=== PATIENT | male | born 1965 | race Caucasian/White ===

== ENCOUNTER → 2023-04-24 08:04 | Outpatient (REF) | payer OTHER, SELFPAY | LOC: WOUND 08:04 | PROVIDERS: ATTENDING PHYSICIAN Surgery; REFERRING PHYSICIAN Family Medicine | DX: I87.2 Venous insufficiency (chronic) (peripheral) (principal); L97.825 Non-pressure chronic ulcer of other part of left lower leg with muscle involvement without evidence of necrosis; I73.9 Peripheral vascular disease, unspecified; Z79.01 Long term (current) use of anticoagulants; Z86.73 Personal history of transient ischemic attack (TIA), and cerebral infarction without residual deficits; Z86.718 Personal history of other venous thrombosis and embolism; M21.372 Foot drop, left foot; I89.0 Lymphedema, not elsewhere classified; I10 Essential (primary) hypertension; E11.65 Type 2 diabetes mellitus with hyperglycemia; E66.01 Morbid (severe) obesity due to excess calories | CPT/HCPCS: 11043; 11046; 99204 ==

== ENCOUNTER 2023-08-27 09:19 | Emergency (ER) | payer OTHER, SELFPAY ==
[2023-08-27 09:42] VITALS: BP 171/94
--- NOTE | 2023-08-27 10:12 | ED.GENMED ---
History of Present Illness
General
Chief Complaint: Abdominal Symptoms
Source: patient
Exam Limitations: none
Time Seen by Provider: 08/27/23 09:52
Nursing documentation reviewed up to this point in time: agreed with
Travel History
Have you had any contact with someone who has COVID-19?: No
Do you have any symptoms of coronavirus? Fever > 100 degrees, chills, cough, shortness of breath, sore throat, loss of taste or smell, muscle aches, or headache?: No
History of Present Illness
History of Present Illness:
58-year-old male with a past medical history of obesity, hypertension, atrial fibrillation on Xarelto, diabetes, chronic alcohol abuse who presents to the emergency department for evaluation of abdominal pain. Patient reports onset of symptoms
evening and have been constant since that time and he feels generally worsening. Initially he reports onset of nausea/unsettled feeling in the epigastric region. Sunday says he had a few episodes of vomiting as well as on Sunday. No
vomiting yesterday. Today started having more pain in the epigastric region and still feeling very nauseated. Came to the emergency room for assessment. He has not had any diarrhea or constipation. He has not had any urinary issues. Denies any
chest pain or shortness of breath. He denies any fever or chills. He does report daily alcohol use (~10 beers daily). He says his last drink was 2 days ago. He does feel mildly anxious and appears slightly restless.
Past History
Past History
ED Past Medical History: Arrthythmia (afib on Xarelto), CVA, HTN, Hypercholesterolemia, NIDDM, Other (Fatty liver, GERD, history of A-fib, left foot drop, anxiety) and Other (sleep apnea/obesity/)
ED Past Surgical History: Cardiac and Tonsilectomy
Social History
Tobacco: Non-smoker
Alcohol: Binge drinker
Drug: Cocaine
Personal:
Living: with family
Employment: Employed
Family History
Family History: Other
Review of Systems
Review of Systems
All Other Systems: ROS reviewed and negative except as documented in HPI and ROS
Constitutional: Denies fever or chills
EENT: Denies sore throat or runny nose
Respiratory: Denies cough or trouble breathing
Cardiac: Denies chest pain or palpitations
ABD/GI: Reports abdominal pain, nausea and vomiting; Denies diarrhea or constipated
: Denies dysuria, frequency or flank pain
Musculoskeletal: Denies neck pain or back pain
Neurological: Denies headache, weakness or numbness
Psychiatric: Reports anxiety
Phy Exam
Physical Exam
Physical Exam:
General: Awake, alert, oriented x3; somewhat restless/anxious appearing
Head: Normocephalic, atraumatic
Eyes: Conjunctiva normal, EOMI, sclera anicteric
Throat: Airway intact, handling secretions
Neck: Trachea midline, supple without meningismus
Lungs: Clear to auscultation bilaterally, no wheezing, rales, rhonchi
Heart: Regular rate and rhythm, no murmurs, gallops, or rubs
Abd: Soft, obese, nondistended; mild tenderness epigastric region no peritoneal signs and no masses
Neuro: Cranial nerves grossly intact, speech fluent no dysarthria; he is somewhat restless and has a mild tremor
Skin: Moist, no rash
Extremities: No edema in extremities, equal pulses in all extremities
Scores
Heart Failure Risk
Heart Failure Risk Score: Not Applicable
Heart Score for Chest Pain Patients
STEMI patient?: Not applicable
Withdrawal Assessment of Alcohol
Withdrawal Assessment Completed?: Yes
Nausea and Vomiting: Mild nausea with no vomiting
Tactile Disturbances: None
Tremor: Not visible, but can be felt fingertip to fingertip
Auditory Disturbances: Not present
Paroxysmal Sweats: Beads of sweat obvious on forehead
Visual Disturbances: Not present
Anxiety: Moderately anxious, or guarded, so anxiety is inferred
Headache, Fullness in Head: Not present
Agitation: Moderately fidgety and restless
Orientation and clouding of sensorium: Oriented and can do serial additions
Total CIWA Score: 14
Alcohol Withdrawal Medication Recommendation: Equal to MSAS Score 5-7. Lorazepam 1mg IV or PO NOW & re-assess q2hrs
Course
Orders/Labs/Results
Orders:
Orders
08/27/23 10:00
Troponin I Urgent
08/27/23 10:01
Alcohol Urgent
Complete Blood Count/With Diff Urgent
Comprehensive Metabolic Panel Urgent
Lipase Urgent
Urinalysis Reflex To Culture Urgent
Date Specimen was Collected: 08/27/23
Time Specimen was Collected: 09:50
Urine Microscopic Reflex Cult Urgent
08/27/23 10:08
CT Abd/pelvis W Iv Cont Urgent
Comment:
Reason For Exam: epigastric pain, chronic ETOH abuse
Lorazepam [Ativan] 1 mg IV NOW STA
Mag Hydrox/Al Hydrox/Simeth [Maalox] 30 ml Phenobarb/Hyoscy/Atropine/Scop [] 10 ml PO NOW
Pantoprazole [Protonix IV] 40 mg IV NOW STA
08/27/23 10:13
Mag Hydrox/Al Hydrox/Simeth [Maalox] 30 ml .ROUTE .STK-MED ONE
Phenobarb/Hyoscy/Atropine/Scop [] 10 ml .ROUTE .STK-MED ONE
08/27/23 10:20
Electrocardiogram (*1) Urgent
Reason for Study: Abdominal Pain
EKG- Treatment ONCE
Abnormal Lab Results
08/27/23
10:01
Absolute Lymphs (auto) 0.9 L 10^3/uL
(1.2-3.4)
Absolute Monos (auto) 0.9 H 10^3/uL
(0.1-0.6)
Immature Gran % 0.6 H %
(0-0.5)
Lymphocytes % 12.3 L %
(20.5-51.1)
Monocytes % 11.7 H %
(1.7-9.3)
Sodium 131 L mmol/L
(135-145)
Chloride 92 L mmol/L
(98-107)
BUN 8 L mg/dl
(9-20)
Glucose 170 H mg/dl
(70-99)
ALT 64 H U/L
(0-50)
Urine RBC 3-6 A /HPF
(0-2)
Urine Glucose 3+ A
(Negative)
Urine Albumin (Reflex) 1+ A
(Neg - Trace)
08/27/23 10:01
08/27/23 10:01
Vital Signs
Initial and Last Documented VS:
Initial Vital Signs
Temp Pulse Resp BP Pulse Ox
36.8 C 70 16 171/94 98
08/27/23 09:42 08/27/23 09:42 08/27/23 09:42 08/27/23 09:42 08/27/23 09:42
Last Documented Vital Signs
Temp Pulse Resp BP Pulse Ox
37.1 C 75 16 176/88 96
08/27/23 11:55 08/27/23 13:17 08/27/23 13:17 08/27/23 13:17 08/27/23 13:17
MDM/Problems Addressed
Differential Diagnosis Includes:
Pancreatitis, alcoholic hepatitis, alcoholic gastritis, cholelithiasis/cholecystitis
MDM/Problems Addressed:
58-year-old male presents for evaluation of epigastric pain associate with nausea and vomiting over the past few days. He is a daily drinker. He also has some mild signs of alcohol withdrawal on exam today�says that his last drink was 2 days ago.
He is hypertensive, vital signs otherwise normal. Physical exam as above. Plan to place an IV check labs including a CBC and CMP, lipase. Will check urinalysis. Check alcohol level. Will check an EKG and a troponin in an abundance of caution
although symptoms do not sound classically cardiac in nature. Sent for CT of the abdomen pelvis. Treat with IV Ativan for mild withdrawal. Will treat with green grabber and IV Protonix�while pancreatitis and hepatitis are in the differential
diagnosis I suspect this may be a gastritis as he is only mildly tender on exam. Will monitor closely reassess after the above.
Labs reviewed: CBC unremarkable, CMP shows no clinically significant abnormalities�T bilirubin normal, ALT only marginally elevated at 64, lipase is normal. EKG shows no STEMI, troponin negative x 1 with consistent symptoms for days this is
sufficient to rule out an acute coronary syndrome; again symptoms do not sound cardiac. Alcohol is negative. CT abdomen pelvis shows gallstones but no signs of cholecystitis and no other acute pathology to account for patient's symptoms. While
gallstones are possible cause for his symptoms I suspect this is more likely alcohol related gastritis based on clinical presentation. While pain is occasionally worse with meals it is not clearly postprandial and seems more alcohol related. On
clinical reassessment patient had marked improvement with Protonix and green grabber here. He received some Ativan earlier for questionable alcohol withdrawal�he seems to be feeling much better has been here now for 5 hours has had no additional
symptoms of withdrawal will repeat doses of Ativan needed. I had a long discussion with the patient about his alcohol use explained that it is likely etiology or at least a contributor to his symptoms today. Explained that he has fatty liver on CT
abdomen and if he continues to drink likely to eventually develop cirrhosis. He says that he is not interested in rehab today but I did provide him with a list of rehab resources should he change his mind. I think at this point he is stable for
discharge with his symptoms resolved. Advised to follow-up with his primary care physician as an outpatient and will start him on Carafate and Protonix. He feels very comfortable with this. Spoke about return precautions all questions answered.
Chronic conditions affecting care:
Daily alcohol use
Acute Exacerbation and/or Progression of Chronic Illness:
Acutely hypertensive suspect secondary to mild alcohol withdrawal�treated with Ativan
Acute Exacerbation and/or Progression of Chronic Illness: HTN
*Radiology
Radiology exam reviewed: radiology read reviewed
*Pulse Oximetry
Patient hypoxic: no
*Critical Care Note
Total Time (30-74mins, 75-104mins- exclusive of procedures): Not Applicable
Data Reviewed
Review of Other/Old Records Reveals: Labs and Records
Source: patient and records
Patient Management
Social determinants of health affecting care: Substance abuse
ED Attending Note
-
Portions of this chart may have been created with voice recognition software.� Occasional wrong word or��sound alike� substitutions may have occurred due to the inherent limitations of voice recognition software.
Discharge Plan
Departure
Patient Disposition: Home (Routine Discharge)
Date of Disposition: 08/27/23
Time of Disposition: 14:38
Patient with high blood pressure during this ER visit?: Yes
Discharge Problem:
Acute alcoholic gastritis, Fatty liver, Gallstones
Instructions: Gastritis ED
Prescriptions:
New
pantoprazole [Protonix] 40 mg tablet,delayed release (DR/EC)
40 mg PO DAILY Qty: 30 0RF
sucralfate [Carafate] 100 mg/mL suspension
10 ml PO ACHS Qty: 1000 0RF
No Action
amlodipine 5 MG tablet
10 mg PO DAILY
doxazosin 4 MG tablet
4 mg PO DAILY
metoprolol tartrate 50 MG tablet
150 mg PO BID
bupropion HCl 300 MG tablet extended release 24 hr
300 mg PO DAILY
Xarelto 20 MG tablet
20 mg PO QPM
gabapentin [Neurontin] 600 MG tablet
600 mg PO TID
venlafaxine [Effexor XR] 150 MG capsule,extended release 24hr
300 mg PO DAILY
famotidine 20 MG tablet
20 mg PO DAILY
metformin 500 MG tablet extended release 24 hr
500 mg PO QID
zolpidem [Ambien CR] 12.5 MG tablet,ext release multiphase
12.5 mg PO HSPRN PRN (Reason: sleep)
Patient Comments:
05/05/2021: last filled 04/25/21, 30 tabs for 30 days from [facility]
zolpidem 10 MG tablet
10 mg PO HSPRN PRN (Reason: insomnia) Qty: 10 0RF
bupropion HCl [Wellbutrin XL] 300 mg tablet extended release 24 hr
300 mg PO DAILY Qty: 30 0RF
Referrals:
Shelbie Mejia MD [Family Provider] - Call in 1-3 days for appt
Activity Restrictions/Additional Instructions:
YOU MUST STOP DRINKING ALCOHOL OR IT WILL KILL YOU! If you need any help with rehab or resources for alcohol treatment you can always come back to the ED here for help.
Thank you for visiting the Emergency Department at [facility].
1. Please schedule a follow up appointment as directed. Call first thing tomorrow morning to make an appointment.
2. If indicated, please take your medications as instructed and indicated on discharge paperwork.
3. If any of your symptoms do not improve, or persist, or become more severe within 6-12 hours, please return to the emergency department for further care.
4. Please return to the emergency department if you develop a headache, neck pain/stiffness, fever greater than 100.4F, chest pain, shortness of breath, persistent nausea, vomiting, slurred speech, difficulty walking, numbness/tingling, weakness,
signs of infection or any other symptoms that are worrisome to you.
Please call [phone] if you have any questions.
Interventions
Interventions:
*Risk Screen - Suicide Last Done: 08/27/23 10:29
*General Assessment Last Done: 08/27/23 10:29
*Neglect/Abuse Screening Last Done: 08/27/23 10:29
ED- Fall Risk Assessment Last Done: 08/27/23 12:00
*ED COVID-19 Vaccine History Last Done: 08/27/23 09:42
[id number] Assessment Last Done: 08/27/23 12:00
[2023-08-27] MEDS: PROTONIX IV 40 MG IV (10:15)
[2023-08-27] MEDS: MAALOX 40 PO (10:15)
[2023-08-27] MEDS: ATIVAN 1 MG IV (10:15)
[2023-08-27 11:02] LABS: Troponin I < 0.012 ng/ml
[2023-08-27 11:07] LABS: % Basophils 0.8 % (0-2); % Eosinophils 2.6 % (0-6); % Immature Granulocytes 0.6 % (0-0.5); % Lymphocytes 12.3 % (20.5-51.1); % Monocytes 11.7 % (1.7-9.3); Absolute Basophils 0.1 10^3/uL (0-0.2); Absolute Eosinophils 0.2 10^3/uL (0-0.7); Absolute Lymphocytes 0.9 10^3/uL (1.2-3.4); Absolute Monocytes 0.9 10^3/uL (0.1-0.6); Absolute Neutrophils 5.2 10^3/uL (1.4-6.5); Hematocrit 47.8 % (39.0-52.0); Mean Corp Hgb Conc. 35.6 g/dL (33.0-37.0); Mean Corpuscular Hgb 30.7 pg (27.0-31.0); Mean Corpuscular Volume 86.3 fL (80.0-94.0); Mean Platelet Volume 9.5 fL (7.4-10.4); Nucleated Red Blood Cells % 0 % (-); Platelet Count 164 10^3/uL (130-400); Red Blood Cell Count 5.54 10^6/uL (4.70-6.10); Red Cell Dist. Width 13.5 % (11.5-14.5); White Blood Cell Count 7.3 10^3/uL (4.8-10.8)
[2023-08-27 11:13] LABS: Urine Albumin 1+ (Neg - Trace); Urine Bilirubin Negative (Negative); Urine Character Clear (Clear); Urine Color Yellow; Urine Glucose 3+ (Negative); Urine Ketone Negative (Negative); Urine Leukocyte Negative (Negative); Urine Nitrite Negative (Negative); Urine Occult Blood Negative (Negative); Urine Specific Gravity 1.015 (<1.030); Urine Urobilinogen Negative (Neg - 1+)
[2023-08-27 11:26] LABS: ALT (SGPT) 64 U/L (0-50); AST (SGOT) 54 U/L (17-59); Albumin 4.6 g/dl (3.5-5.0); Alcohol < 10 mg/dl; Alkaline Phosphatase 72 U/L (38-126); Blood Urea Nitrogen 8 mg/dl (9-20); Calcium 9.1 mg/dl (8.4-10.2); Carbon Dioxide 29 mmol/L (22-30); Chloride 92 mmol/L (98-107); Glucose 170 mg/dl (70-99); Lipase 103 U/L (23-300); Potassium 4.2 mmol/L (3.5-5.1); Sodium 131 mmol/L (135-145); Total Protein 7.4 g/dl (6.3-8.2); eGFR > 60.00
[2023-08-27 11:27] LABS: Urine White Cell 0-2 /HPF (0-5)
[2023-08-27 11:55] VITALS: BP 169/99
[2023-08-27 13:17] VITALS: BP 176/88
== END 2023-08-27 15:02 | disposition home or self-care (01) ==
LOC: EMR 09:19
PROVIDERS: EMERGENCY PHYSICIAN Emergency Medicine; FAMILY PHYSICIAN Family Medicine
DX: K29.20 Alcoholic gastritis without bleeding (principal); K76.0 Fatty (change of) liver, not elsewhere classified; K80.20 Calculus of gallbladder without cholecystitis without obstruction; I10 Essential (primary) hypertension; F10.10 Alcohol abuse, uncomplicated; Z79.01 Long term (current) use of anticoagulants
CPT/HCPCS: 99285; 96374; 96375; 74177; 80053; 81003; 81015; 82077; 83690; 84484; 85025; 93005; Q9967

== ENCOUNTER 2023-12-27 09:49 | Emergency (ER) | payer OTHER, SELFPAY ==
[2023-12-27 09:53] VITALS: BP 164/77
[2023-12-27 10:29] VITALS: BMI 39.2
[2023-12-27 10:39] LABS: % Basophils 0.9 % (0-2); % Eosinophils 2.9 % (0-6); % Lymphocytes 15.7 % (20.5-51.1); % Neutrophils 70.5 % (42.2-75.2); Absolute Basophils 0.1 10^3/uL (0-0.2); Absolute Eosinophils 0.3 10^3/uL (0-0.7); Absolute Immature Granulocytes 0.1 10^3/uL (0-0.05); Absolute Lymphocytes 1.5 10^3/uL (1.2-3.4); Absolute Monocytes 0.8 10^3/uL (0.1-0.6); Absolute Neutrophils 6.6 10^3/uL (1.4-6.5); Hematocrit 44.8 % (39.0-52.0); Hemoglobin 16.2 g/dL (13.0-18.0); Mean Corp Hgb Conc. 36.2 g/dL (33.0-37.0); Mean Corpuscular Hgb 32.2 pg (27.0-31.0); Mean Corpuscular Volume 89.1 fL (80.0-94.0); Mean Platelet Volume 9.6 fL (7.4-10.4); Nucleated Red Blood Cells % 0 % (-); Platelet Count 159 10^3/uL (130-400); Red Blood Cell Count 5.03 10^6/uL (4.70-6.10); White Blood Cell Count 9.3 10^3/uL (4.8-10.8)
[2023-12-27 10:44] LABS: PT 20.1 Sec (11.4-14.6)
[2023-12-27 10:48] LABS: ALT (SGPT) 53 U/L (0-50); AST (SGOT) 61 U/L (17-59); Albumin 4.2 g/dl (3.5-5.0); Alkaline Phosphatase 65 U/L (38-126); Blood Urea Nitrogen 21 mg/dl (9-20); Calcium 9.4 mg/dl (8.4-10.2); Carbon Dioxide 32 mmol/L (22-30); Chloride 96 mmol/L (98-107); Estimated Creatinine Clearance 103 ml/min; Glucose 139 mg/dl (70-99); Potassium 3.2 mmol/L (3.5-5.1); Sodium 138 mmol/L (135-145); Total Protein 6.8 g/dl (6.3-8.2); eGFR > 60.00
--- NOTE | 2023-12-27 12:51 | ED.GENMED ---
History of Present Illness
General
Chief Complaint: Crisis Evaluation
Source: patient and police
Exam Limitations: none
Time Seen by Provider: 12/27/23 10:50
Nursing documentation reviewed up to this point in time: agreed with
Travel History
Have you had any contact with someone who has COVID-19?: No
Do you have any symptoms of coronavirus? Fever > 100 degrees, chills, cough, shortness of breath, sore throat, loss of taste or smell, muscle aches, or headache?: No
History of Present Illness
History of Present Illness:
58-year-old male with past medical history of A-fib, GERD, hypertension, alcohol abuse presenting to the emergency department today after having a vivid dream where he felt some loose breaking into his home and then he was unsure whether he had a
hallucination that there were people in his house or he was half asleep. He is here seeking crisis evaluation. He denies any thoughts of harming himself or others.
Past History
Past History
ED Past Medical History: Arrthythmia (afib on Xarelto), CVA, HTN, Hypercholesterolemia, NIDDM, Other (Fatty liver, GERD, history of A-fib, left foot drop, anxiety) and Other (sleep apnea/obesity/)
ED Past Surgical History: Cardiac and Tonsilectomy
Social History
Tobacco: Non-smoker
Alcohol: Binge drinker
Drug: Cocaine
Personal:
Living: with family
Employment: Employed
Family History
Family History: Other
Review of Systems
Review of Systems
Allergies reviewed?: Yes
All Other Systems: ROS reviewed and negative except as documented in HPI and ROS
Phy Exam
Physical Exam
Physical Exam:
GENERAL: Alert , in no apparent distress
EYE: pupils equal and reactive
NECK: Supple, no significant adenopathy.
ENT: o/p clr, mmm.
CARDIAC: Regular rate and rhythm .
LUNGS: Clear breath sounds bilaterally, no acute respiratory distress, no wheezes/rales/rhonchi
ABDOMEN: Soft, without focal tenderness, no r/g, no cvat
NEUROLOGICAL: Alert and oriented, no focal neuro deficits
SKIN: Warm and dry, skin intact.
MUSCULOSKELETAL: Edema throughout the legs bilaterally. He claims that this is chronic and unchanged., well perfused.
PSYCH: Normal and appropriate interaction.
Course
Orders/Labs/Results
Orders:
Orders
12/27/23 10:27
Urine Drug Abuse Screen Urgent
Date Specimen was Collected: 12/27/23
Time Specimen was Collected: 10:27
12/27/23 10:29
Complete Blood Count/With Diff Urgent
Comprehensive Metabolic Panel Urgent
PT/INR [Prothrombin Time] Urgent
12/27/23 10:50
EKG [Electrocardiogram (*1)] Urgent
Reason for Study: Fatigue / Weakness
12/27/23 10:51
EKG- Treatment ONCE
12/27/23 11:01
Crisis Consult Urgent
Reason for Consult: psych eval
Abnormal Lab Results
12/27/23
10:29
MCH 32.2 H pg
(27.0-31.0)
Abs Immat Gran (auto) 0.1 H 10^3/uL
(0-0.05)
Absolute Neuts (auto) 6.6 H 10^3/uL
(1.4-6.5)
Absolute Monos (auto) 0.8 H 10^3/uL
(0.1-0.6)
Immature Gran % 1.0 H %
(0-0.5)
Lymphocytes % 15.7 L %
(20.5-51.1)
PT 20.1 H Sec
(11.4-14.6)
Potassium 3.2 L mmol/L
(3.5-5.1)
Chloride 96 L mmol/L
(98-107)
Carbon Dioxide 32 H mmol/L
(22-30)
BUN 21 H mg/dl
(9-20)
Glucose 139 H mg/dl
(70-99)
AST 61 H U/L
(17-59)
ALT 53 H U/L
(0-50)
12/27/23 10:29
12/27/23 10:29
Vital Signs
Initial and Last Documented VS:
Initial Vital Signs
Temp Pulse Resp BP Pulse Ox
99.4 F 64 18 164/77 96
12/27/23 09:53 12/27/23 09:53 12/27/23 09:53 12/27/23 09:53 12/27/23 09:53
Last Documented Vital Signs
Temp Pulse Resp BP Pulse Ox
99.4 F 64 18 164/77 96
12/27/23 09:53 12/27/23 09:53 12/27/23 09:53 12/27/23 09:53 12/27/23 09:53
MDM/Problems Addressed
MDM/Problems Addressed:
58-year-old male present today with concerns of night terror last night thinks he may have been seeing things this morning but otherwise feels well at this moment denies any chest pain shortness of breath nausea vomiting recent illness. Does drink
daily but denies any history of withdrawal. Denies any thoughts of harm to self or others here. Seeking psychiatric evaluation.
*Critical Care Note
Total Time (30-74mins, 75-104mins- exclusive of procedures): Not Applicable
ED Attending Note
-
Portions of this chart may have been created with voice recognition software.� Occasional wrong word or��sound alike� substitutions may have occurred due to the inherent limitations of voice recognition software.
Discharge Plan
Departure
Patient Disposition: [facility]
Date of Disposition: 12/27/23
Time of Disposition: 12:53
Patient with high blood pressure during this ER visit?: No
Condition: Good
Covid-19: Not Applicable
Discharge Problem:
Adult night terror, Hypokalemia
Instructions: Drug and Alcohol Abuse Information
Prescriptions:
New
potassium chloride 20 mEq tablet extended release
20 meq PO DAILY 7 Days Qty: 7 0RF
No Action
amlodipine 5 MG tablet
10 mg PO DAILY
doxazosin 4 MG tablet
4 mg PO DAILY
metoprolol tartrate 50 MG tablet
150 mg PO BID
bupropion HCl 300 MG tablet extended release 24 hr
300 mg PO DAILY
Xarelto 20 MG tablet
20 mg PO QPM
gabapentin [Neurontin] 600 MG tablet
600 mg PO TID
venlafaxine [Effexor XR] 150 MG capsule,extended release 24hr
300 mg PO DAILY
famotidine 20 MG tablet
20 mg PO DAILY
metformin 500 MG tablet extended release 24 hr
500 mg PO QID
zolpidem [Ambien CR] 12.5 MG tablet,ext release multiphase
12.5 mg PO HSPRN PRN (Reason: sleep)
Patient Comments:
05/05/2021: last filled 04/25/21, 30 tabs for 30 days from [facility]
zolpidem 10 MG tablet
10 mg PO HSPRN PRN (Reason: insomnia) Qty: 10 0RF
bupropion HCl [Wellbutrin XL] 300 mg tablet extended release 24 hr
300 mg PO DAILY Qty: 30 0RF
pantoprazole [Protonix] 40 mg tablet,delayed release (DR/EC)
40 mg PO DAILY Qty: 30 0RF
sucralfate [Carafate] 100 mg/mL suspension
10 ml PO ACHS Qty: 1000 0RF
Referrals:
Peewee Garcia CRNP [Family Provider] -
Activity Restrictions/Additional Instructions:
Please go directly to crisis for further assessment. Return to the emergency department for any worsening, new or concerning symptoms. Otherwise you do have a slightly low potassium level please take the potassium supplementation and get repeated
labs in the next week or 2.
Interventions
Interventions:
*Risk Screen - Suicide Last Done: 12/27/23 09:53
*General Assessment Last Done: 12/27/23 09:53
*Neglect/Abuse Screening Last Done: 12/27/23 09:53
ED- Fall Risk Assessment Last Done: 12/27/23 10:13
*ED COVID-19 Vaccine History Last Done: 12/27/23 10:13
ED-Psychological Assessment Last Done: 12/27/23 10:14
Discharge Date and Time
Print Language: CITIZEN [place]
== END 2023-12-27 13:29 ==
LOC: EMR 09:49
PROVIDERS: EMERGENCY PHYSICIAN Emergency Medicine; FAMILY PHYSICIAN Nurse Practitioner Family
DX: E87.6 Hypokalemia (principal); F51.4 Sleep terrors [night terrors]; I48.91 Unspecified atrial fibrillation; K21.9 Gastro-esophageal reflux disease without esophagitis; I10 Essential (primary) hypertension; E78.00 Pure hypercholesterolemia, unspecified; E11.9 Type 2 diabetes mellitus without complications; F41.9 Anxiety disorder, unspecified; G47.30 Sleep apnea, unspecified; K76.0 Fatty (change of) liver, not elsewhere classified; E66.9 Obesity, unspecified; M21.372 Foot drop, left foot; Z86.73 Personal history of transient ischemic attack (TIA), and cerebral infarction without residual deficits; Z79.01 Long term (current) use of anticoagulants; Z79.84 Long term (current) use of oral hypoglycemic drugs; Z88.0 Allergy status to penicillin; Z88.2 Allergy status to sulfonamides
CPT/HCPCS: 99283; 80053; 85025; 85610; 93005

== ENCOUNTER 2024-10-20 13:40 | Inpatient (IN) | payer OTHER, SELFPAY ==
[2024-10-20] VITALS (19 sets, daily range): BP systolic 163–210; BP diastolic 86–110; PULSE 80; BMI 61.3; BMI 60.6
--- NOTE | 2024-10-20 09:51 | ED.GENMED ---
History of Present Illness
General
Chief Complaint: Breathing Problem
Source: patient
Time Seen by Provider: 10/20/24 09:36
History of Present Illness
History of Present Illness:
59-year-old male presents to the emergency room complaining of shortness of breath. Patient noted to be hypoxic on arrival at 88%. Patient has not been feeling well for the past couple days with increasing shortness of breath. He began having a
sore throat which then progressed to the shortness of breath. He feels the symptoms are similar to when he had COVID in the past. He denies chest pain. He was unable to get out of bed due to the shortness of breath which resulted in him having
fecal incontinence. He endorses daily alcohol use consuming at least 1/5 of vodka a day. His last drink was last night. He has not used recreational drugs and a couple months but has used marijuana and crack cocaine. Patient has a history of
atrial fibrillation and is prescribed Xarelto. He has run out of some of his medication in particular his metformin and his Atacand. He states he has been compliant with his Xarelto and has not missed any doses of that. Patient additionally
states he is feeling anxious and tremulous which he feels is due to not having a drink in a while. Patient has noticed swelling in his lower extremities left greater than right. He cannot fit his left foot into a sneaker and has now suffered an
injury to his left great toe.
Past History
Past History
ED Past Medical History: Arrthythmia (afib on Xarelto), CVA, HTN, Hypercholesterolemia, NIDDM, Other (Fatty liver, GERD, history of A-fib, left foot drop, anxiety) and Other (sleep apnea/obesity/)
ED Past Surgical History: Cardiac and Tonsilectomy
Social History
Tobacco: Non-smoker
Alcohol: Binge drinker
Drug: Cocaine
Personal:
Living: with family
Employment: Employed
Family History
Family History: Other
Phy Exam
Physical Exam
Physical Exam:
General: Awake, Alert, Oriented X3. Increased work of breathing, poorly kept and disheveled.
Vitals: Hypertensive, tachypneic, oral temp of 100.2 on my measurement.
Head: Atraumatic
Eyes: Pupils equal, EOMI
Throat: Airway intact, no exudates
Neck: Trachea midline
Lungs: Difficult to auscultate given body habitus but faint crackles bilaterally
Heart: Regular rate, no murmurs
Abd: Soft, Nontender, No pulsatile mass
Neuro: Grossly nonfocal
Skin: Warm, dry, no rash
Extremities: 3+ edema, changes chronic venous stasis, left great toe has a ulcerative wound on the volar surface.
Scores
Heart Failure Risk
Heart Failure Risk Score: Yes
History of Stroke or TIA: No
History of intubation for respiratory distress: No
Heart rate on ED arrival >/= 110: Yes
SaO2 <90% on arrival on room air: Yes
HR >/=110 during 3min walk test (or too ill to perform test): Yes
ECG has acute ischemic changes: No
Urea >/=12mmol/L (BUN 33.6mg/dL): No
Serum CO2>/=35mmol/L: No
Troponin I or T elevated to IA Level (0.4mg/dL): No
NT-proBNP >/=5,000ng/L (5,000pg/ml): No
HF Risk Score: 3
Admission Status: HIGH RISK 15.9% Consider SNF treatment or admission to hospital
Course
Orders/Labs/Results
Orders:
Orders
10/20/24 09:44
Cardiac Monitoring- Treatment ONCE
O2 Therapy [RESP] Stat
Nasal Cannula Liter Flow: 2 LPM
Titrate/Wean O2 to maintain O2 sat greater than (%): 92
10/20/24 09:45
Electrocardiogram (*1) Stat
Reason for Study: Other
Other Reason for Exam: pneumonia
EKG- Treatment ONCE
CR Chest - 2 Views Urgent
Comment:
Reason For Exam: sob, hypoxia, cough
10/20/24 09:51
Lorazepam [Ativan] 1 mg IV NOW STA
10/20/24 09:55
CR Foot - Left 2 Views Urgent
Reason For Exam: pain, swelling
10/20/24 10:09
COVID-19 Antigen Urgent
Source: Nasal Swab
Influenza A+B Rapid Molecular Urgent
AMANDA Source: Nasal Swab
Specimen Description:
10/20/24 10:10
Complete Blood Count/With Diff Urgent
Comprehensive Metabolic Panel Urgent
Lactic Acid Q4H
Comment: CANCEL 2nd LACTIC ACID IF 1st LACTIC ACID IS LESS THAN 2
NT-proBNP Urgent
Prothrombin Time Urgent
Troponin I Urgent
Blood Culture Urgent
AMANDA Source: Blood/Venous
Specimen Description:
10/20/24 10:11
Blood Culture Urgent
AMANDA Source: Blood/Venous
Specimen Description:
10/20/24 11:40
Furosemide [Lasix] 40 mg IV NOW STA
10/20/24 11:41
Lorazepam [Ativan] 2 mg IV NOW STA
10/20/24 12:36
Nitroglycerin Ointment [Nitro-Bid] 1 inch TOPICAL NOW STA
10/20/24 12:47
Fentanyl, Urine Urgent
Urinalysis Reflex To Culture Urgent
Date Specimen was Collected: 10/20/24
Time Specimen was Collected: 12:37
Urine Drug Abuse Screen Urgent
Date Specimen was Collected: 10/20/24
Time Specimen was Collected: 12:37
Urine Microscopic Reflex Cult Urgent
10/20/24 12:53
Admit/Transfer Patient As Directed
Co-Sign Provider:
Level of Care: Inpatient admission
Assign to:: IMU- Intermediate Care
Physician / Group: [place]/Hospitalist
Diagnosis: new onset acute CHF, alcohol withdrawal
Reason for Hospitalization: new onset acute CHF, alcohol withdrawal
Expected length of stay greater than two midnights?: Yes
ELOS- Estimated Length of Stay in days: 3
I certify the patient meets the requirements for IP care: Yes
10/20/24 12:55
PRN Pain Medication Management As Directed
May give lesser potent ordered pain med per pt: Yes
preference::
Protocol:: Medication orders for pain may be administered in a
manner that supports deferring to patient preference
when the pt is:
- Requesting an ordered lesser potent pain medication.
Least to most potent pain medications are defined
as: acetaminophen < NSAID < tramadol < opioids
(morphine, oxycodone, hydromorphone).
- Requesting a lesser dose of the same medication IF
ORDERED.
- Requesting a less intrusive route of administration
if both routes are prescribed by the provider (PO <
IV).
10/20/24 13:15
Code Status As Directed
Resuscitation Status: Full Code
10/20/24 14:11
Lactic Acid Q4H
Comment: CANCEL 2nd LACTIC ACID IF 1st LACTIC ACID IS LESS THAN 2
Abnormal Lab Results
10/20/24 10/20/24
10:10 12:47
RBC 3.82 L 10^6/uL
(4.70-6.10)
Hgb 12.5 L g/dL
(13.0-18.0)
Hct 36.0 L %
(39.0-52.0)
MCV 94.2 H fL
(80.0-94.0)
MCH 32.7 H pg
(27.0-31.0)
RDW 16.3 H %
(11.5-14.5)
Plt Count 122 L 10^3/uL
(130-400)
Abs Immat Gran (auto) 0.1 H 10^3/uL
(0-0.05)
Absolute Lymphs (auto) 0.8 L 10^3/uL
(1.2-3.4)
Immature Gran % 0.7 H %
(0-0.5)
Neutrophils % 78.6 H %
(42.2-75.2)
Lymphocytes % 10.2 L %
(20.5-51.1)
PT 18.9 H Sec
(11.4-14.6)
Chloride 94 L mmol/L
(98-107)
Carbon Dioxide 31 H mmol/L
(22-30)
Glucose 197 H mg/dl
(70-99)
Lactic Acid 4.8 H* mmol/L
(0.7-2.0)
AST 98 H U/L
(17-59)
ALT 94 H U/L
(0-50)
Urine Bacteria (Reflex) Few A
(Negative)
Urine Glucose 4+ A
(Negative)
Urine Albumin (Reflex) 1+ A
(Neg - Trace)
Urine Cocaine Screen Positive H
(Negative)
10/20/24 10:10
10/20/24 10:10
Vital Signs
Initial and Last Documented VS:
Initial Vital Signs
Temp Pulse Resp BP Pulse Ox
99 F 82 40 207/110 88
10/20/24 09:28 10/20/24 09:28 10/20/24 09:28 10/20/24 09:28 10/20/24 09:28
Last Documented Vital Signs
Temp Pulse Resp BP Pulse Ox
99.2 F 82 26 182/92 98
10/20/24 13:15 10/20/24 14:00 10/20/24 14:00 10/20/24 14:00 10/20/24 14:00
MDM/Problems Addressed
Differential Diagnosis Includes:
Heart failure, pneumonia, effusion, PE
MDM/Problems Addressed:
Patient presents with significant shortness of breath has gotten quite severe. He was too short of breath even get out of bed. Workup here shows normal white count, mild anemia. Chemistry show an elevated lactic acid level of unclear
significance. He is afebrile. His white count is normal. I do not believe he has an acute infection. Suspect lactate is more related to chronic alcohol use and perhaps a level of alcoholic ketoacidosis. He is in fact in congestive heart
failure. Chest x-ray shows pulmonary edema and a cardiac silhouette that seems much larger compared to previous chest x-ray. UDS is positive for cocaine. Foot x-ray does not show any acute fracture. Patient will require hospitalization for
workup of his new onset heart failure, IV diuresis, blood pressure contro. Patient given a dose of IV Lasix an inch of nitro paste and placed on his chest wall. Patient also given IV lorazepam for anxiety to prevent the development of alcohol
withdrawal symptoms. Patient is at high risk for withdrawal given his alcohol consumption.
*Radiology
Radiology exam reviewed: preliminary read by ED provider (Congestive heart failure)
*Pulse Oximetry
Patient hypoxic: yes
*EKG
Interpreted by ED Provider?: Yes
Interpretation: normal
Heart Rate: 76
Rate: normal
Rhythm: sinus
Golden: normal axis
Interval: normal interval
QRS Pattern: normal QRS
Ischemia: no ischemia
*Hand Leather Trimmer Interpretation
Rate: normal
Interpretation: normal
Rhythm: sinus
*Critical Care Note
Total Time (30-74mins, 75-104mins- exclusive of procedures): 42 min
comment:
Critical care statement: A total of 42 minutes of critical care time was provided for this patient. This includes management of unstable vital signs, evaluation of the patient at bedside, reviewing the patient's pertinent medical records, discussion
with consultants, review of old EKGs and review of pertinent medical records. This time with separate from time utilized to perform the aforementioned documented procedures
Data Reviewed
Review of Other/Old Records Reveals: Labs and Radiology Studies
Patient Management
Social determinants of health affecting care: Living situation, Substance abuse, Financial situation, Poor outpatient follow-up and Poor social support
Discussion with other providers: Hospitalist
ED Attending Note
-
Portions of this chart may have been created with voice recognition software.� Occasional wrong word or��sound alike� substitutions may have occurred due to the inherent limitations of voice recognition software.
Discharge Plan
Departure
Patient Disposition: Admit
Date of Disposition: 10/20/24
Time of Disposition: 11:44
Admit to: IMU
Presentation/result/management discussed w/ accepting MD/DO: Hospitalist
Condition: Serious
Discharge Problem:
CHF (congestive heart failure), Alcohol use disorder, Open wound of right great toe
Interventions
Interventions:
*Risk Screen - Suicide Last Done: 10/20/24 10:01
*General Assessment Last Done: 10/20/24 10:01
*Neglect/Abuse Screening Last Done: 10/20/24 10:01
*ED- Fall Risk Assessment Last Done: 10/20/24 10:01
*ED COVID-19 Vaccine History Last Done: 10/20/24 10:01
ED- Cardiac Assessment Last Done: 10/20/24 10:01
ED- Pulmonary Assessment Last Done: 10/20/24 10:01
[2024-10-20] MEDS: ATIVAN 1 MG IV ×2 (10:17→20:34)
[2024-10-20 10:28] LABS: % Basophils 0.9 % (0-2); % Eosinophils 1.8 % (0-6); % Immature Granulocytes 0.7 % (0-0.5); % Lymphocytes 10.2 % (20.5-51.1); % Monocytes 7.8 % (1.7-9.3); % Neutrophils 78.6 % (42.2-75.2); Absolute Basophils 0.1 10^3/uL (0-0.2); Absolute Eosinophils 0.2 10^3/uL (0-0.7); Absolute Immature Granulocytes 0.1 10^3/uL (0-0.05); Absolute Lymphocytes 0.8 10^3/uL (1.2-3.4); Absolute Monocytes 0.6 10^3/uL (0.1-0.6); Absolute Neutrophils 6.5 10^3/uL (1.4-6.5); Hemoglobin 12.5 g/dL (13.0-18.0); Mean Corp Hgb Conc. 34.7 g/dL (33.0-37.0); Mean Corpuscular Hgb 32.7 pg (27.0-31.0); Mean Corpuscular Volume 94.2 fL (80.0-94.0); Mean Platelet Volume 8.9 fL (7.4-10.4); Nucleated Red Blood Cells % 0.4 % (-); Platelet Count 122 10^3/uL (130-400); Red Blood Cell Count 3.82 10^6/uL (4.70-6.10); Red Cell Dist. Width 16.3 % (11.5-14.5); White Blood Cell Count 8.2 10^3/uL (4.8-10.8)
--- NOTE | 2024-10-20 10:30 | EDRN ---
Received patient from Triage in respiratory distress. Pulse ox on room air 85%. Respirations are shallow and labored. Rate mid 20's. Placed on O2 6LNC. Patient stated that he's been SOB for the past 2 days. Patient with +4 leg edema. Abdomen is
large and firm. Patient stated that he does not think his legs or abdomen are more swollen than normal. +lower leg redness. Lower legs and feet with dried stool on them. Patient's shorts have dried stool in them.Patient with laceration to left big
toe. Patient stated that his toe rubs on his sneaker and it keeps opening up. Patient stated that he's had a cut on his toe since June. Patient stated that he was unable to clean his legs and feet. Patient stated that he has not being showering
for 'awhile'.
Patient on arrival to the room requesting Ativan. Patient stated that he drinks at least a fifth a day or several 'strong' beers a day. Patient stated that his last drink was last night. Patient stated that he has not used any other substances for
several months. Patient stated that he used opiates,cocaine and marijuana. Patient does not want to talk to [facility] at this time.
Patient requesting to see a social science professor to help him with his electric and phone bill. Patient stated that he both are going to be turned off. Patient stated that he is out of money so he would have been forced to stop drinking in a couple of day.
[2024-10-20 10:35] LABS: INR 1.56; PT 18.9 Sec (11.4-14.6)
[2024-10-20 10:37] LABS: ALT (SGPT) 94 U/L (0-50); AST (SGOT) 98 U/L (17-59); Albumin 3.9 g/dl (3.5-5.0); Alkaline Phosphatase 78 U/L (38-126); Blood Urea Nitrogen 15 mg/dl (9-20); Carbon Dioxide 31 mmol/L (22-30); Chloride 94 mmol/L (98-107); Estimated Creatinine Clearance > 125 ml/min; Glucose 197 mg/dl (70-99); Potassium 3.5 mmol/L (3.5-5.1); Sodium 139 mmol/L (135-145); Total Bilirubin 1.3 mg/dl (0.2-1.3); Total Protein 6.3 g/dl (6.3-8.2); eGFR > 60.00
[2024-10-20 10:42] LABS: Lactic Acid 4.8 mmol/L (0.7-2.0)
[2024-10-20 10:42] LABS: COVID-19 Antigen Negative (Negative)
[2024-10-20 10:49] LABS: NT-proBNP 777 pg/ml; Troponin I 0.022 ng/ml
[2024-10-20] MEDS: LASIX 40 MG IV ×2 (11:47→20:34)
[2024-10-20] MEDS: ATIVAN 2 MG IV (11:47)
--- NOTE | 2024-10-20 12:16 | CM ---
CM met with pt bedside
Pt resides alone in a 1st floor apartment in a [address], [address]
Pt from spouse, divorce process started
Pt ambulates indep with a WW and SPC
Has a cpap at home
Has hx with home O2 through [facility], [facility], [facility]
No O2 set up in the home any longer
PCP- Shelbie Mejia
Rx- Santiago
Pt notes daily alcohol use and hx with marijiana/crack cocaine
In agreement with [facility] once medically appropriate
Discharge Disposition- anticipate home likely with VN, watch for higher level needs
--- NOTE | 2024-10-20 12:20 | HPS.HSE ---
Family Physician
-
Family Physician: Shelbie Mejia MD
Chief Complaint
-
Shortness of breath
History of Present Illness
Patient is a 59-year-old male with past medical history significant for atrial fibrillation on Xarelto, CVA, hypertension, hyperlipidemia, lkq-brgaypc-ualcnpvau diabetes, fatty liver disease, GERD, left foot drop, anxiety, sleep apnea, obesity, CPAP
use, who presents to the emergency department today due to shortness of breath with noted hypoxia on arrival at 88%, associated with lower extremity swelling left side greater than right he notes that he has had increased shortness of breath over
the past couple of days. He denies associated chest pain, no palpitations, no lightheadedness, no dizziness, he has daily alcohol use at least 1/5 of vodka. His last drink was last night. He used to use marijuana and crack cocaine. Recently ran
out of some of his medications including Atacand and metformin. Otherwise has been compliant with Xarelto. He started to feel tremulous and anxious due to not having a drink since last night. Blood pressure in the emergency department initially
201/89 mmHg. Temperature 100.2. Oxygen saturation of 88% on room air.
ED treatment IV Ativan total of 3 mg, Lasix 40 mg IV once
Imaging performed:
X-ray of the right foot shows DJD no evidence of fracture
Chest x-ray shows pulmonary vascular congestion suggesting congestive heart failure
Abnormal laboratory remarkable for hemoglobin of 12.5 which is down from hemoglobin in December 2023 of 16.2, platelets 122 down from platelets in December 2023 of 159, MCV 94.2, INR 1.56
Chloride 94, CO2 31, glucose 197, lactic acid 4.8, AST 98 ALT 94, proBNP 777, up from proBNP July 30, 2023 of 227
Medical History
Past Medical History
Past Medical History: Reports Arrhythmia (Paroxysmal atrial fibrillation), GERD, HTN (Systemic) and Other (Fatty liver disease, morbid obesity, sleep apnea on CPAP, chronic anxiety)
Past Surgical History: Reports Orthopedic (Arthroscopic knee surgery ) and Tonsilectomy
Social History
Tobacco: Non-smoker
Alcohol: Daily (At least the fifth a day of vodka)
Drug: Cocaine (last time was weeks ago)
Family History
Family History: Not pertinent
Allergies / Home Medications
Allergies reflects when Allergies were last updated in [employer].
Home Medications with original date entered in [employer]
Allergy/Medication List:
Allergies
Allergy/AdvReac Type Severity Reaction Status Date / Time
Penicillins Allergy Rash Verified 10/20/24 09:31
Sulfa (Sulfonamide Allergy Unknown Verified 10/20/24 09:31
Antibiotics)
Home Medications
amlodipine 5 mg tablet 10 mg PO DAILY Blood pressure 10/19/11
doxazosin 4 mg tablet 4 mg PO DAILY Urinary issue 10/19/11
bupropion HCl 300 mg 24 hr tablet, extended release 300 mg PO DAILY Mental Health/Anxiety 05/05/21
famotidine 20 mg tablet 20 mg PO DAILY Gastrointestinal issue 05/05/21
gabapentin 600 mg tablet (Neurontin) 600 mg PO TID Neurological Condition 05/05/21
metformin 500 mg tablet,extended release 24 hr 2,000 mg PO DAILY Diabetes 05/05/21
metoprolol tartrate 50 mg tablet 150 mg PO BID Blood pressure 05/05/21
rivaroxaban 20 mg tablet (Xarelto) 20 mg PO QPM Blood clot prevention/tx 05/05/21
venlafaxine 150 mg capsule,extended release 24 hr (Effexor XR) 450 mg PO DAILY Mental Health/Anxiety 05/05/21
tadalafil 5 mg tablet 5 mg PO DAILYPRN PRN ed 10/20/24
Review of Systems
-
A 12 point ROS was completed and negative except as noted: Yes
Physical Exam
Vital Signs
Vital Signs
Temp Pulse Resp BP Pulse Ox
100.2 F 80 17 201/89 95
10/20/24 09:59 10/20/24 11:47 10/20/24 11:21 10/20/24 11:47 10/20/24 11:21
Physical Exam
General: Appears Chronically Ill and Morbidly Obese
HEENT: NormoCephalic, Anicteric and Moist mucous membranes
Respiratory: Rales (Left lower lung) and Crackles (Left lower lung)
Cardiac: S1/S2, Regular Rhythm and Other (Distant heart sounds)
GI: Soft, Non Tender, Non Distended and Normal Bowel Sounds
Musculoskeletal: No Clubbing, No Cyanosis, Edema, Left Lower Extremity (severe lymphedema bilateral lower extremities up to his groin) and Edema, Right Lower Extremity
Skin: Other (Bilateral chronic venous insufficiency with severe acute on chronic lymphadenopathy up to groin, left lower extremity from toes up to right below the knee is more erythematous than the right increased warmth left versus right as well)
Neuro: AO x 3, No Motor Deficits and Nonfocal/grossly intact
Psych: Anxious
Laboratory Results
-
10/20/24 10:10
10/20/24 10:10
Laboratory Results
PT 18.9 Sec (11.4-14.6) H 10/20/24 10:10
INR 1.56 10/20/24 10:10
Lactic Acid 4.8 mmol/L (0.7-2.0) H* 10/20/24 10:10
Total Bilirubin 1.3 mg/dl (0.2-1.3) 10/20/24 10:10
AST 98 U/L (17-59) H 10/20/24 10:10
ALT 94 U/L (0-50) H 10/20/24 10:10
Alkaline Phosphatase 78 U/L (38-126) 10/20/24 10:10
Troponin I 0.022 ng/ml 10/20/24 10:10
Data Reviewed
-
Diagnostic Radiology: Report Reviewed by me
Medical Tests (Nuc Med, Echo, EKG etc): Image Personally Visualized and interpreted (Normal sinus rhythm no evidence for ST changes) and Report Reviewed by me
Lab Data: Other (Echocardiogram from 2012:CONCLUSIONS: 1. Technically difficult study with limited acoustic windows. 1. Adequate for the clinical question raised. 2. Right ventricle may be mildly dilated but normal systolic function. No
pulmonary hypertension. 3. No pericardial effusion.)
Impression/Plan
-
IMPRESSION:Patient is a 59-year-old male with past medical history significant for atrial fibrillation on Xarelto, CVA, hypertension, hyperlipidemia, icx-muhwhyp-mgergowbt diabetes, fatty liver disease, GERD, left foot drop, anxiety, sleep apnea,
obesity, CPAP use, who presents to the emergency department today due to shortness of breath with noted hypoxia on arrival at 88%, associated with lower extremity swelling left side greater than right he notes that he has had increased shortness of
breath over the past couple of days. He denies associated chest pain, no palpitations, no lightheadedness, no dizziness, he has daily alcohol use at least 1/5 of vodka. His last drink was last night. He used to use marijuana and crack cocaine.
Recently ran out of some of his medications including Atacand and metformin. Otherwise has been compliant with Xarelto. He started to feel tremulous and anxious due to not having a drink since last night. Blood pressure in the emergency
department initially 201/89 mmHg. Temperature 100.2. Oxygen saturation of 88% on room air.
ED treatment IV Ativan total of 3 mg, Lasix 40 mg IV once
Imaging performed:
X-ray of the right foot shows DJD no evidence of fracture
Chest x-ray shows pulmonary vascular congestion suggesting congestive heart failure
Abnormal laboratory remarkable for hemoglobin of 12.5 which is down from hemoglobin in December 2023 of 16.2, platelets 122 down from platelets in December 2023 of 159, MCV 94.2, INR 1.56
Chloride 94, CO2 31, glucose 197, lactic acid 4.8, AST 98 ALT 94, proBNP 777, up from proBNP July 30, 2023 of 227
# New diagnosis of likely acute congestive heart failure, last echocardiogram was 2011
- Admit to IMU given his high risk with heart failure, hypoxia, and concern for acute alcohol withdrawal associated with history of alcohol withdrawal with hallucinations
- Continue oxygen therapy per nasal cannula
- Continue IV Lasix twice daily
- Cardiology consultation appreciated
- Nitro paste was just applied in the ED, will monitor blood pressure on the paste, the patient may require nitroglycerin drip due to hypertensive urgency
- Monitor intake and output, daily weights
- Serial cardiac biomarkers
# Hypertensive urgency, likely exacerbating acute CHF exacerbation
- Continue home blood pressure medications and Nitropaste, continue IV Lasix twice daily
- Closely monitor hemodynamics
# Acute alcohol withdrawal
-The patient is a very high risk for alcohol withdrawal with hallucinations, given history of this
- Will start phenobarbital and alcohol withdrawal protocol
- Thiamine and folate
- We discussed alcohol cessation
- Case management consult for dispo planning and possible alcohol rehabilitation center
# Severe acute on chronic lymphadenopathy of bilateral lower extremities, likely multifactorial due to his chronic venous insufficiency, and new onset acute heart failure
-Continue IV Lasix twice daily and apply RODY hose or Ruddy wraps when feasible
# Left lower extremity cellulitis, superimposed upon chronic venous insufficiency chronic lymphadenopathy
- Starting IV antibiotic, monitor closely for signs of improvement or worsening
# Sleep apnea, uses CPAP nightly at 17
- Will continue CPAP here at 17, the patient does not have his home CPAP unit available
# Paroxysmal atrial fibrillation
- Currently in normal sinus rhythm
- Continue telemetry monitoring
- Continue Xarelto, he notes that he has been taking this medication at home
-Continue metoprolol-will dose in the emergency department, it is unclear if he has been taking this medication at home
# Fatty liver disease, increasing AST and ALT, likely due to alcohol liver disease
- Monitor labs
# Anemia, new since 2023
-The patient denies any melena, hematochezia, hematemesis
-Will monitor hemoglobin here, MCV is elevated, will check B12 and folate, iron studies, and give folate
# GERD
-Continue famotidine
# Neuropathy-cont gabapentin
DVT prophylaxis�Xarelto
Full code
[2024-10-20] MEDS: NITRO-BID 1 INCH TOPICAL (12:43)
[2024-10-20 13:04] LABS: Urine Albumin 1+ (Neg - Trace); Urine Bilirubin Negative (Negative); Urine Character Clear (Clear); Urine Color Yellow; Urine Glucose 4+ (Negative); Urine Ketone Negative (Negative); Urine Leukocyte Negative (Negative); Urine Nitrite Negative (Negative); Urine Occult Blood Negative (Negative); Urine Urobilinogen 1+ (Neg - 1+)
[2024-10-20 13:13] LABS: Urine Bacteria Few (Negative); Urine Red Blood Cell 0-2 /HPF (0-2); Urine White Cell 0-2 /HPF (0-5)
[2024-10-20 13:37] LABS: Amphetamines Negative (Negative); Barbiturates Negative (Negative); Benzodiazepines Negative (Negative); Buprenorphine Negative (Negative); Cocaine Positive (Negative); Marijuana Negative (Negative); Methadone Negative (Negative); Methamphetamines Negative (Negative); Opiates Negative (Negative); Phencyclidine Negative (Negative); Tricyclic Antidepressants Negative (Negative)
[2024-10-20 14:03] LABS: Fentanyl, Urine Negative (Negative)
[2024-10-20] MEDS: ANCEF 10 IV ×2 (14:04→21:41)
--- NOTE | 2024-10-20 14:21 | CON.CAR ---
Addendum entered and electronically signed by Bharat Baptiste MD 10/20/24 16:55:
59 yo male with PMH of morbid obesity, EtOH abuse, paroxysmal A fib on xarelto is admitted with SOB, weight gain, edema. No chest pain. Exam with RRR, no murmurs, 2+ LE edema. Tele: SR, PVC's. Cr 0.8.
Acute HF, type unknown. Severe, requiring hospitalization, and IV diuresis, with close monitoring of labs, tele. Continue lasix 40mg IV bid. Patient thinks he used to weight 360lbs, and now weighs 410lb. Check echo.
Fever, low grade temp, elevated lactate. Infectious/sepsis eval per hospitalist. Suspected cellulitis.
EtOH. Withdraw protocol per hospitalist.
Original Note:
Consultation
Consultation Request
Date/Time Consultation Requested: 10/20/24 1253
Date/Time Consultation Performed: 10/20/24 1400
Requesting Provider: Dr. Stephen
Performing Provider: Zandra PIÑA for Dr. Baptiste
Reason for Consultation: Dr. Stephen
Medical History
-
Chief Complaint: SOB
History of Present Illness:
59 y/o male (patient of Dr. Santos, [facility] cardiology) with severe obesity, hypertension, dyslipidemia, CARRIE on CPAP, PAF (hx ablation with post-procedure complications) on Xarelto, hx LLE DVT, alcoholism, hx drug use, and DM2 who is here for evaluation
of SOB with associated cough, raspy voice, fever. He thinks he has had about 20 lbs weight gain recently. He also notes increased BLE edema L > R. Lactic acid is up and low grade temp noted and he is getting ABX. COVID and flu negative. Blood cx
pending. Concern for cellulitis. We are consulted for acute heart failure, type unknown. He reports weight gain, LE edema, SOB. CXR suggestive CHF. He is being diuresed with IV Lasix. BP severely elevated in ER, but improving with lorazepam, Lasix,
nitrates. Of note, he ran out of amlodipine, so hasn't been taking as OP. He is on O2 by UT and is in no distress at the time of my assessment.
Past Medical History
Past Medical History: Arrhythmias, HTN, Hypercholesterolemia, NIDDM and Other (as above)
Social History
Tobacco: Non-Smoker
Alcohol: Daily (fifth of vodka, sometimes beer too)
Drug: Cocaine (positive on drug screen, but states he hasn't used in about 2 months)
Family History
Family History: Other (MGF had heart disease- details unclear)
Allergies / Home Medications
Allergy/AdvReac Type Severity Reaction Status Date / Time
Penicillins Allergy Rash Verified 10/20/24 09:31
Sulfa (Sulfonamide Allergy Unknown Verified 10/20/24 09:31
Antibiotics)
�Medication �Instructions �Recorded �Confirmed �Type
amlodipine 5 mg tablet 10 mg PO DAILY Blood pressure 10/19/11 10/20/24 History
doxazosin 4 mg tablet 4 mg PO DAILY Urinary issue 10/19/11 10/20/24 History
bupropion HCl 300 mg 24 hr tablet, 300 mg PO DAILY Mental 05/05/21 10/20/24 History
extended release Health/Anxiety
famotidine 20 mg tablet 20 mg PO DAILY Gastrointestinal 05/05/21 10/20/24 History
issue
gabapentin 600 mg tablet 600 mg PO TID Neurological 05/05/21 10/20/24 History
(Neurontin) Condition
metformin 500 mg tablet,extended 2,000 mg PO DAILY Diabetes 05/05/21 10/20/24 History
release 24 hr
metoprolol tartrate 50 mg tablet 150 mg PO BID Blood pressure 05/05/21 10/20/24 History
rivaroxaban 20 mg tablet (Xarelto) 20 mg PO QPM Blood clot 05/05/21 10/20/24 History
prevention/tx
venlafaxine 150 mg 450 mg PO DAILY Mental 05/05/21 10/20/24 History
capsule,extended release 24 hr Health/Anxiety
(Effexor XR)
tadalafil 5 mg tablet 5 mg PO DAILYPRN PRN ed 10/20/24 10/20/24 History
Review of Systems
-
History Source: Patient
All other systems: Negative unless noted
Constitutional: Fever and Weight Gain
Respiratory: Cough and Trouble Breathing
Musculoskeletal: Edema
Physical Exam
Vital Signs
Temp Pulse Resp BP Pulse Ox
100.2 F 82 26 182/92 98
10/20/24 09:59 10/20/24 14:00 10/20/24 14:00 10/20/24 14:00 10/20/24 14:00
Lab Results
10/20/24 10:10
10/20/24 10:10
Troponin I 0.022 ng/ml 10/20/24 10:10
Czr-D-Ctjssggqkri Pept 777 pg/ml 10/20/24 10:10
Physical Exam
General: No Apparent Distress
HEENT: Normocephalic and Anicteric
Respiratory: Other (diminished to bases, on O2 by NC)
Cardiac: Regular Rhythm and Peripheral Edema (+ 3 BLE edema)
Musculoskeletal: Edema
Skin: Warm and Dry
Neuro: AO x 3
Psych: Calm
Impression / Plan
-
Acute HF, type unknown:
-weight gain (thinks 20 lbs per patient), SOB, LE edema, CXR suggestive CHF
-obtain echo
-agree with IV lasix, which requires intensive monitoring
-CHF education, limit sodium/fluid
Infectious process:
-low grade temp
-cellulitis suspected and on IV abx- management per primary team
-blood cx pending
HTN: severe in ER, but improving
-s/p lorazepam, IV Lasix, and nitrates
-ran out of amlodipine recently, so hasn't been taking
-continue amlodipine and metoprolol and monitor with IV diuresis. Adjust meds as appropriate.
PAF:
-stable in SR- continue metoprolol, follow telemetry
-continue Xarelto- he reports compliance. Also on this for hx DVT.
Alcohol abuse disorder:
-we reviewed recommendation for cessation
-on withdrawal protocol
-management per primary team
Drug use:
-+cocaine on drug testing, he is surprised by this and reports last cocaine use about 2 months ago
-I recommended cessation of any illicit drug use
Severe obesity, BMI 61.2:
-would benefit from weight loss over time
CARRIE:
-reports CPAP compliance
Data Reviewed
-
EKG: Tracing Personally Visualized and interpreted (NSR)
Radiology: Report Reviewed by me (CXR 10/20/24: Findings suggest congestive heart failure. Please correlate clinically)
Medical Tests (Nuc Med, Echo etc): Other (echo ordered)
Labs: Labs Reviewed by me
--- NOTE | 2024-10-20 14:25 | EDRN ---
Report given to CHRISSY Jj in IMU.
[2024-10-20 14:46] LABS: Lactic Acid 4.4 mmol/L (0.7-2.0)
--- NOTE | 2024-10-20 15:22 | EDRN ---
Patient taken to room 3347 on stretcher on O2 6LNC on monitor by ED RN.
[2024-10-20] MEDS: PHENOBARBITAL 104 MG IV (16:40)
[2024-10-20 16:58] LABS: Glucose - Point of Care 168 mg/dl (70-99)
[2024-10-20] MEDS: PEPCID 20 MG PO (18:00)
[2024-10-20] MEDS: LOPRESSOR 150 MG PO (18:00)
[2024-10-20] MEDS: NEURONTIN 600 MG PO ×2 (18:00→21:40)
[2024-10-20] MEDS: NORVASC 10 MG PO (18:01)
[2024-10-20] MEDS: XARELTO 20 MG PO (18:01)
[2024-10-20] MEDS: FOLVITE 1 MG PO (18:01)
[2024-10-20] MEDS: NITRO-BID 0.5 INCH TOPICAL ×2 (18:02→23:50)
[2024-10-20] MEDS: NOVOLOG FLEXPEN-LOW RESISTANCE SC (18:03)
[2024-10-20 18:10] LABS: GGTP 308 U/L (15-73)
[2024-10-20 18:15] LABS: Alcohol None Detected; Troponin I 0.026 ng/ml
[2024-10-20 18:16] LABS: B-Hydroxybutyrate 0.12 mmol/L (0.02-0.27)
[2024-10-20] MEDS: THIAMINE INJECTION 200 MG IV (20:34)
[2024-10-20 21:09] LABS: Lactic Acid 1.8 mmol/L (0.7-2.0)
[2024-10-20 21:23] LABS: Troponin I 0.027 ng/ml
[2024-10-20 21:25] LABS: Glucose - Point of Care 175 mg/dl (70-99)
[2024-10-20] MEDS: PHENOBARBITAL 97.5 MG IV (21:41)
--- NOTE | 2024-10-20 23:38 | PTCARENOTE ---
Assumed care for patient overnight, received report from scooter RN. Pt AAOx3, anxious and restless at times. MSAS 8, Pt notably diaphoretic and tremulous. Pt talking in sleep and states that he is 'seeing things'. Pt received IV lasix. Pt voiding
very frequently. Pt voiding using the urinal with assistance. Pt very edematous to scrotal area and having difficulty urinating in the urinal. NSR w/ PVC's on the monitor. Pt hypertensive, 169/79 last BP. Topical nitroglycerin applied. Will continue
to closely monitor. Pt 95% SpO2 on 3L NC. RT notified by TT and will place on the CPAP HS. Pt refusing oral care. Despite education and reinforcement pt continues to refuse. L great toe has an open wound. Dressing applied as documented. Pt has call
santillan within reach.
[2024-10-21] VITALS (33 sets, daily range): BP systolic 125–198; BP diastolic 63–101; PULSE 2–83; BMI 60.0
[2024-10-21] MEDS: ATIVAN 1 MG IV ×4 (00:12→22:38)
--- NOTE | 2024-10-21 01:55 | PTCARENOTE ---
Pt remains pretty restless and requests to sit up. Pt ripped of CPAP and RT bedside to place pt back on CPAP.
[2024-10-21 04:54] LABS: Hematocrit 33.6 % (39.0-52.0); Hemoglobin 11.6 g/dL (13.0-18.0); Mean Corp Hgb Conc. 34.5 g/dL (33.0-37.0); Mean Corpuscular Volume 92.6 fL (80.0-94.0); Mean Platelet Volume 8.9 fL (7.4-10.4); Platelet Count 101 10^3/uL (130-400); Red Blood Cell Count 3.63 10^6/uL (4.70-6.10); Red Cell Dist. Width 15.9 % (11.5-14.5); White Blood Cell Count 7.3 10^3/uL (4.8-10.8)
[2024-10-21 05:24] LABS: ALT (SGPT) 77 U/L (0-50); AST (SGOT) 73 U/L (17-59); Alkaline Phosphatase 79 U/L (38-126); Blood Urea Nitrogen 14 mg/dl (9-20); Calcium 8.5 mg/dl (8.4-10.2); Carbon Dioxide 32 mmol/L (22-30); Chloride 93 mmol/L (98-107); Direct Bilirubin 0.6 mg/dl (0.0-0.4); Estimated Creatinine Clearance > 125 ml/min; Glucose 150 mg/dl (70-99); HDL Cholesterol 96 mg/dl; Iron 145 ug/dl (49-181); LDL Cholesterol, Calculated 76 mg/dl; Magnesium 1.2 mg/dl (1.6-2.3); Phosphorus 2.7 mg/dl (2.5-4.5); Potassium 3.2 mmol/L (3.5-5.1); Sodium 135 mmol/L (135-145); Total Bilirubin 1.7 mg/dl (0.2-1.3); Total Cholesterol 198 mg/dl (50-199); Total Protein 6.3 g/dl (6.3-8.2); Triglyceride 130 mg/dl (10-149); Very Low Density Lipoprotein 26 mg/dl (0-30); eGFR > 60.00
[2024-10-21 05:34] LABS: Percent Saturation 43 % (20-50); Total Iron Binding Capacity 336 ug/dl (261-462)
[2024-10-21] MEDS: NITRO-BID 0.5 INCH TOPICAL ×4 (05:48→23:31)
[2024-10-21] MEDS: ANCEF 10 IV ×3 (05:48→22:37)
[2024-10-21] MEDS: LOPRESSOR 5 MG IV (05:48)
[2024-10-21] MEDS: NSS (PRESERVATIVE FREE) 0.5 ML IV ×2 (05:51→08:10)
[2024-10-21 05:54] LABS: TSH Reflex To Free T4 4.05 uIU/ml (0.47-4.68)
--- NOTE | 2024-10-21 06:07 | PTCARENOTE ---
Pt diaphoretic, tremulous, and restless overnight. Pt did not rest much overnight and awake most of the night.
[2024-10-21 06:29] LABS: Folate 5.7 ng/ml (2.76-20); Vitamin B12 405 pg/ml (239-931)
--- NOTE | 2024-10-21 06:43 | PTCARENOTE ---
Pt hypertensive. WANG Godfrey made aware. One time dose of metoprolol IV administered.
[2024-10-21 07:28] LABS: Glucose - Point of Care 144 mg/dl (70-99)
[2024-10-21] MEDS: NOVOLOG FLEXPEN-LOW RESISTANCE SC ×2 (08:42→16:49)
--- NOTE | 2024-10-21 08:47 | PTCARENOTE ---
assumed care of pt from nightshift RN at 0700. Pt restless in bed and forgetful, repeatedly attempting to get OOB despite multiple attempts to reorient pt. 8am MSAS scored an 8, medicated according to protocol. Pt Sinus Tach on the monitor, VSS at
this time.
[2024-10-21] MEDS: PHENOBARBITAL 97.5 MG IV ×3 (09:03→22:37)
[2024-10-21] MEDS: LASIX 40 MG IV ×2 (09:03→15:26)
[2024-10-21] MEDS: EFFEXOR XR 450 MG PO (09:09)
[2024-10-21] MEDS: CARDURA 4 MG PO (09:10)
[2024-10-21] MEDS: NEURONTIN 600 MG PO (09:10)
[2024-10-21] MEDS: NORVASC 10 MG PO (09:10)
[2024-10-21] MEDS: FOLVITE 1 MG PO (09:10)
[2024-10-21] MEDS: PEPCID 20 MG PO (09:11)
[2024-10-21] MEDS: LOPRESSOR 150 MG PO (09:11)
[2024-10-21] MEDS: WELLBUTRIN XL (24 hour extended release) 300 MG PO (09:11)
[2024-10-21] MEDS: THIAMINE INJECTION 200 MG IV ×2 (09:11→19:20)
[2024-10-21] MEDS: NSS (PRESERVATIVE FREE) 1 ML IV (09:42)
[2024-10-21] MEDS: ATIVAN 2 MG IV ×2 (09:42→11:15)
--- NOTE | 2024-10-21 10:06 | W.PN.HOSP.TC ---
Today's Communication/Plan
-
see outlined plan below
Assessment / Plan
Assessment / Plan
Assessment:
Acute hypoxic respiratory insufficiency on 2-3L due to CHF
- wean O2 as able
New onset Acute CHF
- unknown type
- Echo pending
- CXR consistent with CHF. BNP 777 but unreliable in obesity
- continue IV Lasix - requires intensive monitoring of I/Os, weights, Lytes
- follow Cards recs
Hypertensive urgency, likely exacerbating acute CHF exacerbation
- Continue home blood pressure medications - Amlodipine and Metoprolol Tartrate
- Closely monitor hemodynamics
Acute alcohol withdrawal
- The patient is a very high risk for alcohol withdrawal with hallucinations, given history of this
- continue MSAS and phenobarbital protocols
- Thiamine and folate
- Alcohol cessation advised to patient. CM consult for dispo planning and possible alcohol rehabilitation center
Severe acute on chronic lymphadenopathy of bilateral lower extremities, likely multifactorial due to his chronic venous insufficiency, and new onset acute heart failure
- continue IV Lasix twice daily and apply RODY hose or Ruddy wraps when feasible
Bilateral lower extremity cellulitis, superimposed upon chronic venous insufficiency chronic lymphadenopathy
Underlying lactic acidosis
- lactic acidosis has resolved
- continue IV Ancef
- follow MRSA Swab
- wound care eval
Sleep apnea, uses CPAP nightly at 17
- Will continue CPAP here at 17, the patient does not have his home CPAP unit available
Paroxysmal atrial fibrillation
- Currently in normal sinus rhythm
- Continue telemetry monitoring
- Continue Xarelto, he notes that he has been taking this medication at home
- Continue metoprolol
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
- Monitor labs
Anemia, new since 2023
- The patient denies any melena, hematochezia, hematemesis
- Will monitor hemoglobin here, MCV is elevated, will check B12 and folate, iron studies, and give folate
GERD
- continue famotidine
Neuropathy-cont gabapentin
Hypokalemia in setting of hypomagnesemia
- will provide IV mag and K today; also oral K
DVT ppx: Xarelto
Code: Full
Anticipated Discharge: > 48 hours
Subjective/Interval History
-
Date of Service: October 21, 2024
confused, feeling like screws are moving on the olvera and alarms of getting smaller
denies any chest pain or SOB, no fevers
Objective Data
-
Labs:
Laboratory Results
10/21/24
04:41
WBC 7.3
Hgb 11.6 L
Hct 33.6 L
Plt Count 101 L
Sodium 135
Potassium 3.2 L
Chloride 93 L
Carbon Dioxide 32 H
BUN 14
Creatinine 0.8
Glucose 150 H
Calcium 8.5
Total Bilirubin 1.7 H
AST 73 H
ALT 77 H
Alkaline Phosphatase 79
Vital Signs:
Vital Signs
Temp Pulse Resp BP Pulse Ox
99.8 F 102 20 158/94 95
10/21/24 07:29 10/21/24 09:11 10/21/24 06:03 10/21/24 09:11 10/20/24 23:35
I&O
10/20/24 10/21/24 10/22/24
06:59 06:59 06:59
Output Total 3050 / 3050
Balance -3050 / -3050
Physical Exam
-
General: Morbidly Obese
HEENT: Normocephalic and Atraumatic
Respiratory: Clear to Auscultation; Negative Wheezes
Cardiac: Regular Rhythm and S1/S2
GI: Soft and Nontender
Genito-urinary: No Costovertebral Tender
Musculoskeletal: Edema, Right Lower Extrem, Edema, Left Lower Extrem and Other (LLE cellulitis)
Neuro: AO x 3
Psych: Calm and Confused
Data Reviewed
-
Total Time Spent with Patient (in minutes): 49
Labs: Labs Reviewed by me
--- NOTE | 2024-10-21 10:16 | PTCARENOTE ---
pt again needing frequent reorientation on importance of staying in bed, importance of keeping oxygen off and repeatedly being told to not take tele wires off. Pt becoming agitated w/ staff at times attempting to swing. Pt also repeatedly asking if
he can 'smoke crack in here?' and 'for a bunch of perc 30s'. informed pt that that isn't something that's acceptable in the hospital.
--- NOTE | 2024-10-21 10:30 | CM ---
Addendum entered by Carine Blackmon RN 10/21/24 13:38:
Code purple called- patient disoriented, agitated, combative, pulled out IV. Placed in restraints. Transferred to ICU.
Message from Zandra Norris- patient transferred to other cardiolog group yesterday. Message forward to Madeline Wiggins & Parris Murray re; Farxiga & Jardiance.
Original Note:
Patient with Hx Etoh/substance abuse with Dx new CHF, Hypertensive urgency, Acute alcohol withdrawal, Bilateral lower extremity cellulitis. Tox screen + for cocaine. O2 3L. Receiving IV Phenobarb w PO taper, IV Ativan prn, IV Lasix, IV Abx. MSAS
8-12, agitated this morning per nursing.
CM Consult: Substance Abuse
Prior CM notes 10/20 indicates patient agreed to referral to [facility].
Spoke with SYLVESTER Sweeney; provided clinical info for referral. Request Patel wait until tomorrow or later to see patient as MSAS indicates he is actively withdrawing, and Patel agrees.
CM Consult: [facility] Darxiga & Jardiance 10mg
Spoke with pharmacist, [facility]; she enteres patient's insurance info for the meds and conveyed Farxiga was $253/month however they applied a savings card which brought the cost down to $50.99/month. Jardiance $184.50/month.
CM will provide $10/month copay cards.
Message relayed to Zandra Blanc.
Plan provide copay cards for Farxiga & Jardiance.
Plan follow patient's O2 needs, mobility, clinical status.
Plan follow up with [facility].
Disposition TBD.
[2024-10-21 10:32] LABS: Glycohemoglobin (HgbA1c) 6.7 % (4.0-5.6)
[2024-10-21] MEDS: PRECEDEX 100 IV ×5 (10:50→23:45)
[2024-10-21] MEDS: HALDOL 4 MG IM (11:10)
--- NOTE | 2024-10-21 11:28 | W.PN.UPDATE ---
Update Note
Progress Note Update
Code Purple - more agitated. IV ripped out. IM Haldol given. Transferred to ICU. ICU consult. Likely will need Precedex or Versed drip for escalating acute ETOH withdrawal.
--- NOTE | 2024-10-21 11:33 | PTCARENOTE ---
pt became extremely agitated. this RN and 3-4 other staff members attempting to restrain pt, however pt ripped out of restraints easily. Pt grabbed PCT as well as attempting to hit and kick staff, pt ripped out IV. Code deng called. Pt transferred
to ICU.
[2024-10-21] MEDS: PHENOBARBITAL 104 MG IV (11:42)
--- NOTE | 2024-10-21 12:00 | PTCARENOTE ---
Patient transferred to ICU on precedex gtt for increasing MSAS agitation. Patient is in four point locked restraints. code purple had been called. obtained IV access, patient requiring precedex gtt and phenobarbital load. Patient is agitated,
disoriented, combative, spitting, attempting to get oob. Security at bedside. He is sinus rhythm on monitor and currently on 6L nasal cannula. Patient has generalized anasarca, he is obese, diaphoretic, +2 pitting edema of lower extremities.
Will be NPO was incontinent of deena urine. CHG bath completed, mabel care completed. will sedate patient for safety. assessment ongoing.
--- NOTE | 2024-10-21 12:04 | CON.INTV ---
Consultation
Consultation Request
Date/Time Consultation Requested: 10/21/24
Date/Time Consultation Performed: 10/21/24
Performing Provider: Marla
Reason for Consultation: ICU
Medical History
-
History of Present Illness:
Patient is a 59-year-old male with previous history of obesity, hypertension, atrial fibrillation, diabetes, chronic alcohol abuse presenting to ER for shortness of breath with notable hypoxemia, O2 erin 88% on room air. Lower extremity
swelling left side greater than right, chest x-ray demonstrating pulm vascular congestion suggesting acute heart failure exacerbation. Of note, he does drink 1/5 of vodka per day, last drink was the night prior to admission. He does admit to crack
cocaine use. Blood pressure in the ER notably 201/89, Tmax 100.2 Fahrenheit. He is admitted to IMU for heart failure exacerbation and acute alcohol withdrawal 10/20/2024. Developed worsening withdrawal symptoms with code purple initiated. He is
now placed on Precedex and transferred to ICU for further management.
Past Medical History
Past Medical History: Other (see list below)
Family History
Family History: Unable to Obtain
Allergies / Home Medications
Allergies
Allergy/AdvReac Type Severity Reaction Status Date / Time
Penicillins Allergy Rash Verified 10/20/24 09:31
Sulfa (Sulfonamide Allergy Unknown Verified 10/20/24 09:31
Antibiotics)
Home Medications
�Medication �Instructions �Recorded �Confirmed �Last Taken �Type
amlodipine 5 mg tablet 10 mg PO DAILY Blood pressure 10/19/11 10/20/24 9 Days Ago History
~10/11/24
doxazosin 4 mg tablet 4 mg PO DAILY Urinary issue 10/19/11 10/20/24 10/19/24 History
bupropion HCl 300 mg 24 hr tablet, 300 mg PO DAILY Mental 05/05/21 10/20/24 10/19/24 History
extended release Health/Anxiety
famotidine 20 mg tablet 20 mg PO DAILY Gastrointestinal 05/05/21 10/20/24 10/19/24 History
issue
gabapentin 600 mg tablet 600 mg PO TID Neurological 05/05/21 10/20/24 10/19/24 History
(Neurontin) Condition
metformin 500 mg tablet,extended 2,000 mg PO DAILY Diabetes 05/05/21 10/20/24 12 Days Ago History
release 24 hr ~10/08/24
metoprolol tartrate 50 mg tablet 150 mg PO BID Blood pressure 05/05/21 10/20/24 10/19/24 History
rivaroxaban 20 mg tablet (Xarelto) 20 mg PO QPM Blood clot 05/05/21 10/20/24 10/19/24 History
prevention/tx
venlafaxine 150 mg 450 mg PO DAILY Mental 05/05/21 10/20/24 10/19/24 History
capsule,extended release 24 hr Health/Anxiety
(Effexor XR)
tadalafil 5 mg tablet 5 mg PO DAILYPRN PRN ed 10/20/24 10/20/24 Unknown History
Review of Systems
-
Unable to Obtain full review of systems at this time due to: Acuity
Vitals / Labs / Diagnostic Testing
Vital Signs
Temp Pulse Resp BP Pulse Ox
99.8 F 102 20 158/94 95
10/21/24 07:29 10/21/24 09:11 10/21/24 06:03 10/21/24 09:11 10/20/24 23:35
Lab Data
10/21/24 04:41
10/21/24 04:41
Microbiology
10/20/24 10:11 Blood/Venous Blood Culture - Preliminary
No Growth in 24 hours- Final report to follow
10/20/24 10:10 Blood/Venous Blood Culture - Preliminary
No Growth in 24 hours- Final report to follow
10/20/24 10:09 Nasal Swab Influenza Types A & B (FELICIA) - Final
Negative for Influenza A & B, NAAT
Negative results must be combined with clinical observations
and patient history.
Nucleic Acid Amplification test (NAAT)performed on the
[employer] platform.
Diagnostic Testing:
Physical Exam
-
HEENT: Normocephalic, Anicteric and Moist Mucous Membranes
Cardiovascular: S1/S2, Regular Rhythm and Peripheral Edema (2+ with chronic stasis changes bilaterally)
Respiratory: Clear (overall diminished) and Accessory Resp Muscle Use (paradoxical breathing, on BIPAP)
GI: Soft, Distended (obese, protuberant) and Non Tender
Neurology: No Motor Deficits and Other (sedated/lethargic)
Skin: Warm and Dry
General: Other (chronically ill appearing, morbidly obese)
Assessment
-
Patient is a 59-year-old male with previous history of obesity, hypertension, atrial fibrillation, diabetes, chronic alcohol abuse presenting to ER for shortness of breath with notable hypoxemia, O2 erin 88% on room air. Lower extremity
swelling left side greater than right, chest x-ray demonstrating pulm vascular congestion suggesting acute heart failure exacerbation. Of note, he does drink 1/5 of vodka per day, last drink was the night prior to admission. He does admit to crack
cocaine use. Blood pressure in the ER notably 201/89, Tmax 100.2 Fahrenheit. He is admitted to IMU for heart failure exacerbation and acute alcohol withdrawal 10/20/2024. Developed worsening withdrawal symptoms with code purple initiated. He is
now placed on Precedex and transferred to ICU for further management.
Acute on chronic HF exacerbation
Acute hypoxic respiratory failure
Acute alcohol withdrawal
Hypertensive emergency
Fever
Thrombocytopenia
Hypokalemia
Chronic hypercarbic respiratory failure suspected, likely CARRIE/OHS
Hyperglycemia
Conditions present prior to admission
Crack cocaine use
Hyperlipidemia
Metabolic syndrome
Chronic alcoholism
Obstructive sleep apnea
Lymphedema
Controlled type 2 diabetes mellitus with hyperglycemia, without long-term current use of insulin
History of DVT
Generalized anxiety disorder
Mixed hyperlipidemia
Erectile dysfunction
History of CVA
Moderate major depression
AFib on Chronic anticoagulation
Left foot drop
Obesity, morbid, BMI 50 or higher
Essential hypertension
Plan
There is current signs of metabolic encephalopathy / MS changes, EOTH w/d suspected
Psychiatric history noted above including anxiety/depression/insomnia (had been taking numerous meds as OP)
Denies pain at this time.
Pain/sedation: PRN, phenobarb taper, precedex
RASS goals: 0
Hemodynamically stable, not requiring pressors.
Cardiac history reviewed--HTN
Prior ECHO 2011 reviewed indicating normal function, will need updated study
Repeat ECHO pending
Resume home meds as able, HTN noted
Monitor on telemetry
Oxygen needs: on BIPAP now, check ABG
Prior history of lung disease: CARRIE/OHS likely, never had sleep study as OP, high risk for SDB
Supplemental O2 as indicated to maintain sats > 89%
CXR/CT reviewed indicating CHF
Low threshold for intubation
NPO, resume diet when able
Lubrication Technician recommendations
Aspiration precautions, HOB > 30 degrees
Speech therapy eval can be considered if at elevated risk
GI prophylaxis if indicated for mechanical ventilation >48 hours, prior history of GERD, stress ulcer formation in the critically ill
Creat at baseline, no history of renal disease
Void trials
Follow urine output, critical I/Os
Replete electrolytes as needed
No signs/symptoms suspicious for infectious etiology at this time
Observe off antibiotics for now
Follow fever trend, WBC count
CBC stable, no signs of bleeding or coagulopathy.
DVT prophylaxis as assessed based on risk, including mechanical SCDs
Can transfuse if indicated for Hb <7, plt < 10
INR WNL
No prior h/o thyroid disease
H/o diabetes, can continue on home meds, SS for coverage
HbA1c 6.7
We will follow
Diagnostic Data
Chest X-Ray: 10/20/24- The heart is enlarged. The pulmonary vasculature is increased. There is an ectatic aorta. There is no focal consolidation or pleural effusion.
07/30/23- Small nodule in the lateral right midlung measuring approximately 4 mm stable. There is no new parenchymal opacification or vascular congestion. Mild elevation/eventration of the right hemidiaphragm is again seen. The cardiomediastinal
silhouettes are within the limits of normal. There is no pneumothorax, pleural effusion or mediastinal shift.
CT Scan: AP 08/27/23- 1. Diffuse fatty infiltration of the liver. Mild hepatic enlargement.
2. Cholelithiasis without evidence of acute cholecystitis.
Echo: 08/13/11- Left Ventricle: Grossly normal size and systolic function. No obvious wall motion abnormalities. The ventricular septum was not flattened.
Right Ventricle: Perhaps mildly dilated but normal systolic function.
Mild tricuspid regurgitation. Pulmonary artery systolic pressure estimated at 25-30 mmHg, with an assumed right atrial pressure of 10.
PFT's:
Reports and relevant images were personally reviewed.
Critical Care time 65 mins -- The patient is admitted for acute critical illness for the treatment of vital organ failure and/or prevention of further life-threatening conditions. Total care includes time spent in review of history, physical exam,
medications, hemodynamic/ventilator parameters, laboratory data, imaging and discussion with house staff, pharmacy, respiratory therapy, manager field investigations, and nursing.
[2024-10-21] MEDS: KCL 270 MEQ IV (12:52)
[2024-10-21] MEDS: MAGNESIUM SULFATE 100 IV (12:52)
[2024-10-21] MEDS: NOVOLOG FLEXPEN-LOW RESISTANCE 1 UNITS SC ×2 (13:12→18:05)
[2024-10-21 13:24] LABS: Glucose - Point of Care 186 mg/dl (70-99)
--- NOTE | 2024-10-21 13:45 | PTCARENOTE ---
Patient now sedate, obtained order to Bipap 15/8. oxygen saturation 95%. patient diminished throughout.
--- NOTE | 2024-10-21 14:19 | PTCARENOTE ---
echo completed at bedside.
[2024-10-21 14:32] LABS: B.E. 10.8 mmol/L; HCO3 35.7 mmol/L (21-28); PCO2 48 mmHg (35-48); PO2 69 mmHg (83-108); pH 7.48 (7.35-7.45)
[2024-10-21] MEDS: NEURONTIN PO ×2 (15:14→21:08)
--- NOTE | 2024-10-21 15:44 | PTCARENOTE ---
Rec'd care of patient at 1500. Patient sedated on Precedex gtt. Pupils equal and reactive, +2mm. SB/NSR on tele. Rate in the 50-60's. BP 130/70's. Q30min neurovascular checks wnl. BiPAP 15/8 15L. Lung sounds diminished. Pulse ox 94-95%. RR 15-16.
+BS. NPO. Farmer in place for critical I/O. Hetal output. 25 cc/hr. 40mg IV Lasix administered. 4pt locked restraints in place s/p code purple/violence towards staff. Safe environment and 1:1 supervision maintained. Full assessment and care as
charted on worklist.
--- NOTE | 2024-10-21 16:49 | W.PN.CARDCBS ---
Addendum entered and electronically signed by Akiko Kapadia MD 10/21/24 19:10:
I saw and examined the patient.
The Railroad Baggage Porter's note was reviewed and I agree with the note.
Comment: Patient had a code purple called and given concern for alcohol withdrawal causing agitation he was moved to the ICU for initiation of Precedex. He is currently on BiPAP at 15/8 due to hypoxic and hypercarbic respiratory failure with
pulmonary medicine following closely.
On exam patient is super morbidly obese, in no acute distress, resting comfortably on the BiPAP, regular rate, normal S1 and S2, no murmurs, rubs or gallops, heart sounds are distant, fine bibasilar Rales, elevated JVP, abdomen is obese, soft,
nontender, nondistended with active bowel sounds, 2-3+ bilateral lower extremity edema with chronic venous stasis changes.
Recommendations:
1. For his hypoxic and hypercarbic respiratory failure due to acute exacerbation of heart failure with preserved ejection fraction: Continue aggressive IV diuresis with Lasix 40 mg twice daily with strict ins and outs, electrolyte repletion as
needed and close monitoring of renal function. He has been putting out well with the 40 mg of IV Lasix. Continue positive ventilatory support using BiPAP, wean based on blood gases. Patient is tolerating this well for now. Avoid oversedation
with positive ventilatory support as best possible.
2. Paroxysmal atrial fibrillation: Patient is currently in normal sinus rhythm: Continue chronic Xarelto therapy and Lopressor as best tolerated. Continue aggressive IV diuresis as noted above. His most recent echocardiogram showed moderate
degree of LVH with otherwise no significant valvular abnormalities.
3. In the setting of moderate LVH, closely monitor blood pressure with aggressive management as best tolerated. History of drug use and alcohol use noted.
4. Aggressive management of cardiovascular risk factors and diabetes.
5. Defer management of alcohol withdrawal to primary team.
6. Ongoing counseling with underlying super morbid obesity on importance of weight loss and how it relates to increasing risk for obstructive sleep apnea and atrial fibrillation especially with prior history of alcohol abuse.
Akiko Kapadia MD, FAC, FSCAI
Total time spent: 52 minutes
Original Note:
Today's Communication / Plan
-
Moved to ICU for Precedex due to agitation from ETOH withdrawal
Diuresing with Lasix 40 mg IV BID
EF preserved on echo
Remains in SR
Impression / Plan
-
PCP: Dr. Shelbie Mejia
Card: None prior to admission, previously followed with Dr. Souza, but not seeing any longer
Impression:
Admitted with SOB, acute hypoxia and CHF 10/20/24
Acute HFpEF
EF 65% without significant valve disease by echo 10/21/24
ETOH withdrawal
h/o drug use including smoking crack cocaine
HTN emergency
Fever
Paroxysmal A-fib
Chronic Xarelto OAC
Chronic hypercarbic respiratory failure, CARRIE/obesity hypoventilation syndrome
DM2
Obese, BMI 60
Hypokalemia
Echo 10/21/2024: EF 65 to 70%, moderate concentric LVH (1.5 cm), normal RV size and function, no significant valve disease
Plan:
-Patient came to the hospital on 10/20/2024 with complaints of increased SOB and was noted to be hypoxic at 88% on room air. Patient was admitted with acute HF, hypertensive emergency and now being treated for EtOH withdrawal in addition. Patient
initially seen by the other cardiology group, but now asking to follow with our group.
- Events of 10/21/2024 noted. Patient with increasing agitation and concern for EtOH withdrawal. Code purple was called and patient was given Haldol IM and then started on Precedex gtt. hospitalist and wire charger managing
-Patient also has a history of cocaine use including smoking crack cocaine and his UDS was positive for cocaine. Apparently the patient was surprised because he thought he had not used cocaine for 2 months and did not expect to test positive. UDS
was otherwise unremarkable
-Patient noted to have fever with Tmax 100.3 �F at noon on 10/21/2024. No obvious signs of infection. Influenza screen negative, COVID screen negative, blood culture x 2 without growth.
-From a cardiac perspective there was concern for acute HF on admission as patient feels he is up at least 20 lbs from his baseline weight. proBNP was 777 on 10/20/2024 which is the highest level on patient's record.
-Weight is down 5 lbs overnight according to recorded bed scale weight. Continue with Lasix 40 mg IV BID. Patient was not taking a diuretic prior to admission
-Potassium 3.2 on labs reviewed by me 10/21/24 and hospitalist attending supplement with KCl
-Echo report reviewed by me and summarized above, the EF is preserved and no significant valve disease
-Patient noted to be markedly HTN on admission with a BP up to 201/89. Patient is chronically on Lopressor 150 mg BID, doxazosin 4 mg daily and amlodipine 10 mg daily as an outpatient. Hospitalist H&P reviewed by me indicates the patient may have
also been on Atacand at some point. H&P also states that patient had run out of some of his outpatient medications just prior to admission so there was some level of noncompliance likely contributing to the hypertensive emergency which may have
been contributed to the acute HF.
-BP improved with diuresis
-Outpatient dose of amlodipine 10 mg daily continued
-Outpatient dose of Lopressor 150 mg BID continued. Consider changing to Toprol XL or Coreg given new CHF.
-Hospitalist H&P lists Atacand, but not on med list obtained from patient's pharmacy. Cre 0.8. BP stable. Consider adding REINA/ARB at some point
-Known h/o paroxysmal A-fib, but in sinus rhythm on telemetry reviewed by me 10/21/2024. Continue her usual dose of Lopressor
-Outpatient dose of Xarelto 20 mg daily has been continued and patient says he has not missed any doses of Xarelto
-Troponins serially normal. No acute ischemic changes on ECG and no evidence of WMA on echo.
Progress Note - Strategic Planning Consultant
Subjective
Date of Service: October 21, 2024
He is upset, he feels agitated
Objective
Labs:
10/21/24 04:41
10/21/24 04:41
Labs
Hgb 11.6 g/dL (13.0-18.0) L 10/21/24 04:41
Hct 33.6 % (39.0-52.0) L 10/21/24 04:41
Plt Count 101 10^3/uL (130-400) L 10/21/24 04:41
PT 18.9 Sec (11.4-14.6) H 10/20/24 10:10
INR 1.56 10/20/24 10:10
Sodium 135 mmol/L (135-145) 10/21/24 04:41
Potassium 3.2 mmol/L (3.5-5.1) L 10/21/24 04:41
BUN 14 mg/dl (9-20) 10/21/24 04:41
Creatinine 0.8 mg/dL (0.7-1.3) 10/21/24 04:41
Glucose 150 mg/dl (70-99) H 10/21/24 04:41
Troponins
10/20/24 10/20/24 10/20/24
10:10 17:40 20:49
Troponin I 0.022 0.026 0.027
Vital Signs and I&O:
Vital Signs
Temp Pulse Resp BP Pulse Ox
97.7 F 57 15 149/71 95
10/21/24 16:01 10/21/24 16:30 10/21/24 16:30 10/21/24 16:30 10/21/24 16:07
Vital Signs
Temp Pulse Resp BP Pulse Ox
97.7 F 57 15 149/71 95
10/21/24 16:01 10/21/24 16:30 10/21/24 16:30 10/21/24 16:30 10/21/24 16:07
Intake & Output
10/19/24 10/20/24 10/21/24 10/22/24
06:59 06:59 06:59 06:59
Intake Total 443.6 / 443.6
Output Total 305 / 305 130 / 130
Balance -3050 / -3050 313.6 / 313.6
Physical Exam
Physical Exam
GEN: Agitated and yelling at nursing staff
HEENT: MMM
LUNGS: 6 L NC. No audible wheeze, Speaking in sentences including using a raised voice at times.
CV: SR on tele.
ABD: Obese
EXT: +2-3 pitting B/L LE edema
NEURO: No focal or lateralizing weakness
SKIN: No rash
[2024-10-21] MEDS: XARELTO PO (17:21)
[2024-10-21 18:06] LABS: Glucose - Point of Care 160 mg/dl (70-99)
[2024-10-21] MEDS: LOPRESSOR PO (19:12)
--- NOTE | 2024-10-21 19:43 | PTCARENOTE ---
Received patient sedated on precedex gtt per order. PERRLA, 2mm, sluggish. 4 point locked restraints ongoing, nursing 1:1 with Q30 neurovascular checks, see flowsheets. Sinus gris/normal sinus 50s-60s, BP stable 120s-140s/70s-80s, normothermic.
Trace generalized anasarca, +3 b/l LE edema. Doppler pedal pulses b/l. On bipap 15/8, 10 liters saturating 92%, lung sounds diminished throughout. Abdomen soft, round, obese, hypoactive bowel sounds. Farmer in place for critical I&O's draining deena
urine. Scab on left big toe, redness/venostasis on b/l LE. PIVs patent, WNL.
--- NOTE | 2024-10-21 22:42 | PTCARENOTE ---
Patient woke up calm, interacting appropriately with staff. Knew he was in the hospital but needed to be reoriented to situation and time. Questions answered, locked restraints removed. Repositioned, corral care done, mouth care done.
[2024-10-21 23:29] LABS: Glucose - Point of Care 156 mg/dl (70-99)
[2024-10-21] MEDS: NOVOLOG FLEXPEN-LOW RESISTANCE 300 UNITS SC (23:32)
[2024-10-22] VITALS (25 sets, daily range): BP systolic 114–180; BP diastolic 87–117; PULSE 2–66; BMI 59.3
[2024-10-22] MEDS: ATIVAN 1 MG PO ×5 (02:25→23:25)
--- NOTE | 2024-10-22 02:41 | PTCARENOTE ---
Patient more interactive and calm, assisting with repositioning and mouth care. Patient a bit confused/forgetful, asking what happened yesterday and CHF. Patient educated about daily weights, low sodium diet, fluid retention, and lasix. Reoriented
and given call santillan.
[2024-10-22 05:26] LABS: Glucose - Point of Care 135 mg/dl (70-99)
[2024-10-22] MEDS: NOVOLOG FLEXPEN-LOW RESISTANCE SC ×3 (05:29→23:24)
[2024-10-22] MEDS: NITRO-BID 0.5 INCH TOPICAL ×4 (05:45→23:25)
[2024-10-22] MEDS: ANCEF 10 IV ×3 (05:46→20:44)
[2024-10-22 05:55] LABS: Hematocrit 32.4 % (39.0-52.0); Hemoglobin 11.2 g/dL (13.0-18.0); Mean Corp Hgb Conc. 34.6 g/dL (33.0-37.0); Mean Corpuscular Hgb 32.6 pg (27.0-31.0); Mean Corpuscular Volume 94.2 fL (80.0-94.0); Mean Platelet Volume 9.5 fL (7.4-10.4); Platelet Count 92 10^3/uL (130-400); Red Blood Cell Count 3.44 10^6/uL (4.70-6.10); White Blood Cell Count 6.8 10^3/uL (4.8-10.8)
[2024-10-22 06:14] LABS: Blood Urea Nitrogen 19 mg/dl (9-20); Calcium 8.4 mg/dl (8.4-10.2); Carbon Dioxide 29 mmol/L (22-30); Chloride 95 mmol/L (98-107); Estimated Creatinine Clearance > 125 ml/min; Glucose 121 mg/dl (70-99); Magnesium 1.8 mg/dl (1.6-2.3); Potassium 3.3 mmol/L (3.5-5.1); Sodium 136 mmol/L (135-145); eGFR > 60.00
--- NOTE | 2024-10-22 07:15 | W.PN.INTV ---
Today's Communication / Plan
Recommendations
Doing well, off precedex
PAP continued at night, patient agreeable
Continue w/d protocol, psych eval for anxiety requested
OOB today, PT/ambulate
Can transfer to floors today, we will sign off upon transfer
Assessment
-
Patient is a 59-year-old male with previous history of obesity, hypertension, atrial fibrillation, diabetes, chronic alcohol abuse presenting to ER for shortness of breath with notable hypoxemia, O2 erin 88% on room air. Lower extremity
swelling left side greater than right, chest x-ray demonstrating pulm vascular congestion suggesting acute heart failure exacerbation. Of note, he does drink 1/5 of vodka per day, last drink was the night prior to admission. He does admit to crack
cocaine use. Blood pressure in the ER notably 201/89, Tmax 100.2 Fahrenheit. He is admitted to IMU for heart failure exacerbation and acute alcohol withdrawal 10/20/2024. Developed worsening withdrawal symptoms with code purple initiated. He is
now placed on Precedex and transferred to ICU for further management.
Acute on chronic HF exacerbation
Acute hypoxic respiratory failure
Acute alcohol withdrawal
Hypertensive emergency
Fever
Thrombocytopenia
Hypokalemia
Chronic hypercarbic respiratory failure suspected, likely CARRIE/OHS
Hyperglycemia
Conditions present prior to admission
Crack cocaine use
Hyperlipidemia
Metabolic syndrome
Chronic alcoholism
Obstructive sleep apnea
Lymphedema
Controlled type 2 diabetes mellitus with hyperglycemia, without long-term current use of insulin
History of DVT
Generalized anxiety disorder
Mixed hyperlipidemia
Erectile dysfunction
History of CVA
Moderate major depression
AFib on Chronic anticoagulation
Left foot drop
Obesity, morbid, BMI 50 or higher
Essential hypertension
Plan
There is current signs of metabolic encephalopathy / MS changes, EOTH w/d suspected
Psychiatric history noted above including anxiety/depression/insomnia (had been taking numerous meds as OP)
Denies pain at this time.
Psych eval, patient has anxiety
Pain/sedation: PRN, phenobarb taper, precedex (weaned to off)
RASS goals: 0
Hemodynamically stable, not requiring pressors.
Cardiac history reviewed--HTN
Prior ECHO 2011 reviewed indicating normal function, will need updated study
Repeat ECHO pending
Resume home meds as able, HTN noted
Monitor on telemetry
Oxygen needs: on BIPAP now, check ABG--normal
Prior history of lung disease: CARRIE/OHS likely, never had sleep study as OP, high risk for SDB
Supplemental O2 as indicated to maintain sats > 89%
CXR/CT reviewed indicating CHF
Improving, continue PAP at night, patient agreeable
Diet advancement
Nurse Anesthetist recommendations
Aspiration precautions, HOB > 30 degrees
Speech therapy eval can be considered if at elevated risk
GI prophylaxis if indicated for mechanical ventilation >48 hours, prior history of GERD, stress ulcer formation in the critically ill
Creat at baseline, no history of renal disease
Void trials
Follow urine output, critical I/Os
Replete electrolytes as needed
No signs/symptoms suspicious for infectious etiology at this time
Observe off antibiotics for now
Follow fever trend, WBC count
CBC stable, no signs of bleeding or coagulopathy.
DVT prophylaxis as assessed based on risk, including mechanical SCDs
Can transfuse if indicated for Hb <7, plt < 10
INR WNL
No prior h/o thyroid disease
H/o diabetes, can continue on home meds, SS for coverage
HbA1c 6.7
Diagnostic Data
Chest X-Ray: 10/20/24- The heart is enlarged. The pulmonary vasculature is increased. There is an ectatic aorta. There is no focal consolidation or pleural effusion.
07/30/23- Small nodule in the lateral right midlung measuring approximately 4 mm stable. There is no new parenchymal opacification or vascular congestion. Mild elevation/eventration of the right hemidiaphragm is again seen. The cardiomediastinal
silhouettes are within the limits of normal. There is no pneumothorax, pleural effusion or mediastinal shift.
CT Scan: AP 08/27/23- 1. Diffuse fatty infiltration of the liver. Mild hepatic enlargement.
2. Cholelithiasis without evidence of acute cholecystitis.
Echo: 08/13/11- Left Ventricle: Grossly normal size and systolic function. No obvious wall motion abnormalities. The ventricular septum was not flattened.
Right Ventricle: Perhaps mildly dilated but normal systolic function.
Mild tricuspid regurgitation. Pulmonary artery systolic pressure estimated at 25-30 mmHg, with an assumed right atrial pressure of 10.
PFT's:
Reports and relevant images were personally reviewed.
Critical Care time 35 mins -- The patient is admitted for acute critical illness for the treatment of vital organ failure and/or prevention of further life-threatening conditions. Total care includes time spent in review of history, physical exam,
medications, hemodynamic/ventilator parameters, laboratory data, imaging and discussion with house staff, pharmacy, respiratory therapy, lube attendant, and nursing.
Subjective Dataa
Subjective Data
Date of Service:
Date of Service: October 22, 2024
Chief Complaint: Vrt Mechanic Follow Up
Subjective:
Doing well today, more calm
Off Precedex
Tolerating PAP
Objective Data
Data Reviewed
Vital Signs / I&O / Oxygen:
Vital Signs
Temp Pulse Resp BP Pulse Ox
97.8 F 78 19 157/92 92
10/22/24 03:17 10/22/24 05:45 10/22/24 04:00 10/22/24 05:45 10/21/24 19:36
Intake and Output
10/21/24 10/22/24 10/23/24
06:59 06:59 06:59
Intake Total 687.4 / 687.4 0 / 0
Output Total 3050 / 3050 548 / 748 200 / 200
Balance -3050 / -3050 139.4 / -60.6 -200 / -200
SaO2 92
Nasal Cannula flow liters per 10
minute
Physical Exam
General: Comfortable and Other (NAD, morbidly obese)
HEENT: Normocephalic, Anicteric and Moist Mucous Membranes
Cardiovascular: S1-S2 and Regular Rhythm
Respiratory: Clear and Non-Labored Respirations
GI: Soft, Distended (protuberant, obese) and Non Tender
Neurology: Awake, Alert, Oriented and No Motor Deficits
Skin: Warm and Dry
Labs/Micro/Reports
Lab Data
10/22/24 05:32
10/22/24 05:32
Laboratory Results
10/21/24
14:18
pH 7.48 H
pCO2 48
pO2 69 L
HCO3 35.7 H
O2 Delivery Level
Microbiology
10/20/24 10:11 Blood/Venous Blood Culture - Preliminary
No Growth in 24 hours- Final report to follow
10/20/24 10:10 Blood/Venous Blood Culture - Preliminary
No Growth in 24 hours- Final report to follow
10/20/24 10:09 Nasal Swab Influenza Types A & B (FELICIA) - Final
Negative for Influenza A & B, NAAT
Negative results must be combined with clinical observations
and patient history.
Nucleic Acid Amplification test (NAAT)performed on the
[employer] platform.
[2024-10-22] MEDS: LOPRESSOR 150 MG PO (07:22)
[2024-10-22] MEDS: EFFEXOR XR 450 MG PO (07:22)
[2024-10-22] MEDS: WELLBUTRIN XL (24 hour extended release) 300 MG PO (07:22)
[2024-10-22] MEDS: NEURONTIN 600 MG PO ×3 (07:22→20:43)
[2024-10-22] MEDS: MAGNESIUM OXIDE 500 MG PO (07:22)
[2024-10-22] MEDS: NORVASC 10 MG PO (07:24)
[2024-10-22] MEDS: THIAMINE INJECTION 200 MG IV ×2 (07:25→20:44)
[2024-10-22] MEDS: FOLVITE 1 MG PO (07:25)
[2024-10-22] MEDS: CARDURA 4 MG PO (07:25)
[2024-10-22] MEDS: PHENOBARBITAL 97.5 MG IV ×2 (07:25→15:25)
[2024-10-22] MEDS: PEPCID 20 MG PO (07:25)
[2024-10-22] MEDS: LASIX 40 MG IV ×2 (07:26→15:25)
--- NOTE | 2024-10-22 08:00 | PTCARENOTE ---
received patient from from process camera operator. patient is AAOx3, unaware of the prior events, has been off the precedex and unrestrained. patient is on bipap, requesting to wear nasal cannula. He is sinus rhythm on monitor, hypertensive, due to receive
morning meds. patient has generalized anasarca. has +3-+4 pitting pedal edema. He is ordered diabetic diet, obese round belly, has been incontinent. Farmer draining deena urine. Skin to be documented in focused shift assessment. will review
orders, call santillan within reach.
--- NOTE | 2024-10-22 08:50 | W.PN.HOSP.TC ---
Addendum entered and electronically signed by Radha Mason MD 10/22/24 09:04:
K replacement
can transfer back to IMU if remains stable off Precedex
Original Note:
Today's Communication/Plan
-
continue MSAS and Phenobarbital to facilitate Precedex wean
continue BP meds - follow BP And may need titration
continue IV Lasix
Assessment / Plan
Assessment / Plan
Assessment:
Acute hypoxic respiratory insufficiency on 2-3L due to CHF
- wean O2 as able
New onset Acute HFpEF
- Echo: Normal left ventricular size and systolic function. No regional wall motion abnormalities are seen. LV ejection fraction is 65-70% by visual assessment. Moderate concentric left ventricular hypertrophy (1.5 cm). Normal RV size and function.
No significant valvular disease. Compared to prior echocardiogram August 14, 2011, that study was noted to be technically difficult and there is a question of possible right ventricular dilatation. Today's study is not limited by technical/imaging
shortcomings and there is normal RV size and function. Otherwise no significant changes.
- CXR consistent with CHF. BNP 777 but unreliable in obesity
- continue IV Lasix - requires intensive monitoring of I/Os, weights, Lytes
- follow Cards recs
Hypertensive urgency, likely exacerbating acute CHF exacerbation
- Continue home blood pressure medications - Amlodipine and Metoprolol Tartrate
- Closely monitor hemodynamics
Acute alcohol withdrawal
Toxic encephalopathy in setting of ETOH withdrawal
- transferred 10/21 to ICU to Precedex; wean as able
- continue MSAS and phenobarbital protocols
- Thiamine and folate
- Alcohol cessation advised to patient. CM consult for dispo planning and possible alcohol rehabilitation center
Severe acute on chronic lymphadenopathy of bilateral lower extremities, likely multifactorial due to his chronic venous insufficiency, and new onset acute heart failure
- continue IV Lasix twice daily and apply RODY hose or Ruddy wraps when feasible
Bilateral lower extremity cellulitis, superimposed upon chronic venous insufficiency chronic lymphadenopathy
Underlying lactic acidosis
- lactic acidosis has resolved
- continue IV Ancef, day 2
- follow MRSA Swab
- wound care evaluation
Sleep apnea, uses CPAP nightly at 17
- Will continue CPAP here at 17, the patient does not have his home CPAP unit available
Paroxysmal atrial fibrillation
- Currently in normal sinus rhythm
- Continue telemetry monitoring
- Continue Xarelto, he notes that he has been taking this medication at home
- Continue metoprolol
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
- Monitor labs
Anemia, new since 2023
- The patient denies any melena, hematochezia, hematemesis
- anemia indices ok. continue Folate
GERD
- continue famotidine
Neuropathy-cont gabapentin
Hypokalemia in setting of hypomagnesemia
- will provide IV K
- continue oral mag
DVT ppx: Xarelto
Code: Full
Total Critical Care Time 42 minutes. I was immediately available to the patient and staff. I personally examined, reviewed labs, diagnostic images/reports, interpretations, treatment plans, discussed patient care with other providers and family
or caregivers (if patient is unable to make decisions), entered orders as appropriate and documented the medical record.
Anticipated Discharge: > 48 hours
Subjective/Interval History
-
Date of Service: October 22, 2024
transferred yesterday for Precedex infusion in setting of severe agitation from ETOH withdrawal
Objective Data
-
Labs:
Laboratory Results
10/22/24
05:32
WBC 6.8
Hgb 11.2 L
Hct 32.4 L
Plt Count 92 L
Sodium 136
Potassium 3.3 L
Chloride 95 L
Carbon Dioxide 29
BUN 19
Creatinine 0.9
Glucose 121 H
Calcium 8.4
Vital Signs:
Vital Signs
Temp Pulse Resp BP Pulse Ox
98.4 F 86 13 167/107 92
10/22/24 07:20 10/22/24 07:26 10/22/24 06:55 10/22/24 07:26 10/21/24 19:36
I&O
10/21/24 10/22/24 10/23/24
06:59 06:59 06:59
Intake Total 687.4 / 687.4 0 / 0
Output Total 3050 / 3050 548 / 748 200 / 200
Balance -3050 / -3050 139.4 / -60.6 -200 / -200
Physical Exam
-
General: No Apparent Distress
HEENT: Normocephalic and Atraumatic
Respiratory: Negative Wheezes
Cardiac: Regular Rhythm and S1/S2
GI: Soft
Genito-urinary: No Costovertebral Tender
Musculoskeletal: No Edema
Neuro: AO x 3
Hematologic / Lymphatic: No Lymphadenopathy
Psych: Calm
Data Reviewed
-
Critical Care Time (in minutes): 42
Labs: Labs Reviewed by me
[2024-10-22] MEDS: KCL 270 MEQ IV (09:04)
--- NOTE | 2024-10-22 10:21 | W.PN.CARDCBS ---
Addendum entered and electronically signed by Akiko Kapadia MD 10/22/24 18:11:
I saw and examined the patient.
The Professor Of Poultry Science's note was reviewed and I agree with the note.
Comment: Overnight events noted and patient is now awake, alert and cooperative. Precedex was stopped this morning. Psychiatry was consulted.
On exam patient is super morbidly obese, in no acute distress, awake, alert and oriented x 3, regular rate, normal S1 and S2, elevated JVD, bibasilar Rales, abdomen is obese, soft, nontender, active bowel sounds, 2-3+ bilateral lower extremity edema
with chronic venous stasis changes
Recommendations:
1. Agree to change to long-acting beta-pavel with Toprol-XL as noted below.
2. Continued IV diuretics with 40 mg of Lasix twice daily with close monitoring of ins and outs and daily upright weights and repletion of electrolytes as noted.
3. Patient was noted to be on Atacand as an outpatient for hypertension which will be resumed. He continues on home amlodipine 10 mg daily and doxazosin as well.
4. For his history of paroxysmal atrial fibrillation he has been continued on Xarelto 20 mg daily.
5. Defer management of alcohol withdrawal to primary team. Psychiatry is also evaluating patient.
Akiko Kapadia MD, [facility], [facility]
Original Note:
Today's Communication / Plan
-
Adding Atacand
Changing Lopressor to Toprol XL
Cont Lasix 40 mg IV BID
Impression / Plan
-
PCP: Dr. Shelbie Mejia
Card: None prior to admission, previously followed with Dr. Souza, but not seeing any longer
Impression:
Admitted with SOB, acute hypoxia and CHF 10/20/24
Acute HFpEF
EF 65% without significant valve disease by echo 10/21/24
ETOH withdrawal
h/o drug use including smoking crack cocaine
HTN emergency
Fever
Paroxysmal A-fib
Chronic Xarelto OAC
Chronic hypercarbic respiratory failure, CARRIE/obesity hypoventilation syndrome
DM2
Obese, BMI 60
Hypokalemia
Echo 10/21/2024: EF 65 to 70%, moderate concentric LVH (1.5 cm), normal RV size and function, no significant valve disease
Plan:
-Overnight events noted, patient now awake, alert and cooperative 10/22/24. Precedex stopped 10/22/24 AM. Psychiatry interviewing patient.
-Influenza screen negative, COVID screen negative, blood culture x 2 without growth at 48 hours.
-From a cardiac perspective, weight is down another 4 lbs overnight with Lasix 40 mg IV BID. I&O 5 L negative in the last 48 hours.
-Agree with potassium and magnesium supplementation per hospitalist attending. Hospitalist added magnesium oxide 500 mg daily for magnesium of 1.8 and KCl 40 mEq daily for potassium of 3.3 on labs reviewed by me 10/22/24.
-Echo report reviewed by me and summarized above, the EF is preserved and no significant valve disease
-Patient noted to be markedly HTN on admission with a BP up to 201/89. Patient is chronically on Lopressor 150 mg BID, doxazosin 4 mg daily and amlodipine 10 mg daily as an outpatient. Hospitalist H&P reviewed by me indicates the patient may have
also been on Atacand at some point. H&P also states that patient had run out of some of his outpatient medications just prior to admission so there was some level of noncompliance likely contributing to the hypertensive emergency which may have
been contributed to the acute HF.
-BP 158/103 on VS reviewed by me 10/22/24.
-Outpatient dose of amlodipine 10 mg daily continued
-Outpatient dose of Lopressor 150 mg BID continued. Will change to Toprol XL 100 mg BID starting 10/22/24 PM.
-Outpatient dose of doxazosin 4 mg daily continued.
-Patient previously took candesartan, but it was stopped during an admission to [facility] in 2017. There is a reported 'allergy' to lisinopril in [facility] records, but the patient does not recall what that reaction may have been or when he may have had that
reaction. Patient previously tolerated candesartan without reaction. Will add back candesartan 8 mg daily starting on. Monitor BMP and BP. Patient will need an outpatient BMP in 2 weeks as well
-Known h/o paroxysmal A-fib, but in sinus rhythm on telemetry reviewed by me 10/21/2024. Continue usual dose of Lopressor
-Outpatient dose of Xarelto 20 mg daily has been continued, but dose missed on 10/21/24 while NPO. Prior to admission the patient says he did not miss any doses of Xarelto
-Troponins serially normal. No acute ischemic changes on ECG and no evidence of WMA on echo.
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
Subjective
Date of Service: October 22, 2024
Feels less agitated today, doesn't remember much of yesterday
Objective
Labs:
10/22/24 05:32
10/22/24 05:32
Labs
Hgb 11.2 g/dL (13.0-18.0) L 10/22/24 05:32
Hct 32.4 % (39.0-52.0) L 10/22/24 05:32
Plt Count 92 10^3/uL (130-400) L 10/22/24 05:32
PT 18.9 Sec (11.4-14.6) H 10/20/24 10:10
INR 1.56 10/20/24 10:10
Sodium 136 mmol/L (135-145) 10/22/24 05:32
Potassium 3.3 mmol/L (3.5-5.1) L 10/22/24 05:32
BUN 19 mg/dl (9-20) 10/22/24 05:32
Creatinine 0.9 mg/dL (0.7-1.3) 10/22/24 05:32
Glucose 121 mg/dl (70-99) H 10/22/24 05:32
Troponins
10/20/24 10/20/24 10/20/24
10:10 17:40 20:49
Troponin I 0.022 0.026 0.027
Vital Signs and I&O:
Vital Signs
Temp Pulse Resp BP Pulse Ox
98.4 F 73 20 158/103 94
10/22/24 07:20 10/22/24 09:33 10/22/24 09:33 10/22/24 09:33 10/22/24 09:44
Vital Signs
Temp Pulse Resp BP Pulse Ox
98.4 F 73 20 158/103 94
10/22/24 07:20 10/22/24 09:33 10/22/24 09:33 10/22/24 09:33 10/22/24 09:44
Intake & Output
10/20/24 10/21/24 10/22/24 10/23/24
06:59 06:59 06:59 06:59
Intake Total 687.4 / 687.4 450 / 450
Output Total 3050 / 3050 548 / 748 2500 / 2500
Balance -3050 / -3050 139.4 / -60.6 -2049 /
Physical Exam
Physical Exam
GEN: NAD
HEENT: MMM
LUNGS: 3 L NC. No audible wheeze
CV: SR on tele.
ABD: Obese
EXT: +2 pitting B/L LE edema
NEURO: No focal or lateralizing weakness
SKIN: No rash
--- NOTE | 2024-10-22 10:52 | PN.CDI ---
CDI
- -
CDI:
Physician Documentation Request
Admit Date: 10/20/24 13:40
Dear Doctor Isabella,
Please review the following and provide your response in the progress notes.
Clinical Indicators:
- 10/22 PN 'Acute hypoxic respiratory insufficiency on 2-3L due to CHF'
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
- 'Chronic hypercarbic respiratory failure suspected, likely CARRIE/OHS'
- 10/21 Cardiology 'currently on BiPAP at 15/8 due to hypoxic and hypercarbic respiratory failure'
- Documented VS 6-15L O2, pulse ox > 88%
Clarify which of the following accurately represents the patient's respiratory status:
Acute hypoxic respiratory failure
Acute hypoxic on chronic hypercarbic respiratory failure
Other (please specify)
Additional information for Respiratory Failure:
Recognized criteria for Respiratory Failure (Source: [facility] Hospitalist May 2013)
ABGs: (1 or more) Symptoms Please indicate type if known
1. p)2 <60 or RA SPO2 <91% on RA 1. Tachypnea, SOB, dyspnea Hypoxic
2. pCO2 50 and pH <7.35 2. Use of accessory muscles Hypercapnic
3. pO2 decrease of pCO2 increase by 3. Pallor or cyanosis Hypoxic and Hypercapnic
10 mmHg from baseline if known 4. Anxiety or restlessness Unable to determine
5. Unable to speak in full sentences
Supplemental O2 of > 40% (5LPM) Intubation is not required
Use of terms such as suspected, likely, concern for, or probable (associated with a specific diagnosis that is being evaluated, monitored, or treated as if it exists) are acceptable and can be coded in the inpatient setting, when documented at the
time of discharge.
Thank you,
Ho Burch RN
CDI Specialist
Please use your independent medical judgment in providing your response.
--- NOTE | 2024-10-22 11:03 | CON.MD ---
Addendum entered and electronically signed by Mick Narayanan MD 10/22/24 11:21:
patient and nursing requested an extra ativan prn for anxiety. patient asked for '2 mg' bc he is a 'big man'. explained that your weight does not necessarily determine how much medication you should receive. there are other factors including
functioning of your liver etc. will leave order for one mg prn q 6h but i did explain to patient that bzp are as addictive as etoh and he cannot use them beyond the wd period and we will monitor. he is on gabapentin for neuropathy which should
provide some anti anxiety efficacy as well. total time 60 minutes
Original Note:
Consultation - Medical
-
patient seen chart reviewed. spoke to nursing and treatment team including dr quinones. the patient is a 59 year old male who comes to w c/o sob for several days and sore throat which were steadily worsening. his o2 sat was 88 and he was found to be
in respiratory and congestive heart failure. he did have some periods of agitation for which he received im haldol and was moved to icu and started on precedex. he is also on msas and phenobarb taper. the patient tells me he was drinking up to
'five pints ' daily of vodka for the past year although he has tried to cut back and substitutes 'high etoh content beer'. he has a long hx of depression and sees dr awais mckeon and he admits dr mckeon does not know the extent of his etoh
abuse. he was being medicated with effexor 300 mg which he says he has taken for many years and it really changed his life and improved his anxiety. wellbutrin was added for residual depression and he thinks it helped although the 'need' to drink
continued. he has had significant stress in his life. a bitter divorce. estrangement from his 21 year old daughter. financial issues...he is on disability and he is now facing eviction. he admits his apartment is a mess and when landlord came to
check out plumbing and arrived unannounced he was holding a gun which did not endear him to the owners of his place. he also has had massive stress from his physical infirmities. he had an ablation for afib in 2011 and suffered two strokes in the
process as well as a decubitus which became necrotic...then rhabdo...then organ failure. he suffers from pedal edema cellulitis lower extremities, has suffered dvt etc etc. sleep is poor ..he has shahnaz and uses cpap. he has gained a large amount of
weight in recent months and weighs over 400 lbs causing exacerbation of his medical issues. he does not enjoy much and has little energy. he is NOT nor has he ever been suicidal. there is nothing to suggest psychosis
past psych hx no hosptilizations. depression for years sees awais lee do. patient has been to rehab at [facility] both o/p and [facility].
medical hx see above in addition to above liver disease foot drop htn hld djd macrocoytic anemia neuropathy liver disease hypokalemia lymphadenopathy
family hx 'everybody' has depression and anxiety . mom dad sister. he also feels d is depressed at times. son smokes cannabis daily
substance abuse see above re etoh. patient states gave up mj and cocaine two months ago although tox + for cocaine
social painfully. 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 did [employer] for a while. can't work now given illness and is on disability. has friends. hobby is
'alcohol' [place] in [place]
mse alert ox3 cooperative and pleasant speech and thought process nl no psychosis mood is neutral affect ok no si aver intelligence insight judgment fair
dx major depression recurrent severe etoh use d/o severe hx of cocaine mj use d/o
plan for now would cut back wellbutrin to 150 mg daily given inc risk of sz in the etoh wd period. also it could contribute to agitation. will leave effexor as is given that he feels it was a miracle drug for him however given the level of his
etoh i told him i questioned how much his antidep were doing for him. the other issue w effexor is that it is hard to withdraw. he really should consider in pt rehab although i doubt he will do it. minimally MEGHA trujillo sponsor. i suspect this is in the
future thought given he may need SNF at [facility]. he did agree to talk to [facility]carees.
[2024-10-22] MEDS: KCL 40 MEQ PO (11:07)
--- NOTE | 2024-10-22 11:09 | PN.CDI ---
CDI
- -
CDI:
Physician Documentation Request
Admit Date: 10/20/24 13:40
Dear Doctor Isabella,
Please review the following and provide your response in the progress notes.
Clinical Indicators:
- 10/22 PN 'Hypertensive urgency'
- 10/21 Cardiology 'hypertensive emergency'
- 'noncompliance likely contributing to the hypertensive emergency which may have been contributed to the acute HF'
- Patient admit with acute HFpEF
Clarify which, if any of the following, is a more accurate diagnosis reflecting the type and acuity of the documented hypertension:
Hypertensive Urgency - B/P is severely elevated (systolic > or = to 180 or diastolic > or = to 110) but there is no associated organ damage. Symptoms may include: headache, shortness of breath, nosebleeds, severe anxiety. Treatment usually consists
of addition to or adjusting of oral medications and does not generally necessitate hospitalization.
Hypertensive Emergency - B/P is severely elevated (systolic > or = to 180 or diastolic > or = to 110) but can occur at lower levels especially in patients who did not previously have high B/P. There is usually associated organ damage. Symptoms may
include: memory loss, LOC, CVA, OH, angina, renal failure, pulmonary edema. Generally requires more aggressive treatment and a hospitalization.
Other (please specify)
Use of terms such as suspected, likely, concern for, or probable (associated with a specific diagnosis that is being evaluated, monitored, or treated as if it exists) are acceptable and can be coded in the inpatient setting, when documented at the
time of discharge.
Thank you,
Ho Burch RN
CDI Specialist
Please use your independent medical judgment in providing your response.
--- NOTE | 2024-10-22 11:24 | WOUNDNOTE ---
BILATERAL LOWER LEGS/FOOT
--- NOTE | 2024-10-22 11:24 | WOUNDNOTE ---
LEFT GREAT TOE
--- NOTE | 2024-10-22 11:25 | WOUNDNOTE ---
LEFT LOWER LEG
--- NOTE | 2024-10-22 11:26 | WOUNDNOTE ---
RIGHT LOWER LEG
--- NOTE | 2024-10-22 11:26 | WOUNDNOTE ---
RIGHT LOWER LEG
--- NOTE | 2024-10-22 11:27 | WOUNDNOTE ---
LEFT LOWER LEG
--- NOTE | 2024-10-22 11:27 | WOUNDNOTE ---
RIGHT POSTERIOR THIGH
--- NOTE | 2024-10-22 11:28 | WOUNDNOTE ---
BILATERAL POSTERIOR THIGHS/UPPER AND LOWER POSTERIOR LOWER LEGS
--- NOTE | 2024-10-22 11:30 | WOUNDNOTE ---
TIGRE RN note: Patient admitted with CHF, alcohol use disorder.
See H&P for complete history.
PMH: Past Medical History: Reports Arrhythmia (Paroxysmal atrial fibrillation), GERD, HTN (Systemic) and Other (Fatty liver disease, morbid obesity, sleep apnea on CPAP, chronic anxiety)
Past Surgical History: Reports Orthopedic (Arthroscopic knee surgery ) and Tonsilectomy
Wound Location and type/assessment: Patient admitted with: Dried abrasion to L great toe, intact scab. Patient thinks his toe rubbed inside shoe when legs swelled. R posterior thigh with full thickness ulcer, suspect stage 3 mixed with MASD.
Patient admitted he has recently soiled himself while sitting and unable to clean self. Sacrum and gluteal cleft with mild MASD. Heels are intact and legs dry, old healed ulcer on lower leg. Patient had smears of stool on pad and both legs/scrotum.
Has few dried scabs on anterior scrotum from stool. Barrier cream in use.
Appetite: Good.
Pressure redistribution devices in place: Bariatric air mattress. Patient able to pull self up in bed.
Plan:local wound care applied to R posterior thigh, called spd for honey gel and brought to . Nurse Nancy Gamez aware and can start tomorrow. Skin prep L toe daily. Barrier cream applied to buttocks and scrotum after skin care.
Will confirm orders with hospitalist and updated nurse. Updated care plan and will follow as needed.
Note to case management of equipment requested for discharge: VN
Recommend follow up at wound care center upon discharge.
[2024-10-22 11:47] LABS: Glucose - Point of Care 129 mg/dl (70-99)
--- NOTE | 2024-10-22 11:55 | PTCARENOTE ---
patient now written for IMU.
[2024-10-22] MEDS: ATACAND 8 MG PO (13:35)
[2024-10-22] MEDS: NOVOLOG FLEXPEN-LOW RESISTANCE 2 UNITS SC (17:19)
[2024-10-22] MEDS: XARELTO 20 MG PO (17:23)
[2024-10-22 17:36] LABS: Glucose - Point of Care 200 mg/dl (70-99)
[2024-10-22 18:04] LABS: Transferrin 277 mg/dL (200-360)
[2024-10-22] MEDS: TOPROL XL 100 MG PO (20:43)
[2024-10-22] MEDS: LUMINAL 64.8 MG PO (20:44)
[2024-10-22 23:24] LABS: Glucose - Point of Care 127 mg/dl (70-99)
[2024-10-23] VITALS (22 sets, daily range): BP systolic 132–209; BP diastolic 80–130; PULSE 2–79; O2SAT 96; BMI 56.4
--- NOTE | 2024-10-23 00:32 | PTCARENOTE ---
received patient from previous RN. Patient is AAOx3. NSR on monitor with +3 pitting edema in feet and +2 in legs. 3L NC sating at 95% and will wear cpap overnight. MSAS has been 1-2. prn ativan Q6 given for anxiety. Patient pleasant and very
concerned about prior actions when he was combative to staff. patient resting in bed with call santillan in reach.
[2024-10-23] MEDS: ATIVAN 1 MG PO ×5 (01:42→19:29)
--- NOTE | 2024-10-23 02:06 | PTCARENOTE ---
patient hypertensive with systolics between 170s-190s despite bp meds, WANG notified, Ativan ordered, see mar. patient does not complain of any symptoms, continuing to monitor.
[2024-10-23 04:22] LABS: Hematocrit 33.2 % (39.0-52.0); Hemoglobin 11.3 g/dL (13.0-18.0); Mean Corpuscular Hgb 32.7 pg (27.0-31.0); Mean Platelet Volume 9.1 fL (7.4-10.4); Platelet Count 95 10^3/uL (130-400); Red Blood Cell Count 3.46 10^6/uL (4.70-6.10); Red Cell Dist. Width 16.3 % (11.5-14.5); White Blood Cell Count 5.8 10^3/uL (4.8-10.8)
[2024-10-23 04:45] LABS: Blood Urea Nitrogen 17 mg/dl (9-20); Calcium 8.7 mg/dl (8.4-10.2); Carbon Dioxide 32 mmol/L (22-30); Chloride 95 mmol/L (98-107); Estimated Creatinine Clearance > 125 ml/min; Glucose 113 mg/dl (70-99); Potassium 3.7 mmol/L (3.5-5.1); Sodium 136 mmol/L (135-145); eGFR > 60.00
[2024-10-23] MEDS: ANCEF 10 IV ×3 (05:31→21:38)
[2024-10-23] MEDS: NITRO-BID 0.5 INCH TOPICAL ×3 (05:32→17:17)
[2024-10-23 05:49] LABS: Glucose - Point of Care 97 mg/dl (70-99)
[2024-10-23] MEDS: NOVOLOG FLEXPEN-LOW RESISTANCE SC ×3 (05:53→17:17)
[2024-10-23 07:47] LABS: Glucose - Point of Care 110 mg/dl (70-99)
--- NOTE | 2024-10-23 08:00 | PTCARENOTE ---
Patient rec'd in report from night stocker. patient is AAOx3, pleasant and cooperative. Pt tolerated bipap all night, now on nasal cannula, weaned to room air per self, sats remain stable -94% upon assessment. Pt is sinus rhythm on monitor,
hypertensive, due to receive morning meds. See worklist. BP cuff adjusted, readings improved. See flowsheet. Patient w/ +4 pitting pedal and lower extrem edema. He is ordered diabetic diet, obese round belly, smear noted under patient, he reports
BM on bedpan this am. Farmer was removed on prior shift at 06:20, pt now voiding via urinal independently. Skin assessed, CHG bath provided, wound care completed. Pt assissted oob to chair with RN and PCT, min assist with RW required. Pt verbalized
comfort, call santillan within reach. Safe environment maintained.
[2024-10-23] MEDS: NEURONTIN 600 MG PO ×3 (08:43→21:35)
[2024-10-23] MEDS: NORVASC 10 MG PO (08:43)
[2024-10-23] MEDS: MAGNESIUM OXIDE 500 MG PO (08:44)
[2024-10-23] MEDS: PEPCID 20 MG PO (08:44)
[2024-10-23] MEDS: TOPROL XL 100 MG PO ×2 (08:44→19:28)
[2024-10-23] MEDS: WELLBUTRIN XL (24 hour extended release) 150 MG PO (08:44)
[2024-10-23] MEDS: EFFEXOR XR 450 MG PO (08:45)
[2024-10-23] MEDS: FOLVITE 1 MG PO (08:45)
[2024-10-23] MEDS: LUMINAL 64.8 MG PO (08:46)
[2024-10-23] MEDS: LASIX 40 MG IV ×2 (08:46→16:02)
[2024-10-23] MEDS: CARDURA 4 MG PO (08:47)
[2024-10-23] MEDS: THIAMINE INJECTION 200 MG IV (08:48)
[2024-10-23] MEDS: ATACAND 8 MG PO (08:48)
[2024-10-23] MEDS: KCL 40 MEQ PO (08:48)
--- NOTE | 2024-10-23 09:35 | W.PN.CARDCBS ---
Today's Communication / Plan
-
Remains in sinus rhythm. Continue Toprol and Xarelto.
Will continue to diurese with IV Lasix 40 IV twice daily. Creatinine stable.
Blood pressure remains somewhat elevated. Continue Toprol, Cardura, Norvasc, and Atacand. Can titrate Atacand as needed.
Continue to treat for alcohol withdrawal.
Agree with psych evaluation
Impression / Plan
-
PCP: Dr. Shelbie Mejia
Card: None prior to admission, previously followed with Dr. Souza, but not seeing any longer
Impression:
Admitted with SOB, acute hypoxia and CHF 10/20/24
Acute HFpEF
EF 65% without significant valve disease by echo 10/21/24
ETOH withdrawal
h/o drug use including smoking crack cocaine
HTN emergency
Fever
Paroxysmal A-fib
Chronic Xarelto OAC
Chronic hypercarbic respiratory failure, CARRIE/obesity hypoventilation syndrome
DM2
Obese, BMI 60
Hypokalemia
Echo 10/21/2024: EF 65 to 70%, moderate concentric LVH (1.5 cm), normal RV size and function, no significant valve disease
Plan:
-He is overall improving. Weight is down to 401. Would continue IV Lasix as I suspect he remains volume overloaded.
-Cont Toprol/Atacand/Norvasc/Cardura. BP still not optimal. Can titrate Atacand as needed while treating withdrawl
-Cont Xarelto and Toprol. He remains in sinus rhythm. Cont tele
-Continue to monitor for alcohol withdrawal. He remains on phenobarbital, Effexor, and Wellbutrin
-With his body habitus I suspect he has obstructive sleep apnea and obesity hypoventilation syndrome.
-With polypharmacy we will hold off on SLG 2 inhibitor for now.
-Troponins serially normal. No acute ischemic changes on ECG and no evidence of WMA on echo.
Progress Note - Document Clerk
Subjective
Date of Service: October 23, 2024
Remains in sinus rhythm. Denies chest pains or shortness of breath.
Objective
Labs:
10/23/24 04:05
10/23/24 04:05
Labs
Hgb 11.3 g/dL (13.0-18.0) L 10/23/24 04:05
Hct 33.2 % (39.0-52.0) L 10/23/24 04:05
Plt Count 95 10^3/uL (130-400) L 10/23/24 04:05
PT 18.9 Sec (11.4-14.6) H 10/20/24 10:10
INR 1.56 10/20/24 10:10
Sodium 136 mmol/L (135-145) 10/23/24 04:05
Potassium 3.7 mmol/L (3.5-5.1) 10/23/24 04:05
BUN 17 mg/dl (9-20) 10/23/24 04:05
Creatinine 0.8 mg/dL (0.7-1.3) 10/23/24 04:05
Glucose 113 mg/dl (70-99) H 10/23/24 04:05
Troponins
10/20/24 10/20/24 10/20/24
10:10 17:40 20:49
Troponin I 0.022 0.026 0.027
Vital Signs and I&O:
Vital Signs
Temp Pulse Resp BP Pulse Ox
98.1 F 73 20 178/99 97
10/23/24 08:24 10/23/24 08:51 10/23/24 08:51 10/23/24 08:51 10/22/24 21:36
Vital Signs
Temp Pulse Resp BP Pulse Ox
98.1 F 73 20 178/99 97
10/23/24 08:24 10/23/24 08:51 10/23/24 08:51 10/23/24 08:51 10/22/24 21:36
Intake & Output
10/21/24 10/22/24 10/23/24 10/24/24
06:59 06:59 06:59 06:59
Intake Total 687.4 / 687.4 1590 / 1590
Output Total 3050 / 3050 548 / 748 5500 / 5500
Balance -3050 / -3050 139.4 / -60.6 -3910 / -3910
Physical Exam
Physical Exam
GEN: No distress, awake, alert
HEENT: supple, anicteric, mmm
LUNGS: CTA, no wheezes/rales
CV: Reg, S1/S2, 1/6 syst LSB, no gallop
ABD: soft, BS+, NT/ND
EXT: +1 edema
NEURO: Gross non-focal
SKIN: No rash
--- NOTE | 2024-10-23 11:42 | W.PN.UPDATE ---
Update Note
Progress Note Update
patient seen chart reviewed. mr kovacs is looking better today. he was awake and alert sitting in a chair at bedside. many topics were addressed. he told me about his childhood growing up in [place] and relocating subsequently to [place] . he
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 his was a teacher and he seems well aware of the stressors of working with students. conversation moved to
his addiction issues and the stressors he will face when he is discharged. the importance of sobriety was stressed again as in his case his life literally will depend upon it. he had already thought daily aa meetings and a sponsor. i am trying to
convince him to at least consider iop if not in patient rehab. stressed to him that while at this moment he believes he will never drink again that perspective often changes when one leaves the hospital and is faced with the same stressors over and
over again. i had spoke to kiersten from [email or web address] yesterday about seeing mr kovacs who agrees to talk to him and consider his suggestions. we also talked about his insurance issues. she has been on 's policy..she agreed not to divorce until after
his medicare kicked in in december. he will have to get a supplement and i made some suggestions as to what type of policy might be best for him. he should speak to a process engineering manager experienced and knowledgeable about supplemental policies so his needs can be
met and be careful not to be taken in by policies that offer a 'free supplement' he needs to carefully consider his options and needs. have not made any changes in psych meds.total time 30 minutes continue to follow
[2024-10-23 12:06] LABS: Glucose - Point of Care 136 mg/dl (70-99)
--- NOTE | 2024-10-23 15:17 | W.PN.HOSP.TC ---
Today's Communication/Plan
-
continue current plan of care
transfer to tele
Assessment / Plan
Assessment / Plan
Assessment:
Acute hypoxic respiratory failure on 2-3L due to CHF
Acute on chronic hypercarbic respiratory failure - suspected chronic CARRIE/OHS
- wean O2 as able
New onset Acute HFpEF
- Echo: Normal left ventricular size and systolic function. No regional wall motion abnormalities are seen. LV ejection fraction is 65-70% by visual assessment. Moderate concentric left ventricular hypertrophy (1.5 cm). Normal RV size and function.
No significant valvular disease. Compared to prior echocardiogram August 14, 2011, that study was noted to be technically difficult and there is a question of possible right ventricular dilatation. Today's study is not limited by technical/imaging
shortcomings and there is normal RV size and function. Otherwise no significant changes.
- CXR consistent with CHF. BNP 777 but unreliable in obesity
- continue IV Lasix - requires intensive monitoring of I/Os, weights, Lytes
- follow Cards recs
Hypertensive emergency, likely exacerbating acute CHF exacerbation
- Continue home blood pressure medications - Amlodipine and Metoprolol Tartrate
- Closely monitor hemodynamics
Acute alcohol withdrawal
Toxic encephalopathy in setting of ETOH withdrawal
- transferred 10/21 to ICU to Precedex
- now off Precedex and phenobarbital
- Thiamine and folate
- Alcohol cessation advised to patient. CM consult for dispo planning and possible alcohol rehabilitation center
Severe acute on chronic lymphadenopathy of bilateral lower extremities, likely multifactorial due to his chronic venous insufficiency, and new onset acute heart failure
- continue IV Lasix twice daily and apply RODY hose or Ruddy wraps when feasible
Bilateral lower extremity cellulitis, superimposed upon chronic venous insufficiency chronic lymphadenopathy
Underlying lactic acidosis
- lactic acidosis has resolved
- continue IV Ancef, day 09/22
- MRSA negative
- wound care evaluation
Sleep apnea, uses CPAP nightly at 17
- Will continue CPAP here at 17, the patient does not have his home CPAP unit available
Paroxysmal atrial fibrillation
- Currently in normal sinus rhythm
- Continue telemetry monitoring
- Continue Xarelto
- Continue metoprolol
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
- Monitor labs
Anemia, new since 2023
- The patient denies any melena, hematochezia, hematemesis
- anemia indices ok. continue Folate
GERD
- continue famotidine
Neuropathy-cont gabapentin
Hypokalemia in setting of hypomagnesemia
- will provide IV K
- continue oral mag
DVT ppx: Xarelto
Code: Full
Anticipated Discharge: 24 - 48 hours
Subjective/Interval History
-
Date of Service: October 23, 2024
resting comfortably, no complaints
Objective Data
-
Labs:
Laboratory Results
10/23/24
04:05
WBC 5.8
Hgb 11.3 L
Hct 33.2 L
Plt Count 95 L
Sodium 136
Potassium 3.7
Chloride 95 L
Carbon Dioxide 32 H
BUN 17
Creatinine 0.8
Glucose 113 H
Calcium 8.7
Vital Signs:
Vital Signs
Temp Pulse Resp BP Pulse Ox
99.0 F 73 12 170/90 94
10/23/24 12:00 10/23/24 13:12 10/23/24 13:12 10/23/24 13:12 10/23/24 08:00
I&O
10/22/24 10/23/24 10/24/24
06:59 06:59 06:59
Intake Total 687.4 / 687.4 1590 / 1590 240 / 240
Output Total 548 / 748 5500 / 5500 1100 / 1100
Balance 139.4 / -60.6 -3910 / -3910 -860 / -860
Physical Exam
-
General: No Apparent Distress
HEENT: Normocephalic and Atraumatic
Respiratory: Negative Wheezes
Cardiac: Regular Rhythm and S1/S2
GI: Soft and Nontender
Musculoskeletal: No Edema
Neuro: AO x 3
Psych: Calm
Data Reviewed
-
Total Time Spent with Patient (in minutes): 41
Labs: Labs Reviewed by me
[2024-10-23] MEDS: DESENEX/MITRAZOL/ZEASORB 1 APPLIC TOPICAL (16:03)
--- NOTE | 2024-10-23 16:19 | CM ---
CM following re: discharge planning.
Reviewed pt's chart, met with pt.
Pt reports he lives alone, his him years ago due to his alcohol problem, has 2 children, daughter does not talk to him. Pt reports he lives alone in an apartment, has been drinking for years, drink of choice - vodka -3-4 pints per day
with few beers. Pt reports he went to [facility] for detox in the past. Pt expressed his agreement to meet with [facility] team to discuss options of alcohol treatment.
A referral to [facility] made.
Pt asked to call [facility] [employer] to help to restore his electricity in the apartment due to not paying.Pt reports he uses C-pap and needs electricity.
CM called [facility] [phone] and found out that pt owed $939.59 and a marketing representative requested to call [facility] to ask to call Assistance department. CM called again [facility], was waiting on the phone for 1hour 3 minutes and phone was disconnected.
D/C plan: Inpatient D&A rehab if pt agrees and to help the pt with restoring electricity. [facility]
CM will follow with discharge plan updates as hospitalization progresses
--- NOTE | 2024-10-23 16:37 | PTCARENOTE ---
Pt reassessed, no needs, pt pleasant and conversant. Downgraded to tele per attending. Ambulating to bathroom ad aric with walker.
[2024-10-23 17:01] LABS: Glucose - Point of Care 126 mg/dl (70-99)
[2024-10-23] MEDS: XARELTO 20 MG PO (17:16)
--- NOTE | 2024-10-23 18:33 | PTCARENOTE ---
Pt given Ativan for mild anxiety per his request at 17:16. Pt was sent for xray right hip as per ordered. Returned back into room, no needs at this time.
[2024-10-23] MEDS: VITAMIN B1 100 MG PO (19:29)
[2024-10-23 21:39] LABS: Glucose - Point of Care 142 mg/dl (70-99)
[2024-10-24] VITALS (11 sets, daily range): BP systolic 127–187; BP diastolic 79–108; PULSE 2–77; BMI 56.9
[2024-10-24] MEDS: NITRO-BID 0.5 INCH TOPICAL ×5 (00:22→23:18)
[2024-10-24] MEDS: ATIVAN 1 MG PO ×4 (00:23→20:30)
[2024-10-24 04:40] LABS: Hematocrit 37.3 % (39.0-52.0); Hemoglobin 12.7 g/dL (13.0-18.0); Mean Corpuscular Hgb 32.3 pg (27.0-31.0); Mean Corpuscular Volume 94.9 fL (80.0-94.0); Mean Platelet Volume 8.9 fL (7.4-10.4); Platelet Count 152 10^3/uL (130-400); Red Blood Cell Count 3.93 10^6/uL (4.70-6.10); White Blood Cell Count 6.3 10^3/uL (4.8-10.8)
[2024-10-24 04:57] LABS: Blood Urea Nitrogen 16 mg/dl (9-20); Calcium 9.1 mg/dl (8.4-10.2); Carbon Dioxide 28 mmol/L (22-30); Chloride 96 mmol/L (98-107); Estimated Creatinine Clearance > 125 ml/min; Glucose 120 mg/dl (70-99); Potassium 4.2 mmol/L (3.5-5.1); Sodium 133 mmol/L (135-145); eGFR > 60.00
[2024-10-24] MEDS: ANCEF 10 IV ×3 (06:05→23:46)
[2024-10-24 07:40] LABS: Glucose - Point of Care 117 mg/dl (70-99)
--- NOTE | 2024-10-24 08:02 | PN.CDI ---
CDI
- -
CDI:
Physician Documentation Request
Admit Date: 10/20/24 13:40
Dear Doctor Isabella,
Please review the following and provide your response in the progress notes.
Clinical Indicators:
- 10/22 Wound note indicates Stage 3 right posterior thigh pressure injury, POA
Physician documentation of the type and location of wounds is required for compliant documentation. Based on the above clinical findings and your assessment, please provide the following in your progress note:
1. Location of the ulcer/wound, including laterality.
2. Type (etiology) of ulcer/wound:
- Diabetic ulcer
- Arterial (ischemic) ulcer
- Traumatic wound
- Venous stasis ulcer
- Pressure (decubitus) ulcer
- Other
Use of terms such as suspected, likely, concern for, or probable (associated with a specific diagnosis that is being evaluated, monitored, or treated as if it exists) are acceptable and can be coded in the inpatient setting, when documented at the
time of discharge.
Thank you,
Ho Burch RN
CDI Specialist
Please use your independent medical judgment in providing your response.
*Source: National Pressure Ulcer Advisory Panel (NPUAP)
--- NOTE | 2024-10-24 08:05 | W.PN.HOSP.TC ---
Today's Communication/Plan
-
continue IV Lasix
REINA wraps
ok to shower
follow CM notes about outpatient rehab options
follow cards recs
Assessment / Plan
Assessment / Plan
Assessment:
Acute hypoxic respiratory failure on 2-3L due to CHF
Acute on chronic hypercarbic respiratory failure - suspected chronic CARRIE/OHS
- wean O2 as able
New onset Acute HFpEF
- Echo: Normal left ventricular size and systolic function. No regional wall motion abnormalities are seen. LV ejection fraction is 65-70% by visual assessment. Moderate concentric left ventricular hypertrophy (1.5 cm). Normal RV size and function.
No significant valvular disease. Compared to prior echocardiogram August 14, 2011, that study was noted to be technically difficult and there is a question of possible right ventricular dilatation. Today's study is not limited by technical/imaging
shortcomings and there is normal RV size and function. Otherwise no significant changes.
- CXR consistent with CHF. BNP 777 but unreliable in obesity
- continue IV Lasix - requires intensive monitoring of I/Os, weights, Lytes
- add compression therapy
- follow Cards recs
Hypertensive emergency, likely exacerbating acute CHF exacerbation
- Continue home blood pressure medications - Amlodipine, Doxazosin, and Metoprolol succinate and candesartan
- titrate to goal normotension
- Closely monitor hemodynamics
Acute alcohol withdrawal
Toxic encephalopathy in setting of ETOH withdrawal
- transferred /8 to ICU to Precedex
- now off Precedex and phenobarbital
- Thiamine and folate
- Alcohol cessation advised to patient. CM consult for dispo planning along with [facility]. Patient favoring IOP and AA in outpatient settings.
Severe acute on chronic lymphadenopathy of bilateral lower extremities, likely multifactorial due to his chronic venous insufficiency, and new onset acute heart failure
- continue IV Lasix twice daily
- add compression therapy
Bilateral lower extremity cellulitis, superimposed upon chronic venous insufficiency chronic lymphadenopathy
Underlying lactic acidosis
- lactic acidosis has resolved
- continue IV Ancef, day 10/23
- MRSA negative
- wound care evaluation
Sleep apnea, uses CPAP nightly at 17
- Will continue CPAP here at 17, the patient does not have his home CPAP unit available
Paroxysmal atrial fibrillation
- Currently in normal sinus rhythm
- Continue telemetry monitoring
- Continue Xarelto
- Continue metoprolol
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
- Monitor labs
Anemia, new since 2023
- The patient denies any melena, hematochezia, hematemesis
- anemia indices ok. continue Folate
GERD
- continue famotidine
Neuropathy-cont gabapentin
Hypokalemia in setting of hypomagnesemia
- continue oral potassium
- continue oral magnesium
Dried abrasion to L great toe, intact scab.
R posterior thigh with full thickness ulcer, suspect stage 3 mixed with MASD
- follow wound care recs
DVT ppx: Xarelto
Code: Full
Anticipated Discharge: > 48 hours
Subjective/Interval History
-
Date of Service: October 24, 2024
resting comfortably, no complaints at present
Objective Data
-
Labs:
Laboratory Results
10/24/24
04:23
WBC 6.3
Hgb 12.7 L
Hct 37.3 L
Plt Count 152 D
Sodium 133 L
Potassium 4.2
Chloride 96 L
Carbon Dioxide 28
BUN 16
Creatinine 0.8
Glucose 120 H
Calcium 9.1
Vital Signs:
Vital Signs
Temp Pulse Resp BP Pulse Ox
98.6 F 70 19 160/89 98
10/24/24 07:24 10/24/24 06:05 10/23/24 16:00 10/24/24 06:05 10/23/24 19:37
I&O
10/23/24 10/24/24 10/25/24
06:59 06:59 06:59
Intake Total 1590 / 1590 240 / 240
Output Total 5500 / 5500 1400 / 1400
Balance -3910 / -3910 -1160 / -1160
Physical Exam
-
General: No Apparent Distress and Morbidly Obese
HEENT: Normocephalic and Atraumatic
Respiratory: Negative Wheezes
Cardiac: Regular Rhythm and S1/S2
GI: Soft
Musculoskeletal: Edema, Right Lower Extrem and Edema, Left Lower Extrem
Neuro: AO x 3
Psych: Calm
Data Reviewed
-
Total Time Spent with Patient (in minutes): 51
Labs: Labs Reviewed by me
[2024-10-24] MEDS: LASIX 40 MG IV ×2 (08:23→17:19)
[2024-10-24] MEDS: MAGNESIUM OXIDE 500 MG PO (08:24)
[2024-10-24] MEDS: NEURONTIN 600 MG PO ×3 (08:24→23:12)
[2024-10-24] MEDS: NOVOLOG FLEXPEN-LOW RESISTANCE SC ×3 (08:25→16:48)
[2024-10-24] MEDS: EFFEXOR XR 450 MG PO (08:25)
[2024-10-24] MEDS: VITAMIN B1 100 MG PO ×2 (08:26→20:10)
[2024-10-24] MEDS: NORVASC 10 MG PO (08:26)
[2024-10-24] MEDS: ATACAND 8 MG PO ×2 (08:26→12:11)
[2024-10-24] MEDS: WELLBUTRIN XL (24 hour extended release) 150 MG PO (08:26)
[2024-10-24] MEDS: FOLVITE 1 MG PO (08:26)
[2024-10-24] MEDS: CARDURA 4 MG PO (08:27)
[2024-10-24] MEDS: KCL 40 MEQ PO (08:27)
[2024-10-24] MEDS: PEPCID 20 MG PO (08:28)
[2024-10-24] MEDS: TOPROL XL 100 MG PO ×2 (08:28→20:15)
--- NOTE | 2024-10-24 09:36 | PTCARENOTE ---
Pt rec'd from night RN at 7:15 awake and alert, did not sleep well, c/o ongoing anxiety, medicated with PRN Ativan -see SEP. Pt's bps remain sl high, meds given as ordered. Pt oob to chair PRN with RW, eating breakfast, voiding independently in
urinal. Pt amb to bathroom and had BM on floor due to urgency, CHG bath and hygiene care provided, plan discussed with attending Dr. Mason, ok to shower order rec'd. Pt awaiting cards clearance to determine discharge. +4 LE edema and redness
continues, orders for compression therapy also rec'd. Pt back to chair, no other needs at this time. Call santillan in hand.
--- NOTE | 2024-10-24 11:07 | W.PN.CARDCBS ---
Today's Communication / Plan
-
Continue IV Lasix and attempt to diurese.
Continue alcohol withdrawal treatments
Increase Atacand to 16 mg daily. BP still elevated
Creatinine overall stable.
Remains in sinus rhythm. Continue Xarelto/Toprol.
Impression / Plan
-
PCP: Dr. Shelbie Mejia
Card: None prior to admission, previously followed with Dr. Souza, but not seeing any longer
Impression:
Admitted with SOB, acute hypoxia and CHF 10/20/24
Acute HFpEF
EF 65% without significant valve disease by echo 10/21/24
ETOH withdrawal
h/o drug use including smoking crack cocaine
HTN emergency
Fever
Paroxysmal A-fib
Chronic Xarelto OAC
Chronic hypercarbic respiratory failure, CARRIE/obesity hypoventilation syndrome
DM2
Obese, BMI 60
Hypokalemia
Echo 10/21/2024: EF 65 to 70%, moderate concentric LVH (1.5 cm), normal RV size and function, no significant valve disease
Plan:
-He is overall improving. Weight is down to 384. Would continue IV Lasix as I suspect he remains volume overloaded. Creat stable
-Cont Toprol/Atacand/Norvasc/Cardura. BP still not optimal. Increase Atacand to 16 mg daily with extra 8 mg now
-Cont Xarelto and Toprol. He remains in sinus rhythm. Cont tele
-Continue to monitor for alcohol withdrawal. He remains on phenobarbital, Effexor, and Wellbutrin
-With his body habitus I suspect he has obstructive sleep apnea and obesity hypoventilation syndrome.
-With polypharmacy we will hold off on SLG 2 inhibitor for now.
-Troponins serially normal. No acute ischemic changes on ECG and no evidence of WMA on echo.
Progress Note - Addressograph Operator
Subjective
Date of Service: October 24, 2024
Remains in sinus rhythm. Blood pressure remains elevated. Denies chest pains. Alcohol withdrawal symptoms seem to be improved.
Objective
Labs:
10/24/24 04:23
10/24/24 04:23
Labs
Hgb 12.7 g/dL (13.0-18.0) L 10/24/24 04:23
Hct 37.3 % (39.0-52.0) L 10/24/24 04:23
Plt Count 152 10^3/uL (130-400) D 10/24/24 04:23
PT 18.9 Sec (11.4-14.6) H 10/20/24 10:10
INR 1.56 10/20/24 10:10
Sodium 133 mmol/L (135-145) L 10/24/24 04:23
Potassium 4.2 mmol/L (3.5-5.1) 10/24/24 04:23
BUN 16 mg/dl (9-20) 10/24/24 04:23
Creatinine 0.8 mg/dL (0.7-1.3) 10/24/24 04:23
Glucose 120 mg/dl (70-99) H 10/24/24 04:23
Vital Signs and I&O:
Vital Signs
Temp Pulse Resp BP Pulse Ox
98.6 F 77 19 187/91 96
10/24/24 07:24 10/24/24 08:23 10/23/24 16:00 10/24/24 08:23 10/24/24 09:12
Vital Signs
Temp Pulse Resp BP Pulse Ox
98.6 F 77 19 187/91 96
10/24/24 07:24 10/24/24 08:23 10/23/24 16:00 10/24/24 08:23 10/24/24 09:12
Intake & Output
10/22/24 10/23/24 10/24/24 10/25/24
06:59 06:59 06:59 06:59
Intake Total 687.4 / 687.4 1590 / 1590 240 / 240 120 / 120
Output Total 548 / 748 5500 / 5500 1400 / 1400
Balance 139.4 / -60.6 -3910 / -3910 -1160 / -1160 120 / 120
Physical Exam
Physical Exam
GEN: No distress, awake, Ox3
HEENT: supple, anicteric, mmm
LUNGS: CTA, no wheezes/rales
CV: Reg, S1/S2, 1/6 syst LSB, no gallop
ABD: soft, BS+, NT/ND
EXT: ++ edema
NEURO: Gross non-focal
SKIN: No rash
[2024-10-24 12:09] LABS: Glucose - Point of Care 108 mg/dl (70-99)
--- NOTE | 2024-10-24 14:07 | CM ---
CM following re: discharge planning.
Reviewed pt's chart, met with pt.
Pt reports he lives alone, his him years ago due to his alcohol problem, has 2 children, daughter does not talk to him. Pt reports he lives alone in an apartment, has been drinking for years, drink of choice - vodka -3-4 pints per day
with few beers. Pt reports he went to [facility]hab for detox in the past. Pt expressed his [facility] to discuss options of alcohol treatment.
A referral to [facility] made. [facility] met with pt yesterday and today. Pt declined going to inpatient D&A rehab, has resources for outpatient D&A rehab programs, AA meetings.
Pt is aware of difficulties of getting anyone on the phone from [facility] to call [facility] [phone] Assistance department to request a form that needs top be signed by MD to restore electricity.
PT and OT evaluations noted - home PT/OT recommended. CM discussed it with the pt, pt expressed his agreement. [facility] choices provided, pt preferred [facility]. A referral to [facility]N made.
Please fax discharge instructions to [facility] at [phone].
D/C plan: Inpatient D&A rehab if pt agrees and to help the pt with restoring electricity.
CM will follow with discharge plan updates as hospitalization progresses
--- NOTE | 2024-10-24 14:29 | VNURNOTE ---
Home Health Liaison met with [facility] at bedside to [facility] visits, schedule and homebound status. Patient stated [employer] he would go out of the house to bars or restaurants. He stated he plans on stopping that once DC'ed.
He stated he wants to get his 'house in order' and then maddyy got rehab [facility]. In the meantime, patient is agreeable to [facility] and understands that visits at home will be 2-3 x per week to assess and teach medical management. Patient stated
he is thinking about either going home to his apt in [place] or going to his sister's house in [place]. Advised patient that he will need to decide which location prior to DC so VN can be set up. GREG Auguste updated. [facility]N does not service
[place].
No [facility] referral placed yet - awaiting pt decision on returning home or to sister's in [place].
--- NOTE | 2024-10-24 14:54 | W.PN.UPDATE ---
Update Note
Progress Note Update
patient seen chart reviewed. touched base w nursing. patient is doing reasonably well. vital signs look good. he does not appear to be in wd from etoh at this point. he has not used ativan since yesterday. he has spoken to [facility]. he does not wish
to do in patient rehab at this time as he has to sort out his housing since he is being evicted. remaining sober will be his priority and if he cannot once he gets his home sorted he will go to rehab. in the meantime will do iop aa AND get a
sponsor. we talked about the absolute need to plan what he will do WHEN he gets tempted which will happen. he should take an index card and write down twelve things he can easily do which are quantifiable....call someone....watch two tv shows...go
to aa meeting (should keep meeting list handy) etc etc. he should have no etoh in his home etc he also needs to see his out pt psychiatrist awais mckeon and come clean about his drinking which he says he will do. would dc him on his current
medication psychiatrically. psych will sign off. patient feels he will be leaving tomorrow.
[2024-10-24 16:50] LABS: Glucose - Point of Care 127 mg/dl (70-99)
--- NOTE | 2024-10-24 17:13 | PTCARENOTE ---
Received pt from ICU, VSS, AAOx3, no s/s of WD, MSAS protocol in place, oriented to room and call light. Pt resting comfortably in bed at this time.
[2024-10-24] MEDS: XARELTO 20 MG PO (17:19)
[2024-10-24] MEDS: ATIVAN PO (20:13)
[2024-10-24 20:19] LABS: Glucose - Point of Care 117 mg/dl (70-99)
[2024-10-25] VITALS (9 sets, daily range): BP systolic 118–169; BP diastolic 58–98; PULSE 2–77; BMI 55.4
[2024-10-25] MEDS: ANCEF 10 IV ×3 (07:11→23:26)
[2024-10-25] MEDS: NITRO-BID 0.5 INCH TOPICAL ×4 (07:12→23:26)
[2024-10-25 07:40] LABS: Glucose - Point of Care 111 mg/dl (70-99)
[2024-10-25 08:00] LABS: Blood Urea Nitrogen 15 mg/dl (9-20); Calcium 9.3 mg/dl (8.4-10.2); Carbon Dioxide 31 mmol/L (22-30); Chloride 96 mmol/L (98-107); Estimated Creatinine Clearance > 125 ml/min; Glucose 116 mg/dl (70-99); Magnesium 1.6 mg/dl (1.6-2.3); Potassium 4.2 mmol/L (3.5-5.1); Sodium 134 mmol/L (135-145); eGFR > 60.00
[2024-10-25] MEDS: WELLBUTRIN XL (24 hour extended release) 150 MG PO (08:37)
[2024-10-25] MEDS: EFFEXOR XR 450 MG PO (08:37)
[2024-10-25] MEDS: ATIVAN 1 MG PO ×3 (08:37→23:28)
[2024-10-25] MEDS: FOLVITE 1 MG PO (08:37)
[2024-10-25] MEDS: NORVASC 10 MG PO (08:38)
[2024-10-25] MEDS: NEURONTIN 600 MG PO ×3 (08:38→21:11)
[2024-10-25] MEDS: CARDURA 4 MG PO (08:38)
[2024-10-25] MEDS: KCL 40 MEQ PO (08:38)
[2024-10-25] MEDS: ATACAND 16 MG PO (08:39)
[2024-10-25] MEDS: PEPCID 20 MG PO (08:39)
[2024-10-25] MEDS: VITAMIN B1 100 MG PO ×2 (08:39→21:10)
[2024-10-25] MEDS: MAGNESIUM OXIDE 500 MG PO (08:39)
[2024-10-25] MEDS: LASIX 40 MG IV ×2 (08:39→16:19)
[2024-10-25] MEDS: TOPROL XL 100 MG PO ×2 (08:39→21:10)
[2024-10-25] MEDS: NOVOLOG FLEXPEN-LOW RESISTANCE SC (08:40)
--- NOTE | 2024-10-25 08:52 | W.PN.CARDCBS ---
Today's Communication / Plan
-
Still volume overloaded, Continue Lasix 40 mg IV twice daily
Impression / Plan
-
PCP: Dr. Shelbie Mejia
Card: None prior to admission, previously followed with Dr. Souza, but not seeing any longer
Impression:
Admitted with SOB, acute hypoxia and CHF 10/20/24
Acute HFpEF
EF 65% without significant valve disease by echo 10/21/24
ETOH withdrawal
h/o drug use including smoking crack cocaine
HTN emergency
Fever
Paroxysmal A-fib
Chronic Xarelto OAC
Chronic hypercarbic respiratory failure, CARRIE/obesity hypoventilation syndrome
DM2
Obese, BMI 60
Hypokalemia
Echo 10/21/2024: EF 65 to 70%, moderate concentric LVH (1.5 cm), normal RV size and function, no significant valve disease
Plan:
Clinically complex given acute decompensated heart failure along with alcohol withdrawal.
Acute decompensated heart failure with preserved ejection fraction, clinically improving with diuresis
Weight is down 40 pounds from admission. Overnight weight is down 7 pounds and 1 L negative. Stable renal function with BUN and creatinine 31 and 1.5
Still volume overloaded, Continue Lasix 40 mg IV twice daily
Cont Toprol 100 mg twice daily, Atacand 16 mg daily
With polypharmacy we will hold off on SLG 2 inhibitor for now, but this should be considered as an outpatient
Remains hypertensive
Continue Toprol-XL 100 mg twice daily, continue candesartan 16 mg daily, continue amlodipine 10 mg daily, continue doxazosin 4 mg daily. *note, candesartan increased to 16 mg daily starting 10/24
Known paroxysmal atrial fibrillation, currently in sinus rhythm. He is at elevated atrial fibrillation related thromboembolic risk related to heart failure, hypertension, diabetes
Continue Xarelto 20 mg daily
Continue Toprol-XL 100 mg twice daily which assist with rate control
Alcohol withdrawal monitoring and treatment as per primary service.
He remains on phenobarbital, Effexor, and Wellbutrin
He is morbidly obese. With his body habitus I suspect he has obstructive sleep apnea and obesity hypoventilation syndrome.
Will need further evaluation, likely as an outpatient
Total time spent today was 50 minutes in preparing to see the patient, seeing the patient and coordination of care. This included review of recent laboratory evaluations, cardiact testing, imaging studies, primary care rtecords, specialty
consultations, hospital records, as well as personally interviewing and examining the patient, which included discussion of their tests, review/ordering medications, and communicating with other healthcare professionals and also treatment planning
as well as counseling.
Progress Note - Business Office Director
Subjective
Date of Service: October 25, 2024
He tells me that his breathing is better but he still feels significantly fatigued. No chest pain
Objective
Labs:
10/24/24 04:23
10/25/24 06:57
Labs
Hgb 12.7 g/dL (13.0-18.0) L 10/24/24 04:23
Hct 37.3 % (39.0-52.0) L 10/24/24 04:23
Plt Count 152 10^3/uL (130-400) D 10/24/24 04:23
PT 18.9 Sec (11.4-14.6) H 10/20/24 10:10
INR 1.56 10/20/24 10:10
Sodium 134 mmol/L (135-145) L 10/25/24 06:57
Potassium 4.2 mmol/L (3.5-5.1) 10/25/24 06:57
BUN 15 mg/dl (9-20) 10/25/24 06:57
Creatinine 0.9 mg/dL (0.7-1.3) 10/25/24 06:57
Glucose 116 mg/dl (70-99) H 10/25/24 06:57
Vital Signs and I&O:
Vital Signs
Temp Pulse Resp BP Pulse Ox
98.5 F 75 12 169/93 97
10/25/24 08:00 10/25/24 08:38 10/25/24 08:00 10/25/24 08:38 10/25/24 08:44
Vital Signs
Temp Pulse Resp BP Pulse Ox
98.5 F 75 12 169/93 97
10/25/24 08:00 10/25/24 08:38 10/25/24 08:00 10/25/24 08:38 10/25/24 08:44
Intake & Output
10/23/24 10/24/24 10/25/24 10/26/24
06:59 06:59 06:59 06:59
Intake Total 1590 / 1590 240 / 240 1358 / 1358
Output Total 5500 / 5500 1400 / 1400 2350 / 2350
Balance -3910 / -3910 -1160 / -1160 -992 / -992
Physical Exam
Physical Exam
Morbidly obese, laying in bed wearing CPAP. Appears comfortable
Regular rate and rhythm with normal S1 and S2, no S3 no S4 is a grade 1/6 apical holosystolic murmur and no rubs. PMI is normally placed.
Lungs are clear to auscultation bilaterally, there are no wheezes bilaterally there are no rales bilaterally.
Abdomen is obese soft nontender nondistended with normoactive bowel sounds
Extremities show +2 pitting edema to the thighs. The calves are wrapped and there is mild erythema visible bilaterally
[2024-10-25 11:57] LABS: Glucose - Point of Care 184 mg/dl (70-99)
--- NOTE | 2024-10-25 13:00 | PTCARENOTE ---
Pt with c/o anxiety and agitation, not qualifying for MSAS protocol ativan dose. Pt rang call santillan 8 times in 2 hours for medication, medication not due until 1437. MD made aware, MD in to speak with pt, psych consulted. No new orders at this time.
[2024-10-25] MEDS: NOVOLOG FLEXPEN-LOW RESISTANCE 1 UNITS SC (13:30)
--- NOTE | 2024-10-25 13:42 | W.PN.HOSP.TC ---
Today's Communication/Plan
-
continue IV Lasix
continue IV Abx
monitor BP
psych re-evaluation for ongoing anxiety
Assessment / Plan
Assessment / Plan
Assessment:
Acute hypoxic respiratory failure on 2-3L due to CHF
Acute on chronic hypercarbic respiratory failure - suspected chronic CARRIE/OHS
- wean O2 as able
New onset Acute HFpEF
- Echo: Normal left ventricular size and systolic function. No regional wall motion abnormalities are seen. LV ejection fraction is 65-70% by visual assessment. Moderate concentric left ventricular hypertrophy (1.5 cm). Normal RV size and function.
No significant valvular disease. Compared to prior echocardiogram August 14, 2011, that study was noted to be technically difficult and there is a question of possible right ventricular dilatation. Today's study is not limited by technical/imaging
shortcomings and there is normal RV size and function. Otherwise no significant changes.
- CXR consistent with CHF. BNP 777 but unreliable in obesity
- continue IV Lasix - requires intensive monitoring of I/Os, weights, Lytes
- continue compression therapy
- follow Cards recs
Hypertensive emergency, likely exacerbating acute CHF exacerbation
- Continue home blood pressure medications - Amlodipine, Doxazosin, and Metoprolol succinate and candesartan
- titrate to goal normotension
- Closely monitor hemodynamics
Acute alcohol withdrawal
Toxic encephalopathy in setting of ETOH withdrawal
- transferred 10/21 to ICU to Precedex
- now off Precedex and phenobarbital
- Thiamine and folate
- Alcohol cessation advised to patient. CM consult for dispo planning along with BCares. Patient favoring IOP and AA in outpatient settings.
Severe acute on chronic lymphadenopathy of bilateral lower extremities, likely multifactorial due to his chronic venous insufficiency, and new onset acute heart failure
- continue IV Lasix twice daily
- continue compression therapy
Bilateral lower extremity cellulitis, superimposed upon chronic venous insufficiency chronic lymphadenopathy
Underlying lactic acidosis
- lactic acidosis has resolved
- continue IV Ancef, day 5/10- Keflex at discharge
- MRSA negative
- wound care evaluation
Sleep apnea, uses CPAP nightly at 17
- Will continue CPAP here at 17, the patient does not have his home CPAP unit available
Paroxysmal atrial fibrillation
- Currently in normal sinus rhythm
- Continue telemetry monitoring
- Continue Xarelto
- Continue metoprolol
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
- Monitor labs
Anemia, new since 2023
- The patient denies any melena, hematochezia, hematemesis
- anemia indices ok. continue Folate
GERD
- continue famotidine
Neuropathy-cont gabapentin
Hypokalemia in setting of hypomagnesemia
- continue oral potassium
- continue oral magnesium
Dried abrasion to L great toe, intact scab.
R posterior thigh with full thickness ulcer, suspect stage 3 mixed with MASD
- follow wound care recs
DVT ppx: Xarelto
Code: Full
Anticipated Discharge: > 48 hours
Subjective/Interval History
-
Date of Service: October 25, 2024
reports anxious and asking for Ativan to help sleep
denies SOB or CP
Objective Data
-
Labs:
Laboratory Results
10/25/24
06:57
Sodium 134 L
Potassium 4.2
Chloride 96 L
Carbon Dioxide 31 H
BUN 15
Creatinine 0.9
Glucose 116 H
Calcium 9.3
Vital Signs:
Vital Signs
Temp Pulse Resp BP Pulse Ox
98.6 F 83 16 169/91 97
10/25/24 11:00 10/25/24 13:29 10/25/24 11:00 10/25/24 13:29 10/25/24 11:00
I&O
10/24/24 10/25/24 10/26/24
06:59 06:59 06:59
Intake Total 240 / 240 1358 / 1358
Output Total 1400 / 1400 2350 / 2350
Balance -1160 / -1160 -992 / -992
Physical Exam
-
General: No Apparent Distress
HEENT: Normocephalic and Atraumatic
Respiratory: Negative Wheezes
Cardiac: Regular Rhythm and S1/S2
GI: Soft
Musculoskeletal: No Edema
Neuro: AO x 3
Hematologic / Lymphatic: No Lymphadenopathy
Psych: Calm
Data Reviewed
-
Total Time Spent with Patient (in minutes): 51
Labs: Labs Reviewed by me
--- NOTE | 2024-10-25 16:11 | W.PN.UPDATE ---
Update Note
Progress Note Update
Psychiatry re-consulted as pt reporting ongoing anxiety w/ feelings of panic. Pt asking to resume prn ativan as this has helped previously - 'it lowers my blood pressure and really takes the edge off'. Provided psychoed as to why ativan was
previously used in context of etoh w/d concerns and why it is best to avoid continued use of it for anxiety - discussed risks of addiction & habituation, as well as contraindication of benzo use for chronic anxiety. Also stressed importance of
therapy & use of skills for managing anxiety during times of stress, as well as importance of avoiding etoh use.
Pt does describe underlying anxiety with racing thoughts, ruminations, overthinking and feeling of panic which has not improved with his current snri. Discussed trial of buspirone 10mg bid while here to help allay intensity of sxs, however again
stressed to pt to utilize therapy for custodial improvement.
Trial buspirone 5mgBID + 5mg prn anxiety
[2024-10-25 17:11] LABS: Glucose - Point of Care 245 mg/dl (70-99)
[2024-10-25] MEDS: NOVOLOG FLEXPEN-LOW RESISTANCE 2 UNITS SC (17:12)
[2024-10-25] MEDS: XARELTO 20 MG PO (17:14)
[2024-10-25] MEDS: BUSPAR 5 MG PO (21:11)
[2024-10-25 21:44] LABS: Glucose - Point of Care 157 mg/dl (70-99)
[2024-10-26] VITALS (9 sets, daily range): BP systolic 142–196; BP diastolic 86–104; PULSE 2–79; BMI 54.6
[2024-10-26] MEDS: ANCEF 10 IV ×3 (06:08→22:21)
[2024-10-26] MEDS: NITRO-BID 0.5 INCH TOPICAL ×4 (06:08→23:18)
[2024-10-26] MEDS: ATIVAN 1 MG PO ×2 (06:17→13:49)
[2024-10-26 06:50] LABS: Blood Urea Nitrogen 15 mg/dl (9-20); Calcium 9.8 mg/dl (8.4-10.2); Carbon Dioxide 31 mmol/L (22-30); Chloride 96 mmol/L (98-107); Estimated Creatinine Clearance > 125 ml/min; Glucose 125 mg/dl (70-99); Sodium 135 mmol/L (135-145); eGFR > 60.00
[2024-10-26 06:58] LABS: Potassium 4.8 mmol/L (3.5-5.1)
[2024-10-26 07:36] LABS: Glucose - Point of Care 120 mg/dl (70-99)
[2024-10-26] MEDS: NOVOLOG FLEXPEN-LOW RESISTANCE SC (08:31)
[2024-10-26] MEDS: NEURONTIN 600 MG PO ×3 (08:32→22:21)
[2024-10-26] MEDS: CARDURA 4 MG PO (08:32)
[2024-10-26] MEDS: VITAMIN B1 100 MG PO ×2 (08:33→20:16)
[2024-10-26] MEDS: PEPCID 20 MG PO (08:33)
[2024-10-26] MEDS: EFFEXOR XR 450 MG PO (08:33)
[2024-10-26] MEDS: WELLBUTRIN XL (24 hour extended release) 150 MG PO (08:33)
[2024-10-26] MEDS: MAGNESIUM OXIDE 500 MG PO (08:33)
[2024-10-26] MEDS: BUSPAR 5 MG PO ×2 (08:33→20:15)
[2024-10-26] MEDS: FOLVITE 1 MG PO (08:33)
[2024-10-26] MEDS: KCL 40 MEQ PO (08:34)
[2024-10-26] MEDS: TOPROL XL 100 MG PO ×2 (08:34→20:15)
[2024-10-26] MEDS: NORVASC 10 MG PO (08:34)
[2024-10-26] MEDS: ATACAND 16 MG PO (08:34)
[2024-10-26] MEDS: LASIX 40 MG IV ×2 (08:35→16:36)
--- NOTE | 2024-10-26 10:45 | W.PN.UPDATE ---
Update Note
Progress Note Update
Patient is reporting anxiety relating to his family issues, particularly is sad about his daughter not talking to him due to his alcohol abuse. He also talked about his divorce, having to sell his house and his relationship with his son who is also
upset about his his drinking. He admits to anhedonia but denies hopelessness or suicidal thoughts.
He was started yesterday on BuSpar and already takes Wellbutrin as well as Effexor XR but has not seen a psychiatrist for several months and does not have a therapist or a sponsor.
I suggested going to rehab which he is undecided abut. He agreed to seeing OP psychiatrist and a therapist and going to AA and getting a sponsor.
Wouls continue current psychotropic medications.
--- NOTE | 2024-10-26 11:25 | W.PN.CARDCBS ---
Today's Communication / Plan
-
Continue IV diuresis
Impression / Plan
-
PCP: Dr. Shelbie Mejia
Card: Previously has seen several cardiologists including
Dr. Santos, [facility] cardiology
Dr. Souza, but not seeing any longer
First seen here by Dr. Akiko Kapadia
Impression:
Admitted with SOB, acute hypoxia and CHF 10/20/24
Acute HFpEF
EF 65% without significant valve disease by echo 10/21/24
ETOH withdrawal
h/o drug use including smoking crack cocaine
HTN emergency
Fever
Paroxysmal A-fib
Chronic Xarelto OAC
Chronic hypercarbic respiratory failure, CARRIE/obesity hypoventilation syndrome
DM2
Obese, BMI 60
Hypokalemia
Echo 10/21/2024: EF 65 to 70%, moderate concentric LVH (1.5 cm), normal RV size and function, no significant valve disease
Plan:
Clinically complex given acute decompensated heart failure along with alcohol withdrawal.
Acute decompensated heart failure with preserved ejection fraction, clinically improving with diuresis
Weight is down 45 pounds from admission. Overnight weight is down 5 pounds. Stable renal function with BUN and creatinine 31 and 0.9 with K = 4.8
Still volume overloaded, Continue Lasix 40 mg IV twice daily
Cont Toprol 100 mg twice daily, Atacand 16 mg daily
With polypharmacy we will hold off on SLG 2 inhibitor for now, but this should be considered as an outpatient
Remains hypertensive
Continue Toprol-XL 100 mg twice daily, continue candesartan 16 mg daily, continue amlodipine 10 mg daily, continue doxazosin 4 mg daily. *note, candesartan increased to 16 mg daily starting 10/24
If blood pressure remains elevated will need to add additional antihypertensive drug therapy on Sunday
Consider evaluation for secondary causes of multidrug resistant hypertension if not previously done. Note, Dr. Russell is his outpatient hypertension specialist.
Known paroxysmal atrial fibrillation, currently in sinus rhythm. He is at elevated atrial fibrillation related thromboembolic risk related to heart failure, hypertension, diabetes
Continue Xarelto 20 mg daily
Continue Toprol-XL 100 mg twice daily which assist with rate control
Alcohol withdrawal monitoring and treatment as per primary service.
He remains on phenobarbital, Effexor, and Wellbutrin
He is morbidly obese. With his body habitus I suspect he has obstructive sleep apnea and obesity hypoventilation syndrome.
Will need further evaluation, likely as an outpatient
Reviewed findings as well as our recommendation/plan with the patient and all of his questions have been answered. He remains agreeable to continuing hospital stay for more diuresis
Total time spent today was 52 minutes in preparing to see the patient, seeing the patient and coordination of care. This included review of recent laboratory evaluations, cardiact testing, imaging studies, primary care rtecords, specialty
consultations, hospital records, as well as personally interviewing and examining the patient, which included discussion of their tests, review/ordering medications, and communicating with other healthcare professionals and also treatment planning
as well as counseling.
Progress Note - Dietitian Teaching
Subjective
Date of Service: October 26, 2024
Denies chest pain and palpitations. Shortness of breath has improved. He feels a bit more energetic this morning.
Objective
Labs:
10/24/24 04:23
10/26/24 05:07
Labs
Hgb 12.7 g/dL (13.0-18.0) L 10/24/24 04:23
Hct 37.3 % (39.0-52.0) L 10/24/24 04:23
Plt Count 152 10^3/uL (130-400) D 10/24/24 04:23
PT 18.9 Sec (11.4-14.6) H 10/20/24 10:10
INR 1.56 10/20/24 10:10
Sodium 135 mmol/L (135-145) 10/26/24 05:07
Potassium 4.8 mmol/L (3.5-5.1) 10/26/24 05:07
BUN 15 mg/dl (9-20) 10/26/24 05:07
Creatinine 0.9 mg/dL (0.7-1.3) 10/26/24 05:07
Glucose 125 mg/dl (70-99) H 10/26/24 05:07
Vital Signs and I&O:
Vital Signs
Temp Pulse Resp BP Pulse Ox
98.0 F 73 16 165/104 97
10/26/24 11:00 10/26/24 11:13 10/26/24 11:00 10/26/24 11:13 10/26/24 11:00
Vital Signs
Temp Pulse Resp BP Pulse Ox
98.0 F 73 16 165/104 97
10/26/24 11:00 10/26/24 11:13 10/26/24 11:00 10/26/24 11:13 10/26/24 11:00
Intake & Output
10/24/24 10/25/24 10/26/24 10/27/24
06:59 06:59 06:59 06:59
Intake Total 240 / 240 1358 / 1358 1480 / 1480
Output Total 1400 / 1400 2350 / 2350 3220 / 3220
Balance -1160 / -1160 -992 / -992 -1740 / -1740
Physical Exam
Physical Exam
Morbidly obese, laying in bed wearing CPAP. Appears comfortable
Regular rate and rhythm with normal S1 and S2, no S3 no S4 is a grade 1/6 apical holosystolic murmur and no rubs. PMI is normally placed.
Lungs are clear to auscultation bilaterally, there are no wheezes bilaterally there are no rales bilaterally.
Abdomen is obese soft nontender nondistended with normoactive bowel sounds
Extremities show +2 pitting edema to the thighs. The calves are wrapped and there is mild erythema visible bilaterally
--- NOTE | 2024-10-26 11:46 | W.PN.HOSP.TC ---
Today's Communication/Plan
-
continue IV Lasix
Assessment / Plan
Assessment / Plan
Assessment:
Acute hypoxic respiratory failure on 2-3L due to CHF
Acute on chronic hypercarbic respiratory failure - suspected chronic CARRIE/OHS
- wean O2 as able
New onset Acute HFpEF
- Echo: Normal left ventricular size and systolic function. No regional wall motion abnormalities are seen. LV ejection fraction is 65-70% by visual assessment. Moderate concentric left ventricular hypertrophy (1.5 cm). Normal RV size and function.
No significant valvular disease. Compared to prior echocardiogram August 14, 2011, that study was noted to be technically difficult and there is a question of possible right ventricular dilatation. Today's study is not limited by technical/imaging
shortcomings and there is normal RV size and function. Otherwise no significant changes.
- CXR consistent with CHF. BNP 777 but unreliable in obesity
- continue IV Lasix - requires intensive monitoring of I/Os, weights, Lytes
- continue compression therapy
- follow Cards recs
Hypertensive emergency, likely exacerbating acute CHF exacerbation
- Continue home blood pressure medications - Amlodipine, Doxazosin, and Metoprolol succinate and candesartan
- titrate to goal normotension
- Closely monitor hemodynamics
Acute alcohol withdrawal
Toxic encephalopathy in setting of ETOH withdrawal
- transferred /8 to ICU to Precedex
- now off Precedex and phenobarbital
- Thiamine and folate
- Alcohol cessation advised to patient. CM consult for dispo planning along with BCares. Patient favoring IOP and AA in outpatient settings.
Severe acute on chronic lymphadenopathy of bilateral lower extremities, likely multifactorial due to his chronic venous insufficiency, and new onset acute heart failure
- continue IV Lasix twice daily
- continue compression therapy
Bilateral lower extremity cellulitis, superimposed upon chronic venous insufficiency chronic lymphadenopathy
Underlying lactic acidosis
- lactic acidosis has resolved
- continue IV Ancef, day 6/10- Keflex at discharge
- MRSA negative
- wound care evaluation
Anxiety
- started on Buspar by psych
Sleep apnea, uses CPAP nightly at 17
- Will continue CPAP here at 17, the patient does not have his home CPAP unit available
Paroxysmal atrial fibrillation
- Currently in normal sinus rhythm
- Continue telemetry monitoring
- Continue Xarelto
- Continue metoprolol
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
- Monitor labs
Anemia, new since 2023
- The patient denies any melena, hematochezia, hematemesis
- anemia indices ok. continue Folate
GERD
- continue famotidine
Neuropathy-cont gabapentin
Hypokalemia in setting of hypomagnesemia
- continue oral potassium
- continue oral magnesium
Dried abrasion to L great toe, intact scab.
R posterior thigh with full thickness ulcer, suspect stage 3 mixed with MASD
- follow wound care recs
DVT ppx: Xarelto
Code: Full
Anticipated Discharge: > 48 hours
Subjective/Interval History
-
Date of Service: October 26, 2024
denies any new complaints at present
continues to diurese well
desires to walk
Objective Data
-
Labs:
Laboratory Results
10/26/24
05:07
Sodium 135
Potassium 4.8
Chloride 96 L
Carbon Dioxide 31 H
BUN 15
Creatinine 0.9
Glucose 125 H
Calcium 9.8
Vital Signs:
Vital Signs
Temp Pulse Resp BP Pulse Ox
98.0 F 73 16 165/104 97
10/26/24 11:00 10/26/24 11:13 10/26/24 11:00 10/26/24 11:13 10/26/24 11:00
I&O
10/25/24 10/26/24 10/27/24
06:59 06:59 06:59
Intake Total 1358 / 1358 1480 / 1480
Output Total 2350 / 2350 3220 / 3220
Balance -992 / -992 -1740 / -1740
Physical Exam
-
General: No Apparent Distress
HEENT: Normocephalic and Atraumatic
Respiratory: Negative Wheezes
Cardiac: Regular Rhythm
GI: Soft
Musculoskeletal: Edema, Right Lower Extrem and Edema, Left Lower Extrem
Neuro: AO x 3
Psych: Calm
Data Reviewed
-
Total Time Spent with Patient (in minutes): 51
Labs: Labs Reviewed by me
[2024-10-26 12:14] LABS: Glucose - Point of Care 160 mg/dl (70-99)
[2024-10-26] MEDS: NOVOLOG FLEXPEN-LOW RESISTANCE 1 UNITS SC ×2 (13:21→16:52)
[2024-10-26 16:52] LABS: Glucose - Point of Care 189 mg/dl (70-99)
[2024-10-26] MEDS: XARELTO 20 MG PO (17:41)
[2024-10-26 22:06] LABS: Glucose - Point of Care 129 mg/dl (70-99)
[2024-10-26] MEDS: ATIVAN 1 MG IV (23:05)
[2024-10-26] MEDS: NSS (PRESERVATIVE FREE) 0.5 ML IV (23:06)
[2024-10-26] MEDS: TUMS CHEWABLE TABLET 200 MG PO (23:26)
[2024-10-27 05:02] VITALS: PULSE 2
[2024-10-27] MEDS: ANCEF 10 IV ×3 (05:45→22:36)
[2024-10-27] MEDS: NITRO-BID 0.5 INCH TOPICAL ×3 (05:45→17:56)
[2024-10-27 06:00] VITALS: BMI 53.5
[2024-10-27 06:49] LABS: Blood Urea Nitrogen 17 mg/dl (9-20); Carbon Dioxide 30 mmol/L (22-30); Chloride 94 mmol/L (98-107); Estimated Creatinine Clearance 122 ml/min; Glucose 120 mg/dl (70-99); Magnesium 1.7 mg/dl (1.6-2.3); Potassium 4.6 mmol/L (3.5-5.1); Sodium 134 mmol/L (135-145); eGFR > 60.00
[2024-10-27 07:55] VITALS: BP 166/95
[2024-10-27 08:27] LABS: Glucose - Point of Care 193 mg/dl (70-99)
[2024-10-27] MEDS: NOVOLOG FLEXPEN-LOW RESISTANCE 1 UNITS SC ×2 (08:30→17:54)
[2024-10-27] MEDS: WELLBUTRIN XL (24 hour extended release) 150 MG PO (08:31)
[2024-10-27] MEDS: NEURONTIN 600 MG PO ×3 (08:31→22:36)
[2024-10-27] MEDS: MAGNESIUM OXIDE 500 MG PO (08:31)
[2024-10-27] MEDS: VITAMIN B1 100 MG PO ×2 (08:31→20:35)
[2024-10-27] MEDS: EFFEXOR XR 450 MG PO (08:31)
[2024-10-27] MEDS: NORVASC 10 MG PO (08:32)
[2024-10-27] MEDS: BUSPAR 5 MG PO ×2 (08:32→20:35)
[2024-10-27] MEDS: KCL 40 MEQ PO (08:32)
[2024-10-27] MEDS: FOLVITE 1 MG PO (08:32)
[2024-10-27] MEDS: PEPCID 20 MG PO (08:32)
[2024-10-27] MEDS: TOPROL XL 100 MG PO ×2 (08:32→20:35)
[2024-10-27] MEDS: LASIX 40 MG IV ×2 (08:33→15:04)
[2024-10-27] MEDS: ATACAND 16 MG PO ×2 (08:33→11:39)
[2024-10-27] MEDS: CARDURA 4 MG PO (08:33)
[2024-10-27] MEDS: ATIVAN 1 MG PO ×2 (08:56→16:47)
--- NOTE | 2024-10-27 09:55 | W.PN.CARDCBS ---
Today's Communication / Plan
-
Cont IV diuresis
Increase Atacand to 32 mg daily for better bp control
Monitor cr
Impression / Plan
-
.
PCP: Dr. Shelbie Mejia
Card: Previously has seen several cardiologists including
Dr. Santos, [facility] cardiology
Dr. Souza, but not seeing any longer
First seen here by Dr. Akiko Kapadia
Impression:
Admitted with SOB, acute hypoxia and CHF 10/20/24
Acute HFpEF
EF 65% without significant valve disease by echo 10/21/24
ETOH withdrawal
h/o drug use including smoking crack cocaine
HTN emergency
Fever
Paroxysmal A-fib
Chronic Xarelto OAC
Chronic hypercarbic respiratory failure, CARRIE/obesity hypoventilation syndrome
DM2
Obese, BMI 60
Hypokalemia
Echo 10/21/2024: EF 65 to 70%, moderate concentric LVH (1.5 cm), normal RV size and function, no significant valve disease
Plan:
Clinically complex given acute decompensated heart failure along with alcohol withdrawal.
Acute decompensated heart failure with preserved ejection fraction, clinically improving with diuresis
Weight is down over 45 pounds from admission 362 on October 28 2023. Overnight weight is down 5 pounds. Stable renal function with BUN and creatinine 17 and 1.0 with K = 4.6
Remains volume overloaded, Continue Lasix 40 mg IV twice daily
Cont Toprol 100 mg twice daily, Atacand
With polypharmacy we will hold off on SLG 2 inhibitor for now, but this should be considered as an outpatient
Remains hypertensive
Continue Toprol-XL 100 mg twice daily, continue amlodipine 10 mg daily, continue doxazosin 4 mg daily, Candesartan increased to 16 mg daily starting 10/24 and will consider increase to 32 mg daily given bps remains elevated.
Consider evaluation for secondary causes of multidrug resistant hypertension if not previously done. Note, Dr. Russell is his outpatient hypertension specialist.
Known paroxysmal atrial fibrillation, currently in sinus rhythm. He is at elevated atrial fibrillation related thromboembolic risk related to heart failure, hypertension, diabetes
Continue Xarelto 20 mg daily
Continue Toprol-XL 100 mg twice daily which assist with rate control
Alcohol withdrawal monitoring and treatment as per primary service.
He remains on phenobarbital, Effexor, and Wellbutrin
CARRIE, cont CPAP
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
Subjective
Date of Service: October 27, 2024
Pt seen and examined. No complaints. No chest pain or shortness of breath.
Objective
Labs:
10/24/24 04:23
10/27/24 05:31
Labs
Hgb 12.7 g/dL (13.0-18.0) L 10/24/24 04:23
Hct 37.3 % (39.0-52.0) L 10/24/24 04:23
Plt Count 152 10^3/uL (130-400) D 10/24/24 04:23
PT 18.9 Sec (11.4-14.6) H 10/20/24 10:10
INR 1.56 10/20/24 10:10
Sodium 134 mmol/L (135-145) L 10/27/24 05:31
Potassium 4.6 mmol/L (3.5-5.1) 10/27/24 05:31
BUN 17 mg/dl (9-20) 10/27/24 05:31
Creatinine 1.0 mg/dL (0.7-1.3) 10/27/24 05:31
Glucose 120 mg/dl (70-99) H 10/27/24 05:31
Vital Signs and I&O:
Vital Signs
Temp Pulse Resp BP Pulse Ox
98.5 F 71 18 166/95 95
10/27/24 07:55 10/27/24 08:33 10/27/24 07:55 10/27/24 08:33 10/27/24 07:55
Vital Signs
Temp Pulse Resp BP Pulse Ox
98.5 F 71 18 166/95 95
10/27/24 07:55 10/27/24 08:33 10/27/24 07:55 10/27/24 08:33 10/27/24 07:55
Intake & Output
10/25/24 10/26/24 10/27/24 10/28/24
06:59 06:59 06:59 06:59
Intake Total 1358 / 1358 1480 / 1480 1360 / 1360
Output Total 2350 / 2350 3220 / 3220 3405 / 3405
Balance -992 / -992 -1740 / -1740 -2044 / -2044
Physical Exam
Physical Exam
General: No acute distress, AAOX3
Neck: Negative JVD
Heart: Regular, Negative S3 positive S1/S2, Negative S4, No murmur
Lungs: CTA b/l, negative wheezes/rales/rhonchi
Abd: Morbid obesity Positive BS, NT/ND, neg rebound/rigidity/guarding
Ext: Negative cyanosis/clubbing/edema
Neuro: nonfocal
[2024-10-27 11:20] LABS: Glucose - Point of Care 111 mg/dl (70-99)
[2024-10-27] MEDS: NOVOLOG FLEXPEN-LOW RESISTANCE SC (11:37)
--- NOTE | 2024-10-27 12:10 | CM ---
Reviewed the chart notes and spoke with the patient at the bedside. Patient continues with IV diuretics. Patient anticipates being discharge to home in [place]. Patient agreeable to VN through VN. Referral sent in [facility].
continues to be available to patient/family and is monitoring medical plan for needs at discharge.
Plan: Discharge to home with VN services when medically stable.
--- NOTE | 2024-10-27 12:45 | W.PN.HOSP.TC ---
Today's Communication/Plan
-
Continue with IV Lasix
Follow weights
Follow blood pressure
DC planning
Assessment / Plan
Assessment / Plan
Assessment:
Acute hypoxic respiratory failure due to CHF
Acute on chronic hypercarbic respiratory failure - suspected chronic CARRIE/OHS
- Off of oxygen
New onset Acute HFpEF
- Echo: Normal left ventricular size and systolic function. No regional wall motion abnormalities are seen. LV ejection fraction is 65-70% by visual assessment. Moderate concentric left ventricular hypertrophy (1.5 cm). Normal RV size and function.
No significant valvular disease. Compared to prior echocardiogram August 14, 2011, that study was noted to be technically difficult and there is a question of possible right ventricular dilatation. Today's study is not limited by technical/imaging
shortcomings and there is normal RV size and function. Otherwise no significant changes.
- CXR consistent with CHF. BNP 777 but unreliable in obesity
- continue IV Lasix - requires intensive monitoring of I/Os, weights, Lytes. Lost 52 pounds and creatinine stable
- continue compression therapy
- follow Cards recs
Hypertensive emergency, likely exacerbating acute CHF exacerbation
- Continue home blood pressure medications - Amlodipine, Doxazosin, and Metoprolol succinate and candesartan. Advised to quit cocaine use.
- titrate to goal normotension
- Closely monitor hemodynamics
- If blood pressure remains elevated with poor medications will consult nephrology for secondary hypertension evaluation.
Acute alcohol withdrawal
Toxic encephalopathy in setting of ETOH withdrawal
- S/p Precedex
- now off Precedex and phenobarbital
- Thiamine and folate
- Alcohol cessation advised to patient. CM consult for dispo planning along with BCares. Patient favoring IOP and AA in outpatient settings.
- Resolved withdrawal syndrome
Severe acute on chronic lymphadenopathy of bilateral lower extremities, likely multifactorial due to his chronic venous insufficiency, and new onset acute heart failure
- continue IV Lasix twice daily
- continue compression therapy
Bilateral lower extremity cellulitis, superimposed upon chronic venous insufficiency chronic lymphadenopathy
Underlying lactic acidosis
- lactic acidosis has resolved
- continue IV Ancef, day 01/22- Keflex at discharge
- MRSA negative
- wound care evaluation
Anxiety
- started on Buspar by psych
Sleep apnea, uses CPAP nightly at 17
- Will continue CPAP here at 17, the patient does not have his home CPAP unit available
Paroxysmal atrial fibrillation
- Currently in normal sinus rhythm
- Continue telemetry monitoring
- Continue Xarelto
- Continue metoprolol
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
- Monitor labs
Anemia, new since 2023
- The patient denies any melena, hematochezia, hematemesis
- anemia indices ok. continue Folate
GERD
- continue famotidine
Neuropathy-cont gabapentin
Hypokalemia in setting of hypomagnesemia
- continue oral potassium
- continue oral magnesium
Dried abrasion to L great toe, intact scab.
R posterior thigh with full thickness ulcer, suspect stage 3 mixed with MASD
- follow wound care recs
Cocaine use-counseled about quitting cocaine use. Went over with him regarding cardiovascular and vascular effects of cocaine.
DVT ppx: Xarelto
Code: Full
Anticipated Discharge: 24 - 48 hours
Subjective/Interval History
-
Date of Service: October 27, 2024
Denies shortness of breath or chest pain.
No tremors or anxiety.
Objective Data
-
Labs:
Laboratory Results
10/27/24
05:31
Sodium 134 L
Potassium 4.6
Chloride 94 L
Carbon Dioxide 30
BUN 17
Creatinine 1.0
Glucose 120 H
Calcium 10.0
Vital Signs:
Vital Signs
Temp Pulse Resp BP Pulse Ox
98.5 F 76 18 159/91 95
10/27/24 07:55 10/27/24 11:44 10/27/24 07:55 10/27/24 11:44 10/27/24 07:55
I&O
10/26/24 10/27/24 10/28/24
06:59 06:59 06:59
Intake Total 1480 / 1480 1360 / 1360
Output Total 3220 / 3220 3405 / 3405
Balance -1740 / -1740 -2044 / -2044
Review of Systems
-
Respiratory: Denies Trouble Breathing
Cardiac: Denies Chest Pain
Abdomen/GI: Denies Abdominal Pain, Nausea or Vomiting
Neuro: Denies Dizzy
Physical Exam
-
General: No Apparent Distress
Respiratory: Clear to Auscultation and Non Labored Respirations; Negative Accessory Resp Muscle Use
Cardiac: Regular Rhythm and S1/S2
GI: Soft
Musculoskeletal: Edema, Right Lower Extrem and Edema, Left Lower Extrem
Neuro: AO x 3
Psych: Negative Confused
Data Reviewed
-
Labs: Labs Reviewed by me
[2024-10-27] MEDS: TUMS CHEWABLE TABLET 200 MG PO (15:01)
[2024-10-27 15:34] VITALS: BP 141/80
[2024-10-27 17:05] LABS: Glucose - Point of Care 162 mg/dl (70-99)
[2024-10-27] MEDS: XARELTO 20 MG PO (17:54)
[2024-10-27 22:10] VITALS: PULSE 2; PULSE 84
[2024-10-27 22:42] LABS: Glucose - Point of Care 155 mg/dl (70-99)
[2024-10-27 23:15] VITALS: BP 146/98
[2024-10-28] MEDS: NITRO-BID 0.5 INCH TOPICAL ×4 (00:47→17:49)
[2024-10-28 03:40] VITALS: PULSE 2; PULSE 88
[2024-10-28] MEDS: ANCEF 10 IV (05:42)
[2024-10-28 06:00] VITALS: BMI 52.7
--- NOTE | 2024-10-28 07:23 | W.PN.CARDCBS ---
Today's Communication / Plan
-
Cont IV lasix, possible transiton to PO next 24-48 hrs
Impression / Plan
-
.
PCP: Dr. Shelbie Mejia
Card: Previously has seen several cardiologists including
Dr. Santos, [facility] cardiology
Dr. Souza, but not seeing any longer
First seen here by Dr. Akiko Kapadia
Impression:
Admitted with SOB, acute hypoxia and CHF 10/20/24
Acute HFpEF
EF 65% without significant valve disease by echo 10/21/24
ETOH withdrawal
h/o drug use including smoking crack cocaine
HTN emergency
Fever
Paroxysmal A-fib
Chronic Xarelto OAC
Chronic hypercarbic respiratory failure, CARRIE/obesity hypoventilation syndrome
DM2
Obese, BMI 60
Hypokalemia
Echo 10/21/2024: EF 65 to 70%, moderate concentric LVH (1.5 cm), normal RV size and function, no significant valve disease
Plan:
Clinically complex given acute decompensated heart failure along with alcohol withdrawal.
Acute decompensated heart failure with preserved ejection fraction, clinically improving with diuresis
Weight is down 58 pounds from admission 356 on October 29 2023. October 27, stable renal function with BUN and creatinine 17 and 1.0 with K = 4.6. October 28 pending
Continue Lasix 40 mg IV twice daily, possible transition to PO lasix next 24-48 hrs pending cr
Cont Toprol 100 mg twice daily, Atacand
With polypharmacy we will hold off on SLG 2 inhibitor for now, but this should be considered as an outpatient
HTN
Continue Toprol-XL 100 mg twice daily, continue amlodipine 10 mg daily, continue doxazosin 4 mg daily, Candesartan increased to 32 mg daily starting 10/27
Consider evaluation for secondary causes of multidrug resistant hypertension if not previously done. Note, Dr. Russell is his outpatient hypertension specialist.
Known paroxysmal atrial fibrillation, currently in sinus rhythm. He is at elevated atrial fibrillation related thromboembolic risk related to heart failure, hypertension, diabetes
Continue Xarelto 20 mg daily
Continue Toprol-XL 100 mg twice daily which assist with rate control
Alcohol withdrawal monitoring and treatment as per primary service.
He remains on phenobarbital, Effexor, and Wellbutrin
CARRIE, cont CPAP
Progress Note - Gis Professor
Subjective
Date of Service: October 28, 2024
Pt seen and examined. No complaints. No chest pain or shortness of breath.
Objective
Labs:
10/24/24 04:23
Labs
Hgb 12.7 g/dL (13.0-18.0) L 10/24/24 04:23
Hct 37.3 % (39.0-52.0) L 10/24/24 04:23
Plt Count 152 10^3/uL (130-400) D 10/24/24 04:23
PT 18.9 Sec (11.4-14.6) H 10/20/24 10:10
INR 1.56 10/20/24 10:10
Sodium 134 mmol/L (135-145) L 10/27/24 05:31
Potassium 4.6 mmol/L (3.5-5.1) 10/27/24 05:31
BUN 17 mg/dl (9-20) 10/27/24 05:31
Creatinine 1.0 mg/dL (0.7-1.3) 10/27/24 05:31
Glucose 120 mg/dl (70-99) H 10/27/24 05:31
Vital Signs and I&O:
Vital Signs
Temp Pulse Resp BP Pulse Ox
98.2 F 70 16 163/98 98
10/27/24 23:15 10/28/24 05:42 10/27/24 23:15 10/28/24 05:42 10/27/24 23:15
Vital Signs
Temp Pulse Resp BP Pulse Ox
98.2 F 70 16 163/98 98
10/27/24 23:15 10/28/24 05:42 10/27/24 23:15 10/28/24 05:42 10/27/24 23:15
Intake & Output
10/26/24 10/27/24 10/28/24 10/29/24
06:59 06:59 06:59 06:59
Intake Total 1480 / 1480 1360 / 1360 1780 / 1780
Output Total 3220 / 3220 3405 / 3405 3245 / 3245
Balance -1740 / -1740 -2045 / -2045 -1465 / -1465
Physical Exam
Physical Exam
General: No acute distress, AAOX3
Neck: Negative JVD
Heart: Regular, Negative S3 positive S1/S2, Negative S4, No murmur
Lungs: CTA b/l, negative wheezes/rales/rhonchi
Abd: Morbid obesity. Positive BS, NT/ND, neg rebound/rigidity/guarding
Ext: Negative cyanosis/clubbing. + b/l edema left > right
Neuro: nonfocal
[2024-10-28 07:50] VITALS: BP 153/89
[2024-10-28 07:58] LABS: Glucose - Point of Care 135 mg/dl (70-99)
[2024-10-28] MEDS: WELLBUTRIN XL (24 hour extended release) 150 MG PO (08:30)
[2024-10-28] MEDS: NOVOLOG FLEXPEN-LOW RESISTANCE SC (08:30)
[2024-10-28] MEDS: NEURONTIN 600 MG PO ×3 (08:30→21:15)
[2024-10-28] MEDS: NORVASC 10 MG PO (08:30)
[2024-10-28] MEDS: EFFEXOR XR 450 MG PO (08:31)
[2024-10-28] MEDS: BUSPAR 5 MG PO ×2 (08:31→19:58)
[2024-10-28] MEDS: FOLVITE 1 MG PO (08:31)
[2024-10-28] MEDS: VITAMIN B1 100 MG PO ×2 (08:31→19:58)
[2024-10-28] MEDS: TOPROL XL 100 MG PO ×2 (08:31→19:58)
[2024-10-28] MEDS: CARDURA 4 MG PO (08:32)
[2024-10-28] MEDS: MAGNESIUM OXIDE 500 MG PO (08:32)
[2024-10-28] MEDS: KCL 40 MEQ PO (08:36)
[2024-10-28] MEDS: ATACAND 32 MG PO (08:37)
[2024-10-28] MEDS: PEPCID 20 MG PO (08:37)
[2024-10-28] MEDS: LASIX 40 MG IV ×2 (08:38→17:45)
[2024-10-28 08:45] LABS: Blood Urea Nitrogen 18 mg/dl (9-20); Calcium 9.6 mg/dl (8.4-10.2); Carbon Dioxide 27 mmol/L (22-30); Chloride 96 mmol/L (98-107); Estimated Creatinine Clearance 110 ml/min; Glucose 136 mg/dl (70-99); Potassium 4.8 mmol/L (3.5-5.1); Sodium 133 mmol/L (135-145); eGFR > 60.00
[2024-10-28] MEDS: ATIVAN 1 MG PO ×2 (10:19→18:02)
--- NOTE | 2024-10-28 10:29 | CM ---
Reviewed the chart notes. Patient continues with IV diuretics. CM continues to be available to patient/family and is monitoring medical plan for needs at discharge.
Plan: Discharge to home with [facility] services when medically stable.
[2024-10-28 11:46] LABS: Glucose - Point of Care 152 mg/dl (70-99)
[2024-10-28] MEDS: NOVOLOG FLEXPEN-LOW RESISTANCE 1 UNITS SC ×2 (12:42→17:45)
--- NOTE | 2024-10-28 12:44 | WOUNDNOTE ---
L GREAT TOE DORSAL
--- NOTE | 2024-10-28 12:45 | WOUNDNOTE ---
WON RN NOTE: Followed up today, wounds improved. Patient able to stand from recliner chair, using air chair cushion, sacrum intact and MASD much less. Legs less edema, nurse to apply quinton wraps. L great toe eschar smaller and remains dry. No change
in wound care, Teaching done with patient regarding how to change dressing on thigh. Support and encouragement given.
--- NOTE | 2024-10-28 14:04 | W.PN.HOSP.TC ---
Today's Communication/Plan
-
CT right hip
CW IV diuresis
Assessment / Plan
Assessment / Plan
Assessment:
Acute hypoxic respiratory failure due to CHF
Acute on chronic hypercarbic respiratory failure - suspected chronic CARRIE/OHS
- Off of oxygen
New onset Acute HFpEF
- Echo: Normal left ventricular size and systolic function. No regional wall motion abnormalities are seen. LV ejection fraction is 65-70% by visual assessment. Moderate concentric left ventricular hypertrophy (1.5 cm). Normal RV size and function.
No significant valvular disease. Compared to prior echocardiogram August 14, 2011, that study was noted to be technically difficult and there is a question of possible right ventricular dilatation. Today's study is not limited by technical/imaging
shortcomings and there is normal RV size and function. Otherwise no significant changes.
- CXR consistent with CHF. BNP 777 but unreliable in obesity
- continue IV Lasix - requires intensive monitoring of I/Os, weights, Lytes. Lost 58 pounds and creatinine stable
- continue compression therapy
- follow Cards recs
Hypertensive emergency, likely exacerbating acute CHF exacerbation
- Continue home blood pressure medications - Amlodipine, Doxazosin, and Metoprolol succinate and candesartan. Advised to quit cocaine use.
- titrate to goal normotension
- Closely monitor hemodynamics
- Improved blood pressure readings
Acute alcohol withdrawal
Toxic encephalopathy in setting of ETOH withdrawal
- S/p Precedex
- now off Precedex and phenobarbital
- Thiamine and folate
- Alcohol cessation advised to patient. CM consult for dispo planning along with BCares. Patient favoring IOP and AA in outpatient settings.
- Resolved withdrawal syndrome
Severe acute on chronic lymphedema of bilateral lower extremities, likely multifactorial due to his chronic venous insufficiency, and new onset acute heart failure
- continue IV Lasix twice daily
- continue compression therapy
Bilateral lower extremity cellulitis, superimposed upon chronic venous insufficiency chronic lymphadenopathy
Underlying lactic acidosis
- lactic acidosis has resolved
- continue IV Ancef, day 8/10-switch to oral Keflex
- MRSA negative
- wound care evaluation
Rt hip pain and limited active range of movements - no trauma - check CT hip to rule out fx and if neg out patient MRI/Ortho eval
Anxiety
- started on Buspar by psych
Sleep apnea, uses CPAP nightly at 17
- Will continue CPAP here at 17, the patient does not have his home CPAP unit available
Paroxysmal atrial fibrillation
- Currently in normal sinus rhythm
- Continue telemetry monitoring
- Continue Xarelto
- Continue metoprolol
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
- Monitor labs
Anemia, new since 2023
- The patient denies any melena, hematochezia, hematemesis
- anemia indices ok. continue Folate
GERD
- continue famotidine
Neuropathy-cont gabapentin
Hypokalemia in setting of hypomagnesemia
- continue oral potassium
- continue oral magnesium
Dried abrasion to L great toe, intact scab.
R posterior thigh with full thickness ulcer, suspect stage 3 mixed with MASD
- follow wound care recs
Cocaine use-counseled about quitting cocaine use. Went over with him regarding cardiovascular and vascular effects of cocaine.
DVT ppx: Xarelto
Code: Full
Anticipated Discharge: 24 - 48 hours
Subjective/Interval History
-
Date of Service: October 28, 2024
Denies shortness of breath today. Improved lower extremity edema.
Denies chest pain.
No fever chills.
Complains of right groin pain which is going on for the last 3 weeks. Nontraumatic.
It is noted when he tries the lift his right leg up-with the flexion of the hip and external rotation. Rates it as 02/22.
Able to weight-bear but difficulty ambulation and using a walker.
Objective Data
-
Labs:
Laboratory Results
10/28/24
05:26
Sodium 133 L
Potassium 4.8
Chloride 96 L
Carbon Dioxide 27
BUN 18
Creatinine 1.1
Glucose 136 H
Calcium 9.6
Vital Signs:
Vital Signs
Temp Pulse Resp BP Pulse Ox
99.0 F 74 18 138/81 97
10/28/24 07:50 10/28/24 12:36 10/28/24 07:50 10/28/24 12:36 10/28/24 11:51
I&O
10/27/24 10/28/24 10/29/24
06:59 06:59 06:59
Intake Total 1360 / 1360 1780 / 1780
Output Total 3405 / 3405 3245 / 3245
Balance -2045 / -2045 -1465 / -1465
Physical Exam
-
General: Comfortable
Respiratory: Clear to Auscultation and Non Labored Respirations; Negative Accessory Resp Muscle Use
Cardiac: Regular Rhythm and S1/S2
Musculoskeletal: Edema, Right Lower Extrem, Edema, Left Lower Extrem (Currently without increased warmth or redness of bilateral lower extremity) and Other (Painful active flexion of the hip and external rotation but no pain with passive movements)
Neuro: AO x 3
Psych: Calm
[2024-10-28] MEDS: ANCEF IV (14:12)
[2024-10-28 15:15] VITALS: BMI 52.7
[2024-10-28 15:20] VITALS: BP 142/83
[2024-10-28 16:21] LABS: Glucose - Point of Care 161 mg/dl (70-99)
[2024-10-28] MEDS: KEFLEX 500 MG PO ×2 (17:48→21:15)
[2024-10-28] MEDS: XARELTO 20 MG PO (17:48)
[2024-10-28] MEDS: TUMS CHEWABLE TABLET 200 MG PO (19:58)
[2024-10-28 21:55] LABS: Glucose - Point of Care 228 mg/dl (70-99)
[2024-10-28 23:25] VITALS: BP 165/89
[2024-10-28 23:45] VITALS: PULSE 2
[2024-10-29] VITALS (8 sets, daily range): BP systolic 124–158; BP diastolic 69–102; PULSE 2–72; BMI 52.3
[2024-10-29] MEDS: NITRO-BID 0.5 INCH TOPICAL ×2 (00:30→05:35)
[2024-10-29] MEDS: ATIVAN 1 MG PO ×3 (05:35→18:45)
[2024-10-29 07:17] LABS: Glucose - Point of Care 130 mg/dl (70-99)
--- NOTE | 2024-10-29 07:47 | CON.ORTHO ---
Consultation - Orthopedics
History
HPI: 59-year-old male multiple medical abilities presented to the Emergency Department with complaint of shortness of breath. Ultimately admitted to the hospital service for acute hypoxic respiratory failure secondary to congestive heart failure.
During his hospitalization his been complaining of some increasing right groin pain. Orthopedics is consulted for further evaluation and treatment recommendations. Does report that he has some groin pain at baseline does use a walker at baseline.
He localizes pain to the right groin. He denies any trauma or recent falls. He reports that this is not present at all times throughout the day and actually able to walk without significant pain. He is mostly complaining of pain that is worsened
when swinging his legs into bed. He does report that hospital bed is much lower than his bed at home thinks that this may have been exacerbating his groin pain. Does note a history of osteoarthritis but does not report being treated for right hip
osteoarthritis in the past.
Allergies / Home Medications
Past medical history: A-fib, GERD, hypertension, fatty liver disease, morbid obesity, CPAP, left foot drop
Past surgical history: Arthroscopic knee surgery, tonsillectomy
Social history: Non-smoker, daily alcohol use reportedly up to fifth of vodka a day, cocaine use
Family history: Not pertinent
Allergy/AdvReac Type Severity Reaction Status Date / Time
Penicillins Allergy Rash Verified 10/20/24 09:31
Sulfa (Sulfonamide Allergy Unknown Verified 10/20/24 09:31
Antibiotics)
�Medication �Instructions �Recorded
amlodipine 5 mg tablet 10 mg PO DAILY Blood pressure 10/19/11
doxazosin 4 mg tablet 4 mg PO DAILY Urinary issue 10/19/11
bupropion HCl 300 mg 24 hr tablet, 300 mg PO DAILY Mental 05/05/21
extended release Health/Anxiety
famotidine 20 mg tablet 20 mg PO DAILY Gastrointestinal 05/05/21
issue
gabapentin 600 mg tablet 600 mg PO TID Neurological 05/05/21
(Neurontin) Condition
metformin 500 mg tablet,extended 2,000 mg PO DAILY Diabetes 05/05/21
release 24 hr
metoprolol tartrate 50 mg tablet 150 mg PO BID Blood pressure 05/05/21
rivaroxaban 20 mg tablet (Xarelto) 20 mg PO QPM Blood clot 05/05/21
prevention/tx
venlafaxine 150 mg 450 mg PO DAILY Mental 05/05/21
capsule,extended release 24 hr Health/Anxiety
(Effexor XR)
tadalafil 5 mg tablet 5 mg PO DAILYPRN PRN ed 10/20/24
Vital Signs / Lab Results
Temp Pulse Resp BP Pulse Ox
98.2 F 64 18 141/81 97
10/28/24 23:25 10/29/24 05:35 10/28/24 23:25 10/29/24 05:35 10/28/24 23:25
10/24/24 04:23
10 point review systems reviewed and negative unless otherwise stated
General: Seated comfortably edge of bed, obese, conversant, no acute distress
Musculoskeletal right lower extremity
Skin intact, there are chronic venous stasis skin changes noted lower extremity, pedal edema noted
There is reproducible groin pain with passive internal ex rotation of the hip with some restriction
There is no reproducible pain with palpation of groin or lateral trochanteric flare
Patient does have difficulty with straight leg raise secondary to groin pain
No motor or sensory deficits noted distally
Diagnostic studies
X-rays right hip as well as CT scan right hip independent viewed by myself radiology report reviewed. There is evidence of fairly significant degenerative changes with significant joint space narrowing subchondral cystic changes noted. Radiology
report notes a possible subtle nondisplaced fracture of the posterior, right acetabulum. This is visualized on CT scan axial cuts. Difficult for me to really visualize on other sequences however.
Assessment / Plan
59-year-old male multiple comorbidities morbid obesity ambulatory dysfunction with right groin pain. Patient has significant clinical radiographic evidence of a right hip DJD. There is some question of whether or not he has subtle fracture
posterior column right acetabulum. Patient reports no trauma has not had any history of falls. Not sure that I would attribute his symptoms to a possible fracture. Thinks much more likely his symptoms are related to right hip DJD particular given
clinical history of no trauma as well as his somewhat intermittent symptoms. Do not think we need to treat this like a fracture. Again think this is much more likely to be related to his right hip DJD. Would recommend continue to use walker per
his baseline. Would probably benefit from mobilization with physical therapy strengthening as he is admittedly significantly deconditioned.
Weightbearing as tolerated right lower extremity with walker
PT OT
Pain control
Medical management per primary team
No acute orthopedic intervention planned.
Please reach out any questions or concerns
[2024-10-29] MEDS: VITAMIN B1 100 MG PO ×2 (07:48→21:28)
[2024-10-29] MEDS: WELLBUTRIN XL (24 hour extended release) 150 MG PO (07:49)
[2024-10-29] MEDS: FOLVITE 1 MG PO (07:49)
[2024-10-29] MEDS: MAGNESIUM OXIDE 500 MG PO (07:49)
[2024-10-29] MEDS: EFFEXOR XR 450 MG PO (07:49)
[2024-10-29] MEDS: NEURONTIN 600 MG PO ×3 (07:50→21:28)
[2024-10-29] MEDS: TOPROL XL 100 MG PO ×2 (07:50→21:28)
[2024-10-29] MEDS: PEPCID 20 MG PO (07:50)
[2024-10-29] MEDS: KCL 40 MEQ PO (07:50)
[2024-10-29] MEDS: BUSPAR 5 MG PO (07:50)
[2024-10-29] MEDS: LASIX 40 MG IV ×2 (07:51→16:58)
[2024-10-29] MEDS: CARDURA 4 MG PO (07:51)
[2024-10-29] MEDS: ATACAND 32 MG PO (07:51)
[2024-10-29] MEDS: KEFLEX 500 MG PO ×4 (07:51→21:28)
[2024-10-29] MEDS: NORVASC 10 MG PO (07:51)
[2024-10-29] MEDS: NOVOLOG FLEXPEN-LOW RESISTANCE SC ×3 (08:13→16:50)
[2024-10-29 08:49] LABS: Blood Urea Nitrogen 20 mg/dl (9-20); Carbon Dioxide 28 mmol/L (22-30); Chloride 94 mmol/L (98-107); Estimated Creatinine Clearance 109 ml/min; Glucose 136 mg/dl (70-99); Sodium 134 mmol/L (135-145); eGFR > 60.00
--- NOTE | 2024-10-29 11:01 | W.PN.CARDCBS ---
Addendum entered and electronically signed by Sebastian Esparza DO 10/29/24 11:48:
I saw and examined the patient.
The Mechanical Car Checker's note was reviewed and I agree with the note.
Comment:
Plan:
His weight continues to come down. His dry weight is unclear. His weight is down approximately 60 pounds.
Will continue IV diuresis another 24 hours and if his weight loss slows her creatinine rises, would transition to oral diuretics at that time.
His blood pressure is improved with Atacand. Continue Toprol as well
Continue Xarelto for prophylaxis for paroxysmal atrial fibrillation
Alcohol cessation remains a must.
Continue CPAP for CARRIE
He remains appreciative
Will arrange outpatient cardiac follow-up.
He was previously seen by [facility] cardiology, states he has a conflict of interest with Dr. Souza, first seen by Dr. Kapadia with [facility].
Original Note:
Today's Communication / Plan
-
Stop Nitro-paste
Cont Lasix IV
Restart tele while being diuresed for acute HF, ordered by me
Impression / Plan
-
PCP: Dr. Shelbie Mejia
Card: Previously has seen several cardiologists including
Dr. Santos, [facility] cardiology
Dr. Souza, but not seeing any longer
First seen here by Dr. Akiko Kapadia
Impression:
Admitted with SOB, acute hypoxia and CHF 10/20/24
Acute HFpEF
EF 65% without significant valve disease by echo 10/21/24
ETOH withdrawal
h/o drug use including smoking crack cocaine
HTN emergency
Fever
Paroxysmal A-fib
Chronic Xarelto OAC
Chronic hypercarbic respiratory failure, CARRIE/obesity hypoventilation syndrome
DM2
Obese, BMI 60
Hypokalemia
Echo 10/21/24: EF 65 to 70%, moderate concentric LVH (1.5 cm), normal RV size and function, no significant valve disease
Plan:
-Weight is down to 353 lbs on 10/29/24, patient has diuresed 57 lbs if recorded weights are correct. Dry weight unknown. Will continue to diruese
-Cont Lasix 40 mg IV BID. Patient was not taking a diuretic prior to admission
-Potassium 5.0 on 10/29/24, labs reviewed by me.
-Echo report reviewed by me and summarized above, the EF is preserved and no significant valve disease
-New to Toprol XL 100 mg BID this admission. Patient had been taking Lopressor 100 mg BID prior to admission.
-New to candesartan 32 mg daily this admission. Previously had allergy to lisinopril, but tolerating candesartan.
-Patient has not been started on SGLT-2 inhibitor due to possible infection on admission
-HTN on admission due to running out of meds prior to admission.
-Outpatient dose of amlodipine 10 mg daily continued, we should write for refills on d/c Rx
-Outpatient dose of doxazosin 4 mg daily continued, we should write for refills on d/c Rx
-Also remains on Nitro-paste 0.5 in q 6 hours, will stop 10/29/24 and follow BP
-No longer on tele. Known h/o paroxysmal A-fib
-Outpatient dose of Xarelto 20 mg daily has been continued, but dose missed on 10/21/24 while NPO. Prior to admission the patient says he did not miss any doses of Xarelto
-Troponins serially normal. No acute ischemic changes on ECG and no evidence of WMA on echo.
Progress Note - Pharmacy Informaticist
Subjective
Date of Service: October 29, 2024
Feels less SOB, not anxious
Objective
Labs:
10/24/24 04:23
10/29/24 07:58
Labs
Hgb 12.7 g/dL (13.0-18.0) L 10/24/24 04:23
Hct 37.3 % (39.0-52.0) L 10/24/24 04:23
Plt Count 152 10^3/uL (130-400) D 10/24/24 04:23
PT 18.9 Sec (11.4-14.6) H 10/20/24 10:10
INR 1.56 10/20/24 10:10
Sodium 134 mmol/L (135-145) L 10/29/24 07:58
Potassium 5.0 mmol/L (3.5-5.1) 10/29/24 07:58
BUN 20 mg/dl (9-20) 10/29/24 07:58
Creatinine 1.1 mg/dL (0.7-1.3) 10/29/24 07:58
Glucose 136 mg/dl (70-99) H 10/29/24 07:58
Vital Signs and I&O:
Vital Signs
Temp Pulse Resp BP Pulse Ox
98.7 F 70 18 158/93 98
10/29/24 07:45 10/29/24 07:51 10/29/24 07:45 10/29/24 07:51 10/29/24 07:45
Vital Signs
Temp Pulse Resp BP Pulse Ox
98.7 F 70 18 158/93 98
10/29/24 07:45 10/29/24 07:51 10/29/24 07:45 10/29/24 07:51 10/29/24 07:45
Intake & Output
10/27/24 10/28/24 10/29/24 10/30/24
06:59 06:59 06:59 06:59
Intake Total 1360 / 1360 1780 / 1780 2039 / 2039
Output Total 3405 / 3405 3245 / 3245 3000 / 3000
Balance -2045 / -204 -1465 / -1465 -960 / -960
Physical Exam
Physical Exam
GEN: NAD
HEENT: MMM
LUNGS: RA
CV: Reg
ABD: Obese
EXT: +1 pitting B/L LE edema
NEURO: No focal or lateralizing weakness
SKIN: No rash
--- NOTE | 2024-10-29 11:08 | W.PN.UPDATE ---
Update Note
Progress Note Update
patient seen chart reviewed. spoke with nursing and dr hung. patient continues w some medical issues which have kept him here. eg bp which is coming down but is still high. he also told me he thought he was told he had renal issues but cr is nl.
(i was concerned given gabapentin dose.). he saw ortho for hip pain. discussed w him my concern re the dose of effexor he is taking. when i initially saw him i thought he had told me he was taking 300 mg. note that he is taking 450 mg. given the
bp issue (effexor can cause increases in bp) it would be jay to cut back some and i suggested 375. effexor can cause some wd sx and if he experiences anything out of the ordinary he should let those caring for him know (malaise...'zaps' etc). we
also discussed buspar which he says has caused itching. will dc. we talked about the importance or rehab and how he might swing it. spoke with [facility] who tells me they feel he would benefit from ip rehab and they suggested tono malone. if patient
can get sorted w his housing he would do it. would continue to follow patient.
[2024-10-29 12:21] LABS: Glucose - Point of Care 127 mg/dl (70-99)
--- NOTE | 2024-10-29 13:20 | W.PN.HOSP.TC ---
Today's Communication/Plan
-
Continue with IV Lasix
Assessment / Plan
Assessment / Plan
Assessment:
Acute hypoxic respiratory failure due to CHF
Acute on chronic hypercarbic respiratory failure - suspected chronic CARRIE/OHS
- Off of oxygen
New onset Acute HFpEF
- Echo: Normal left ventricular size and systolic function. No regional wall motion abnormalities are seen. LV ejection fraction is 65-70% by visual assessment. Moderate concentric left ventricular hypertrophy (1.5 cm). Normal RV size and function.
No significant valvular disease. Compared to prior echocardiogram August 14, 2011, that study was noted to be technically difficult and there is a question of possible right ventricular dilatation. Today's study is not limited by technical/imaging
shortcomings and there is normal RV size and function. Otherwise no significant changes.
- CXR consistent with CHF. BNP 777 but unreliable in obesity
- continue IV Lasix - requires intensive monitoring of I/Os, weights, Lytes. Lost 3 pounds since yesterday and creatinine stable
- continue compression therapy
- follow Cards recs
Hypertensive emergency, likely exacerbating acute CHF exacerbation
- Continue home blood pressure medications - Amlodipine, Doxazosin, and Metoprolol succinate and candesartan. Advised to quit cocaine use.
- titrate to goal normotension
- Closely monitor hemodynamics
- Improved blood pressure readings
Acute alcohol withdrawal
Toxic encephalopathy in setting of ETOH withdrawal
- S/p Precedex
- now off Precedex and phenobarbital
- Thiamine and folate
- Alcohol cessation advised to patient. CM consult for dispo planning along with BCares. Patient favoring IOP and AA in outpatient settings.
- Resolved withdrawal syndrome
Severe acute on chronic lymphedema of bilateral lower extremities, likely multifactorial due to his chronic venous insufficiency, and new onset acute heart failure
- continue IV Lasix twice daily
- continue compression therapy
Bilateral lower extremity cellulitis, superimposed upon chronic venous insufficiency chronic lymphadenopathy
Underlying lactic acidosis
- lactic acidosis has resolved
- switched to oral Keflex to complete 10d course
- MRSA negative
- wound care evaluation
Right hip pain and limited active range of movements - no trauma - CT hip raises concern about acetabulum fracture, reviewed by orthopedics who felt more likely arthritis than fracture. Recommend weightbearing as tolerated and PT.
Anxiety
- Continue with meds. Psych
Sleep apnea, uses CPAP nightly at 17
- Will continue CPAP here at 17, the patient does not have his home CPAP unit available
Paroxysmal atrial fibrillation
- Currently in normal sinus rhythm
- Continue telemetry monitoring
- Continue Xarelto
- Continue metoprolol
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
- Monitor labs
Anemia, new since 2023
- The patient denies any melena, hematochezia, hematemesis
- anemia indices ok. continue Folate
GERD
- continue famotidine
Neuropathy-cont gabapentin
Hypokalemia in setting of hypomagnesemia
- continue oral potassium
- continue oral magnesium
Dried abrasion to L great toe, intact scab.
R posterior thigh with full thickness ulcer, suspect stage 3 mixed with MASD
- follow wound care recs
Cocaine use-counseled about quitting cocaine use. Went over with him regarding cardiovascular and vascular effects of cocaine.
DVT ppx: Xarelto
Code: Full
Anticipated Discharge: 24 - 48 hours
Subjective/Interval History
-
Date of Service: October 29, 2024
Remains improved with breathing
Tolerating diet without issues
Rt hip pain as before
Objective Data
-
Labs:
Laboratory Results
10/29/24
07:58
Sodium 134 L
Potassium 5.0
Chloride 94 L
Carbon Dioxide 28
BUN 20
Creatinine 1.1
Glucose 136 H
Calcium 10.0
Vital Signs:
Vital Signs
Temp Pulse Resp BP Pulse Ox
98.5 F 69 16 138/86 97
10/29/24 11:50 10/29/24 11:50 10/29/24 11:50 10/29/24 11:50 10/29/24 11:50
I&O
10/28/24 10/29/24 10/30/24
06:59 06:59 06:59
Intake Total 1779 / 1779
Output Total 3245 / 3245 3000 / 3000
Balance -1465 / -1465 -960 / -960
Review of Systems
-
Constitutional: Denies Fever
Respiratory: Denies Cough
Cardiac: Denies Chest Pain
Abdomen/GI: Denies Abdominal Pain, Nausea or Vomiting
Neuro: Denies Dizzy
Physical Exam
-
General: No Apparent Distress
HEENT: Moist Mucous Membranes
Respiratory: Non Labored Respirations; Negative Accessory Resp Muscle Use
Cardiac: Regular Rhythm and S1/S2
GI: Soft
Musculoskeletal: Edema, Right Lower Extrem and Edema, Left Lower Extrem (improved bl ; no cellullitis in both legs now)
Neuro: AO x 3
Psych: Calm
Data Reviewed
-
Labs: Labs Reviewed by me
--- NOTE | 2024-10-29 13:49 | CM ---
Reviewed the chart notes. IV Lasix continues. CM continues to be available to patient/family and is monitoring medical plan for needs at discharge.
Plan: Discharge to home with [facility] services when medically stable.
[2024-10-29] MEDS: TUMS CHEWABLE TABLET 200 MG PO (16:29)
[2024-10-29 16:48] LABS: Glucose - Point of Care 137 mg/dl (70-99)
[2024-10-29] MEDS: XARELTO 20 MG PO (17:00)
[2024-10-29 21:47] LABS: Glucose - Point of Care 157 mg/dl (70-99)
[2024-10-30] VITALS (8 sets, daily range): BP systolic 120–149; BP diastolic 58–90; PULSE 2–67; BMI 51.9
[2024-10-30 06:58] LABS: Glucose - Point of Care 146 mg/dl (70-99)
[2024-10-30] MEDS: VITAMIN B1 100 MG PO ×2 (08:43→20:49)
[2024-10-30] MEDS: PEPCID 20 MG PO (08:43)
[2024-10-30] MEDS: NORVASC 10 MG PO (08:43)
[2024-10-30] MEDS: EFFEXOR XR 375 MG PO (08:43)
[2024-10-30] MEDS: MAGNESIUM OXIDE 500 MG PO (08:43)
[2024-10-30] MEDS: TOPROL XL 100 MG PO ×2 (08:44→20:49)
[2024-10-30] MEDS: ATACAND 32 MG PO (08:44)
[2024-10-30] MEDS: KEFLEX 500 MG PO ×2 (08:44→12:00)
[2024-10-30] MEDS: NEURONTIN 600 MG PO ×3 (08:44→21:10)
[2024-10-30] MEDS: WELLBUTRIN XL (24 hour extended release) 150 MG PO (08:44)
[2024-10-30] MEDS: FOLVITE 1 MG PO (08:44)
[2024-10-30] MEDS: CARDURA 4 MG PO (08:44)
[2024-10-30] MEDS: LASIX 40 MG IV ×2 (08:45→17:16)
[2024-10-30] MEDS: KCL 40 MEQ PO (08:45)
[2024-10-30] MEDS: NOVOLOG FLEXPEN-LOW RESISTANCE SC ×3 (09:23→16:18)
--- NOTE | 2024-10-30 09:23 | W.PN.HOSP.TC ---
Today's Communication/Plan
-
DC when okay from cardiology standpoint
Assessment / Plan
Assessment / Plan
Assessment:
Acute hypoxic respiratory failure due to CHF
Acute on chronic hypercarbic respiratory failure - suspected chronic CARRIE/OHS
- Off of oxygen
New onset Acute HFpEF
- Echo: Normal left ventricular size and systolic function. No regional wall motion abnormalities are seen. LV ejection fraction is 65-70% by visual assessment. Moderate concentric left ventricular hypertrophy (1.5 cm). Normal RV size and function.
No significant valvular disease. Compared to prior echocardiogram August 14, 2011, that study was noted to be technically difficult and there is a question of possible right ventricular dilatation. Today's study is not limited by technical/imaging
shortcomings and there is normal RV size and function. Otherwise no significant changes.
- CXR consistent with CHF. BNP 777 but unreliable in obesity
- continue IV Lasix - requires intensive monitoring of I/Os, weights, Lytes. Lost 63 pounds since admission and creatinine stable
- continue compression therapy
- follow Cards recs
Hypertensive emergency, likely exacerbating acute CHF exacerbation
- Continue home blood pressure medications - Amlodipine, Doxazosin, and Metoprolol succinate and candesartan. Advised to quit cocaine use.
- titrate to goal normotension
- Closely monitor hemodynamics
- Improved blood pressure readings
Acute alcohol withdrawal
Toxic encephalopathy in setting of ETOH withdrawal
- S/p Precedex
- now off Precedex and phenobarbital
- Thiamine and folate
- Alcohol cessation advised to patient. CM consult for dispo planning along with BCares. Patient favoring IOP and AA in outpatient settings.
- Resolved withdrawal syndrome
Severe acute on chronic lymphedema of bilateral lower extremities, likely multifactorial due to his chronic venous insufficiency, and new onset acute heart failure
- continue IV Lasix twice daily
- continue compression therapy
Bilateral lower extremity cellulitis, superimposed upon chronic venous insufficiency chronic lymphadenopathy
Underlying lactic acidosis
- lactic acidosis has resolved
- switched to oral Keflex to complete 10d course
- MRSA negative
- wound care evaluation
Right hip pain and limited active range of movements - no trauma - CT hip raises concern about acetabulum fracture, reviewed by orthopedics who felt more likely arthritis than fracture. Recommend weightbearing as tolerated and PT.
Anxiety
- Continue with meds. Psych change the doses yesterday-down titrated the dose.
Sleep apnea, uses CPAP nightly at 17
- Will continue CPAP here at 17, the patient does not have his home CPAP unit available
Paroxysmal atrial fibrillation
- Currently in normal sinus rhythm
- Continue telemetry monitoring
- Continue Xarelto
- Continue metoprolol
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
- Monitor labs
Anemia, new since 2023
- The patient denies any melena, hematochezia, hematemesis
- anemia indices ok. continue Folate
GERD
- continue famotidine
Neuropathy-cont gabapentin
Dried abrasion to L great toe, intact scab.
R posterior thigh with full thickness ulcer, suspect stage 3 mixed with MASD
- follow wound care recs
Cocaine use-counseled about quitting cocaine use. Went over with him regarding cardiovascular and vascular effects of cocaine.
DVT ppx: Xarelto
Code: Full
DC home if okay from cardiology standpoint.
Patient states he would like to go home tomorrow as there is no power in his house. Management to look into that.
Anticipated Discharge: Today
Subjective/Interval History
-
Date of Service: October 30, 2024
Voices no new symptoms. Breathing better. Remains off of oxygen. No chest pain.
Tolerating diet.
Right hip pain okay.
Objective Data
-
Vital Signs:
Vital Signs
Temp Pulse Resp BP Pulse Ox
98 F 71 18 149/85 97
10/30/24 06:56 10/30/24 08:45 10/30/24 06:56 10/30/24 08:45 10/30/24 06:56
I&O
10/29/24 10/30/24 10/31/24
06:59 06:59 06:59
Intake Total 2039 1140 / 1140 480 / 480
Output Total 3000 / 3000 1325 / 1325 650 / 650
Balance -960 / -960 -185 / -185 -170 / -170
Review of Systems
-
Constitutional: Denies Fever or Chills
EENT: Denies Sore Throat
Neuro: Denies Dizzy
Physical Exam
-
General: Comfortable
Respiratory: Clear to Auscultation and Non Labored Respirations; Negative Accessory Resp Muscle Use
Cardiac: Regular Rhythm and S1/S2; Negative Tachycardic
Musculoskeletal: Edema, Right Lower Extrem (Improved) and Edema, Left Lower Extrem (Improved)
Neuro: AO x 3
Psych: Calm
[2024-10-30 10:12] LABS: ALT (SGPT) 32 U/L (0-50); AST (SGOT) 41 U/L (17-59); Albumin 4.1 g/dl (3.5-5.0); Alkaline Phosphatase 75 U/L (38-126); Direct Bilirubin 0.3 mg/dl (0.0-0.4); Total Bilirubin 0.8 mg/dl (0.2-1.3); Total Protein 6.9 g/dl (6.3-8.2)
--- NOTE | 2024-10-30 10:32 | CM ---
Reviewed the chart notes and spoke with the patient at the bedside. Patient is for discharge today. Patient will drive self home. CM continues to be available to patient/family and is monitoring medical plan for needs at discharge.
Plan: Discharge to home with [facility] services when medically stable.
[2024-10-30 12:03] LABS: Glucose - Point of Care 127 mg/dl (70-99)
[2024-10-30] MEDS: ATIVAN 1 MG PO ×2 (12:03→18:40)
--- NOTE | 2024-10-30 14:17 | W.PN.UPDATE ---
Update Note
Progress Note Update
patient seen chart reviewed. spoke with cm. delio continues to improve from the psych perpective we continue to talk about the absolute importance of sobriety and the many ways in which etoh has destroyed his life from physical to mental debility.
his electricity was turned off. contacted cm and completed the form to have it restored. did not make any changes in his medications. he just started the reduced dose of effexor today. too soon for negative impact. his meds were more often
being managed by his pcp not dr mcmahon whom he had initially seen . reminded him that his prescribers need to know whether he is drinking etoh to treat him safely and effectively. psych will look in on him tomorrow.
--- NOTE | 2024-10-30 14:53 | W.PN.CARDCBS ---
Addendum entered and electronically signed by Willie Chan MD 10/30/24 15:41:
I saw and examined the patient.
The Thermoforming Machine Operator's note was reviewed and I agree with the note.
Comment: Briefly, 59-year-old man past medical history of atrial fibrillation and hypertension who presents in acute decompensated heart failure
With IV diuresis his weight is down almost 60 pounds if accurate
Creatinine uptrending but overall remained stable
Difficult to assess volume status on exam due to his body habitus
Continuing diuretics at current dose and follow daily standing weights as well as renal function/electrolytes
Recommend adding spironolactone 25 mg daily for blood pressure and diuretic effect
Stop supplemental potassium
Original Note:
Today's Communication / Plan
-
Continue to diurese until Cre bumps
Down almost 60 lbs
Impression / Plan
-
PCP: Dr. Shelbie Mejia
Card: Previously has seen several cardiologists including
Dr. Santos, [facility]
Dr. Souza, but not seeing any longer
First seen here by Dr. Akiko Kapadia
Impression:
Admitted with SOB, acute hypoxia and CHF 10/20/24
Acute HFpEF
EF 65% without significant valve disease by echo 10/21/24
ETOH withdrawal
h/o drug use including smoking crack cocaine
HTN emergency
Fever
Paroxysmal A-fib
Chronic Xarelto OAC
Chronic hypercarbic respiratory failure, CARRIE/obesity hypoventilation syndrome
DM2
Obese, BMI 60
Hypokalemia
Echo 10/21/24: EF 65 to 70%, moderate concentric LVH (1.5 cm), normal RV size and function, no significant valve disease
Plan:
-Weight is down to 351 lbs on 10/30/24, patient has diuresed 59 lbs if recorded weights are correct. Dry weight unknown. Will continue to diruese
-Cont Lasix 40 mg IV BID. Patient was not taking a diuretic prior to admission
-Cre stable at 1.1 on 10/29/24, labs not checked 10/30/24. Labs for 10/31/24 ordered by me.
-Echo report reviewed by me and summarized above, the EF is preserved and no significant valve disease
-New to Toprol XL 100 mg BID this admission. Patient had been taking Lopressor 100 mg BID prior to admission.
-New to candesartan 32 mg daily this admission. Previously had allergy to lisinopril, but tolerating candesartan.
-Patient has not been started on SGLT-2 inhibitor due to possible infection on admission
-HTN on admission due to running out of meds prior to admission.
-Outpatient dose of amlodipine 10 mg daily continued, we should write for refills on d/c Rx
-Outpatient dose of doxazosin 4 mg daily continued, we should write for refills on d/c Rx
-Tele reviewed by me 10/30/24 and he is in SR. Known h/o paroxysmal A-fib
-Outpatient dose of Xarelto 20 mg daily has been continued, but dose missed on 10/21/24 while NPO. Prior to admission the patient says he did not miss any doses of Xarelto
-Troponins serially normal. No acute ischemic changes on ECG and no evidence of WMA on echo.
Progress Note - Grinding Wheel Inspector
Subjective
Date of Service: October 30, 2024
He feels well, no pain, breathing is better
Objective
Labs:
10/24/24 04:23
10/29/24 07:58
Labs
Hgb 12.7 g/dL (13.0-18.0) L 10/24/24 04:23
Hct 37.3 % (39.0-52.0) L 10/24/24 04:23
Plt Count 152 10^3/uL (130-400) D 10/24/24 04:23
PT 18.9 Sec (11.4-14.6) H 10/20/24 10:10
INR 1.56 10/20/24 10:10
Sodium 134 mmol/L (135-145) L 10/29/24 07:58
Potassium 5.0 mmol/L (3.5-5.1) 10/29/24 07:58
BUN 20 mg/dl (9-20) 10/29/24 07:58
Creatinine 1.1 mg/dL (0.7-1.3) 10/29/24 07:58
Glucose 136 mg/dl (70-99) H 10/29/24 07:58
Vital Signs and I&O:
Vital Signs
Temp Pulse Resp BP Pulse Ox
97.7 F 88 20 135/65 97
10/30/24 10:11 10/30/24 10:11 10/30/24 10:11 10/30/24 10:11 10/30/24 11:41
Vital Signs
Temp Pulse Resp BP Pulse Ox
97.7 F 88 20 135/65 97
10/30/24 10:11 10/30/24 10:11 10/30/24 10:11 10/30/24 10:11 10/30/24 11:41
Intake & Output
10/28/24 10/29/24 10/30/24 10/31/24
06:59 06:59 06:59 06:59
Intake Total 1780 / 1780 2040 / 2040 1140 / 1140 480 / 480
Output Total 3245 / 3245 3000 / 3000 1325 / 1325 650 / 650
Balance -1465 / -1465 -960 / -960 -185 / -185 -170 / -170
Physical Exam
Physical Exam
GEN: NAD
HEENT: MMM
LUNGS: RA
CV: Reg
ABD: Obese
EXT: Trace to +1 B/L LE edema
NEURO: No focal or lateralizing weakness
SKIN: No rash
[2024-10-30 15:57] LABS: Glucose - Point of Care 148 mg/dl (70-99)
[2024-10-30] MEDS: XARELTO 20 MG PO (17:16)
[2024-10-30 21:43] LABS: Glucose - Point of Care 143 mg/dl (70-99)
[2024-10-31 03:26] VITALS: BP 149/84
[2024-10-31 06:00] VITALS: BMI 51.7
[2024-10-31 07:10] LABS: Blood Urea Nitrogen 25 mg/dl (9-20); Calcium 9.7 mg/dl (8.4-10.2); Carbon Dioxide 29 mmol/L (22-30); Chloride 94 mmol/L (98-107); Estimated Creatinine Clearance 99 ml/min; Glucose 142 mg/dl (70-99); Potassium 4.8 mmol/L (3.5-5.1); Sodium 134 mmol/L (135-145); eGFR > 60.00
[2024-10-31 07:35] LABS: Glucose - Point of Care 128 mg/dl (70-99)
[2024-10-31 07:45] VITALS: BP 129/74
[2024-10-31] MEDS: NOVOLOG FLEXPEN-LOW RESISTANCE SC (08:16)
[2024-10-31] MEDS: ATACAND 32 MG PO (08:16)
[2024-10-31] MEDS: EFFEXOR XR 375 MG PO (08:17)
[2024-10-31] MEDS: VITAMIN B1 100 MG PO ×2 (08:17→20:15)
[2024-10-31] MEDS: CARDURA 4 MG PO (08:18)
[2024-10-31] MEDS: PEPCID 20 MG PO (08:18)
[2024-10-31] MEDS: NEURONTIN 600 MG PO ×3 (08:18→22:01)
[2024-10-31] MEDS: NORVASC 10 MG PO (08:18)
[2024-10-31] MEDS: MAGNESIUM OXIDE 500 MG PO (08:18)
[2024-10-31] MEDS: FOLVITE 1 MG PO (08:18)
[2024-10-31] MEDS: WELLBUTRIN XL (24 hour extended release) 150 MG PO (08:18)
[2024-10-31] MEDS: TOPROL XL 100 MG PO ×2 (08:18→20:15)
[2024-10-31] MEDS: ALDACTONE 25 MG PO (08:19)
[2024-10-31] MEDS: LASIX 40 MG IV (08:19)
[2024-10-31] MEDS: ATIVAN 1 MG PO ×2 (10:08→20:15)
--- NOTE | 2024-10-31 10:15 | W.PN.CARDCBS ---
Addendum entered and electronically signed by Luis Decker MD 10/31/24 14:56:
I saw and examined the patient.
The FAMILY PROGRAM SPECIALIST or PA's note was reviewed and I agree with the note.
Comment: General: Well developed, well nourished in NAD.
Neck: Supple, no JVD, HJR, carotids +2 B/L, no bruits bilaterally.
Heart: Non displaced PMI, RRR, no murmurs, No S3, S4, no rubs.
Lungs: Scattered rhonchi at the bases
Extremities: No clubbing, cyanosis or edema bilaterally.
Neuro: Grossly nonfocal, awake, alert and oriented x3.
Stable cardiology status of his significant weight loss. Will change to p.o. Lasix and sign off. Follow-up has been arranged. Patient wishes to stay until 11/01. Discussed with primary service
Original Note:
Today's Communication / Plan
-
Transitioned to PO lasix 40mg BID
BMP in 1 week
Continue Toprol, candesartan, spironolactone, doxazosin, amlodipine
In SR, continue Xarelto 20mg daily
Follow up arranged.
Impression / Plan
-
PCP: Dr. Shelbie Mejia
Card: Previously has seen several cardiologists including:
Dr. Santos, [facility] cardiology
Dr. Souza, but not seeing any longer
First seen here by Dr. Akiko Kapadia
Impression:
Admitted with SOB, acute hypoxia and CHF 10/20/24
Acute HFpEF
EF 65% without significant valve disease by echo 10/21/24
ETOH withdrawal
h/o drug use including smoking crack cocaine
HTN emergency
Fever
Paroxysmal A-fib
Chronic Xarelto OAC
Chronic hypercarbic respiratory failure, CARRIE/obesity hypoventilation syndrome
DM2
Obese, BMI 60
Hypokalemia
Echo 10/21/2024: EF 65 to 70%, moderate concentric LVH (1.5 cm), normal RV size and function, no significant valve disease
Plan:
-Presented with SOB, admitted with acute heart failure and ETOH withdrawal.
-Diuresing with IV lasix 40mg BID, creat stable at 1.2. Weight down another 2lbs overnight to 349 lbs. Has diuresed 61 lbs this admission.
-Creat starting to trend upwards, now at 1.2 with BUN 25. Will transition to PO lasix 40mg BID
-Follow repeat BMP 1 week after discharge.
-Echo 10/21 with preserved EF as noted above.
-Continue Toprol, candesartan, spironolactone, amlodipine, doxazosin. BP stable.
-No SGLT2 inhibitor given concern for possible infection on admission.
-Remains in SR on review of telemetry.
-Known h/o paroxysmal atrial fibrillation. Continue Xarelto 20mg daily.
-Tele reviewed by me 10/30/24 and he is in SR. Known h/o paroxysmal A-fib
-Cardiology follow up arranged.
Progress Note - Content Strategy Lead
Subjective
Date of Service: October 31, 2024
Objective
Labs:
10/24/24 04:23
10/31/24 06:21
Labs
Hgb 12.7 g/dL (13.0-18.0) L 10/24/24 04:23
Hct 37.3 % (39.0-52.0) L 10/24/24 04:23
Plt Count 152 10^3/uL (130-400) D 10/24/24 04:23
PT 18.9 Sec (11.4-14.6) H 10/20/24 10:10
INR 1.56 10/20/24 10:10
Sodium 134 mmol/L (135-145) L 10/31/24 06:21
Potassium 4.8 mmol/L (3.5-5.1) 10/31/24 06:21
BUN 25 mg/dl (9-20) H 10/31/24 06:21
Creatinine 1.2 mg/dL (0.7-1.3) 10/31/24 06:21
Glucose 142 mg/dl (70-99) H 10/31/24 06:21
Vital Signs and I&O:
Vital Signs
Temp Pulse Resp BP Pulse Ox
98.3 F 63 16 129/74 94
10/31/24 07:45 10/31/24 08:19 10/31/24 07:45 10/31/24 08:19 10/31/24 07:45
Vital Signs
Temp Pulse Resp BP Pulse Ox
98.3 F 63 16 129/74 94
10/31/24 07:45 10/31/24 08:19 10/31/24 07:45 10/31/24 08:19 10/31/24 07:45
Intake & Output
10/29/24 10/30/24 10/31/24 11/01/24
06:59 06:59 06:59 06:59
Intake Total 2039 / 2039 1140 / 1140 1919 / 1919
Output Total 3000 / 3000 1325 / 1325 4225 / 4225
Balance -960 / -960 -185 / -185 -2305 / -2305
[2024-10-31 11:17] VITALS: PULSE 81; O2SAT 94
[2024-10-31 11:54] LABS: Glucose - Point of Care 151 mg/dl (70-99)
--- NOTE | 2024-10-31 12:04 | W.PN.HOSP.TC ---
Today's Communication/Plan
-
DC
Assessment / Plan
Assessment / Plan
Assessment:
Acute hypoxic respiratory failure due to CHF
Acute on chronic hypercarbic respiratory failure - suspected chronic CARRIE/OHS
- Off of oxygen
New onset Acute HFpEF
- Echo: Normal left ventricular size and systolic function. No regional wall motion abnormalities are seen. LV ejection fraction is 65-70% by visual assessment. Moderate concentric left ventricular hypertrophy (1.5 cm). Normal RV size and function.
No significant valvular disease. Compared to prior echocardiogram August 14, 2011, that study was noted to be technically difficult and there is a question of possible right ventricular dilatation. Current study is not limited by technical/imaging
shortcomings and there is normal RV size and function. Otherwise no significant changes.
- CXR consistent with CHF. BNP 777 but unreliable in obesity
- Lost 65 pounds since admission and creatinine stable
- continue compression therapy
- follow Cards recs -switched to oral lasix now
Hypertensive emergency, likely exacerbating acute CHF exacerbation
- Continue home blood pressure medications - Amlodipine, Doxazosin, and Metoprolol succinate and candesartan. Advised to quit cocaine use.
- titrate to goal normotension
- Closely monitor hemodynamics
- Improved blood pressure readings
Acute alcohol withdrawal
Toxic encephalopathy in setting of ETOH withdrawal
- S/p Precedex
- now off Precedex and phenobarbital
- Thiamine and folate
- Alcohol cessation advised to patient. CM consult for dispo planning along with BCares. Patient favoring IOP and AA in outpatient settings.
- Resolved withdrawal syndrome
Severe acute on chronic lymphedema of bilateral lower extremities, likely multifactorial due to his chronic venous insufficiency, and new onset acute heart failure
- continue Lasix twice daily
- continue compression therapy
Bilateral lower extremity cellulitis, superimposed upon chronic venous insufficiency chronic lymphadenopathy
Underlying lactic acidosis
- lactic acidosis has resolved
- switched to oral Keflex- completed 10d course
- MRSA negative
- wound care evaluation
Right hip pain and limited active range of movements - no trauma - CT hip raises concern about acetabulum fracture, reviewed by orthopedics who felt more likely arthritis than fracture. Recommend weightbearing as tolerated and PT.
Anxiety
- Continue with meds. Psych change the doses yesterday-down titrated the dose.
Sleep apnea, uses CPAP nightly at 17
- Will continue CPAP here at 17
Paroxysmal atrial fibrillation
- Currently in normal sinus rhythm
- Continue telemetry monitoring
- Continue Xarelto
- Continue metoprolol
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
- Normalized
Anemia, new since 2023
- The patient denies any melena, hematochezia, hematemesis
- anemia indices ok.
GERD
- continue famotidine
Neuropathy-cont gabapentin
Dried abrasion to L great toe, intact scab.
R posterior thigh with full thickness ulcer, suspect stage 3 mixed with MASD
- follow wound care recs
Cocaine use-counseled about quitting cocaine use. Went over with him regarding cardiovascular and vascular effects of cocaine.
DVT ppx: Xarelto
Code: Full
Medically stable for discharge home.
Patient advised to continue to stay off of drug use ,continue with the medications and keep a eye on his weight.
To follow-up with cardiology as an outpatient.
Total time of DC 32 min
Anticipated Discharge: Today
Subjective/Interval History
-
Date of Service: October 31, 2024
Breathing comfortable.
Denies any dizziness.
Objective Data
-
Labs:
Laboratory Results
10/31/24
06:21
Sodium 134 L
Potassium 4.8
Chloride 94 L
Carbon Dioxide 29
BUN 25 H
Creatinine 1.2
Glucose 142 H
Calcium 9.7
Vital Signs:
Vital Signs
Temp Pulse Resp BP Pulse Ox
98.3 F 63 16 129/74 94
10/31/24 07:45 10/31/24 08:19 10/31/24 07:45 10/31/24 08:19 10/31/24 07:45
I&O
10/30/24 10/31/24 11/01/24
06:59 06:59 06:59
Intake Total 1140 / 1140 1919 / 1919
Output Total 1325 / 1325 4225 / 4225
Balance -185 / -185 -2305 / -2305
Review of Systems
-
Constitutional: Denies Fever
EENT: Denies Sore Throat
Respiratory: Denies Cough
Cardiac: Denies Chest Pain
Abdomen/GI: Denies Abdominal Pain, Nausea, Vomiting or Diarrhea
Physical Exam
-
General: No Apparent Distress
HEENT: Moist Mucous Membranes
Respiratory: Clear to Auscultation
Cardiac: Regular Rhythm and S1/S2; Negative Tachycardic
GI: Soft
Musculoskeletal: Edema, Right Lower Extrem (improved) and Edema, Left Lower Extrem (improved)
Neuro: AO x 3
Data Reviewed
-
Labs: Labs Reviewed by me
[2024-10-31] MEDS: NOVOLOG FLEXPEN-LOW RESISTANCE 1 UNITS SC (12:55)
--- NOTE | 2024-10-31 14:42 | CM ---
GREG met with Amos to discuss obtaining a bariatric walker; after discussion he decided to order from [employer] once he returned home. Home Care discussed; he declined at this time of my visit. [facility] made aware of same and will follow up with
Amos prior to discharge, as he had previously agreed to services.
Pt had reported loss of electricity at home about a week ago. CM discussed this with him; he reported that the issue is resolved and his electricity is now working.
Plan: Pt to drive himself home at discharge. VN to follow up with patient at home.
--- NOTE | 2024-10-31 14:47 | VNURNOTE ---
VN liaison met with patient at bedside. Earlier this admission, services were explained to him and he was agreeable. Patient most concerned that his house was cluttered and there was not a lot of space. Liaison answered his questions and
explained that VN could adapt to his home environment and provide services as long as he is homebound. Patient cooperative and agreeable to [facility] services.
[2024-10-31 15:15] VITALS: BP 137/77
[2024-10-31] MEDS: XARELTO 20 MG PO (17:34)
[2024-10-31] MEDS: LASIX 40 MG PO (17:34)
[2024-10-31] MEDS: NOVOLOG FLEXPEN-LOW RESISTANCE 2 UNITS SC (17:53)
[2024-10-31 17:54] LABS: Glucose - Point of Care 212 mg/dl (70-99)
[2024-10-31 22:02] LABS: Glucose - Point of Care 154 mg/dl (70-99)
[2024-10-31 22:21] VITALS: PULSE 2; PULSE 74
[2024-10-31 23:10] VITALS: BP 129/60
[2024-11-01 04:53] VITALS: PULSE 2
[2024-11-01 06:00] VITALS: BMI 51.4
[2024-11-01 07:45] VITALS: BP 141/67
[2024-11-01 08:07] LABS: Glucose - Point of Care 142 mg/dl (70-99)
[2024-11-01] MEDS: NOVOLOG FLEXPEN-LOW RESISTANCE SC (08:11)
[2024-11-01] MEDS: MAGNESIUM OXIDE 500 MG PO (08:12)
[2024-11-01] MEDS: TOPROL XL 100 MG PO (08:12)
[2024-11-01] MEDS: ALDACTONE 25 MG PO (08:12)
[2024-11-01] MEDS: WELLBUTRIN XL (24 hour extended release) 150 MG PO (08:12)
[2024-11-01] MEDS: PEPCID 20 MG PO (08:12)
[2024-11-01] MEDS: EFFEXOR XR 375 MG PO (08:13)
[2024-11-01] MEDS: FOLVITE 1 MG PO (08:13)
[2024-11-01] MEDS: NORVASC 10 MG PO (08:13)
[2024-11-01] MEDS: CARDURA 4 MG PO (08:14)
[2024-11-01] MEDS: VITAMIN B1 100 MG PO (08:14)
[2024-11-01] MEDS: LASIX 40 MG PO (08:14)
[2024-11-01] MEDS: NEURONTIN 600 MG PO (08:14)
[2024-11-01] MEDS: ATACAND 32 MG PO (08:15)
--- NOTE | 2024-11-01 08:25 | CM ---
Late note from 10/31/2024:
Pt cleared for discharge. He had multiple reasons that he could not go home, including no clothing, no electricity, his car was towed, etc.
Pt had previously advised his electricity was turned off; advised CM yesterday that electricity was turned back on, however once he was told he was discharged, he changed the story, stating he doesn't know if he has electricity and was not willing
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
CM met with Amos, along with Director of CM, Director of Business Office, and washery boss. Pt provided with 2 bags of groceries to take home with him, as well as clean clothing since he had 'soiled his clothes'. Pt reported the clothing
provided would not fit his body habitus.
Pt provided with a notice of non-coverage, as he is discharged and not willing to leave the hospital; reported that cardiology told him he was not ready for discharge, although he could not recall the name of the engine installer, nor could we find
documentation from cardiology re: not ready for discharge.
MD and RN aware of pt refusal to discharge and notice of non-coverage issued.
--- NOTE | 2024-11-01 11:11 | W.PN.HOSP.TC ---
Today's Communication/Plan
-
DC
Assessment / Plan
Assessment / Plan
Assessment:
Acute hypoxic respiratory failure due to CHF
Acute on chronic hypercarbic respiratory failure - suspected chronic CARRIE/OHS
- Off of oxygen
New onset Acute HFpEF
- Echo: Normal left ventricular size and systolic function. No regional wall motion abnormalities are seen. LV ejection fraction is 65-70% by visual assessment. Moderate concentric left ventricular hypertrophy (1.5 cm). Normal RV size and function.
No significant valvular disease. Compared to prior echocardiogram August 14, 2011, that study was noted to be technically difficult and there is a question of possible right ventricular dilatation. Current study is not limited by technical/imaging
shortcomings and there is normal RV size and function. Otherwise no significant changes.
- CXR consistent with CHF. BNP 777 but unreliable in obesity
- Lost 67 pounds since admission and creatinine stable
- continue compression therapy
- follow Cards recs -switched to oral lasix now
Hypertensive emergency, likely exacerbating acute CHF exacerbation
- Continue home blood pressure medications - Amlodipine, Doxazosin, and Metoprolol succinate and candesartan. Advised to quit cocaine use.
- titrate to goal normotension
- Closely monitor hemodynamics
- Improved blood pressure readings
Acute alcohol withdrawal
Toxic encephalopathy in setting of ETOH withdrawal
- S/p Precedex
- now off Precedex and phenobarbital
- Thiamine and folate
- Alcohol cessation advised to patient. CM consult for dispo planning along with BCares. Patient favoring IOP and AA in outpatient settings.
- Resolved withdrawal syndrome
Severe acute on chronic lymphedema of bilateral lower extremities, likely multifactorial due to his chronic venous insufficiency, and new onset acute heart failure
- continue Lasix twice daily
- continue compression therapy
Bilateral lower extremity cellulitis, superimposed upon chronic venous insufficiency chronic lymphadenopathy
Underlying lactic acidosis
- lactic acidosis has resolved
- switched to oral Keflex- completed 10d course
- MRSA negative
- cw wound care
Right hip pain and limited active range of movements - no trauma - CT hip raises concern about acetabulum fracture, reviewed by orthopedics who felt more likely arthritis than fracture. Recommend weightbearing as tolerated and PT.
Anxiety
- Continue with meds. Psych change the doses -down titrated the doses.
Sleep apnea, uses CPAP nightly at 17
- Will continue CPAP here at 17
Paroxysmal atrial fibrillation
- Currently in normal sinus rhythm
- Continue telemetry monitoring
- Continue Xarelto
- Continue metoprolol
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
- Normalized
Anemia, new since 2023
- The patient denies any melena, hematochezia, hematemesis
- anemia indices ok.
GERD
- continue famotidine
Neuropathy-cont gabapentin
Dried abrasion to L great toe, intact scab.
R posterior thigh with full thickness ulcer, suspect stage 3 mixed with MASD
- follow wound care recs
Cocaine use-counseled about quitting cocaine use. Went over with him regarding cardiovascular and vascular effects of cocaine.
DVT ppx: Xarelto
Code: Full
Remains Medically stable for discharge home.
Total time of DC 32 min
Anticipated Discharge: Today
Subjective/Interval History
-
Date of Service: November 01, 2024
No overnight issues. He could not be discharged yesterday because of social issues.
He states everything is set at home now.
Denies any shortness of breath or chest pain.
Tolerating diet.
No fever chills.
No dizziness.
Objective Data
-
Vital Signs:
Vital Signs
Temp Pulse Resp BP Pulse Ox
98.6 F 67 18 141/67 96
11/01/24 07:45 11/01/24 08:15 11/01/24 07:45 11/01/24 08:15 11/01/24 07:45
I&O
10/31/24 11/01/24 11/02/24
06:59 06:59 06:59
Intake Total 1920 / 192 900 / 900
Output Total 4225 / 4225 1350 / 1350
Balance -2305 / -2305 -450 / -450
Physical Exam
-
General: Comfortable
Respiratory: Non Labored Respirations; Negative Accessory Resp Muscle Use
Cardiac: Negative Tachycardic
Musculoskeletal: Edema, Right Lower Extrem and Edema, Left Lower Extrem (improved BL significantly)
Neuro: AO x 3
Psych: Calm
[2024-11-01 11:21] LABS: Glucose - Point of Care 178 mg/dl (70-99)
[2024-11-01 11:25] VITALS: BP 117/69
[2024-11-01] MEDS: NOVOLOG FLEXPEN-LOW RESISTANCE 1 UNITS SC (12:00)
== END 2024-11-01 13:06 | disposition home health service (06) | DRG 896 ==
LOC: 2 NORTH 13:40
PROVIDERS: Internal Medicine; Nurse Practitioner Family; Physician Assistant Medical; ADMITTING PHYSICIAN Internal Medicine; ATTENDING PHYSICIAN Internal Medicine; EMERGENCY PHYSICIAN Emergency Medicine; FAMILY PHYSICIAN Family Medicine; OTHER PHYSICIAN Internal Medicine; OTHER PHYSICIAN Orthopaedic Surgery; OTHER PHYSICIAN Psychiatry & Neurology Psychiatry
PROC: 5A09357 Assistance with Respiratory Ventilation, Less than 24 Consecutive Hours, Continuous Positive Airway Pressure (ICD-10-PCS; 2024-10-21)
DX: F10.239 Alcohol dependence with withdrawal, unspecified (principal); G92.8 Other toxic encephalopathy; L89.893 Pressure ulcer of other site, stage 3; J96.01 Acute respiratory failure with hypoxia; I50.31 Acute diastolic (congestive) heart failure; J96.22 Acute and chronic respiratory failure with hypercapnia; I16.1 Hypertensive emergency; L03.116 Cellulitis of left lower limb; L03.115 Cellulitis of right lower limb; Z68.44 Body mass index [BMI] 60.0-69.9, adult; F33.2 Major depressive disorder, recurrent severe without psychotic features; E66.2 Morbid (severe) obesity with alveolar hypoventilation; E87.20 Acidosis, unspecified; I11.0 Hypertensive heart disease with heart failure; I48.0 Paroxysmal atrial fibrillation; E11.40 Type 2 diabetes mellitus with diabetic neuropathy, unspecified; F41.1 Generalized anxiety disorder; I87.2 Venous insufficiency (chronic) (peripheral); M16.11 Unilateral primary osteoarthritis, right hip; D69.6 Thrombocytopenia, unspecified; E87.6 Hypokalemia; E11.65 Type 2 diabetes mellitus with hyperglycemia; E88.810 Metabolic syndrome; I89.0 Lymphedema, not elsewhere classified; D64.9 Anemia, unspecified; E78.2 Mixed hyperlipidemia; K76.0 Fatty (change of) liver, not elsewhere classified; K21.9 Gastro-esophageal reflux disease without esophagitis; M21.372 Foot drop, left foot; F14.90 Cocaine use, unspecified, uncomplicated; E83.42 Hypomagnesemia; Z11.52 Encounter for screening for COVID-19; Z86.16 Personal history of COVID-19; Z86.718 Personal history of other venous thrombosis and embolism; Z79.01 Long term (current) use of anticoagulants; Z86.73 Personal history of transient ischemic attack (TIA), and cerebral infarction without residual deficits; Z79.84 Long term (current) use of oral hypoglycemic drugs
CPT/HCPCS: 36600; 71046; 73502; 73620; 73700; 80048; 80053; 80061; 80306; 80307; 81003; 81015; 82010; 82077; 82248; 82607; 82728; 82746; 82805; 82962; 82977; 83036; 83540; 83550; 83605; 83735; 83880; 84100; 84443; 84466; 84484; 85025; 85027; 85610; 87040; 87070; 87502; 87811; 93005; 93306; 94660; 96374; 96375; 96376; 97116; 97162; 97167; 97535; 99291

== ENCOUNTER 2024-11-05 20:56 | Inpatient (IN) | payer OTHER, SELFPAY ==
[2024-11-05 15:19] VITALS: BP 120/67
[2024-11-05 15:40] LABS: % Basophils 1.8 % (0-2); % Eosinophils 4.5 % (0-6); % Immature Granulocytes 0.6 % (0-0.5); % Lymphocytes 17.4 % (20.5-51.1); % Monocytes 8.9 % (1.7-9.3); % Neutrophils 66.8 % (42.2-75.2); Absolute Basophils 0.1 10^3/uL (0-0.2); Absolute Eosinophils 0.3 10^3/uL (0-0.7); Absolute Lymphocytes 1.2 10^3/uL (1.2-3.4); Absolute Monocytes 0.6 10^3/uL (0.1-0.6); Absolute Neutrophils 4.7 10^3/uL (1.4-6.5); Hematocrit 38.4 % (39.0-52.0); Hemoglobin 13.2 g/dL (13.0-18.0); Mean Corp Hgb Conc. 34.4 g/dL (33.0-37.0); Mean Corpuscular Hgb 32.3 pg (27.0-31.0); Mean Corpuscular Volume 93.9 fL (80.0-94.0); Nucleated Red Blood Cells % 0 % (-); Platelet Count 281 10^3/uL (130-400); Red Blood Cell Count 4.09 10^6/uL (4.70-6.10); Red Cell Dist. Width 13.8 % (11.5-14.5); White Blood Cell Count 7.1 10^3/uL (4.8-10.8)
[2024-11-05 16:10] LABS: NT-proBNP 131 pg/ml; Troponin I < 0.012 ng/ml
[2024-11-05 16:13] LABS: ALT (SGPT) 31 U/L (0-50); AST (SGOT) 33 U/L (17-59); Albumin 3.7 g/dl (3.5-5.0); Alkaline Phosphatase 52 U/L (38-126); Blood Urea Nitrogen 28 mg/dl (9-20); Calcium 8.8 mg/dl (8.4-10.2); Carbon Dioxide 30 mmol/L (22-30); Chloride 92 mmol/L (98-107); Glucose 220 mg/dl (70-99); Potassium 3.7 mmol/L (3.5-5.1); Sodium 139 mmol/L (135-145); Total Bilirubin 0.5 mg/dl (0.2-1.3); Total Protein 5.8 g/dl (6.3-8.2); eGFR > 60.00
[2024-11-05 17:36] VITALS: BP 119/62
[2024-11-05 18:00] VITALS: BP 121/64
--- NOTE | 2024-11-05 18:01 | ED.GENMED ---
History of Present Illness
General
Chief Complaint: Swelling
Source: patient
Exam Limitations: none
Time Seen by Provider: 11/05/24 17:24
History of Present Illness
History of Present Illness:
59-year-old male presents for reevaluation. He was discharged from this hospital 4 days ago for acute heart failure. He was discharged on Lasix. He called the cardiology office as he states that he was having decreased urine output and they
recommended he come here. He notes increased swelling to the legs and abdomen. He denies significant shortness of breath. He does admit that he was not sticking to his fluid restriction and/or salt restriction. No chest pain. No fever. No other
complaints.
Past History
Past History
ED Past Medical History: Arrthythmia (afib on Xarelto), CVA, HTN, Hypercholesterolemia, NIDDM, Other (Fatty liver, GERD, history of A-fib, left foot drop, anxiety) and Other (sleep apnea/obesity/)
ED Past Surgical History: Cardiac and Tonsilectomy
Social History
Tobacco: Non-smoker
Alcohol: Binge drinker
Drug: Cocaine
Personal:
Living: with family
Employment: Employed
Family History
Family History: Other
Phy Exam
Physical Exam
Physical Exam:
General: Well-appearing obese male no acute respiratory distress
HEENT: Normocephalic atraumatic
Heart: Regular rate and rhythm no murmur
Abdomen is soft nontender slightly distended
Extremities: Significant pitting edema bilateral lower extremities
Skin warm no rash
Scores
Heart Failure Risk
Heart Failure Risk Score: Not Applicable
Course
Orders/Labs/Results
Orders:
Orders
11/05/24 15:23
Electrocardiogram (*1) Urgent
Reason for Study: Other
Other Reason for Exam: Respiratory Distress
11/05/24 15:31
Complete Blood Count/With Diff Urgent
Comprehensive Metabolic Panel Urgent
NT-proBNP Urgent
Troponin I Urgent
11/05/24 18:00
CR Chest - 2 Views Urgent
Comment:
Reason For Exam: sob
11/05/24 19:19
Furosemide [Lasix] 60 mg IV NOW STA
Abnormal Lab Results
11/05/24
15:31
RBC 4.09 L 10^6/uL
(4.70-6.10)
Hct 38.4 L %
(39.0-52.0)
MCH 32.3 H pg
(27.0-31.0)
Immature Gran % 0.6 H %
(0-0.5)
Lymphocytes % 17.4 L %
(20.5-51.1)
Chloride 92 L mmol/L
(98-107)
BUN 28 H mg/dl
(9-20)
Glucose 220 H mg/dl
(70-99)
Total Protein 5.8 L g/dl
(6.3-8.2)
11/05/24 15:31
11/05/24 15:31
Vital Signs
Initial and Last Documented VS:
Initial Vital Signs
Temp Pulse Resp BP Pulse Ox
98.6 F 74 16 120/67 95
11/05/24 15:19 11/05/24 15:19 11/05/24 15:19 11/05/24 15:19 11/05/24 15:19
Last Documented Vital Signs
Temp Pulse Resp BP Pulse Ox
98.6 F 73 16 121/64 96
11/05/24 15:19 11/05/24 18:15 11/05/24 18:01 11/05/24 18:00 11/05/24 17:36
MDM/Problems Addressed
Differential Diagnosis Includes:
Patient here with decreased urine output despite use of Lasix as an outpatient since discharge 4 days ago. Upon review of the chart, he weighs 165 kg today and most recent weight on the chart was 157 kg. He has gained over 8 kg since discharge.
He does appear volume overloaded. BNP although is within normal limits. Chest x-ray pending.
*Critical Care Note
Total Time (30-74mins, 75-104mins- exclusive of procedures): Not Applicable
ED Attending Note
-
Portions of this chart may have been created with voice recognition software.� Occasional wrong word or��sound alike� substitutions may have occurred due to the inherent limitations of voice recognition software.
Discharge Plan
Departure
Patient Disposition: Admit
Date of Disposition: 11/05/24
Time of Disposition: :23
Presentation/result/management discussed w/ accepting MD/DO: Hospitalist
Discharge Problem:
Acute CHF (congestive heart failure)
Prescriptions:
No Action
amlodipine 5 MG tablet
10 mg PO DAILY
doxazosin 4 MG tablet
4 mg PO DAILY
Xarelto 20 MG tablet
20 mg PO QPM
gabapentin [Neurontin] 600 MG tablet
600 mg PO TID
famotidine 20 MG tablet
20 mg PO DAILY
metformin 500 MG tablet extended release 24 hr
2,000 mg PO DAILY
tadalafil 5 mg Tablet
5 mg PO DAILYPRN PRN (Reason: ed)
furosemide 40 mg Tablet
40 mg PO BID AT 0800,1600 Qty: 60 0RF
venlafaxine 75 mg Capsule,Extended Release 24hr
375 mg PO DAILY Qty: 30 0RF
metoprolol succinate 100 mg Tablet Extended Release 24 Hr
100 mg PO BID Qty: 60 0RF
spironolactone 25 mg Tablet
25 mg PO DAILY Qty: 30 0RF
candesartan 16 mg Tablet
32 mg PO DAILY Qty: 30 0RF
bupropion HCl 150 mg Tablet Extended Release 24 Hr
150 mg PO DAILY Qty: 30 0RF
Referrals:
Shelbie Mejia MD [Family Provider] -
Interventions
Interventions:
*Risk Screen - Suicide Last Done: 11/05/24 15:19
*General Assessment Last Done: 11/05/24 17:39
*Neglect/Abuse Screening Last Done: 11/05/24 15:19
*ED- Fall Risk Assessment Last Done: 11/05/24 15:19
*ED COVID-19 Vaccine History Last Done: 11/05/24 17:39
ED- Cardiac Assessment Last Done: 11/05/24 17:40
ED- Pulmonary Assessment Last Done: 11/05/24 17:40
ED-Skin Assessment Last Done: 11/05/24 17:40
Discharge Date and Time
Print Language: KOREAN
--- NOTE | 2024-11-05 19:26 | HPS.HSE ---
Addendum entered and electronically signed by Bong Gaspar DO 11/05/24 21:09:
Patient seen and examined independently. Agree with findings and plan as set forth by WANG Knapp.
Patient is a 59y M with PMH significant for chronic lymphedema, DM-II, CHF and alcohol use disorder who presents to ED complaining of increased LE swelling and decreased urine output. Patient was recently hospitalized for edema and treated for
CHF with new addition of furosemide to his regimen. He diuresed well during his admission and was discharged on oral Lasix. Patient states that he has noted significant decrease in urine output since his return home. He admits that he has not
been strict about his salt / fluid restriction. He has noted increase in swelling in both legs - L chronically > R. He denies any chest pain or dyspnea. No cough, fevers / chills, etc.
Patient also notes that he has been diffusely itchy. He notes that this started during his recent hospitalization.
He had 5-6 beers yesterday. Was treated for significant alcohol withdrawal syndrome during his prior stay with phenobarbital and Precedex.
Ass:
Acute on Chronic Hypervolemia / Lymphedema
Acute on Chronic HFpEF
Chronic Alcohol Use Disorder
Benign Hypertension
Anxiety / Depression
Paroxysmal Atrial Fibrillation
GERD
DM-II
Peripheral Neuropathy
Morbid Obesity
Plan:
Admit for further evaluation and treatment.
IV dose of Lasix given in the ED - follow for effect.
Change to ethacrynic acid given stated sulfa allergy and new itching on furosemide - follow for any changes.
Monitor I/Os, daily weights, etc.
Check abdominal US given edema, abdominal bloating, EtOH history and fairly unremarkable CV evaluation last admission.
? underlying cirrhosis.
Continue usual home medication regimen. SSI coverage for DM.
Alcohol withdrawal protocols including phenobarb given significant withdrawals during last admission.
Original Note:
Family Physician
-
Family Physician: Shelbie Mejia MD
Chief Complaint
-
decreased urine output, weight gain
History of Present Illness
59-year-old male with PMH for lymphedema, depression, anxiety, type 2 diabetes, CVA, hyperlipidemia, DVT, CHF presented to us with decreased urine output since Sunday. Patient feels bloated. He has noted worsening bilateral lower extremities
edema. Patient denied short of breath. Denied chest pain. Patient stated 5 to 6 pounds weight gain since her discharge. Denied headache, dizziness. Patient denied fever, chills, cough, congestion. Denies abdominal pain, nausea, vomiting or
diarrhea. Patient denied dysuria hematuria. Patient is compliant with his medication. He does admit that he was not sticking to his fluid restriction and/or salt restriction.
Patient was discharged on 11/01/2024 on diuretics. Patient received a Lasix of 60 in the ER. Admitting for further management
Medical History
Past Medical History
Past Medical History: Reports Other
Additional Past Medical History:
alcoholism
lymphedema
depression
type 2 DM
anxiety
CVA
HLD
HTN
CARRIE
DVT
CHF
atrial fib
paroxysmal atrial fib
rhabdo
DVT
anal fissure
fattly liver disease
CKD
Past Surgical History: Reports Other
Additional Past Surgical History:
pulmonary vein isolation and ablation
tonsillectomy
Social History
Tobacco: Non-smoker
Alcohol: Daily (6-8 beers daily)
Drug: Cocaine (Last use a month ago)
Personal: Single
Living: Alone
Employment: Disabled
Family History
Family History: Not pertinent
Allergies / Home Medications
Allergies reflects when Allergies were last updated in [facility].
Home Medications with original date entered in [facility]
Allergy/Medication List:
Allergies
Allergy/AdvReac Type Severity Reaction Status Date / Time
Penicillins Allergy Rash Verified 11/05/24 15:19
Sulfa (Sulfonamide Allergy Unknown Verified 11/05/24 15:19
Antibiotics)
Home Medications
amlodipine 5 mg tablet 10 mg PO DAILY Blood pressure 10/19/11
doxazosin 4 mg tablet 4 mg PO DAILY Urinary issue 10/19/11
famotidine 20 mg tablet 20 mg PO DAILY Gastrointestinal issue 05/05/21
gabapentin 600 mg tablet (Neurontin) 600 mg PO TID Neurological Condition 05/05/21
metformin 500 mg tablet,extended release 24 hr 2,000 mg PO DAILY Diabetes 05/05/21
rivaroxaban 20 mg tablet (Xarelto) 20 mg PO QPM Blood clot prevention/tx 05/05/21
tadalafil 5 mg tablet 5 mg PO DAILYPRN PRN ed 10/20/24
bupropion HCl 150 mg 24 hr tablet, extended release 150 mg PO DAILY #30 tabs 10/31/24
candesartan 16 mg tablet 32 mg (2 x 16 mg) PO DAILY #30 tabs 10/31/24
furosemide 40 mg tablet 40 mg PO BID AT 0800,1600 #60 tabs 10/31/24
metoprolol succinate 100 mg tablet,extended release 24 hr 100 mg PO BID #60 tabs 10/31/24
spironolactone 25 mg tablet 25 mg PO DAILY #30 tabs 10/31/24
venlafaxine 75 mg capsule,extended release 24 hr 375 mg (5 x 75 mg) PO DAILY #30 caps 10/31/24
Review of Systems
-
Constitutional: Reports Weight Gain
EENT: Reports No Symptoms
Respiratory: Reports No Symptoms
Cardiac: Reports No Symptoms
Abdomen/GI: Reports No Symptoms
: Reports No Symptoms
Musculoskeletal: Reports Edema (Bilateral lower extremity edema)
Skin: Reports No Symptoms
Neurological: Reports No Symptoms
Endocrine: Reports No Symptoms
Hematologic/Lymphatic: Reports No Symptoms
Psych: Reports No Symptoms
Physical Exam
Vital Signs
Vital Signs
Temp Pulse Resp BP Pulse Ox
98.6 F 73 16 121/64 96
11/05/24 15:19 11/05/24 18:15 11/05/24 18:01 11/05/24 18:00 11/05/24 17:36
Physical Exam
General: Well Developed, Well Nourished and No Apparent Distress
HEENT: NormoCephalic, Moist mucous membranes and Atraumatic
Respiratory: Decreased Breath Sounds
Cardiac: S1/S2 and Regular Rhythm; No Murmur or Rub
GI: Soft, Non Tender, Non Distended and Normal Bowel Sounds; No Organomegaly
Rectal: Deferred by Provider
Musculoskeletal: No Clubbing, No Cyanosis and Other (lymphedema)
Skin: No Rash
Neuro: AO x 3 and Nonfocal/grossly intact
Psych: Calm
Laboratory Results
-
11/05/24 15:31
11/05/24 15:31
Laboratory Results
Total Bilirubin 0.5 mg/dl (0.2-1.3) 11/05/24 15:31
AST 33 U/L (17-59) 11/05/24 15:31
ALT 31 U/L (0-50) 11/05/24 15:31
Alkaline Phosphatase 52 U/L (38-126) 11/05/24 15:31
Troponin I < 0.012 ng/ml 11/05/24 15:31
Data Reviewed
-
Diagnostic Radiology: Report Reviewed by me
Lab Data: Labs Reviewed by me
Impression/Plan
-
#edema/weight gain likely fluid overload
-BNP 131, chest x ray with no acute cardiopulmonary process
-Echo: Normal left ventricular size and systolic function. No regional wall motion abnormalities are seen. LV ejection fraction is 65-70% by visual assessment. Moderate concentric left ventricular hypertrophy (1.5 cm). Normal RV size and function.
No significant valvular disease. Compared to prior echocardiogram August 14, 2011, that study was noted to be technically difficult and there is a question of possible right ventricular dilatation. Current study is not limited by technical/imaging
shortcomings and there is normal RV size and function. Otherwise no significant changes.
-Lasix 60mg iv in ER
-patient is allergic to iv Lasix
- Edecrin initiated
- Strict NANDA, daily weight, fluid restriction
#abdominal bloating
-obtain US of abdomen
#Acute alcohol withdrawal
-Protocol initiated
- Monitor MSAs score
-phenobarbital continued
#Severe acute on chronic lymphedema of bilateral lower extremities, likely multifactorial due to his chronic venous insufficiency, and new onset acute heart failure
- continue Lasix twice daily
#Essential hypertension
-Norvasc candesartan continued with hold parameters
#Anxiety
- Bupropion, Effexor continued
#Sleep apnea, uses CPAP nightly
# BPH
- Doxazosin continued
#Paroxysmal atrial fibrillation
- Currently in normal sinus rhythm
- Continue telemetry monitoring
- Continue Xarelto
- Continue metoprolol
#GERD
- continue famotidine
#Neuropathy-cont gabapentin
#, Type 2 diabetes
- Sliding scale, CHO diet
- Hold metformin
DVT ppx: Xarelto
Code: Full
[2024-11-05] MEDS: LASIX 60 MG IV (19:30)
[2024-11-05 21:25] LABS: Cocaine Positive (Negative)
[2024-11-05 21:26] LABS: Amphetamines Negative (Negative); Barbiturates Positive (Negative); Benzodiazepines Positive (Negative)
[2024-11-05 21:27] LABS: Buprenorphine Negative (Negative); Methadone Negative (Negative); Methamphetamines Negative (Negative); Opiates Negative (Negative); Phencyclidine Negative (Negative)
[2024-11-05 21:28] LABS: Marijuana Negative (Negative); Tricyclic Antidepressants Negative (Negative)
[2024-11-05 21:52] LABS: Fentanyl, Urine Negative (Negative)
[2024-11-05 22:01] VITALS: BP 134/72
[2024-11-05 22:35] LABS: APTT 30.2 Sec (23.4-35.0); INR 1.43
[2024-11-05 22:39] LABS: GGTP 134 U/L (15-73); Magnesium 1.6 mg/dl (1.6-2.3)
[2024-11-05 22:40] LABS: Alcohol None Detected
[2024-11-05] MEDS: NEURONTIN 600 MG PO (22:41)
[2024-11-05] MEDS: PEPCID 20 MG PO (22:41)
[2024-11-05] MEDS: TOPROL XL 150 MG PO (22:41)
[2024-11-05 23:00] VITALS: BP 134/70
[2024-11-05] MEDS: PHENOBARBITAL 104 MG IV (23:07)
[2024-11-05] MEDS: ATIVAN 1 MG PO (23:39)
[2024-11-06] VITALS (8 sets, daily range): BP systolic 126–149; BP diastolic 75–93; PULSE 69–76; BMI 52.2
[2024-11-06] MEDS: THIAMINE INJECTION 200 MG IV ×4 (00:08→23:34)
--- NOTE | 2024-11-06 03:26 | DOWNTIME ---
There was a [employer] Downtime on 11/06/2024 from 0200 to 11/07/2023 at 0318 . Downtime documentation of patient's care, including medication administrations, has been reconciled in the electronic record per guidelines. Refer to the
patient's paper chart under the miscellaneous tab to see printed paper medication records and downtime forms.
[2024-11-06 06:39] LABS: Blood Urea Nitrogen 29 mg/dl (9-20); Calcium 8.7 mg/dl (8.4-10.2); Carbon Dioxide 36 mmol/L (22-30); Chloride 92 mmol/L (98-107); Estimated Creatinine Clearance 102 ml/min; Glucose 148 mg/dl (70-99); HDL Cholesterol 45 mg/dl; LDL Cholesterol, Calculated 94 mg/dl; Potassium 3.7 mmol/L (3.5-5.1); Sodium 137 mmol/L (135-145); Total Cholesterol 169 mg/dl (50-199); Triglyceride 153 mg/dl (10-149); Very Low Density Lipoprotein 30 mg/dl (0-30); eGFR > 60.00
[2024-11-06 07:06] LABS: TSH Reflex To Free T4 2.68 uIU/ml (0.47-4.68)
[2024-11-06 08:29] LABS: Glucose - Point of Care 148 mg/dl (70-99)
[2024-11-06] MEDS: NOVOLOG FLEXPEN-LOW RESISTANCE SC ×2 (08:35→15:53)
--- NOTE | 2024-11-06 08:47 | W.PN.HOSP.TC ---
Today's Communication/Plan
-
Diuresis. Withdrawal protocol
Assessment / Plan
Assessment / Plan
Physical exam:
General: Acute on chronically ill
HEENT: Normocephalic, Atraumatic and Moist Mucous Membranes
Respiratory: Few crackles in the bases; Negative Wheezes or Rhonchi
Cardiac: Regular Rhythm and S1/S2
GI: Soft, Nontender and Nondistended
Musculoskeletal: No Clubbing, No Cyanosis. Bilateral lower extremity Edema
Neuro: Awake, Alert and Oriented, no neuro-deficits
Psych: Calm
A/P:
#edema/weight gain likely fluid overload
-BNP 131, chest x ray with no acute cardiopulmonary process
-Echo: Normal left ventricular size and systolic function. No regional wall motion abnormalities are seen. LV ejection fraction is 65-70% by visual assessment. Moderate concentric left ventricular hypertrophy (1.5 cm). Normal RV size and function.
No significant valvular disease. Compared to prior echocardiogram August 14, 2011, that study was noted to be technically difficult and there is a question of possible right ventricular dilatation. Current study is not limited by technical/imaging
shortcomings and there is normal RV size and function. Otherwise no significant changes.
-Lasix 60mg iv in ER
-patient is allergic to iv Lasix
- Edecrin initiated
- Strict NANDA, daily weight, fluid restriction
- Cardiology consult
#abdominal bloating
-obtain US of abdomen
#Acute alcohol withdrawal
-Protocol initiated
- Monitor MSAs score
-phenobarbital continued
#Severe acute on chronic lymphedema of bilateral lower extremities, likely multifactorial due to his chronic venous insufficiency, and new onset acute heart failure
- continue ethacrynic acid
#Essential hypertension
-Norvasc candesartan continued with hold parameters
#Anxiety
- Bupropion, Effexor continued
#Sleep apnea, uses CPAP nightly
# BPH
- Doxazosin continued
#Paroxysmal atrial fibrillation
- Currently in normal sinus rhythm
- Continue telemetry monitoring
- Continue Xarelto
- Continue metoprolol
#GERD
- continue famotidine
#Neuropathy-cont gabapentin
#, Type 2 diabetes
- Sliding scale, CHO diet
- Hold metformin
DVT ppx: Xarelto
Code: Full
Total time spent on today's encounter was 52 minutes which included time spent in counseling the patient/family regarding diagnosis and treatment plan as listed above, goals of care, and symptom management. Case was discussed with nursing staff,
specialists, and care coordinators/case management. All labs and imaging personally reviewed by me. Remainder the time spent in detailed review of previous records, lab data, imaging, and other medical provider documentation.
Anticipated Discharge: > 48 hours
Subjective/Interval History
-
Date of Service: November 06, 2024
Patient still with some shortness of breath and lower extremity edema. Not much of tremors at the moment.
Objective Data
-
Labs:
Laboratory Results
11/05/24 11/06/24
22:19 05:26
PT 18.0 H
INR 1.43
APTT 30.2
Sodium 137
Potassium 3.7
Chloride 92 L
Carbon Dioxide 36 H
BUN 29 H
Creatinine 1.2
Glucose 148 H
Calcium 8.7
Vital Signs:
Vital Signs
Temp Pulse Resp BP Pulse Ox
98.6 F 66 12 126/83 98
11/05/24 15:19 11/06/24 08:15 11/06/24 08:15 11/06/24 05:23 11/06/24 05:30
I&O
11/05/24 11/06/24 11/07/24
06:59 06:59 06:59
Output Total 675 / 675
Balance -675 / -675
[2024-11-06] MEDS: ATACAND 32 MG PO (09:21)
[2024-11-06] MEDS: EDECRIN 50 MG PO (09:22)
[2024-11-06] MEDS: EFFEXOR XR 450 MG PO (09:22)
[2024-11-06] MEDS: TOPROL XL 150 MG PO ×2 (09:24→20:02)
[2024-11-06] MEDS: NEURONTIN 600 MG PO ×3 (09:24→21:16)
[2024-11-06] MEDS: WELLBUTRIN XL (24 hour extended release) 150 MG PO (09:24)
[2024-11-06] MEDS: PHENOBARBITAL 97.5 MG IV ×3 (09:25→21:17)
[2024-11-06] MEDS: FOLVITE 1 MG PO (09:25)
[2024-11-06] MEDS: NORVASC 10 MG PO (09:25)
[2024-11-06] MEDS: XARELTO 20 MG PO (09:25)
--- NOTE | 2024-11-06 09:32 | CM ---
Met with patient at the bedside in the ED; initial assessment and case management consult completed
Pharmacy verified: [facility] @ [address] [place] [address], [place]
Patient offered counseling with [facility]; he declined but reported that he has spoken with Counselor, Patel, in the past; has his contact information
Patient is living alone in a one floor apartment located in a house; no steps; bath has walk-in shower
Reported that finances are 'tight'; provided [employer] information
PLOF: reported he is independent with ADLs; uses a rolling walker with ambulation PRN; retired/disability
Transport: drove self and unless instructed not to do so, he will drive self home
DME: CPAP, Glucometer
NO SNF utilization history; Home Health services 2011
Plan: Discharge to home when medically stable; CM will monitor for discharge needs/services and support accordingly
--- NOTE | 2024-11-06 09:34 | CON.CAR ---
Addendum entered and electronically signed by Willie Chan MD 11/06/24 16:56:
I saw and examined the patient.
The Colorist's note was reviewed and I agree with the note.
Comment: Briefly, 59-year-old man past medical history of atrial fibrillation and hypertension and recent admission for heart failure with preserved ejection fraction who presents again in acute decompensated heart failure
Since hospital discharge has been experiencing worsening dyspnea and lower extremity edema
Unfortunately he feels that Lasix has caused pruritus/rash and he is concerned for a sulfa allergy
Will try to diurese with alternative diuretic, ethacrynic acid
Continue spironolactone
Rest per Madeline Eaton
With IV diuresis his weight is down almost 60 pounds if accurate
Creatinine uptrending but overall remained stable
Difficult to assess volume status on exam due to his body habitus
Continuing diuretics at current dose and follow daily standing weights as well as renal function/electrolytes
Recommend adding spironolactone 25 mg daily for blood pressure and diuretic effect
Stop supplemental potassium
Original Note:
Consultation
Consultation Request
Date/Time Consultation Requested: 11/06/24
Date/Time Consultation Performed: 11/06/24
Requesting Provider: Dr. Wilkins
Performing Provider: Dr. Chan
Reason for Consultation: Acute HFpEF
Medical History
-
History of Present Illness:
Patient came to the ER last night with increased LE edema and bloating and was admitted with acute HF and cardiology has been consulted. Patient was admitted 10/20/2024 until 11/01/2024 with acute HF and EtOH withdrawal and cardiology followed along
during that admission. Patient diuresed 63 lbs that admission with Lasix 40 mg IV BID and was discharged to home on Lasix 40 mg PO BID. Patient says that it has been hard to follow salt restricted diet because he does not cook and it's hard to know
what to order or buy at the store. He also started drinking again and had 5-6 beers on Sunday. His toxicology screen was also positive for cocaine again. Patient denies chest pain, but complains of PRIDE, bloating and LE edema. Patient also feels
that urine output with Lasix was down in the days leading up to admission despite compliance with dosing at home. Patient also has itching with Lasix, but no rash.
PMH:
Chronic HFpEF
EF 65% without significant valve disease by echo 10/21/24
ETOH use disorder
h/o drug use including smoking crack cocaine
HTN
Paroxysmal A-fib
Chronic Xarelto OAC
Chronic hypercarbic respiratory failure, CARRIE/obesity hypoventilation syndrome
DM2
Obese
Hypokalemia
Past Medical History
Past Medical History: Arrhythmias, HTN, Hypercholesterolemia, NIDDM and Other (as above)
Social History
Tobacco: Non-Smoker
Alcohol: Daily (fifth of vodka, sometimes beer too)
Drug: Cocaine (positive on drug screen, but states he hasn't used in about 2 months)
Personal: Single
Living: Alone
Family History
Family History: CAD
Allergies / Home Medications
Allergy/AdvReac Type Severity Reaction Status Date / Time
Penicillins Allergy Rash Verified 11/05/24 15:19
Sulfa (Sulfonamide Allergy Unknown Verified 11/05/24 15:19
Antibiotics)
�Medication �Instructions �Recorded �Confirmed �Type
amlodipine 5 mg tablet 10 mg PO DAILY Blood pressure 10/19/11 11/05/24 History
doxazosin 4 mg tablet 4 mg PO DAILY Urinary issue 10/19/11 11/05/24 History
famotidine 20 mg tablet 20 mg PO DAILYPRN PRN gerd 05/05/21 11/05/24 History
gabapentin 600 mg tablet 600 mg PO TID Neurological 05/05/21 11/05/24 History
(Neurontin) Condition
metformin 500 mg tablet,extended 2,000 mg PO DAILY Diabetes 05/05/21 11/05/24 History
release 24 hr
rivaroxaban 20 mg tablet (Xarelto) 20 mg PO DAILY Blood clot 05/05/21 11/05/24 History
prevention/tx
tadalafil 5 mg tablet 5 mg PO DAILYPRN PRN ed 10/20/24 11/05/24 History
bupropion HCl 150 mg 24 hr tablet, 150 mg PO DAILY #30 tabs 10/31/24 11/05/24 Rx
extended release
candesartan 16 mg tablet 32 mg (2 x 16 mg) PO DAILY #30 tabs 10/31/24 11/05/24 Rx
furosemide 40 mg tablet 40 mg PO BID AT 0800,1600 #60 tabs 10/31/24 11/05/24 Rx
spironolactone 25 mg tablet 25 mg PO DAILY #30 tabs 10/31/24 11/05/24 Rx
metoprolol succinate 100 mg 150 mg PO BID 11/05/24 11/05/24 History
tablet,extended release 24 hr
venlafaxine 150 mg 450 mg PO DAILY 11/05/24 11/05/24 History
capsule,extended release 24 hr
(Effexor XR)
Review of Systems
-
History Source: Patient
All other systems: Negative unless noted
Physical Exam
Vital Signs
Temp Pulse Resp BP Pulse Ox
98.6 F 68 12 140/76 98
11/05/24 15:19 11/06/24 09:25 11/06/24 08:45 11/06/24 09:25 11/06/24 05:30
GEN: NAD
HEENT: MMM
LUNGS: RA. No audible wheeze
CV: Reg. SR on tele
ABD: Obese
EXT: +1-2 B/L LE edema
NEURO: No focal or lateralizing weakness
SKIN: Warm, dry and pink. No rash
Lab Results
11/05/24 15:31
11/06/24 05:26
Troponin I < 0.012 ng/ml 11/05/24 15:31
Njz-L-Expjmrvlhnn Pept 131 pg/ml 11/05/24 15:31
Impression / Plan
-
PCP: Dr. Shelbie Mejia
Card: Previously has seen several cardiologists including
Dr. Santos, [facility] cardiology
Dr. Souza, but not seeing any longer
First seen here by Dr. Akiko Kapadia
Impression:
Admitted with SOB, acute hypoxia and CHF 10/20/24
Acute HFpEF
EF 65% without significant valve disease by echo 10/21/24
ETOH use disorder
h/o drug use including smoking crack cocaine
HTN
Paroxysmal A-fib
Chronic Xarelto OAC
Chronic hypercarbic respiratory failure, CARRIE/obesity hypoventilation syndrome
DM2
Obese, BMI 52
Echo 10/21/24: EF 65 to 70%, moderate concentric LVH (1.5 cm), normal RV size and function, no significant valve disease
Plan:
-Patient came to the ER last night with increased LE edema and bloating and was admitted with acute HF and cardiology has been consulted. Patient was admitted 10/20/2024 until 11/01/2024 with acute HF and EtOH withdrawal and cardiology followed along
during that admission. Patient diuresed 63 lbs that admission with Lasix 40 mg IV BID and was discharged to home on Lasix 40 mg PO BID. Patient says that it has been hard to follow salt restricted diet because he does not cook and it's hard to know
what to order or buy at the store. He also started drinking again and had 5-6 beers on Sunday. His toxicology screen was also positive for cocaine again. Patient denies chest pain, but complains of PRIDE, bloating and LE edema. Patient also feels
that urine output with Lasix was down in the days leading up to admission despite compliance with dosing at home. Patient also has itching with Lasix, but no rash.
-Patient is up 6 lbs from discharge weight 10/29/24. Patient weighs 353 lbs on 11/06/24
-Patient is ordered Edecrin 50 mg PO BID which will not sufficiently diurese him, will change to Edecrin 50 mg IV BID starting now.
-Cre stable at 1.2 on 11/06/24 labs reviewed by me.
-EF is preserved and no significant valve disease. Echo report reviewed by me with patient line by line and copy of echo report given to patient 11/06/24
-Outpatient dose of Toprol XL 150 mg BID has been continued
-Outpatient dose of candesartan 32 mg daily has been continued
-Patient has not been started on SGLT-2 inhibitor due to possible infection on last admission
-Outpatient dose of amlodipine 10 mg daily continued
-Outpatient dose of doxazosin 4 mg daily continued
-Known h/o paroxysmal A-fib. Tele and ECGs reviewed by me 11/06/24 and he is in SR.
-Outpatient dose of Xarelto 20 mg daily has been continued.
-Troponin normal. No acute ischemic changes on ECG.
[2024-11-06] MEDS: CARDURA 4 MG PO (11:30)
[2024-11-06 12:59] LABS: Glucose - Point of Care 170 mg/dl (70-99)
[2024-11-06 16:02] LABS: Glucose - Point of Care 178 mg/dl (70-99)
--- NOTE | 2024-11-06 16:12 | PTCARENOTE ---
Received patient from ED via stretcher. Pt AAOX3. Pox: 96% RA. Pt denies pain/SOB. NSR on night monitor. Call santillan within reach. Plan of care ongoing.
[2024-11-06] MEDS: NOVOLOG FLEXPEN-LOW RESISTANCE 1 UNITS SC (17:00)
[2024-11-06] MEDS: EDECRIN 50 MG IV (17:08)
[2024-11-06] MEDS: EDECRIN PO (17:17)
[2024-11-06] MEDS: ATIVAN 1 MG PO (20:02)
[2024-11-06 22:50] LABS: Glucose - Point of Care 137 mg/dl (70-99)
[2024-11-07] VITALS (7 sets, daily range): BP systolic 125–155; BP diastolic 60–88; PULSE 66; BMI 51.9
[2024-11-07 07:32] LABS: Glucose - Point of Care 145 mg/dl (70-99)
[2024-11-07 08:41] LABS: % Basophils 1.9 % (0-2); % Immature Granulocytes 0.5 % (0-0.5); % Lymphocytes 21.5 % (20.5-51.1); % Neutrophils 59.1 % (42.2-75.2); Absolute Basophils 0.1 10^3/uL (0-0.2); Absolute Eosinophils 0.4 10^3/uL (0-0.7); Absolute Lymphocytes 1.3 10^3/uL (1.2-3.4); Absolute Monocytes 0.7 10^3/uL (0.1-0.6); Absolute Neutrophils 3.7 10^3/uL (1.4-6.5); Hematocrit 40.2 % (39.0-52.0); Hemoglobin 13.4 g/dL (13.0-18.0); Mean Corp Hgb Conc. 33.3 g/dL (33.0-37.0); Mean Corpuscular Hgb 31.7 pg (27.0-31.0); Mean Platelet Volume 10.5 fL (7.4-10.4); Nucleated Red Blood Cells % 0 % (-); Platelet Count 248 10^3/uL (130-400); Red Blood Cell Count 4.23 10^6/uL (4.70-6.10); Red Cell Dist. Width 14.3 % (11.5-14.5); White Blood Cell Count 6.2 10^3/uL (4.8-10.8)
[2024-11-07 08:47] LABS: PT 14.5 Sec (11.4-14.6)
[2024-11-07] MEDS: NOVOLOG FLEXPEN-LOW RESISTANCE SC ×3 (08:48→16:21)
[2024-11-07] MEDS: ATACAND 32 MG PO (08:49)
[2024-11-07] MEDS: EFFEXOR XR 450 MG PO (08:50)
[2024-11-07] MEDS: WELLBUTRIN XL (24 hour extended release) 150 MG PO (08:50)
[2024-11-07] MEDS: NEURONTIN 600 MG PO ×3 (08:50→22:10)
[2024-11-07] MEDS: CARDURA 4 MG PO (08:51)
[2024-11-07] MEDS: TOPROL XL 150 MG PO ×2 (08:51→20:30)
[2024-11-07] MEDS: XARELTO 20 MG PO (08:51)
[2024-11-07] MEDS: NORVASC 10 MG PO (08:51)
[2024-11-07] MEDS: ALDACTONE 25 MG PO (08:51)
[2024-11-07] MEDS: FOLVITE 1 MG PO (08:51)
[2024-11-07] MEDS: THIAMINE INJECTION 200 MG IV ×3 (08:52→23:34)
[2024-11-07] MEDS: PHENOBARBITAL 97.5 MG IV ×3 (08:55→22:12)
--- NOTE | 2024-11-07 09:05 | W.PN.HOSP.TC ---
Today's Communication/Plan
-
IV diuresis. Alcohol withdrawal protocol.
Assessment / Plan
Assessment / Plan
Physical exam:
General: Acute on chronically ill
HEENT: Normocephalic, Atraumatic and Moist Mucous Membranes
Respiratory: Few crackles in the bases; Negative Wheezes or Rhonchi
Cardiac: Regular Rhythm and S1/S2
GI: Soft, Nontender and Nondistended
Musculoskeletal: No Clubbing, No Cyanosis. Bilateral lower extremity Edema
Neuro: Awake, Alert and Oriented, no neuro-deficits
Psych: Anxious
A/P:
Acute on chronic diastolic congestive heart failure:
Continue IV ethacrynic acid
Lasix given in the ED but possible allergic reaction
Abdominal ultrasound unremarkable-GI symptoms likely related to heart failure
Cardiology consult appreciated
Continue Toprol-XL
Added spironolactone
Alcohol withdrawal:
Continue alcohol withdrawal protocol
Continue phenobarbital taper
NORMA/history of polysubstance abuse:
Hard to tell his underlying anxiety versus withdrawal but mostly the former
Continue bupropion and Effexor
Continue to evaluate
#Severe acute on chronic lymphedema of bilateral lower extremities, likely multifactorial due to his chronic venous insufficiency, and new onset acute diastolic heart failure
- continue ethacrynic acid
#Essential hypertension
-Norvasc candesartan continued with hold parameters
#Sleep apnea, uses CPAP nightly
# BPH
- Doxazosin continued
#Paroxysmal atrial fibrillation
- Currently in normal sinus rhythm
- Continue telemetry monitoring
- Continue Xarelto
- Continue metoprolol
#GERD
- continue famotidine
#Neuropathy-cont gabapentin
#, Type 2 diabetes
- Sliding scale, CHO diet
- Hold metformin
DVT ppx: Xarelto
Code: Full
Total time spent on today's encounter was 52 minutes which included time spent in counseling the patient/family regarding diagnosis and treatment plan as listed above, goals of care, and symptom management. Case was discussed with nursing staff,
specialists, and care coordinators/case management. All labs and imaging personally reviewed by me. Remainder the time spent in detailed review of previous records, lab data, imaging, and other medical provider documentation.
Anticipated Discharge: > 48 hours
Subjective/Interval History
-
Date of Service: November 07, 2024
Patient with less shortness of breath and less peripheral edema. Anxious and tremors present at times.
Objective Data
-
Labs:
Laboratory Results
11/07/24
07:32
WBC 6.2
Hgb 13.4
Hct 40.2
Plt Count 248
PT 14.5
INR 1.10
Sodium Pending
Potassium Pending
Chloride Pending
Carbon Dioxide Pending
BUN Pending
Creatinine Pending
Glucose Pending
Calcium Pending
Total Bilirubin Pending
AST Pending
ALT Pending
Alkaline Phosphatase Pending
Vital Signs:
Vital Signs
Temp Pulse Resp BP Pulse Ox
98.6 F 68 20 148/74 94
11/07/24 07:22 11/07/24 08:51 11/07/24 07:22 11/07/24 08:51 11/07/24 07:22
I&O
11/06/24 11/07/24 11/08/24
06:59 06:59 06:59
Intake Total 480 / 480
Output Total 675 / 675 350 / 350
Balance -675 / -675 130 / 130
[2024-11-07 09:07] LABS: ALT (SGPT) 30 U/L (0-50); AST (SGOT) 28 U/L (17-59); Albumin 3.7 g/dl (3.5-5.0); Alkaline Phosphatase 53 U/L (38-126); Blood Urea Nitrogen 20 mg/dl (9-20); Calcium 9.3 mg/dl (8.4-10.2); Carbon Dioxide 34 mmol/L (22-30); Chloride 93 mmol/L (98-107); Direct Bilirubin 0.2 mg/dl (0.0-0.4); Estimated Creatinine Clearance 99 ml/min; Glucose 141 mg/dl (70-99); Magnesium 1.5 mg/dl (1.6-2.3); Potassium 3.8 mmol/L (3.5-5.1); Sodium 137 mmol/L (135-145); Total Bilirubin 0.6 mg/dl (0.2-1.3); Total Protein 6.2 g/dl (6.3-8.2); eGFR > 60.00
[2024-11-07] MEDS: EDECRIN 50 MG IV ×2 (09:18→16:22)
[2024-11-07] MEDS: FLUSH (NSS) 1 FLUSH IV (09:19)
[2024-11-07] MEDS: ATIVAN 1 MG PO ×2 (09:38→20:40)
--- NOTE | 2024-11-07 10:56 | CM ---
branch account manager reviewed patient's chart and met with patient this am and patient is agreeable to follow up with Patel at [facility], and Patel provided his cell phone number to patient.
Plan; Patient to return to home at discharge and he will follow up with [facility] as outpatient.
[2024-11-07 11:53] LABS: Glucose - Point of Care 137 mg/dl (70-99)
--- NOTE | 2024-11-07 11:54 | W.PN.CARDCBS ---
Impression / Plan
-
PCP: Dr. Shelbie Mejia
Card: Previously has seen several cardiologists including
Dr. Santos, [facility] cardiology
Dr. Souza, but not seeing any longer
First seen here by Dr. Akiko Kapadia
Impression:
Presented 11/06/2023 with lower extremity edema, bloating, weight gain
Acute HFpEF,
Recent admission 10/20/2024 with SOB, acute hypoxia and CHF
EF 65% without significant valve disease by echo 10/21/24
ETOH use disorder
h/o drug use including smoking crack cocaine
HTN
Paroxysmal A-fib
Chronic Xarelto OAC
Chronic hypercarbic respiratory failure, CARRIE/obesity hypoventilation syndrome
DM2
Obese, BMI 52
Echo 10/21/24: EF 65 to 70%, moderate concentric LVH (1.5 cm), normal RV size and function, no significant valve disease
Plan:
-Patient came to the ER last night with increased LE edema and bloating and was admitted with acute HF and cardiology has been consulted. Patient was admitted 10/20/2024 until 11/01/2024 with acute HF and EtOH withdrawal and cardiology followed along
during that admission. Patient diuresed 63 lbs that admission with Lasix 40 mg IV BID and was discharged to home on Lasix 40 mg PO BID. Patient says that it has been hard to follow salt restricted diet because he does not cook and it's hard to know
what to order or buy at the store. He also started drinking again and had 5-6 beers on Sunday. His toxicology screen was also positive for cocaine again. Patient denies chest pain, but complains of PRIDE, bloating and LE edema. Patient also feels
that urine output with Lasix was down in the days leading up to admission despite compliance with dosing at home. Patient also has itching with Lasix, but no rash.
-Patient is up 6 lbs from discharge weight 10/29/24. Patient weighs 353 lbs on 11/06/24
-Patient is ordered Edecrin 50 mg PO BID which will not sufficiently diurese him, will change to Edecrin 50 mg IV BID starting now.
-Cre stable at 1.2 on 11/06/24 labs reviewed by me.
-EF is preserved and no significant valve disease. Echo report reviewed by me with patient line by line and copy of echo report given to patient 11/06/24
-Outpatient dose of Toprol XL 150 mg BID has been continued
-Outpatient dose of candesartan 32 mg daily has been continued
-Patient has not been started on SGLT-2 inhibitor due to possible infection on last admission
-Outpatient dose of amlodipine 10 mg daily continued
-Outpatient dose of doxazosin 4 mg daily continued
-Known h/o paroxysmal A-fib. Tele and ECGs reviewed by me 11/06/24 and he is in SR.
-Outpatient dose of Xarelto 20 mg daily has been continued.
-Troponin normal. No acute ischemic changes on ECG.
Progress Note - Sand Sifter
Subjective
Date of Service: November 07, 2024
Objective
Labs:
11/07/24 07:32
11/07/24 07:32
Labs
Hgb 13.4 g/dL (13.0-18.0) 11/07/24 07:32
Hct 40.2 % (39.0-52.0) 11/07/24 07:32
Plt Count 248 10^3/uL (130-400) 11/07/24 07:32
PT 14.5 Sec (11.4-14.6) 11/07/24 07:32
INR 1.10 11/07/24 07:32
APTT 30.2 Sec (23.4-35.0) 11/05/24 22:19
Sodium 137 mmol/L (135-145) 11/07/24 07:32
Potassium 3.8 mmol/L (3.5-5.1) 11/07/24 07:32
BUN 20 mg/dl (9-20) 11/07/24 07:32
Creatinine 1.2 mg/dL (0.7-1.3) 11/07/24 07:32
Glucose 141 mg/dl (70-99) H 11/07/24 07:32
Troponins
11/05/24
15:31
Troponin I < 0.012
Vital Signs and I&O:
Vital Signs
Temp Pulse Resp BP Pulse Ox
98.6 F 68 20 148/74 95
11/07/24 07:22 11/07/24 09:18 11/07/24 07:22 11/07/24 09:18 11/07/24 10:38
Vital Signs
Temp Pulse Resp BP Pulse Ox
98.6 F 68 20 148/74 95
11/07/24 07:22 11/07/24 09:18 11/07/24 07:22 11/07/24 09:18 11/07/24 10:38
Intake & Output
11/05/24 11/06/24 11/07/24 11/08/24
06:59 06:59 06:59 06:59
Intake Total 480 / 480
Output Total 675 / 675 350 / 350
Balance -675 / -675 130 / 130
[2024-11-07] MEDS: MAGNESIUM SULFATE 50 IV (13:44)
[2024-11-07 16:21] LABS: Glucose - Point of Care 145 mg/dl (70-99)
--- NOTE | 2024-11-07 16:38 | W.PN.CARDCBS ---
Today's Communication / Plan
-
Transition to oral Bumex 1 mg twice daily tomorrow
We will sign off, please recall as needed
Impression / Plan
-
PCP: Dr. Shelbie Mejia
Card: Previously has seen several cardiologists including
Dr. Santos, [facility] cardiology
Dr. Souza, but not seeing any longer
First seen here by Dr. Akiko Kapadia
Impression:
Admitted with SOB, acute hypoxia and CHF 10/20/24
Acute HFpEF
EF 65% without significant valve disease by echo 10/21/24
ETOH use disorder
h/o drug use including smoking crack cocaine
HTN
Paroxysmal A-fib
Chronic Xarelto OAC
Chronic hypercarbic respiratory failure, CARRIE/obesity hypoventilation syndrome
DM2
Obese, BMI 52
Echo 10/21/24: EF 65 to 70%, moderate concentric LVH (1.5 cm), normal RV size and function, no significant valve disease
Plan:
-HFpEF: Volume status is improved with ethacrynic acid
Will plan to transition to oral diuretic tomorrow
Patient reported itching in his waistline following discharge which he attributed to Lasix
Will trial alternative loop diuretic, plan to transition to Bumex 1 mg p.o. twice daily, and continue on discharge
Continue spironolactone 25 mg daily
Decrease amlodipine to 5 mg daily as this may be contributing to lower extremity edema
-Paroxysmal atrial fibrillation:
Continue Xarelto and metoprolol
We will sign off, please recall as needed
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
Subjective
Date of Service: November 07, 2024
No acute overnight events. Patient tells me that his peripheral edema is somewhat improved. No chest pain or shortness of breath.
Objective
Labs:
11/07/24 07:32
11/07/24 07:32
Labs
Hgb 13.4 g/dL (13.0-18.0) 11/07/24 07:32
Hct 40.2 % (39.0-52.0) 11/07/24 07:32
Plt Count 248 10^3/uL (130-400) 11/07/24 07:32
PT 14.5 Sec (11.4-14.6) 11/07/24 07:32
INR 1.10 11/07/24 07:32
APTT 30.2 Sec (23.4-35.0) 11/05/24 22:19
Sodium 137 mmol/L (135-145) 11/07/24 07:32
Potassium 3.8 mmol/L (3.5-5.1) 11/07/24 07:32
BUN 20 mg/dl (9-20) 11/07/24 07:32
Creatinine 1.2 mg/dL (0.7-1.3) 11/07/24 07:32
Glucose 141 mg/dl (70-99) H 11/07/24 07:32
Troponins
11/05/24
15:31
Troponin I < 0.012
Vital Signs and I&O:
Vital Signs
Temp Pulse Resp BP Pulse Ox
99.0 F 83 18 134/83 95
11/07/24 15:58 11/07/24 16:22 11/07/24 15:58 11/07/24 16:22 11/07/24 15:58
Vital Signs
Temp Pulse Resp BP Pulse Ox
99.0 F 83 18 134/83 95
11/07/24 15:58 11/07/24 16:22 11/07/24 15:58 11/07/24 16:22 11/07/24 15:58
Intake & Output
11/05/24 11/06/24 11/07/24 11/08/24
06:59 06:59 06:59 06:59
Intake Total 480 / 480
Output Total 675 / 675 350 / 350
Balance - / 130 / 130
Physical Exam
Physical Exam
Gen: NAD, AAOx3
HEENT: NC/AT, sclera anicteric
Neck: No JVD
CV: RRR, NL s1/s2
Lungs: No increased work of breathing on room air
Abd: S/ND
Ext: Nonpitting LE edema with overlying chronic venous stasis changes
Skin: Warm, dry
Neuro: Non-focal
[2024-11-07 22:02] LABS: Glucose - Point of Care 207 mg/dl (70-99)
[2024-11-08] VITALS (7 sets, daily range): BP systolic 128–152; BP diastolic 53–104; PULSE 61; BMI 51.5
[2024-11-08 07:31] LABS: Glucose - Point of Care 127 mg/dl (70-99)
[2024-11-08] MEDS: NOVOLOG FLEXPEN-LOW RESISTANCE SC ×2 (08:10→12:45)
[2024-11-08] MEDS: ALDACTONE 25 MG PO (08:53)
[2024-11-08] MEDS: XARELTO 20 MG PO (08:53)
[2024-11-08] MEDS: WELLBUTRIN XL (24 hour extended release) 150 MG PO (08:53)
[2024-11-08] MEDS: NORVASC 5 MG PO (08:53)
[2024-11-08] MEDS: ATACAND 32 MG PO (08:53)
[2024-11-08] MEDS: LUMINAL 64.8 MG PO ×3 (08:53→22:43)
[2024-11-08] MEDS: BUMEX 1 MG PO ×2 (08:53→16:09)
[2024-11-08] MEDS: NEURONTIN 600 MG PO ×3 (08:54→22:41)
[2024-11-08] MEDS: THIAMINE INJECTION 200 MG IV ×2 (08:54→16:08)
[2024-11-08] MEDS: EFFEXOR XR 450 MG PO (08:54)
[2024-11-08] MEDS: FOLVITE 1 MG PO (08:54)
[2024-11-08] MEDS: CARDURA 4 MG PO (08:54)
[2024-11-08] MEDS: TOPROL XL PO (08:56)
[2024-11-08 09:30] LABS: Blood Urea Nitrogen 21 mg/dl (9-20); Calcium 9.7 mg/dl (8.4-10.2); Carbon Dioxide 30 mmol/L (22-30); Chloride 93 mmol/L (98-107); Estimated Creatinine Clearance 91 ml/min; Glucose 147 mg/dl (70-99); Magnesium 1.5 mg/dl (1.6-2.3); Potassium 4.2 mmol/L (3.5-5.1); Sodium 134 mmol/L (135-145); eGFR > 60.00
--- NOTE | 2024-11-08 10:17 | W.PN.HOSP.TC ---
Today's Communication/Plan
-
MSA protocol. Diuretics
Assessment / Plan
Assessment / Plan
Physical exam:
General: Acute on chronically ill
HEENT: Normocephalic, Atraumatic and Moist Mucous Membranes
Respiratory: Few crackles in the bases; Negative Wheezes or Rhonchi
Cardiac: Regular Rhythm and S1/S2
GI: Soft, Nontender and Nondistended
Musculoskeletal: No Clubbing, No Cyanosis. Bilateral lower extremity Edema
Neuro: Awake, Alert and Oriented, no neuro-deficits
Psych: Anxious
A/P:
Acute on chronic diastolic congestive heart failure:
IV ethacrynic acid changed to oral Bumex 1 mg twice a day
Lasix given in the ED but possible allergic reaction
Abdominal ultrasound unremarkable-GI symptoms likely related to heart failure
Cardiology consult appreciated
Continue Toprol-XL
Added spironolactone
Alcohol withdrawal:
Continue alcohol withdrawal protocol
Continue phenobarbital taper
NORMA/history of polysubstance abuse:
Hard to tell his underlying anxiety versus withdrawal but mostly the former
Continue bupropion and Effexor
Continue to evaluate
Chronic lymphedema:
Compression stockings
Primary hypertension:
Norvasc, candesartan, continued with hold parameters
Obstructive sleep apnea:
Uses CPAP nightly
BPH:
Doxazosin continued
Paroxysmal atrial fibrillation:
Currently in normal sinus rhythm
Continue telemetry monitoring
Continue anticoagulation, Xarelto 20 mg p.o. daily
Continue rate control, metoprolol succinate at 150 mg twice a day
GERD
continue famotidine
Peripheral neuropathy:
Cont gabapentin
Type 2 diabetes:
Insulin sliding scale, CHO diet
Hold metformin acute
DVT ppx:
Xarelto
Code status:
Full code
Anticipated Discharge: Within 24 hours
Subjective/Interval History
-
Date of Service: November 08, 2024
Patient feels less anxious today, less shortness of breath. No chest pain
Objective Data
-
Labs:
Laboratory Results
11/08/24
08:34
Sodium 134 L
Potassium 4.2
Chloride 93 L
Carbon Dioxide 30
BUN 21 H
Creatinine 1.3
Glucose 147 H
Calcium 9.7
Vital Signs:
Vital Signs
Temp Pulse Resp BP Pulse Ox
98.3 F 60 20 136/72 98
11/08/24 07:19 11/08/24 07:19 11/08/24 07:19 11/08/24 07:19 11/08/24 07:19
I&O
11/07/24 11/08/24 11/09/24
06:59 06:59 06:59
Intake Total 480 / 480 120 / 120
Output Total 350 / 350 1200 / 1200
Balance 130 / 130 -1080 / -1080
[2024-11-08 11:59] LABS: Glucose - Point of Care 135 mg/dl (70-99)
[2024-11-08] MEDS: MAG-TAB SR 84 MG PO ×2 (12:20→20:19)
[2024-11-08] MEDS: MAGNESIUM SULFATE 50 IV (12:24)
[2024-11-08 17:19] LABS: Glucose - Point of Care 191 mg/dl (70-99)
[2024-11-08] MEDS: NOVOLOG FLEXPEN-LOW RESISTANCE 1 UNITS SC (17:33)
[2024-11-08] MEDS: TOPROL XL 150 MG PO (20:19)
[2024-11-08] MEDS: VITAMIN B1 100 MG PO (20:23)
[2024-11-08 22:34] LABS: Glucose - Point of Care 201 mg/dl (70-99)
[2024-11-09 03:00] VITALS: BP 130/79
[2024-11-09 06:00] VITALS: BMI 51.1
[2024-11-09 07:00] VITALS: BP 147/88
[2024-11-09 07:49] LABS: Blood Urea Nitrogen 24 mg/dl (9-20); Calcium 9.3 mg/dl (8.4-10.2); Carbon Dioxide 31 mmol/L (22-30); Chloride 93 mmol/L (98-107); Estimated Creatinine Clearance 91 ml/min; Glucose 137 mg/dl (70-99); Magnesium 1.6 mg/dl (1.6-2.3); Sodium 135 mmol/L (135-145); eGFR > 60.00
[2024-11-09 08:23] LABS: Glucose - Point of Care 167 mg/dl (70-99)
[2024-11-09] MEDS: NOVOLOG FLEXPEN-LOW RESISTANCE 1 UNITS SC (08:44)
[2024-11-09] MEDS: TOPROL XL 150 MG PO (08:46)
[2024-11-09] MEDS: MAG-TAB SR 84 MG PO (08:47)
[2024-11-09] MEDS: EFFEXOR XR 450 MG PO (08:47)
[2024-11-09] MEDS: VITAMIN B1 100 MG PO (08:47)
[2024-11-09] MEDS: CARDURA 4 MG PO (08:49)
[2024-11-09] MEDS: XARELTO 20 MG PO (08:49)
[2024-11-09] MEDS: NEURONTIN 600 MG PO (08:50)
[2024-11-09] MEDS: LUMINAL 64.8 MG PO (08:50)
[2024-11-09] MEDS: FOLVITE 1 MG PO (08:50)
[2024-11-09] MEDS: ATACAND 32 MG PO (08:50)
[2024-11-09] MEDS: BUMEX 1 MG PO (08:50)
[2024-11-09] MEDS: ALDACTONE 25 MG PO (08:50)
[2024-11-09] MEDS: WELLBUTRIN XL (24 hour extended release) 150 MG PO (08:50)
[2024-11-09] MEDS: NORVASC 5 MG PO (09:00)
--- NOTE | 2024-11-09 09:06 | W.PN.HOSP.TC ---
Today's Communication/Plan
-
Discharge planning today
Assessment / Plan
Assessment / Plan
Physical exam:
General: No acute distress
HEENT: Normocephalic, Atraumatic and Moist Mucous Membranes
Respiratory: Clear to auscultation bilaterally; Negative Wheezes or Rhonchi
Cardiac: Regular Rhythm and S1/S2
GI: Soft, Nontender and Nondistended
Musculoskeletal: No Clubbing, No Cyanosis. Bilateral lower extremity Edema improving
Neuro: Awake, Alert and Oriented, no neuro-deficits
Psych: Calm
A/P:
Acute on chronic diastolic congestive heart failure:
IV ethacrynic acid changed to oral Bumex 1 mg twice a day
Lasix given in the ED but possible allergic reaction
Abdominal ultrasound unremarkable-GI symptoms likely related to heart failure
Cardiology consult appreciated
Continue Toprol-XL
Added spironolactone
Alcohol withdrawal:
Continue alcohol withdrawal protocol
Continue phenobarbital taper
NORMA/history of polysubstance abuse:
Hard to tell his underlying anxiety versus withdrawal but mostly the former
Continue bupropion and Effexor
Continue to evaluate
Chronic lymphedema:
Compression stockings
Primary hypertension:
Norvasc, candesartan, continued with hold parameters
Obstructive sleep apnea:
Uses CPAP nightly
BPH:
Doxazosin continued
Paroxysmal atrial fibrillation:
Currently in normal sinus rhythm
Continue telemetry monitoring
Continue anticoagulation, Xarelto 20 mg p.o. daily
Continue rate control, metoprolol succinate at 150 mg twice a day
GERD
continue famotidine
Peripheral neuropathy:
Cont gabapentin
Type 2 diabetes:
Insulin sliding scale, CHO diet
Hold metformin acute
DVT ppx:
Xarelto
Code status:
Full code
Anticipated Discharge: Today
Subjective/Interval History
-
Date of Service: November 09, 2024
No new complaints. Feels back to baseline
Objective Data
-
Labs:
Laboratory Results
11/09/24
06:51
Sodium 135
Potassium 4.0
Chloride 93 L
Carbon Dioxide 31 H
BUN 24 H
Creatinine 1.3
Glucose 137 H
Calcium 9.3
Vital Signs:
Vital Signs
Temp Pulse Resp BP Pulse Ox
98.7 F 69 18 130/79 95
11/09/24 03:00 11/09/24 03:00 11/09/24 03:00 11/09/24 03:00 11/09/24 03:00
I&O
11/08/24 11/09/24 11/10/24
06:59 06:59 06:59
Intake Total 120 / 120 1440 / 1440
Output Total 1200 / 1200 3000 / 3000
Balance -1080 / -1080 -1560 / -1560
[2024-11-09 11:00] VITALS: BP 136/85
[2024-11-09 12:02] LABS: Glucose - Point of Care 134 mg/dl (70-99)
[2024-11-09] MEDS: NOVOLOG FLEXPEN-LOW RESISTANCE SC (12:06)
--- NOTE | 2024-11-09 12:08 | W.DCSUMMARY ---
Discharge Summary
Discharge Data
Date of Admission: 11/05/24
Date of Discharge: 11/09/24
-
Pending Results: No
Hospital Course
Patient 59 years old history of CHF, hypertension, A-fib, presented to the hospital with recurrent heart failure and alcohol withdrawal. Patient had a recent hospitalization for similar issues. Patient was started on IV Lasix but he developed some
allergic reaction and it was switched to IV ethacrynic acid. Cardiology consulted. Echocardiogram not obtained since he just had one a few days ago. Cardiology did continue with diuresis and switch to oral Bumex and adjusted some of his cardiac
medications. Patient also received benzodiazepines and phenobarbital tapering and he is back to his baseline at this point. He is agreeable to the [facility] and will follow-up as outpatient. He did well rest of the hospital stay. He will be
discharged in stable condition today.
Discharge duration: 35 minutes
Discharge Plan
-
Patient Disposition: Home (Routine Discharge)
Discharge Diagnosis/Procedures: Acute on chronic diastolic congestive heart failure. Alcohol withdrawal. Anxiety. History of polysubstance abuse. History of chronic lymphedema.
Diet: Low Cholesterol, 2 Gram Sodium and Restrict fluids to 64 oz
Activity: As tolerated
Blood Work: Please PCP to order CBC, BMP, magnesium within 1 week
Specialty Instructions: Weigh Daily- Call MD for wt gain/loss 3 lbs overnight/5 lbs in 1 week
Instructions: *PCP/Other Watch Train Inspector Heart Failure Instructions
Referrals:
Willie Chan MD [Active] - in two to three weeks
Shelbie Mejia MD [Family Provider] - in less than 1 week
Prescriptions:
New
amlodipine 5 mg Tablet
5 mg PO DAILY 30 Days Qty: 30 0RF
spironolactone 25 mg Tablet
25 mg PO DAILY 30 Days Qty: 30 0RF
bumetanide 1 mg Tablet
1 mg PO BID@0800,1600 30 Days Qty: 60 0RF
magnesium L-lactate 84 mg Tablet Extended Release
84 mg PO BID 10 Days Qty: 20 0RF
Continued
doxazosin 4 MG tablet
4 mg PO DAILY
Xarelto 20 MG tablet
20 mg PO DAILY
gabapentin [Neurontin] 600 MG tablet
600 mg PO TID
famotidine 20 MG tablet
20 mg PO DAILYPRN PRN (Reason: gerd)
metformin 500 MG tablet extended release 24 hr
2,000 mg PO DAILY
tadalafil 5 mg Tablet
5 mg PO DAILYPRN PRN (Reason: ed)
candesartan 16 mg Tablet
32 mg PO DAILY Qty: 30 0RF
bupropion HCl 150 mg Tablet Extended Release 24 Hr
150 mg PO DAILY Qty: 30 0RF
venlafaxine [Effexor XR] 150 mg Capsule,Extended Release 24hr
450 mg PO DAILY
metoprolol succinate 100 mg tablet extended release 24 hr
150 mg PO BID
Discontinued
amlodipine 5 MG tablet
10 mg PO DAILY
furosemide 40 mg Tablet
40 mg PO BID AT 0800,1600 Qty: 60 0RF
spironolactone 25 mg Tablet
25 mg PO DAILY Qty: 30 0RF
Discharge Orders:
Discharge Patient (As Directed); Ordered 11/09/24
Ordered By: Lars Wilkins
Discharge Date and Time
Print Language: PRYDEINIG
--- NOTE | 2024-11-09 15:56 | CM ---
Patient with Dx CHF, Alcohol withdrawal, polysubstance abuse.
Met with patient who was preparing for discharge.
The patient says he feels ready for discharge home today.
He plans on driving himself home.
Patient shared that he spoke with [facility] and plans on doing a [facility] program.
Spoke with [facility] Ho; informed her that patient states he wants to do the [facility] program.
No CM d/c needs identified.
Plan home today.
--- NOTE | 2024-11-10 12:56 | W.HF.CON ---
Heart Failure
- LV Function
Left ventricular function study result: LV Ejection fraction >/= 50%
Ejection Fraction Percentage: 65-70
- ARNI
Patient already on ARNI: No
Heart Failure ARNI Not Indicated: LV Ejection Fraction >/= 40%
- ACEI/ARB
Patient already on ACEI/ARB: Yes
- Beta Catrina
Patient already on Evidence Based Beta Catrina: Yes
- Mineralocorticord Receptor Antagonist
Patient already on MRA: Yes
- SGLT-2 Inhibitor
Patient already on SGLT-2 Inhibitor: No
Heart Failure SGLT-2 Inhibitor Contraindication: Patient Refusal
- Afib Anticoagulation
Patient already on Anticoagulation for Afib: Yes
- NYHA CHF Classification
NYHA CHF Classification Level: Class III - Symptoms w/ min exertion, interferes w/ nml daily activity
- ACC/AHA Stage
ACC/AHA Stage: Stage C: Symptomatic Heart Failure
== END 2024-11-09 13:39 | disposition home or self-care (01) | DRG 291 ==
LOC: 4 WEST ACU 20:56
PROVIDERS: Registered Nurse; ADMITTING PHYSICIAN Hospitalist; ATTENDING PHYSICIAN Hospitalist; CONSULT PHYSICIAN Internal Medicine Cardiovascular Disease; EMERGENCY PHYSICIAN Emergency Medicine; FAMILY PHYSICIAN Family Medicine
DX: I11.0 Hypertensive heart disease with heart failure (principal); I50.33 Acute on chronic diastolic (congestive) heart failure; F10.239 Alcohol dependence with withdrawal, unspecified; E66.2 Morbid (severe) obesity with alveolar hypoventilation; Z68.43 Body mass index [BMI] 50.0-59.9, adult; J96.12 Chronic respiratory failure with hypercapnia; F41.9 Anxiety disorder, unspecified; I89.0 Lymphedema, not elsewhere classified; F19.11 Other psychoactive substance abuse, in remission; I87.2 Venous insufficiency (chronic) (peripheral); N40.0 Benign prostatic hyperplasia without lower urinary tract symptoms; I48.0 Paroxysmal atrial fibrillation; K21.9 Gastro-esophageal reflux disease without esophagitis; E11.40 Type 2 diabetes mellitus with diabetic neuropathy, unspecified; Z79.01 Long term (current) use of anticoagulants; Z86.73 Personal history of transient ischemic attack (TIA), and cerebral infarction without residual deficits; Z79.899 Other long term (current) drug therapy
CPT/HCPCS: 71046; 76700; 80048; 80053; 80061; 80306; 80307; 82010; 82077; 82248; 82962; 82977; 83735; 83880; 84443; 84484; 85025; 85610; 85730; 87070; 93005; 94640; 94660; 96361; 96374; 99284

== ENCOUNTER 2024-11-11 13:08 | Inpatient (IN) | payer OTHER, SELFPAY ==
[2024-11-11 10:09] VITALS: BP 100/69
[2024-11-11 10:44] VITALS: BMI 55.1
[2024-11-11 11:14] LABS: Hematocrit 39.6 % (39.0-52.0); Hemoglobin 13.8 g/dL (13.0-18.0); Mean Corp Hgb Conc. 34.8 g/dL (33.0-37.0); Mean Corpuscular Hgb 32.2 pg (27.0-31.0); Mean Corpuscular Volume 92.5 fL (80.0-94.0); Mean Platelet Volume 10.6 fL (7.4-10.4); Platelet Count 218 10^3/uL (130-400); Red Blood Cell Count 4.28 10^6/uL (4.70-6.10); Red Cell Dist. Width 14.6 % (11.5-14.5); White Blood Cell Count 11.4 10^3/uL (4.8-10.8)
[2024-11-11 11:26] LABS: ALT (SGPT) 31 U/L (0-50); AST (SGOT) 32 U/L (17-59); Albumin 3.9 g/dl (3.5-5.0); Alkaline Phosphatase 52 U/L (38-126); Blood Urea Nitrogen 42 mg/dl (9-20); Calcium 9.6 mg/dl (8.4-10.2); Carbon Dioxide 31 mmol/L (22-30); Chloride 93 mmol/L (98-107); Estimated Creatinine Clearance 50 ml/min; Glucose 145 mg/dl (70-99); Sodium 135 mmol/L (135-145); Total Bilirubin 0.9 mg/dl (0.2-1.3); Total Protein 6.5 g/dl (6.3-8.2); eGFR 30.32
[2024-11-11 11:34] LABS: Alcohol None Detected
[2024-11-11 11:37] LABS: NT-proBNP 54.9 pg/ml; Troponin I < 0.012 ng/ml
[2024-11-11] MEDS: ATIVAN 1 MG PO (11:53)
--- NOTE | 2024-11-11 11:57 | ED.GENMED ---
History of Present Illness
General
Chief Complaint: Swelling
Time Seen by Provider: 11/11/24 10:39
History of Present Illness
History of Present Illness:
59-year-old male with history of alcohol abuse and HFpEF presents the emergency department for evaluation of lack of urine output and generalized weakness. Patient was admitted to this hospital for extensive period of time throughout the month of
October due to alcohol use disorder/withdrawal as well as acute CHF. He was just discharged 2 days ago on Bumex 1 mg twice daily. States over the past 24 hours he has had minimal urine output although he is not measuring by volume. Has not weighed
himself at home, discharge weight was 157 kg. Denies chest pain or dyspnea at this time
Past History
Past History
ED Past Medical History: Arrthythmia (afib on Xarelto), CVA, HTN, Hypercholesterolemia, NIDDM, Other (Fatty liver, GERD, history of A-fib, left foot drop, anxiety) and Other (sleep apnea/obesity/)
ED Past Surgical History: Cardiac and Tonsilectomy
Social History
Tobacco: Non-smoker
Alcohol: Binge drinker
Drug: Cocaine
Personal:
Living: with family
Employment: Employed
Family History
Family History: Other
Review of Systems
Review of Systems
Allergies reviewed?: Yes
All Other Systems: ROS reviewed and negative except as documented in HPI and ROS
Phy Exam
Physical Exam
Physical Exam:
GEN: Well appearing, NAD, WDWN
HEENT: Oral mucosa moist, no scleral icterus
Cardiac: Regular rate and rhythm, no murmur
Lung: No respiratory distress, no tachypnea, lungs clear to auscultation bilateral
MSK: Massive left lower extremity edema reportedly baseline
Skin: Good color, no pallor or jaundice, no rashes
Neuro: AO x3, moves all extremities freely
Psych: Calm, cooperative
Scores
Heart Failure Risk
Heart Failure Risk Score: Not Applicable
Course
Orders/Labs/Results
Orders:
Orders
11/11/24 Lunch
Cholesterol Lowering
At Your Request: Full Participation
Does patient need a safe tray?: No
Cholesterol Lowering: Sodium, 2 Gram
11/11/24 10:12
Electrocardiogram (*1) Urgent
Reason for Study: Shortness of Breath
EKG- Treatment ONCE
11/11/24 10:48
CR Chest - 2 Views Urgent
Comment:
Reason For Exam: PRIDE
11/11/24 10:59
Alcohol Urgent
Complete Blood Count/No Diff Urgent
Comprehensive Metabolic Panel Urgent
NT-proBNP Urgent
Troponin I Urgent
11/11/24 11:42
Lorazepam [Ativan] 1 mg PO NOW STA
11/11/24 12:50
Admit/Transfer Patient As Directed
Co-Sign Provider:
Level of Care: Inpatient admission
Assign to:: Medical/Surgical
Physician / Group: hospitalist
Diagnosis: Acute kidney injury
Reason for Hospitalization: Acute kidney injury
Expected length of stay greater than two midnights?: Yes
ELOS- Estimated Length of Stay in days: 3
I certify the patient meets the requirements for IP care: Yes
11/11/24 12:51
Urinalysis Reflex To Culture Urgent
Date Specimen was Collected: 11/11/24
Time Specimen was Collected: 12:50
11/11/24 12:52
PRN Pain Medication Management As Directed
May give lesser potent ordered pain med per pt: Yes
preference::
Protocol:: Medication orders for pain may be administered in a
manner that supports deferring to patient preference
when the pt is:
- Requesting an ordered lesser potent pain medication.
Least to most potent pain medications are defined
as: acetaminophen < NSAID < tramadol < opioids
(morphine, oxycodone, hydromorphone).
- Requesting a lesser dose of the same medication IF
ORDERED.
- Requesting a less intrusive route of administration
if both routes are prescribed by the provider (PO <
IV).
11/11/24 12:55
Code Status As Directed
Resuscitation Status: Full Code
Abnormal Lab Results
11/11/24
10:59
WBC 11.4 H 10^3/uL
(4.8-10.8)
RBC 4.28 L 10^6/uL
(4.70-6.10)
MCH 32.2 H pg
(27.0-31.0)
RDW 14.6 H %
(11.5-14.5)
MPV 10.6 H fL
(7.4-10.4)
Chloride 93 L mmol/L
(98-107)
Carbon Dioxide 31 H mmol/L
(22-30)
BUN 42 H mg/dl
(9-20)
Creatinine 2.4 H mg/dL
(0.7-1.3)
Glucose 145 H mg/dl
(70-99)
11/11/24 10:59
11/11/24 10:59
Vital Signs
Initial and Last Documented VS:
Initial Vital Signs
Temp Pulse Resp BP Pulse Ox
98.3 F 80 16 100/69 99
11/11/24 10:09 11/11/24 10:09 11/11/24 10:09 11/11/24 10:09 11/11/24 10:09
Last Documented Vital Signs
Temp Pulse Resp BP Pulse Ox
98.3 F 80 16 100/69 96
11/11/24 10:09 11/11/24 10:09 11/11/24 10:09 11/11/24 10:09 11/11/24 12:15
MDM/Problems Addressed
MDM/Problems Addressed:
Patient is likely over diuresed evidenced by RANCHO and lack of urine output. Will admit to the hospitalist service for closer monitoring and adjustment of diuretics
*Critical Care Note
Total Time (30-74mins, 75-104mins- exclusive of procedures): Not Applicable
ED Attending Note
-
Portions of this chart may have been created with voice recognition software.� Occasional wrong word or��sound alike� substitutions may have occurred due to the inherent limitations of voice recognition software.
Discharge Plan
Departure
Patient Disposition: Admit
Date of Disposition: 11/11/24
Time of Disposition: 11:59
Admit to: Med/Surg
Presentation/result/management discussed w/ accepting MD/DO: Hospitalist
Discharge Problem:
RANCHO (acute kidney injury)
Interventions
Interventions:
*Risk Screen - Suicide Last Done: 11/11/24 10:44
*General Assessment Last Done: 11/11/24 10:44
*Neglect/Abuse Screening Last Done: 11/11/24 10:44
*ED- Fall Risk Assessment Last Done: 11/11/24 10:44
*ED COVID-19 Vaccine History Last Done: 11/11/24 10:44
ED- Cardiac Assessment Last Done: 11/11/24 10:44
ED- Pulmonary Assessment Last Done: 11/11/24 10:44
ED-Skin Assessment Last Done: 11/11/24 10:44
--- NOTE | 2024-11-11 13:06 | CM ---
CM met with pt bedside
Pt admitted to [facility] from 10/20-/11/01 and 11/05-11/09
Pt is no longer residing at address on chart ([facility])
As of yesterday, he is staying with his stayign with his sister in [facility] (1st floor apartment)- address unknown
Pt drove himself to ED and his cpap is in his car, his belongings are currently in storage
Pt is typically indep with walker
Hx at multiple acute rehabs admissions and O2 through [facility] (no longer needed)
Upon dc last admission, was working with [facility] on outpt tx at [facility]
Pt noting he hopes for inpt admission to [facility] for ETOH
Referral made to SYLVESTER, Patel will see likely tomorrow
PCP- Shelbie Mejia
Rx- Santiago
Discharge Disposition- anticipate inpt ETOH tx
[2024-11-11 13:11] LABS: Urine Albumin Negative (Neg - Trace); Urine Bilirubin Negative (Negative); Urine Character Clear (Clear); Urine Color Yellow; Urine Glucose Negative (Negative); Urine Ketone Negative (Negative); Urine Leukocyte Negative (Negative); Urine Nitrite Negative (Negative); Urine Occult Blood Negative (Negative); Urine Specific Gravity 1.025 (<1.030); Urine Urobilinogen Negative (Neg - 1+)
--- NOTE | 2024-11-11 13:51 | HPS.HSE ---
Family Physician
-
Family Physician: Shelbie Mejia MD
Chief Complaint
-
Weakness, Decreased Urine Output
History of Present Illness
59 year old gentleman who presented to following discharge from a few days ago with complaints of weakness, dizziness and decreased urine output.
His prior admission was for acute exacerbation of heart failure during which time he had almost 20lb weight loss from diuresis. He states that after discharge on 11/09/2024 the patient went home and was feeling weak. He reports taking his medication
as prescribed during this time, which includes a new Rx for Bumex 1mg BID and Spironolactone 25mg QD, along with prior Candesartan 16mg. He says he was eating and drinking normally during this time, but felt very weak. He noticed his urine output
decreased, but he was not having and sx of dysuria, hematuria, flank pain or cloudy urine. He had several episodes of dizziness, though he did not notice any palpitations, lightheadedness, syncope or presyncope. He felt no fevers, chills, sob, or cp
during this time. Of note, he has a history of alcohol use disorder, though he does not endorse any alcohol use since before his last admission during which time he was on medicated withdrawal protocol.
Medical History
Past Medical History
Past Medical History: Reports Arrhythmia, CHF, GERD, HTN and NIDDM
Past Surgical History: Reports Other
Social History
Tobacco: Non-smoker
Alcohol: Chronic Alcoholic
Drug: Cocaine
Personal:
Family History
Family History: Not pertinent
Allergies / Home Medications
Allergies reflects when Allergies were last updated in [employer].
Home Medications with original date entered in [employer]
Allergy/Medication List:
Allergies
Allergy/AdvReac Type Severity Reaction Status Date / Time
furosemide Allergy itching, Verified 11/11/24 10:11
no rash
Penicillins Allergy Rash Verified 11/11/24 10:11
Sulfa (Sulfonamide Allergy Itching Verified 11/11/24 10:11
Antibiotics)
Home Medications
doxazosin 4 mg tablet 4 mg PO DAILY Urinary issue 10/19/11
gabapentin 600 mg tablet (Neurontin) 600 mg PO TID Neurological Condition 05/05/21
metformin 500 mg tablet,extended release 24 hr 2,000 mg PO DAILY Diabetes 05/05/21
rivaroxaban 20 mg tablet (Xarelto) 20 mg PO DAILY Blood clot prevention/tx 05/05/21
metoprolol succinate 100 mg tablet,extended release 24 hr 150 mg PO BID Blood Pressure 11/05/24
venlafaxine 150 mg capsule,extended release 24 hr (Effexor XR) 375 mg PO DAILY Mental Health/Anxiety 11/05/24
amlodipine 5 mg tablet 10 mg PO DAILY Blood Pressure 11/11/24
bumetanide 1 mg tablet 1 mg PO BID@0800,1600 Urinary Issue 11/11/24
bupropion HCl 150 mg 24 hr tablet, extended release 150 mg PO DAILY Mental Health/Anxiety 11/11/24
candesartan 16 mg tablet 16 mg PO DAILY Blood Pressure 11/11/24
spironolactone 25 mg tablet 25 mg PO DAILY Blood Pressure 11/11/24
Review of Systems
-
History Source: Patient
A 12 point ROS was completed and negative except as noted: Yes
Constitutional: Reports Fatigue; Denies Weight Gain, Weight Loss, Night Sweats or Chills
EENT: Reports No Symptoms
Respiratory: Reports No Symptoms
Cardiac: Reports No Symptoms
Abdomen/GI: Reports No Symptoms
: Reports Other (decreased urine output); Denies Dysuria, Frequency, Flank Pain, Incontinence, Difficulty Voiding, Bleeding or Dark Urine
Musculoskeletal: Reports No Symptoms
Skin: Reports No Symptoms
Neurological: Reports No Symptoms
Endocrine: Reports No Symptoms
Hematologic/Lymphatic: Reports No Symptoms
Psych: Reports Anxiety
Physical Exam
Vital Signs
Vital Signs
Temp Pulse Resp BP Pulse Ox
98.3 F 80 16 100/69 96
11/11/24 10:09 11/11/24 10:09 11/11/24 10:09 11/11/24 10:09 11/11/24 12:15
Physical Exam
General: Well Developed, Well Nourished, No Apparent Distress, Comfortable and Morbidly Obese
HEENT: NormoCephalic, Anicteric, Moist mucous membranes, Atraumatic, [place] Conjunctivae, Nose Appears Normal and Ears Appear Normal
Respiratory: Clear; No Wheezes, Rales or Rhonchi
Cardiac: S1/S2 and Regular Rhythm; No Tachycardia, Murmur or Rub
Breast: N/A
GI: Soft, Non Tender, Normal Bowel Sounds and Distended
Genito-urinary: Deferred by me
Musculoskeletal: No Clubbing, No Cyanosis and Other (BL LE Lymphedema)
Skin: Warm and Dry
Neuro: Awake, Alert and Oriented
Psych: Calm
Laboratory Results
-
11/11/24 10:59
11/11/24 10:59
Laboratory Results
Total Bilirubin 0.9 mg/dl (0.2-1.3) 11/11/24 10:59
AST 32 U/L (17-59) 11/11/24 10:59
ALT 31 U/L (0-50) 11/11/24 10:59
Alkaline Phosphatase 52 U/L (38-126) 11/11/24 10:59
Troponin I < 0.012 ng/ml 11/11/24 10:59
Impression/Plan
-
59 year old male presenting with weakness and decreased urine output 2 days after prior admission for acute heart failure exacerbation
#RANCHO
#Decreased Urine Output
- Electrician Control Equipment 2.4 on admission from 1.3 on discharge 2 days ago
- decreased urine output
- UA bland; no signs of UTI, hematuria, proteinuria
- Check Renal/Bladder US
#Leukocytosis
- WBCs 11.4 on admission, no clear source, UA clean, no fever or systemic sx. Will observe with repeat CBC and follow
#Alcohol Use Disorder
#Polysubstance use disorder
#H/o DTs
- Not in acute withdrawal at this time, will observe closely
- had been working with [facility] at [facility], hoping to go inpatient at [facility]
- CM to assist in transition of care after medical stabilization
- check Utox
#Anxiety Disorder
- reports sx of anxiety and racing thoughts, vital signs are stable, suspicion for agitation 2/2 withdrawal is very low
- c/w Bupropion, Venlafaxine 450mg (confirmed w/ patient and pharmacy)
#HFpEF
- last Echo 10/21/2024 showing 5-70% EF, mod. LVH
- ProBNP on admission 55
- c/w toprol XL
- hold spironolactone, Bumex
#Paroxysmal Afib, s/p ablation in 2011
- controlled at this time
- c/w Xarelto 20mg qAM
#Essential Hypertension
- sees Dr. Russell Nephrology
- hold candesartan
#T2DM - holding metformin due to RANCHO, start with LDISS
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
#GERD - GI ppx with pepcid
#CARRIE - c/w home CPAP
#Chronic Lymphedema
#BPH - c/w doxazosin
#Post thrombotic syndrome - LLE swelling/discoloration, stable
DVT PPx: Xarelto
Code Status: Full Code
--- NOTE | 2024-11-11 15:01 | W.PN.UPDATE ---
Update Note
Progress Note Update
Seen and examined by me independently in collaboration with the medical chief technician Dr. Bingham.
Past medical history/social history/medication/allergies reviewed.
Lab data and imaging data reviewed.
Patient with a recent [id number] admission for acute on chronic heart failure with preserved EF presents with progressive weakness, dizziness. No syncope. He was also having decreased urine output. So presented to the hospital. His creatinine
has doubled to 2.4 from 1.3 on recent discharge. No extrarenal losses. He is on Bumex and spironolactone since last discharge. Today's weight which was a bed scale is inconsistent. Await standing scale.
Clinical concern is overdiuresis but with decreased urine output check ultrasound of the renal tract to rule out any obstruction. Hold the diuretics. If the weight is significantly down and no obstructive uropathy will start on IV fluids.
Urinalysis is bland. If no more improvement in renal function will consider renal consult.
[2024-11-11 16:23] VITALS: BP 110/58; BMI 51.6
[2024-11-11 16:28] LABS: Glucose - Point of Care 134 mg/dl (70-99)
[2024-11-11] MEDS: NOVOLOG FLEXPEN-LOW RESISTANCE SC (16:29)
[2024-11-11 16:38] VITALS: BMI 51.6
[2024-11-11] MEDS: NEURONTIN 600 MG PO ×2 (17:13→21:03)
[2024-11-11] MEDS: TOPROL XL 150 MG PO (21:03)
[2024-11-11] MEDS: PEPCID 20 MG PO (21:03)
[2024-11-11 21:15] LABS: Amphetamines Negative (Negative); Barbiturates Positive (Negative); Benzodiazepines Negative (Negative); Buprenorphine Negative (Negative); Cocaine Negative (Negative); Marijuana Negative (Negative); Methadone Negative (Negative); Methamphetamines Negative (Negative); Opiates Negative (Negative); Phencyclidine Negative (Negative); Tricyclic Antidepressants Negative (Negative)
[2024-11-11 21:52] LABS: Glucose - Point of Care 209 mg/dl (70-99)
[2024-11-11 22:29] VITALS: PULSE 75
[2024-11-11 23:00] VITALS: BP 114/71
[2024-11-12 06:00] VITALS: BMI 51.6
[2024-11-12 06:56] LABS: % Basophils 0.8 % (0-2); % Eosinophils 8.2 % (0-6); % Immature Granulocytes 0.9 % (0-0.5); % Lymphocytes 18.6 % (20.5-51.1); % Neutrophils 60.5 % (42.2-75.2); Absolute Basophils 0.1 10^3/uL (0-0.2); Absolute Eosinophils 0.7 10^3/uL (0-0.7); Absolute Immature Granulocytes 0.1 10^3/uL (0-0.05); Absolute Lymphocytes 1.6 10^3/uL (1.2-3.4); Absolute Monocytes 0.9 10^3/uL (0.1-0.6); Absolute Neutrophils 5.1 10^3/uL (1.4-6.5); Hematocrit 36.7 % (39.0-52.0); Hemoglobin 12.3 g/dL (13.0-18.0); Mean Corp Hgb Conc. 33.5 g/dL (33.0-37.0); Mean Corpuscular Hgb 31.5 pg (27.0-31.0); Mean Corpuscular Volume 94.1 fL (80.0-94.0); Mean Platelet Volume 10.5 fL (7.4-10.4); Nucleated Red Blood Cells % 0 % (-); Platelet Count 181 10^3/uL (130-400); Red Cell Dist. Width 14.6 % (11.5-14.5); White Blood Cell Count 8.5 10^3/uL (4.8-10.8)
--- NOTE | 2024-11-12 07:09 | W.PN.HOSP.TC ---
Addendum entered and electronically signed by Blake Jackson MD 11/12/24 16:07:
Seen and examined by me independently in collaboration with the medical surgical tech.
Lab data and imaging data reviewed.
Addendum as below :
Patient today with resolved lightheadedness or dizziness. Feels improved from his weakness. Voicing no other specific complaints.
No chest pain or shortness of breath.
Chest is clear.
Improving creatinine noted after holding diuresis. Await renal ultrasound to rule out obstruction which I doubt. No renal colic and most recent ultrasound of the abdomen showed no evidence of obstructive uropathy.
Continue to hold diuretics-clinically no acute heart failure symptoms or signs. Consult cardiology to evaluate his cardiac medication including diuretics.
Total time spent on today's encounter was 52 minutes which included time spent in counseling the patient/family regarding diagnosis and treatment plan as listed above, goals of care, and symptom management. Case was discussed with nursing staff,
specialists, and care coordinators/case management. All labs and imaging personally reviewed by me. Remainder the time spent in detailed review of previous records, lab data, imaging, and other medical provider documentation.
Original Note:
Today's Communication/Plan
-
Formulation Scientist improving, passing urine
Renal/Bladder US
Add Buspar for anxiety, avoid Ativan
Dispo planning for [place]
Assessment / Plan
Assessment / Plan
59 year old male presenting with weakness and decreased urine output 2 days after prior admission for acute heart failure exacerbation
#RANCHO
#Decreased Urine Output
- Formulation Scientist 2.4 on admission from 1.3 on discharge 2 days ago
- decreased urine output
- UA bland; no signs of UTI, hematuria, proteinuria
- Check Renal/Bladder US
- Formulation Scientist downtrending
#Alcohol Use Disorder
#Polysubstance use disorder
#H/o DTs
- Not in acute withdrawal at this time, will observe closely
- had been working with [facility] at [facility], hoping to go inpatient at [place]
- CM to assist in transition of care after medical stabilization
- Utox positive for Barbiturates (was on Phenobarb taper last admission)
#Anxiety Disorder
- reports sx of anxiety and racing thoughts, vital signs are stable, suspicion for agitation 2/2 withdrawal is very low
- c/w Bupropion, Venlafaxine
- Added Buspar 5mg BID and 5mg prn
- CM working with [facility] for IP at [facility]
#HFpEF
- last Echo 10/21/2024 showing 5-70% EF, mod. LVH
- ProBNP on admission 55
- c/w toprol XL
- c/t hold spironolactone, Bumex
#Paroxysmal Afib, s/p ablation in 2011
- controlled at this time
- c/w Xarelto 20mg qAM
#Essential Hypertension
- sees Dr. Russell Nephrology
- c/t hold candesartan
#Leukocytosis (resolved)
- WBCs 11.4 on admission, no clear source, UA clean, no fever or systemic sx. repeat WBC wnl.
#T2DM - holding metformin due to RANCHO, start with LDISS
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
#GERD - GI ppx with pepcid
#CARRIE - c/w home CPAP, home setting 17
#Chronic Lymphedema
#BPH - c/w doxazosin
#Post thrombotic syndrome - LLE swelling/discoloration, stable
DVT PPx: Xarelto
Code Status: Full Code
Anticipated Discharge: 24 - 48 hours
Subjective/Interval History
-
Date of Service: November 12, 2024
Slept well, passed urine. No acute complaints, no overnight events.
Objective Data
-
Labs:
Laboratory Results
11/12/24
05:45
WBC 8.5
Hgb 12.3 L
Hct 36.7 L
Plt Count 181
Sodium Pending
Potassium Pending
Chloride Pending
Carbon Dioxide Pending
BUN Pending
Creatinine Pending
Glucose Pending
Calcium Pending
Total Bilirubin Pending
AST Pending
ALT Pending
Alkaline Phosphatase Pending
Vital Signs:
Vital Signs
Temp Pulse Resp BP Pulse Ox
99.7 F 75 20 114/71 100
11/11/24 23:00 11/11/24 23:00 11/11/24 23:00 11/11/24 23:00 11/12/24 00:18
I&O
11/11/24 11/12/24 11/13/24
06:59 06:59 06:59
Output Total 925 / 925
Balance -925 / -925
Review of Systems
-
History Source: Patient
Constitutional: Reports No Symptoms
EENT: Reports No Symptoms Reported
Respiratory: Reports No Symptoms
Cardiac: Reports No Symptoms
Abdomen/GI: Reports No Symptoms
Breast: Reports N/A
Genitourinary: Reports No Symptoms
Musculoskeletal: Reports No Symptoms
Neuro: Reports No Symptoms
Physical Exam
-
General: Well Developed, Well Nourished, No Apparent Distress, Comfortable and Morbidly Obese
HEENT: Normocephalic, Atraumatic, Moist Mucous Membranes, Anicteric, [place] Conjunctivae, Nose Appears Normal and Ears Appear Normal
Respiratory: Clear to Auscultation; Negative Wheezes, Rales or Rhonchi
Cardiac: Regular Rhythm and S1/S2; Negative Murmur or Rub
GI: Soft, Nontender, Normal Bowel Sounds and Distended
Genito-urinary: No Costovertebral Tender
Musculoskeletal: No Clubbing, No Cyanosis and Other (LLE Lymphedema w/ hyperpigmentation; stable. RLE Lymphedema; stable. )
Skin: Warm, Dry and IV Access / Catheter Site
Neuro: Awake, Alert and Oriented
Psych: Calm
[2024-11-12 07:11] LABS: Glucose - Point of Care 149 mg/dl (70-99)
[2024-11-12 07:15] VITALS: BP 131/83
[2024-11-12 07:21] LABS: ALT (SGPT) 26 U/L (0-50); AST (SGOT) 26 U/L (17-59); Albumin 3.4 g/dl (3.5-5.0); Alkaline Phosphatase 52 U/L (38-126); Blood Urea Nitrogen 44 mg/dl (9-20); Calcium 9.3 mg/dl (8.4-10.2); Carbon Dioxide 29 mmol/L (22-30); Chloride 96 mmol/L (98-107); Estimated Creatinine Clearance 60 ml/min; Glucose 151 mg/dl (70-99); Potassium 4.4 mmol/L (3.5-5.1); Sodium 136 mmol/L (135-145); Total Bilirubin 0.5 mg/dl (0.2-1.3); Total Protein 5.8 g/dl (6.3-8.2); eGFR 37.74
[2024-11-12] MEDS: NOVOLOG FLEXPEN-LOW RESISTANCE SC ×2 (09:03→12:01)
[2024-11-12] MEDS: TOPROL XL 150 MG PO ×2 (09:06→20:34)
[2024-11-12] MEDS: CARDURA 4 MG PO (09:06)
[2024-11-12] MEDS: EFFEXOR XR 75 MG PO (09:06)
[2024-11-12] MEDS: NEURONTIN 600 MG PO ×3 (09:06→21:07)
[2024-11-12] MEDS: NORVASC 10 MG PO (09:06)
[2024-11-12] MEDS: BUSPAR 5 MG PO ×2 (09:06→20:35)
[2024-11-12] MEDS: EFFEXOR XR 150 MG PO ×2 (09:07→20:35)
[2024-11-12] MEDS: WELLBUTRIN XL (24 hour extended release) 150 MG PO (09:07)
[2024-11-12] MEDS: XARELTO 20 MG PO (09:07)
[2024-11-12 11:51] LABS: Glucose - Point of Care 152 mg/dl (70-99)
--- NOTE | 2024-11-12 13:15 | CM ---
Addendum entered by Seble Munoz RN 11/12/24 15:20:
Anjali Phelps spoke with pt . Pt said he will be going home at discharge to find a place to live. He is staying with his sister.He said he will follow up with [facility].
PLAN :Home with [facility] resources
Original Note:
Pt is on room air during day and Cpap at home.
Spoke with [facility] pt interested in [facility] [place]
Spoke with Patel at [facility]. Pt to be seen by Anjali .
[facility] will start process for [facility] referral tomorrow.
Will provide clinical as needed.
PLAN To [facility] pending acceptance
[2024-11-12 15:20] VITALS: BP 128/68
[2024-11-12 16:52] LABS: Glucose - Point of Care 198 mg/dl (70-99)
[2024-11-12] MEDS: NOVOLOG FLEXPEN-LOW RESISTANCE 1 UNITS SC (17:52)
[2024-11-12] MEDS: PEPCID 20 MG PO (20:35)
[2024-11-12 21:41] LABS: Glucose - Point of Care 200 mg/dl (70-99)
[2024-11-12 23:40] VITALS: PULSE 65
[2024-11-12 23:50] VITALS: BP 140/75
[2024-11-13 05:36] VITALS: BMI 51.4
[2024-11-13 06:44] LABS: Blood Urea Nitrogen 29 mg/dl (9-20); Calcium 9.8 mg/dl (8.4-10.2); Carbon Dioxide 29 mmol/L (22-30); Chloride 98 mmol/L (98-107); Estimated Creatinine Clearance 91 ml/min; Glucose 149 mg/dl (70-99); Potassium 4.6 mmol/L (3.5-5.1); Sodium 137 mmol/L (135-145); eGFR > 60.00
[2024-11-13 07:20] VITALS: BP 141/81
[2024-11-13 07:29] LABS: Glucose - Point of Care 176 mg/dl (70-99)
[2024-11-13] MEDS: NOVOLOG FLEXPEN-LOW RESISTANCE 1 UNITS SC ×3 (07:45→16:50)
[2024-11-13] MEDS: WELLBUTRIN XL (24 hour extended release) 150 MG PO (07:46)
[2024-11-13] MEDS: NEURONTIN 600 MG PO ×3 (07:46→20:24)
[2024-11-13] MEDS: EFFEXOR XR 75 MG PO (07:46)
[2024-11-13] MEDS: TOPROL XL 150 MG PO ×2 (07:46→20:25)
[2024-11-13] MEDS: NORVASC 10 MG PO (07:47)
[2024-11-13] MEDS: CARDURA 4 MG PO (07:47)
[2024-11-13] MEDS: EFFEXOR XR 150 MG PO ×2 (07:47→20:25)
[2024-11-13] MEDS: XARELTO 20 MG PO (07:47)
[2024-11-13] MEDS: BUSPAR 5 MG PO (07:48)
--- NOTE | 2024-11-13 08:07 | W.PN.HOSP.TC ---
Addendum entered and electronically signed by Blake Jackson MD 11/13/24 14:23:
Will hold her use of BuSpar as he had itching related to BuSpar in the past by the psychiatrist.
Addendum entered and electronically signed by Blake Jackson MD 11/13/24 14:22:
Seen and examined by me independently in collaboration with the medical clinic manager.
Lab data and imaging data reviewed.
Addendum as below :
Resolved symptoms. Feels better. Creatinine normalized.
Suspect RANCHO secondary to overdiuresis. Today standing scale weight is 345 pounds which is at his baseline.
With negative ultrasound of the abdomen last week and normalization of creatinine with holding diuretics no no need for further ultrasound of the renal tract.
Await cardiology to optimize cardiac meds.
DW cards PA , await attending input.
DC home after seen by cardiology
Total time of dc 32 min
Original Note:
Today's Communication/Plan
-
cardiology to see for GDMT management
Dispo planning for home with OP scheduling for [facility]
Assessment / Plan
Assessment / Plan
59 year old male presenting with weakness and decreased urine output 2 days after prior admission for acute heart failure exacerbation
#RANCHO (resolved)
#Decreased Urine Output
- Services Executive 2.4 on admission from 1.3 on discharge 2 days ago
- decreased urine output
- UA bland; no signs of UTI, hematuria, proteinuria
- Services Executive normalized, pt making urine
#Alcohol Use Disorder
#Polysubstance use disorder
#H/o DTs
- Not in acute withdrawal at this time, will observe closely
- had been working with [facility], hoping to go inpatient at [facility]
- CM to assist in transition of care after medical stabilization
- Utox positive for Barbiturates (was on Phenobarb taper last admission)
#Anxiety Disorder
- reports sx of anxiety and racing thoughts, vital signs are stable, suspicion for agitation 2/2 withdrawal is very low
- c/w Bupropion, Venlafaxine
- Added Buspar 5mg BID and 5mg prn
- CM working with [facility] for IP at [facility]
#HFpEF
- last Echo 10/21/2024 showing 5-70% EF, mod. LVH
- ProBNP on admission 55
- c/w toprol XL
- c/t hold spironolactone, Bumex -- cardiology consult to finalize GDMT before d/c
#Paroxysmal Afib, s/p ablation in 2011
- controlled at this time
- c/w Xarelto 20mg qAM
#Essential Hypertension
- sees Dr. [facility]
- c/t hold candesartan
#Leukocytosis (resolved)
- WBCs 11.4 on admission, no clear source, UA clean, no fever or systemic sx. repeat WBC wnl.
#T2DM - holding metformin due to RANCHO, start with LDISS
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
#GERD - GI ppx with pepcid
#CARRIE - c/w home CPAP, home setting 17
#Chronic Lymphedema
#BPH - c/w doxazosin
#Post thrombotic syndrome - LLE swelling/discoloration, stable
DVT PPx: Xarelto
Code Status: Full Code
Anticipated Discharge: Within 24 hours
Subjective/Interval History
-
Date of Service: November 13, 2024
Feeling well no acute complaints, no overnight events.
Objective Data
-
Labs:
Laboratory Results
11/13/24
05:36
Sodium 137
Potassium 4.6
Chloride 98
Carbon Dioxide 29
BUN 29 H
Creatinine 1.3
Glucose 149 H
Calcium 9.8
Vital Signs:
Vital Signs
Temp Pulse Resp BP Pulse Ox
99.1 F 60 20 141/81 98
11/12/24 23:50 11/13/24 07:46 11/12/24 23:50 11/13/24 07:46 11/12/24 23:50
I&O
11/12/24 11/13/24 11/14/24
06:59 06:59 06:59
Intake Total 1080 / 1080
Output Total 925 / 925 2325 / 2325
Balance -925 / -925 -1245 / -1245
Review of Systems
-
History Source: Patient
Constitutional: Reports No Symptoms
EENT: Reports No Symptoms Reported
Respiratory: Reports No Symptoms
Cardiac: Reports No Symptoms
Abdomen/GI: Reports No Symptoms
Genitourinary: Reports No Symptoms
Musculoskeletal: Reports No Symptoms
Physical Exam
-
General: Well Developed, Well Nourished, No Apparent Distress, Comfortable and Morbidly Obese
HEENT: Normocephalic, Atraumatic, Moist Mucous Membranes, Anicteric and [place] Conjunctivae
Respiratory: Clear to Auscultation; Negative Wheezes, Rales or Rhonchi
Cardiac: Regular Rhythm and S1/S2; Negative Murmur or Rub
GI: Soft, Nontender and Normal Bowel Sounds
Genito-urinary: No Costovertebral Tender
Musculoskeletal: No Clubbing, No Cyanosis and No Edema
Skin: Warm and Dry
Neuro: Awake and Alert
Psych: Calm
--- NOTE | 2024-11-13 09:48 | CM ---
Anjali Phelps spoke with pt . Pt said he will be going home at discharge to find a place to live. He is staying with his sister.He said he will follow up with [facility].
Anjali has provides information to pt about [facility].
Patel bailey will speak with pt
PLAN :Home with [facility] resources
--- NOTE | 2024-11-13 10:13 | CON.CAR ---
Addendum entered and electronically signed by Joyce Rosenbaum DO 11/13/24 16:49:
I saw and examined the patient.
The Outside Plant Technician's note was reviewed and I agree with the note.
Comment: Patient was seen and examined. Patient admitted with RANCHO on 11/11/24 and cardiology consulted today to help manage GDMT and diuretics given h/o CHF. Patient was admitted 10/20/2024 until 11/01/2024 with acute HF and EtOH withdrawal and
cardiology followed along during that admission. Patient diuresed 63 lbs that admission with Lasix 40 mg IV BID and was discharged to home on Lasix 40 mg PO BID. Patient returned to the ER 11/05/24 with recurrent HF and weight was up about 6 lbs so
patient was admitted with diuresed down to 345 lbs on day of d/c 11/09/24 and patient was discharged to home on Bumex 1 mg PO BID. Patient says that he noticed his urine output had decreased again at home despite drinking more than 64 oz a day and he
thought he was back in acute HF so he came back to the ER 11/11/24 and was actually in RANCHO and he weighed 349 lbs. Patient was admitted and Bumex, spironolactone 25 mg daily and candesartan 16 mg daily were held. Cre as high as 2.4 on admission and
improved to 1.3 today. Despite holding Bumex weight is 2 lbs overnight and patient reports improved urine output. Overall feels better and denies shortness of breath. He reports leg edema is better than it has been and he denies orthopnea. He
denies chest pain or pressure. Dizziness on presentation is resolved.
General: No acute distress, AAOX3, lying supine
Heart: Regular, Negative S3 positive S1/S2, distant heart sounds
Lungs: Bronchovesicular breath sounds but clear
Abd: Positive BS, NT/ND, neg rebound/rigidity/guarding
Ext: Chronic venous stasis changes with trace edema bilaterally
Neuro: nonfocal
Plan:
-Acute kidney injury with creatinine on admission 2.4
-Creatinine 1.3 today which is baseline
-Will resume Bumex at a lower dose, 1 mg daily. Will continue to hold candesartan and spironolactone
History of paroxysmal atrial fibrillation currently in sinus rhythm
-Continue Xarelto 20 mg daily. Continue outpatient Toprol-XL 150 mg twice daily.
History of alcohol abuse/withdrawal who denies recurrence of drinking. Patient also has a history of drug use including crack cocaine but denies recent use�cessation strongly advised
Heart failure with preserved ejection fraction
-Appears relatively euvolemic.
-Patient has not been started on SGLT-2 inhibitor due to insurance coverage issues.
Obesity with sleep apnea/OHS who reports compliance with outpatient CPAP
-We reviewed heart failure symptoms and monitoring. Unfortunately he does have significant social challenges currently living at his sister's house but does say he has a scale that he could use as an outpatient.
-Reviewed the importance of medication compliance as well as heart failure diet
- Outpatient cardiac follow-up has already been arranged
-Will sign off, recall if needed
Original Note:
Consultation
Consultation Request
Date/Time Consultation Requested: 11/13/24
Date/Time Consultation Performed: 11/13/24
Requesting Provider: Dr. Jackson
Performing Provider: Dr. Rosenbaum
Reason for Consultation: RANCHO with h/o CHF
Medical History
-
History of Present Illness:
Patient admitted with RANCHO on 11/11/24 and cardiology consulted today to help manage GDMT and diuretics given h/o CHF. Patient was admitted 10/20/2024 until 11/01/2024 with acute HF and EtOH withdrawal and cardiology followed along during that admission.
Patient diuresed 63 lbs that admission with Lasix 40 mg IV BID and was discharged to home on Lasix 40 mg PO BID. Patient returned to the ER 11/05/24 with recurrent HF and weight was up about 6 lbs so patient was admitted with diuresed down to 345 lbs
on day of d/c 11/09/24 and patient was discharged to home on Bumex 1 mg PO BID. Patient says that he noticed his urine output had decreased again at home despite drinking more than 64 oz a day and he thought he was back in acute HF so he came back to
the ER 11/11/24 and was actually in RANCHO and he weighed 349 lbs. Patient was admitted and Bumex, spironolactone 25 mg daily and candesartan 16 mg daily were held. Cre as high as 2.4 on admission and improved to 1.3 today. Despite holding Bumex weight
is 2 lbs overnight and patient reports improved urine output.
PMH:
Recent admission for acute HF 11/05/24 until 11/09/26
Recent admission polysubstance abuse/withdrawal, acute HF 10/20/24 until 11/01/24
Chronic HFpEF
EF 65% without significant valve disease by echo 10/21/24
ETOH use disorder
h/o drug use including smoking crack cocaine
HTN
Paroxysmal A-fib
Chronic Xarelto OAC
Chronic hypercarbic respiratory failure, CARRIE/obesity hypoventilation syndrome
DM2
Obese, BMI 52
Past Medical History
Past Medical History: Other
Past Surgical History: Cardiac (PVI )
Social History
Tobacco: Non-Smoker
Alcohol: Daily (fifth of vodka, sometimes beer too)
Drug: Cocaine (positive on drug screen, but states he hasn't used in about 2 months)
Personal: Single
Living: Alone
Family History
Family History: CAD
Allergies / Home Medications
Allergy/AdvReac Type Severity Reaction Status Date / Time
furosemide Allergy itching, Verified 11/11/24 10:11
no rash
Penicillins Allergy Rash Verified 11/11/24 10:11
Sulfa (Sulfonamide Allergy Itching Verified 11/11/24 10:11
Antibiotics)
�Medication �Instructions �Recorded �Confirmed �Type
doxazosin 4 mg tablet 4 mg PO DAILY Urinary issue 10/19/11 11/11/24 History
gabapentin 600 mg tablet 600 mg PO TID Neurological 05/05/21 11/11/24 History
(Neurontin) Condition
metformin 500 mg tablet,extended 2,000 mg PO DAILY Diabetes 05/05/21 11/11/24 History
release 24 hr
rivaroxaban 20 mg tablet (Xarelto) 20 mg PO DAILY Blood clot 05/05/21 11/11/24 History
prevention/tx
metoprolol succinate 100 mg 150 mg PO BID Blood Pressure 11/05/24 11/11/24 History
tablet,extended release 24 hr
venlafaxine 150 mg 375 mg PO DAILY Mental 11/05/24 11/11/24 History
capsule,extended release 24 hr Health/Anxiety
(Effexor XR)
amlodipine 5 mg tablet 10 mg PO DAILY Blood Pressure 11/11/24 11/11/24 History
bumetanide 1 mg tablet 1 mg PO BID@0800,1600 Urinary Issue 11/11/24 11/11/24 History
bupropion HCl 150 mg 24 hr tablet, 150 mg PO DAILY Mental 11/11/24 11/11/24 History
extended release Health/Anxiety
candesartan 16 mg tablet 16 mg PO DAILY Blood Pressure 11/11/24 11/11/24 History
spironolactone 25 mg tablet 25 mg PO DAILY Blood Pressure 11/11/24 11/11/24 History
Review of Systems
-
History Source: Patient
All other systems: Negative unless noted
Physical Exam
Vital Signs
Temp Pulse Resp BP Pulse Ox
98.6 F 60 20 141/81 100
11/13/24 07:20 11/13/24 07:46 11/13/24 07:20 11/13/24 07:46 11/13/24 09:52
GEN: NAD
HEENT: MMM
LUNGS: RA. No audible wheeze
CV: Reg. SR on tele
ABD: Obese
EXT: +1-2 B/L LE edema
NEURO: No focal or lateralizing weakness
SKIN: Warm, dry and pink. No rash
Lab Results
11/12/24 05:45
11/13/24 05:36
Troponin I < 0.012 ng/ml 11/11/24 10:59
Irb-G-Kzaypxqyyob Pept 54.9 pg/ml 11/11/24 10:59
Impression / Plan
-
PCP: Dr. Shelbie Mejia
Card: Previously has seen several cardiologists including
Dr. Santos, [facility] cardiology
Dr. Souza, but not seeing any longer
First seen here by Dr. Akiko Kapadia
Impression:
Admitted with RANCHO 11/11/24
Recent admission for acute HF 11/05/24 until 11/09/26
Recent admission polysubstance abuse/withdrawal, acute HF 10/20/24 until 11/01/24
RANCHO
Chronic HFpEF
EF 65% without significant valve disease by echo 10/21/24
ETOH use disorder
h/o drug use including smoking crack cocaine
HTN
Paroxysmal A-fib
Chronic Xarelto OAC
Chronic hypercarbic respiratory failure, CARRIE/obesity hypoventilation syndrome
DM2
Obese, BMI 52
Echo 10/21/24: EF 65 to 70%, moderate concentric LVH (1.5 cm), normal RV size and function, no significant valve disease
Plan:
-Patient admitted with RANCHO on 11/11/24 and cardiology consulted today to help manage GDMT and diuretics given h/o CHF. Patient was admitted 10/20/2024 until 11/01/2024 with acute HF and EtOH withdrawal and cardiology followed along during that
admission. Patient diuresed 63 lbs that admission with Lasix 40 mg IV BID and was discharged to home on Lasix 40 mg PO BID. Patient returned to the ER 11/05/24 with recurrent HF and weight was up about 6 lbs so patient was admitted with diuresed down
to 345 lbs on day of d/c 11/09/24 and patient was discharged to home on Bumex 1 mg PO BID. Patient says that he noticed his urine output had decreased again at home despite drinking more than 64 oz a day and he thought he was back in acute HF so he
came back to the ER 11/11/24 and was actually in RANCHO and he weighed 349 lbs. Patient was admitted and Bumex, spironolactone 25 mg daily and candesartan 16 mg daily were held. Cre as high as 2.4 on admission and improved to 1.3 today. Despite holding
Bumex weight is 2 lbs overnight and patient reports improved urine output.
-ECG from 11/11/24 reviewed by me and patient was in SR. Patient was not on tele.
-Patient with known h/o pAfib. Patient in SR on admission.
-Outpatient dose of Xarelto 20 mg daily has been continued.
-Outpatient dose of Toprol XL 150 mg BID has been continued
-Patient with RANCHO on admission and diuretics held, but weight has continued to trend down. Recommend resuming Bumex at 1 mg PO daily and additional Bumex 1 mg daily PRN weight gain or increased edema. Will provide patient with UptoDate patient
information handout for CHF to help him recognize signs of CHF and to track his weight daily. Patient says he has a physician scale in his car because he does not have room for it at his sister's home where he is currently living.
-EF is preserved and no significant valve disease. Echo report reviewed by me with patient line by line and copy of echo report given to patient 11/06/24
-Cont Toprol XL as above
-Outpatient dose of candesartan 32 mg daily has been on hold since admission. Will have patient follow up in the office and resume if stable
-Outpatient dose of spironolactone 25 mg daily is on hold and would not restart at this time given RANCHO.
-Patient has not been started on SGLT-2 inhibitor due to insurance coverage issues.
-Outpatient dose of amlodipine 10 mg daily continued
-Outpatient dose of doxazosin 4 mg daily continued
[2024-11-13 11:42] LABS: Glucose - Point of Care 152 mg/dl (70-99)
[2024-11-13 15:34] VITALS: BP 157/89
[2024-11-13 16:20] LABS: Glucose - Point of Care 167 mg/dl (70-99)
--- NOTE | 2024-11-13 16:43 | CM ---
Contacted Anjali Sweeney spoke with pt.
Anjali Sweeney spoke with pt . Pt said he will be going home at discharge to find a place to live.
He is staying with his sister.He said he will follow up with [facility].
Anjali has provides information to pt about [facility].
As per Patel Alba provided information for pt to recieve care at [facility] when pt ready.
PLAN :Home with [facility] resources
[2024-11-13] MEDS: PEPCID 20 MG PO (20:25)
[2024-11-13 21:29] LABS: Glucose - Point of Care 228 mg/dl (70-99)
[2024-11-13 23:08] VITALS: BP 144/79
[2024-11-14 06:00] VITALS: BMI 51.5
[2024-11-14 07:20] VITALS: BP 149/67
[2024-11-14 07:34] LABS: Glucose - Point of Care 155 mg/dl (70-99)
--- NOTE | 2024-11-14 09:00 | W.PN.HOSP.TC ---
Addendum entered and electronically signed by Blake Jackson MD 11/14/24 16:04:
Seen and examined by me independently in collaboration with the medical records coder.
Lab data and imaging data reviewed.
Addendum as below :
Patient without dizziness or lightheadedness. Denies shortness of breath. On room air. Chest is clear.
Weight is stable at 347 pounds today.
Creatinine remained stable.
Appreciate cardiology input regarding diuretics dosing and cardiac medication.
Patient advised to keep an eye on weight daily. Advised to follow-up with intermodal truck driver-he says he would want to switch intermodal truck driver to the local group here from Dr. Santos at [facility].
Total time of discharge 32 minutes
Original Note:
Today's Communication/Plan
-
cleared for d/c today
f/u with cardiology
hold spironolactone, candesartan on d/c. Reduce Bumex to 1mg QD
Assessment / Plan
Assessment / Plan
59 year old male presenting with weakness and decreased urine output 2 days after prior admission for acute heart failure exacerbation
#RANCHO (resolved)
#Decreased Urine Output
- Education And Development Manager 2.4 on admission from 1.3 on discharge 2 days ago
- decreased urine output
- UA bland; no signs of UTI, hematuria, proteinuria
- Education And Development Manager normalized, pt making urine
#Alcohol Use Disorder
#Polysubstance use disorder
#H/o DTs
- Not in acute withdrawal at this time, will observe closely
- Utox positive for Barbiturates (was on Phenobarb taper last admission)
- Pt will set up care as outpatient with [facility]
#Anxiety Disorder
- reports sx of anxiety and racing thoughts, vital signs are stable, suspicion for agitation 2/2 withdrawal is very low
- c/w Bupropion, Venlafaxine
- Added Buspar 5mg BID and 5mg prn
#HFpEF
- last Echo 10/21/2024 showing 5-70% EF, mod. LVH
- ProBNP on admission 55
- c/w toprol XL
- c/t hold spironolactone, decreased Bumex to 1mg QD
#Paroxysmal Afib, s/p ablation in 2011
- controlled at this time
- c/w Xarelto 20mg qAM
#Essential Hypertension
- sees Dr. [facility]
- c/t hold candesartan on discharge
#Leukocytosis (resolved)
- WBCs 11.4 on admission, no clear source, UA clean, no fever or systemic sx. repeat WBC wnl.
#T2DM - holding metformin due to RANCHO, start with LDISS
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
#GERD - GI ppx with pepcid
#CARRIE - c/w home CPAP, home setting 17
#Chronic Lymphedema
#BPH - c/w doxazosin
#Post thrombotic syndrome - LLE swelling/discoloration, stable
DVT PPx: Xarelto
Code Status: Full Code
Anticipated Discharge: Today
Subjective/Interval History
-
Date of Service: November 14, 2024
Feeling well, no acute complaints.
Objective Data
-
Labs:
Laboratory Results
11/14/24
08:11
Sodium Pending
Potassium Pending
Chloride Pending
Carbon Dioxide Pending
BUN Pending
Creatinine Pending
Glucose Pending
Calcium Pending
Vital Signs:
Vital Signs
Temp Pulse Resp BP Pulse Ox
98 F 61 18 149/67 99
11/14/24 07:20 11/14/24 07:20 11/14/24 07:20 11/14/24 07:20 11/14/24 07:20
I&O
11/13/24 11/14/24 11/15/24
06:59 06:59 06:59
Intake Total 1080 / 1080 1560 / 1560 360 / 360
Output Total 2325 / 2325 2600 / 2600
Balance -1245 / -1245 -1040 / -1040 360 / 360
Review of Systems
-
History Source: Patient
Constitutional: Reports No Symptoms
EENT: Reports No Symptoms Reported
Respiratory: Reports No Symptoms
Cardiac: Reports No Symptoms
Abdomen/GI: Reports No Symptoms
Genitourinary: Reports No Symptoms
Physical Exam
-
General: Well Developed, Well Nourished, No Apparent Distress, Comfortable and Morbidly Obese
HEENT: Normocephalic, Atraumatic, Moist Mucous Membranes, Anicteric, [place] Conjunctivae, Nose Appears Normal and Ears Appear Normal
Respiratory: Clear to Auscultation; Negative Wheezes, Rales or Rhonchi
Cardiac: Regular Rhythm and S1/S2; Negative Murmur, Rub or Calf Tenderness
GI: Soft, Nontender, Nondistended and Normal Bowel Sounds
Musculoskeletal: No Clubbing and No Cyanosis
Skin: Warm and Dry
Neuro: AO x 3
[2024-11-14] MEDS: NOVOLOG FLEXPEN-LOW RESISTANCE 1 UNITS SC ×2 (09:12→11:46)
[2024-11-14] MEDS: BUMEX 1 MG PO (09:12)
[2024-11-14] MEDS: CARDURA 4 MG PO (09:13)
[2024-11-14] MEDS: WELLBUTRIN XL (24 hour extended release) 150 MG PO (09:13)
[2024-11-14] MEDS: EFFEXOR XR 75 MG PO (09:13)
[2024-11-14] MEDS: NEURONTIN 600 MG PO (09:13)
[2024-11-14] MEDS: XARELTO 20 MG PO (09:13)
[2024-11-14] MEDS: TOPROL XL 150 MG PO (09:13)
[2024-11-14] MEDS: EFFEXOR XR 150 MG PO (09:14)
[2024-11-14] MEDS: NORVASC 10 MG PO (09:14)
[2024-11-14 10:21] LABS: Blood Urea Nitrogen 21 mg/dl (9-20); Calcium 9.3 mg/dl (8.4-10.2); Carbon Dioxide 27 mmol/L (22-30); Chloride 98 mmol/L (98-107); Estimated Creatinine Clearance 99 ml/min; Glucose 202 mg/dl (70-99); Potassium 5.1 mmol/L (3.5-5.1); Sodium 135 mmol/L (135-145); eGFR > 60.00
[2024-11-14 11:43] LABS: Glucose - Point of Care 160 mg/dl (70-99)
--- NOTE | 2024-11-14 14:06 | CM ---
entered order for discharge.
Anjali Sweeney spoke with pt .
Pt declined inpatient [facility] rehab at [place].
Pt said he will be going home at discharge to find a place to live.
He is staying with his sister.
He said he will follow up with [facility].
As per Patel Alba provided information for pt to receive care at [facility] when pt ready.
PLAN :Home with [facility] resources
[2024-11-14 14:09] VITALS: BP 152/96
--- NOTE | 2024-11-14 14:51 | W.DCSUMMARY ---
Discharge Summary
Discharge Data
Date of Admission: 11/11/24
Date of Discharge: 11/14/24
-
Pending Results: No
Hospital Course
Discharging Physician : Dr. David Bingham, Dr. Blake Jackson
Disposition : SNF
Primary care physician : Dr. Shelbie Mejia
Principal Discharge diagnosis : RANCHO, Decreased Urine Output, HFpEF, Leukocytosis
Chronic Discharge diagnosis : Polysubstance use disorder, Alcohol Use Disorder, Anxiety Disorder, Paroxysmal Afib, Essential Hypertension, T2DM, peripheral neuropathy, GERD, CARRIE, chronic lymphedema, BPH, post thrombotic syndrome
Hospital Course :
59 year old male presenting with weakness and decreased urine output 2 days after prior admission for acute heart failure exacerbation
#RANCHO
#Decreased Urine Output
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
- decreased urine output
- UA bland; no signs of UTI, hematuria, proteinuria
- IVF were given, nephrotoxic medications were held
- Creatinine normalized to 1.2 with patient making urine
#Alcohol Use Disorder
#Polysubstance use disorder
#H/o DTs
- Not in acute withdrawal on admission
- Utox positive for Barbiturates (was on Phenobarb taper last admission)
- Pt communicated with [facility] to set up care as outpatient with [facility]
#Anxiety Disorder
- reports sx of anxiety and racing thoughts, vital signs are stable, suspicion for agitation 2/2 withdrawal was very low
- he was continued on Bupropion, Venlafaxine
- Instructions to follow up with PCP and psychiatry at [facility] if available
#HFpEF
- last Echo 10/21/2024 showing 5-70% EF, mod. LVH
- ProBNP on admission 55
- Toprol XL was continued
- Spironolactone was held
- cardiology was consulted -- recommending continue to hold Spironolactone on discharge, reduce Bumex to 1mg QD and follow up as outpatient for further medication titration
#Paroxysmal Afib, s/p ablation in 2011
- Xarelto 20mg qAM was continued during admission. he had no abnormal rhythms during his stay
#Essential Hypertension
- sees Dr. [facility] for management of hypertension. His candesartan was held on admission due to RANCHO. It was still held on discharge until follow up with cardiology/nephrology.
#Leukocytosis
- WBCs 11.4 on admission, no clear source, UA clean, no fever or systemic sx. repeat WBC wnl.
#T2DM - metformin held due to RANCHO. Managed with [facility]. Metformin restarted on d/c
#Peripheral Neuropathy - secondary to h/o surgical repair of infected sacral wound resulting in LLE nerve pain - continued on gabapentin
#GERD - GI ppx with pepcid
#CARRIE - continued on home CPAP, home setting 17
#Chronic Lymphedema
#BPH - continued on doxazosin
#Post thrombotic syndrome - LLE swelling/discoloration, stable
Important imaging findings :
CR Chest - 2 Views (11/11/2024):
1. Normal heart size without radiographic evidence for acute pulmonary edema.
2. Mild to moderate elevation of the anterior right hemidiaphragm.
Procedure findings :
None.
Discharge Plan
-
Patient Disposition: Home (Routine Discharge)
Discharge Diagnosis/Procedures: RANCHO
Condition: Good
Diet: 2 Gram Sodium and Restrict fluids to 64 oz
Activity: No restrictions
Driving Restrictions: As prior to admission
Specialty Instructions: Weigh Daily- Call MD for wt gain/loss 3 lbs overnight/5 lbs in 1 week
Referrals:
Samuel Cueva MD [Active] - 11/20/24 10:40 am (You have an appt to see Dr. Cueva's physician assistant in nursing, Melissa, at the [facility] office on 11/20/24 at 10:40 AM. Please call [phone] if you need to reschedule.)
Shelbie Mejia MD [Family Provider] -
Additional Discharge Medication Instructions: -STOP taking spironolactone 25 mg daily for now
-STOP taking candesartan 16 mg daily for now, but it might be restarted in the future
-Decrease Bumex (bumetanide) to 1 mg once a day plus an extra 1 mg a day as needed for weight gain
Prescriptions:
New
bumetanide 1 mg Tablet
1 mg PO DAILY 30 Days Qty: 30 0RF
Continued
doxazosin 4 MG tablet
4 mg PO DAILY
Xarelto 20 MG tablet
20 mg PO DAILY
gabapentin [Neurontin] 600 MG tablet
600 mg PO TID
metformin 500 MG tablet extended release 24 hr
2,000 mg PO DAILY
Rx Instructions:
pt takes all 4 ablets at once in morning
venlafaxine [Effexor XR] 150 mg Capsule,Extended Release 24hr
375 mg PO DAILY
Rx Instructions:
Patient been taking 150mg TID, seen by Psych and decreased dose to 375mg due to BP concern; agreed to decrease to 375mg daily
metoprolol succinate 100 mg tablet extended release 24 hr
150 mg PO BID
amlodipine 5 mg tablet
10 mg PO DAILY
Rx Instructions:
Pt stated he was on 10mg, but dr discharged him on 5mg, yet still taking 10mg daily
bupropion HCl 150 mg tablet extended release 24 hr
150 mg PO DAILY
Discontinued
spironolactone 25 mg tablet
25 mg PO DAILY
candesartan 16 mg tablet
16 mg PO DAILY
bumetanide 1 mg tablet
1 mg PO BID@0800,1600
Discharge Orders:
Discharge Patient (As Directed); Ordered 11/14/24
Ordered By: David Bingham
Discharge Date and Time
Discharge Date/Time: 11/14/24 14:43
Print Language: UKRAINIAN
== END 2024-11-14 14:43 | disposition home or self-care (01) | DRG 683 ==
LOC: 4 EAST ACU 13:08
PROVIDERS: Physician Assistant; ADMITTING PHYSICIAN Internal Medicine; CONSULT PHYSICIAN Internal Medicine Cardiovascular Disease; EMERGENCY PHYSICIAN Emergency Medicine; FAMILY PHYSICIAN Family Medicine
DX: N17.9 Acute kidney failure, unspecified (principal); I50.32 Chronic diastolic (congestive) heart failure; Z68.43 Body mass index [BMI] 50.0-59.9, adult; F10.10 Alcohol abuse, uncomplicated; F19.10 Other psychoactive substance abuse, uncomplicated; F41.9 Anxiety disorder, unspecified; I48.0 Paroxysmal atrial fibrillation; I11.0 Hypertensive heart disease with heart failure; E11.40 Type 2 diabetes mellitus with diabetic neuropathy, unspecified; K21.9 Gastro-esophageal reflux disease without esophagitis; G47.33 Obstructive sleep apnea (adult) (pediatric); I89.0 Lymphedema, not elsewhere classified; Z79.01 Long term (current) use of anticoagulants; E66.01 Morbid (severe) obesity due to excess calories
CPT/HCPCS: 71046; 80048; 80053; 80306; 81003; 82077; 82962; 83880; 84484; 85025; 85027; 93005; 94660; 99285

== ENCOUNTER 2025-03-01 19:07 | Inpatient (IN) | payer MEDICARE, SELFPAY ==
[2025-03-01] VITALS (9 sets, daily range): BP systolic 134–163; BP diastolic 61–96; BMI 47.8; BMI 53.6
[2025-03-01 13:02] LABS: Hematocrit 37.5 % (39.0-52.0); Hemoglobin 12.9 g/dL (13.0-18.0); Mean Corp Hgb Conc. 34.4 g/dL (33.0-37.0); Mean Corpuscular Volume 89.7 fL (80.0-94.0); Nucleated Red Blood Cells % 0 % (-); Platelet Count 265 10^3/uL (130-400); Red Cell Dist. Width 15.1 % (11.5-14.5)
[2025-03-01 13:21] LABS: ALT (SGPT) 36 U/L (0-50); AST (SGOT) 32 U/L (17-59); Albumin 3.9 g/dl (3.5-5.0); Alkaline Phosphatase 50 U/L (38-126); Blood Urea Nitrogen 18 mg/dl (9-20); Calcium 9.0 mg/dl (8.4-10.2); Carbon Dioxide 28 mmol/L (22-30); Chloride 100 mmol/L (98-107); Glucose 217 mg/dl (70-99); Potassium 5.1 mmol/L (3.5-5.1); Sodium 134 mmol/L (135-145); Total Protein 6.7 g/dl (6.3-8.2); eGFR > 60.00
[2025-03-01 13:27] LABS: Troponin I < 0.012 ng/ml
--- NOTE | 2025-03-01 15:14 | ED.GENMED ---
History of Present Illness
General
Chief Complaint: Breathing Problem
Source: patient
Time Seen by Provider: 03/01/25 14:34
History of Present Illness
History of Present Illness:
59-year-old male presents to the emergency room complaining of shortness of breath. Patient also noted a 12 pound weight gain over the past week. Patient checked himself into [facility] 10 days ago to detox from alcohol abuse.
Patient has a significant past medical history including congestive heart failure. He was concerned he may be developing heart failure again. However patient also tested positive for COVID. He endorses body aches, chills, mild cough. He has been
compliant with his medications. The nurse practitioner at [facility] increase his dose of Bumex from 1 mg to 2 mg couple days ago. He believes he has continued to gain weight however.
Past History
Past History
ED Past Medical History: Arrthythmia (afib on Xarelto), CVA, HTN, Hypercholesterolemia, NIDDM, Other (Fatty liver, GERD, history of A-fib, left foot drop, anxiety) and Other (sleep apnea/obesity/)
ED Past Surgical History: Cardiac and Tonsilectomy
Social History
Tobacco: Non-smoker
Alcohol: Binge drinker
Drug: Cocaine
Personal:
Living: with family
Employment: Employed
Family History
Family History: Other
Phy Exam
Physical Exam
Physical Exam:
General: Awake, Alert, Oriented X3. No respiratory distress. He does appear chronically ill. High BMI.
Vitals: unremarkable
Head: Atraumatic
Eyes: Pupils equal, EOMI
Throat: Airway intact, no exudates
Neck: Trachea midline
Lungs: Clear and equal b/l
Heart: Regular rate, no murmurs
Abd: Soft, Nontender, No pulsatile mass
Neuro: Nonfocal
Skin: Warm, dry, no rash
Extremities: pulses equal b/l, chronic venous stasis
Scores
Heart Failure Risk
Heart Failure Risk Score: Yes
History of Stroke or TIA: No
History of intubation for respiratory distress: No
Heart rate on ED arrival >/= 110: No
SaO2 <90% on arrival on room air: Yes
HR >/=110 during 3min walk test (or too ill to perform test): Yes
ECG has acute ischemic changes: No
Urea >/=12mmol/L (BUN 33.6mg/dL): No
Serum CO2>/=35mmol/L: No
Troponin I or T elevated to SD Level (0.4mg/dL): No
NT-proBNP >/=5,000ng/L (5,000pg/ml): No
HF Risk Score: 3
Admission Status: HIGH RISK 15.9% Consider SNF treatment or admission to hospital
Course
Orders/Labs/Results
Orders:
Orders
03/01/25 12:45
Electrocardiogram (*1) Urgent
Reason for Study: Other
Other Reason for Exam: Respiratory Distress
EKG- Treatment ONCE
CR Chest - 2 Views Urgent
Comment:
Reason For Exam: respiratory distress
03/01/25 12:53
Complete Blood Count/With Diff Urgent
Comprehensive Metabolic Panel Urgent
NT-proBNP Urgent
Troponin I Urgent
03/01/25 Dinner
Cholesterol Lowering
Cholesterol Lowering: Sodium, 2 Gram
03/01/25 15:13
Bumetanide [Bumex] 1 mg IV NOW STA
Lorazepam [Ativan] 1 mg PO NOW STA
03/01/25 15:47
Bumetanide [Bumex] 1 mg .ROUTE .STK-MED ONE
03/01/25 18:55
Admit/Transfer Patient As Directed
Co-Sign Provider:
Level of Care: Inpatient admission
Assign to:: Telemetry
Physician / Group: [email or web address]
Diagnosis: acute viral Covid , acute on chr HFpEF, dyspnea
Reason for Telemetry: Subacute Heart Failure
Date to Stop Telemetry: 03/03/25
Time to Stop Telemetry: 11:00
Reason for Hospitalization: acute viral Covid , acute on chr HFpEF, dyspnea
Expected length of stay greater than two midnights?: Yes
ELOS- Estimated Length of Stay in days: 5
I certify the patient meets the requirements for IP care: Yes
03/01/25 18:57
Code Status As Directed
Resuscitation Status: Full Code
03/01/25 22:20
Dextrose 50%-Water [Dextrose 50% Syringe] 12.5 grams IV [id number] PRN
Glucagon [GlucaGen] 1 mg IM PRN PRN
Metoprolol Xl [Toprol Xl] 150 mg PO BID
03/01/25 22:20
HF DIETARY CONSULT Routine
HF EDUCATOR CONSULT Routine
Comment:
Activity As Directed
Activity Level: With Assistance
Bedside Glucose Monitoring As Directed
Frequency: AC&HS
Additional Instructions:: Change to q6h if pt on TPN, tube feeding or not eating
Intake/ Output As Directed
Frequency: Per unit guidelines
Patient Education As Directed
Type: CHF folder
Comment: give on admission. Document in Interdisciplinary Education record
Sleep Apnea Assessment by RN As Directed
Comment:
Physician Instructions:
Vital Signs As Directed
Frequency: Other
Additional Instructions:: Q12 or per unit guidelines if more frequent.
Weight As Directed
Frequency: Daily
Type of Scale: Standing Scale
Comment: Daily morning weight. If unable to stand, use balanced bed scale.
Weight As Directed
Frequency: Once
Type of Scale: Standing Scale
Comment: Upon Admission. If unable to stand, use balanced bed scale.
Cpap [RESP] Routine
Patient to use own unit?: Yes
Instructions: HS
Pulse Ox/cont/shift [RESP] Routine
Quantity: 1
Special Instructions: Daily pulse oximetry at rest. If greater than 92% at rest also obtain pulse oximetry
while ambulating as tolerated.
03/02/25 06:00
Basic Metabolic Panel IN AM
Complete Blood Count/With Diff IN AM
Glycohemoglobin (HgbA1c) IN AM
Ctpwk-Ajuo-Xmbtfji IN AM
03/02/25 07:30
Insulin Aspart Corrective Low [Novolog Flexpen-Low Resistance] See Protocol SC AC
03/02/25 08:00
Amlodipine [Norvasc] 10 mg PO DAILY
Bumetanide [Bumex] 2 mg IV DAILY
Bupropion(24Hr)Extended Releas [WELLBUTRIN XL (24 hour extended release)] 150 mg PO DAILY
Doxazosin Mesylate [Cardura] 4 mg PO DAILY
Rivaroxaban [Xarelto] 20 mg PO DAILY
03/02/25 23:00
Gabapentin [Neurontin] 600 mg PO TID
03/03/25 06:00
Basic Metabolic Panel IN AM
03/03/25 11:00
DC Protocol for Telemetry ONCE
03/04/25 06:00
Basic Metabolic Panel IN AM
Abnormal Lab Results
03/01/25
12:53
RBC 4.18 L 10^6/uL
(4.70-6.10)
Hgb 12.9 L g/dL
(13.0-18.0)
Hct 37.5 L %
(39.0-52.0)
RDW 15.1 H %
(11.5-14.5)
Abs Immat Gran (auto) 0.1 H 10^3/uL
(0-0.05)
Absolute Neuts (auto) 8.2 H 10^3/uL
(1.4-6.5)
Absolute Lymphs (auto) 0.8 L 10^3/uL
(1.2-3.4)
Absolute Monos (auto) 0.9 H 10^3/uL
(0.1-0.6)
Immature Gran % 0.9 H %
(0-0.5)
Neutrophils % 79.7 H %
(42.2-75.2)
Lymphocytes % 7.4 L %
(20.5-51.1)
Sodium 134 L mmol/L
(135-145)
Glucose 217 H mg/dl
(70-99)
03/01/25 12:53
03/01/25 12:53
Vital Signs
Initial and Last Documented VS:
Initial Vital Signs
Temp Pulse Resp BP Pulse Ox
100.2 F 85 18 141/87 98
03/01/25 12:41 03/01/25 12:41 03/01/25 12:41 03/01/25 12:41 03/01/25 12:41
Last Documented Vital Signs
Temp Pulse Resp BP Pulse Ox
102.5 F H 106 18 156/96 96
03/01/25 22:33 03/01/25 22:33 03/01/25 22:33 03/01/25 22:33 03/01/25 22:33
MDM/Problems Addressed
Differential Diagnosis Includes:
CHF, COVID, anemia
MDM/Problems Addressed:
Patient presents with shortness of breath, fever, malaise. His dyspnea could be related to COVID however he gets quite short of breath with exertion. His chest x-ray does not show COVID changes to my interpretation. He does have a significant
history of heart failure and does have weight gain. We attempted to treat him as an outpatient by giving a dose of IV Bumex. He did diurese some but after a couple hours he continued to feel quite short of breath with minimal exertion prompting
the decision to hospitalize him.
Chronic conditions affecting care: HTN and Cardiomyopathy
*Radiology
Radiology exam reviewed: preliminary read by ED provider (No acute abnormality on my review of patient's chest x-ray)
*Pulse Oximetry
SaO2: 99
Oxygen Mode of Delivery: Room air
Patient hypoxic: no
Comment: Desaturates to 85 with minimal exertion
*EKG
Heart Rate: 83
Rate: normal
Rhythm: sinus
Kennan: normal axis
Interval: normal interval
QRS Pattern: normal QRS
Ischemia: no ischemia
*Pricing Analyst Interpretation
Rate: normal
Interpretation: normal
Rhythm: sinus
*Critical Care Note
Total Time (30-74mins, 75-104mins- exclusive of procedures): Not Applicable
Data Reviewed
Review of Other/Old Records Reveals: Testing (Echocardiogram) and Discharge Summary
ED Attending Note
-
Portions of this chart may have been created with voice recognition software.� Occasional wrong word or��sound alike� substitutions may have occurred due to the inherent limitations of voice recognition software.
Discharge Plan
Departure
Patient Disposition: Admit
Date of Disposition: 03/01/25
Time of Disposition: 18:06
Admit to: Med/Surg
Presentation/result/management discussed w/ accepting MD/DO: Hospitalist
Condition: Fair
Discharge Problem:
Breath shortness, CHF (congestive heart failure), COVID-19
Interventions
Interventions:
*Risk Screen - Suicide Last Done: 03/01/25 12:41
*General Assessment Last Done: 03/01/25 15:43
*Neglect/Abuse Screening Last Done: 03/01/25 12:41
*ED- Fall Risk Assessment Last Done: 03/01/25 15:43
*ED COVID-19 Vaccine History Last Done: 03/01/25 15:43
*Nursing Disposition Last Done: 03/01/25 22:19
ED- Cardiac Assessment Last Done: 03/01/25 15:43
ED- Pulmonary Assessment Last Done: 03/01/25 15:43
Discharge Date and Time
Discharge Date/Time: 03/01/25 22:20
[2025-03-01] MEDS: BUMEX 1 MG IV (15:45)
[2025-03-01] MEDS: ATIVAN 1 MG PO (15:45)
--- NOTE | 2025-03-01 18:28 | HPS.HSE ---
Family Physician
-
Family Physician: Shelbie Mejia MD
Chief Complaint
-
wt gain and sob
History of Present Illness
HPI�
59M Morbidly obese sent to ER from ETOH rehab @ [place] , Binge ETOH use disorder, HX chr HFpEF, Prx AF on Eliquis, HTN, T2DM, Lt foot drop , CARRIE seen at ER:
- checked himself into [place] [facility] 10 days ago to detox from alcohol abuse.
- noted a 12 pound weight gain over the past week.
- reports SoB shortness of breath.
- was concerned he may be developing heart failure again.
- He has been compliant with his medications.
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
Tested positive for COVID - endorses body aches, chills, mild cough.
Medical History
Past Medical History
Past Medical History: Reports Arrhythmia, CHF, GERD, HTN and NIDDM
Past Surgical History: Reports Other
Social History
Tobacco: Non-smoker
Alcohol: Chronic Alcoholic
Drug: Cocaine
Personal:
Family History
Family History: Not pertinent
Allergies / Home Medications
Allergies reflects when Allergies were last updated in [employer].
Home Medications with original date entered in [employer]
Allergy/Medication List:
Allergies
Allergy/AdvReac Type Severity Reaction Status Date / Time
furosemide Allergy itching, Verified 11/11/24 10:11
no rash
Penicillins Allergy Rash Verified 11/11/24 10:11
Sulfa (Sulfonamide Allergy Itching Verified 11/11/24 10:11
Antibiotics)
Home Medications
doxazosin 4 mg tablet 4 mg PO DAILY Urinary issue 10/19/11
gabapentin 600 mg tablet (Neurontin) 600 mg PO TID Neurological Condition 05/05/21
metformin 500 mg tablet,extended release 24 hr 2,000 mg PO DAILY Diabetes 05/05/21
rivaroxaban 20 mg tablet (Xarelto) 20 mg PO DAILY Blood clot prevention/tx 05/05/21
metoprolol succinate 100 mg tablet,extended release 24 hr 150 mg PO BID Blood Pressure 11/05/24
venlafaxine 150 mg capsule,extended release 24 hr (Effexor XR) 375 mg PO DAILY Mental Health/Anxiety 11/05/24
amlodipine 5 mg tablet 10 mg PO DAILY Blood Pressure 11/11/24
bumetanide 1 mg tablet 1 mg PO BID@0800,1600 Urinary Issue 11/11/24
bupropion HCl 150 mg 24 hr tablet, extended release 150 mg PO DAILY Mental Health/Anxiety 11/11/24
candesartan 16 mg tablet 16 mg PO DAILY Blood Pressure 11/11/24
spironolactone 25 mg tablet 25 mg PO DAILY Blood Pressure 11/11/24
Review of Systems
-
Constitutional: Reports Weight Gain
EENT: Reports No Symptoms
Respiratory: Reports Trouble Breathing
Cardiac: Reports No Symptoms
Abdomen/GI: Reports No Symptoms
: Reports No Symptoms
Musculoskeletal: Reports No Symptoms
Skin: Reports No Symptoms
Neurological: Reports No Symptoms
Endocrine: Reports No Symptoms
Hematologic/Lymphatic: Reports No Symptoms
Psych: Reports No Symptoms
Physical Exam
Vital Signs
Vital Signs
Temp Pulse Resp BP Pulse Ox
98.2 F 97 16 136/71 98
03/01/25 15:43 03/01/25 18:05 03/01/25 18:05 03/01/25 18:05 03/01/25 18:05
Physical Exam
General: Well Developed, Well Nourished, No Apparent Distress, Comfortable and Morbidly Obese
HEENT: NormoCephalic, Anicteric, Moist mucous membranes, Atraumatic, [place] Conjunctivae, Nose Appears Normal and Ears Appear Normal
Respiratory: Clear; No Wheezes, Rales or Rhonchi
Cardiac: S1/S2 and Regular Rhythm; No Tachycardia, Murmur or Rub
Breast: N/A
GI: Soft, Non Tender, Normal Bowel Sounds and Distended
Genito-urinary: Deferred by me
Musculoskeletal: No Clubbing, No Cyanosis and Other (BL LE Lymphedema)
Skin: Warm and Dry
Neuro: Awake, Alert and Oriented
Psych: Calm
Laboratory Results
-
03/01/25 12:53
03/01/25 12:53
Laboratory Results
Total Bilirubin 0.4 mg/dl (0.2-1.3) 03/01/25 12:53
AST 32 U/L (17-59) 03/01/25 12:53
ALT 36 U/L (0-50) 03/01/25 12:53
Alkaline Phosphatase 50 U/L (38-126) 03/01/25 12:53
Troponin I < 0.012 ng/ml 03/01/25 12:53
Data Reviewed
-
Diagnostic Radiology: Image Personally Visualized and interpreted
Medical Tests (Nuc Med, Echo, EKG etc): Report Reviewed by me
Lab Data: Labs Reviewed by me
Old Records: Reviewed
Impression/Plan
-
Vital Signs
Temp Pulse Resp BP Pulse Ox
98.2 F 97 16 136/71 98
03/01/25 15:43 03/01/25 18:05 03/01/25 18:05 03/01/25 18:05 03/01/25 18:05
11/14/24
06:00 03/01/25
15:43
Actual Weight 158.077 kg 138.346 kg (???)
11/11/24 11/12/24 11/14/24
10:59 05:45 09:07
Hgb 12.3 L
Creatinine 1.2
eGFR > 60.00
Troponin I
Ipw-E-Oifnswqrkuy Pept 54.9
03/01/25
12:53
Hgb 12.9 L
Creatinine 1.1
eGFR > 60.00
Troponin I < 0.012
Cxs-K-Trumqkiahxj Pept 305
10/21/24 TTE:
EF 65 to 70%, moderate concentric LVH (1.5 cm), normal RV size and function, no significant valve disease
Last hospitalist admission: Date of Admission: 11/05/24 - Date of Discharge: 11/09/24
DC DX;
Acute on chronic diastolic congestive heart failure.
Alcohol withdrawal.
Anxiety.
History of polysubstance abuse.
History of chronic lymphedema.
ASSESSMENT & PLAN
Acute viral Covid
POS Covid
NO significant Covid changes in CXR
- supportive care
- Hold off CPAP
Sleep apnea
- Hold off CPAP due while POS Covid
Volume overload
Chronic HFpEF flare
- EF 65% without significant valve disease by echo 10/21/24
- Prior admission to for acute HF 11/05/24 until 11/09/26
- IV Bumex 2mg daily
- Daily wt and IOs
- Trend Cr
- DCA acrd consult
Chronic lymphedema of bilateral lower extremities
- multifactorial due to his chronic venous insufficiency, and new onset acute heart failure
- continue Lasix twice daily
HX Binge ETOH abuse
- has been ETOH rehab at [place]
Essential hypertension
- Norvasc candesartan continued with hold parameters
Anxiety
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
BPH
- Doxazosin continued
Paroxysmal atrial fibrillation
- in NSR
- DRILL RUNNER HELPER Xarelto
- DRILL RUNNER HELPER metoprolol
Neuropathy
HX surgical repair of infected sacral wound resulting in LLE nerve pain -
- DRILL RUNNER HELPER gabapentin
T2DM
- ISS low
- Hold metformin
DVT ppx: Xarelto
Code: Full
IP TLM
[2025-03-01 22:23] LABS: Glucose - Point of Care 194 mg/dl (70-99)
[2025-03-01] MEDS: TYLENOL 650 MG PO (22:50)
[2025-03-01] MEDS: TOPROL XL 150 MG PO (22:50)
--- NOTE | 2025-03-01 22:50 | PTCARENOTE ---
Pt admitted to 2132 from ED. Ambulated from stretcher to bed with RW and standby assist. AAOx3, on RA pulse ox 96% , PRIDE. C/o feeling 'achy all over' temp 102.5, medicated with Tylenol. Call santillan within reach.
[2025-03-01] MEDS: NEURONTIN 600 MG PO (22:55)
[2025-03-02] VITALS (7 sets, daily range): BP systolic 101–144; BP diastolic 56–86; PULSE 79; BMI 53.5
[2025-03-02 08:08] LABS: Hematocrit 36.1 % (39.0-52.0); Hemoglobin 12.0 g/dL (13.0-18.0); Mean Corp Hgb Conc. 33.2 g/dL (33.0-37.0); Mean Corpuscular Volume 90.5 fL (80.0-94.0); Nucleated Red Blood Cells % 0 % (-); Platelet Count 257 10^3/uL (130-400); Red Cell Dist. Width 15.8 % (11.5-14.5)
--- NOTE | 2025-03-02 08:30 | W.PN.HOSP.TC ---
Today's Communication/Plan
-
see a/p
Assessment / Plan
Assessment / Plan
Physical Exam
General: No acute distress, appears relatively comfortable at this time Morbidly Obese
HEENT: NormoCephalic, Anicteric, Moist mucous membranes, Atraumatic, [address] Conjunctivae, Nose Appears Normal and Ears Appear Normal
Respiratory: Clear; No Wheezes, Rales or Rhonchi
Cardiac: S1/S2 and Regular Rhythm; No Tachycardia, Murmur or Rub
Breast: N/A
GI: Soft, Non Tender, bowel sounds present
Musculoskeletal: No Clubbing, No Cyanosis, +1 edema b/l LE
Skin: Warm and Dry
Neuro: AOx3 conversant coherent
Psych: Calm
59M morbid obesity hx ETOH use disorder HFpEF pAfib Eliquis HTN DM CARRIE here for Acute on Chronic HFpEF and COVID
Acute viral Covid
POS Covid
NO significant Covid changes in CXR
- supportive care
-monitor respiratory status
-no significant hypoxia noted
Sleep apnea
- cont own CPAP
Volume overload
Chronic HFpEF flare
- EF 65% without significant valve disease by echo 10/21/24
- Prior admission to for acute HF 11/05/24 until 11/09/26
- IV Bumex 2mg daily
- Daily wt and IOs
- Trend Cr
- Cardio consult appreciated
Chronic lymphedema of bilateral lower extremities
- multifactorial due to his chronic venous insufficiency, and new onset acute heart failure
- continue Lasix twice daily
HX Binge ETOH abuse
- has been ETOH rehab at [facility]
Essential hypertension
- Norvasc candesartan continued with hold parameters
Anxiety
- EDGE WORKER Bupropion, Effexor
BPH
- Doxazosin continued
Paroxysmal atrial fibrillation
- in NSR
- EDGE WORKER Xarelto
- EDGE WORKER metoprolol
Neuropathy
HX surgical repair of infected sacral wound resulting in LLE nerve pain -
- EDGE WORKER gabapentin
T2DM
- ISS low
- Hold metformin
Diarrhea possibly 2/2 COVID
-Imodium prn
DVT ppx: Xarelto
Code: Full
IP TLM
I spent a total of 50 minutes with the patient or on the floor. More than 50% of this time involved counseling and coordination of care.
Anticipated Discharge: 24 - 48 hours
Subjective/Interval History
-
Date of Service: March 02, 2025
Seen and examined at bedside in no acute distress resting comfortably in bed. Overall reports feeling significant improvement in symptoms though general malaise persists. VSS on room air. Patient also reports new onset diarrhea.
Objective Data
-
Labs:
Laboratory Results
03/02/25
07:14
WBC 9.2
Hgb 12.0 L
Hct 36.1 L
Plt Count 257
Sodium Pending
Potassium Pending
Chloride Pending
Carbon Dioxide Pending
BUN Pending
Creatinine Pending
Glucose Pending
Calcium Pending
Total Bilirubin Pending
AST Pending
ALT Pending
Alkaline Phosphatase Pending
Vital Signs:
Vital Signs
Temp Pulse Resp BP Pulse Ox
100.4 F H 86 16 144/86 93
03/02/25 07:42 03/02/25 07:42 03/02/25 07:42 03/02/25 07:42 03/02/25 07:42
I&O
03/01/25 03/02/25 03/03/25
06:59 06:59 06:59
Intake Total 240 / 240
Balance 240 / 240
[2025-03-02 08:39] LABS: ALT (SGPT) 33 U/L (0-50); AST (SGOT) 29 U/L (17-59); Albumin 3.6 g/dl (3.5-5.0); Alkaline Phosphatase 42 U/L (38-126); Blood Urea Nitrogen 20 mg/dl (9-20); Calcium 8.8 mg/dl (8.4-10.2); Carbon Dioxide 29 mmol/L (22-30); Chloride 97 mmol/L (98-107); Estimated Creatinine Clearance 94 ml/min; Glucose 174 mg/dl (70-99); Potassium 4.6 mmol/L (3.5-5.1); Sodium 132 mmol/L (135-145); Total Protein 6.5 g/dl (6.3-8.2); eGFR > 60.00
[2025-03-02] MEDS: EFFEXOR XR 375 MG PO (09:29)
[2025-03-02] MEDS: XARELTO 20 MG PO (09:29)
[2025-03-02] MEDS: TOPROL XL 150 MG PO ×2 (09:30→21:35)
[2025-03-02] MEDS: WELLBUTRIN XL (24 hour extended release) 150 MG PO (09:30)
[2025-03-02] MEDS: CARDURA 4 MG PO (09:31)
[2025-03-02] MEDS: NORVASC 10 MG PO (09:31)
[2025-03-02] MEDS: BUMEX 2 MG IV (09:31)
[2025-03-02] MEDS: TYLENOL 650 MG PO ×2 (09:34→22:30)
--- NOTE | 2025-03-02 09:38 | CON.CAR ---
Addendum entered and electronically signed by Sebastian Esparza DO 03/02/25 11:13:
I saw and examined the patient.
The Box Office Manager's note was reviewed and I agree with the note.
Comment:
Plan:
Cont IV diuresis wiht Bumex.
Wt is up over lbs since admit in November 2024.
Monitor daily wts, cr and Is and Os.
No need to repeat echo at this time. Recent echo with preserved EF
Cont Toprol and Xarelto. Remains in sinus
Discussed with nursing.
HPI: Patient came to the ER yesterday with increased SOB and was admitted with COVID and also acute HF, cardiology is now consulted. Patient had a series of admissions in the spring for polysubstance withdrawal and acute HF. His last admission was
from 11/11/2024 until 11/14/2024. Patient states in that time he was overall doing well, this is evidenced by his successful outpatient visit on 11/20/2024. Then more recently he had increasing EtOH use disorder problems and checked himself into rehab
about 10 days ago. Patient says that he is eating and drinking more now that he is in rehab and taking better care of himself. He also reports increased salt intake due to the food they are serving at rehab. He noticed his weight went up 12
pounds in the 10 days that he has been at rehab and he is also been more SOB. There was also another patient at the clinic who tested positive for COVID and was not quarantined and on the day of admission the patient started with aches and tested
positive at the health clinic. Patient came to the ER with increasing SOB and was admitted with acute HF and also COVID. Overall sounds like COVID symptoms are fairly mild and CXR did not suggest typical COVID PNA findings. proBNP was 305 which
is moderately elevated for him, his levels have never been greater than 800 likely due to his BMI in the 50s. Patient reports symptomatic proved meant with Bumex 2 mg IV daily since admission. Patient also has known history of paroxysmal A-fib and
appears to be in sinus.
Original Note:
Consultation
Consultation Request
Date/Time Consultation Requested: 03/01/2025 at 2304
Date/Time Consultation Performed: 03/02/2025 at 0939
Requesting Provider: Dr. Russell
Performing Provider: Dr. Decker
Reason for Consultation: Acute HF
Medical History
-
History of Present Illness:
Patient came to the ER yesterday with increased SOB and was admitted with COVID and also acute HF, cardiology is now consulted. Patient had a series of admissions in the spring for polysubstance withdrawal and acute HF. His last admission was from
11/11/2024 until 11/14/2024. Patient states in that time he was overall doing well, this is evidenced by his successful outpatient visit on 11/20/2024. Then more recently he had increasing EtOH use disorder problems and checked himself into rehab about
10 days ago. Patient says that he is eating and drinking more now that he is in rehab and taking better care of himself. He also reports increased salt intake due to the food they are serving at rehab. He noticed his weight went up 12 pounds in
the 10 days that he has been at rehab and he is also been more SOB. There was also another patient at the clinic who tested positive for COVID and was not quarantined and on the day of admission the patient started with aches and tested positive at
the health clinic. Patient came to the ER with increasing SOB and was admitted with acute HF and also COVID. Overall sounds like COVID symptoms are fairly mild and CXR did not suggest typical COVID PNA findings. proBNP was 305 which is moderately
elevated for him, his levels have never been greater than 800 likely due to his BMI in the 50s. Patient reports symptomatic proved meant with Bumex 2 mg IV daily since admission. Patient also has known history of paroxysmal A-fib and appears to be
in sinus.
PMH:
Chronic HFpEF
Recent admission for RANCHO 11/11/24 until 11/14/24
Recent admission for acute HF 11/05/24 until 11/09/24
Recent admission polysubstance abuse/withdrawal, acute HF 10/20/24 until 11/01/24
EF 65% without significant valve disease by echo 10/21/24
ETOH use disorder
Entered [facility] EtOH use disorder program 02/19/2025
h/o drug use including smoking crack cocaine
HTN
Paroxysmal A-fib
Chronic Xarelto OAC
Chronic hypercarbic respiratory failure, CARRIE/obesity hypoventilation syndrome
DM2
Obese, BMI 53
Past Medical History
Past Medical History: Other
Past Surgical History: Cardiac (PVI )
Social History
Tobacco: Non-Smoker
Alcohol: Daily (fifth of vodka, sometimes beer too)
Drug: Cocaine (Previous cocaine use, nothing recent)
Personal: Single
Living: Alone
Family History
Family History: CAD
Allergies / Home Medications
Allergy/AdvReac Type Severity Reaction Status Date / Time
furosemide Allergy itching, Verified 03/01/25 12:41
no rash
Penicillins Allergy Rash Verified 03/01/25 12:41
Sulfa (Sulfonamide Allergy Itching Verified 03/01/25 12:41
Antibiotics)
�Medication �Instructions �Recorded �Confirmed �Type
doxazosin 4 mg tablet 4 mg PO DAILY Urinary issue 10/19/11 03/01/25 History
gabapentin 600 mg tablet 600 mg PO TID Neurological 05/05/21 03/01/25 History
(Neurontin) Condition
metformin 500 mg tablet,extended 2,000 mg PO DAILY Diabetes 05/05/21 03/01/25 History
release 24 hr
rivaroxaban 20 mg tablet (Xarelto) 20 mg PO DAILY Blood clot 05/05/21 03/01/25 History
prevention/tx
metoprolol succinate 100 mg 150 mg PO BID Blood Pressure 11/05/24 03/01/25 History
tablet,extended release 24 hr
venlafaxine 150 mg 375 mg PO DAILY Mental 11/05/24 03/01/25 History
capsule,extended release 24 hr Health/Anxiety
(Effexor XR)
amlodipine 5 mg tablet 10 mg PO DAILY Blood Pressure 11/11/24 03/01/25 History
bupropion HCl 150 mg 24 hr tablet, 150 mg PO DAILY Mental 11/11/24 03/01/25 History
extended release Health/Anxiety
bumetanide 1 mg tablet 1 mg PO DAILY Heart Failure 30 11/13/24 03/01/25 Rx
days #30 tabs
Review of Systems
-
History Source: Patient
All other systems: Negative unless noted
Physical Exam
Vital Signs
Temp Pulse Resp BP Pulse Ox
100.4 F H 86 16 144/86 93
03/02/25 07:42 03/02/25 09:30 03/02/25 07:42 03/02/25 09:30 03/02/25 07:42
GEN: NAD
HEENT: MMM
LUNGS: CPAP. No audible wheeze
CV: SR on tele. Reg. No murmur
ABD: Obese
EXT: +1-2 B/L LE edema
NEURO: No focal or lateralizing weakness
SKIN: Warm, dry and pink. No rash
Lab Results
03/02/25 07:14
03/02/25 07:14
Troponin I < 0.012 ng/ml 03/01/25 12:53
Hpx-C-Kamykemmumy Pept 305 pg/ml 03/01/25 12:53
Impression / Plan
-
PCP: Dr. Shelbie Mejia
Card: Previously has seen several cardiologists including:
Dr. Santos, [facility]
Dr. Souza, but not seeing any longer
First seen here by Dr. Akiko Kapadia
Impression:
Admitted with COVID and acute HF 03/01/2025
[facility]
Acute on chronic HFpEF
Recent admission for RANCHO 11/11/24 until 11/14/24
Recent admission for acute HF 11/05/24 until 11/09/24
Recent admission polysubstance abuse/withdrawal, acute HF 10/20/24 until 11/01/24
EF 65% without significant valve disease by echo 10/21/24
ETOH use disorder
Entered [facility] EtOH use disorder program 02/19/2025
h/o drug use including smoking crack cocaine
HTN
Paroxysmal A-fib
Chronic Xarelto OAC
Chronic hypercarbic respiratory failure, CARRIE/obesity hypoventilation syndrome
DM2
Obese, BMI 53
Echo 10/21/24: EF 65 to 70%, moderate concentric LVH (1.5 cm), normal RV size and function, no significant valve disease
Plan:
-Patient came to the ER yesterday with increased SOB and was admitted with COVID and also acute HF, cardiology is now consulted. Patient had a series of admissions in the spring for polysubstance withdrawal and acute HF. His last admission was
from 11/11/2024 until 11/14/2024. Patient states in that time he was overall doing well, this is evidenced by his successful outpatient visit on 11/20/2024. Then more recently he had increasing EtOH use disorder problems and checked himself into rehab
about 10 days ago. Patient says that he is eating and drinking more now that he is in rehab and taking better care of himself. He also reports increased salt intake due to the food they are serving at rehab. He noticed his weight went up 12
pounds in the 10 days that he has been at rehab and he is also been more SOB. There was also another patient at the clinic who tested positive for COVID and was not quarantined and on the day of admission the patient started with aches and tested
positive at the health clinic. Patient came to the ER with increasing SOB and was admitted with acute HF and also COVID. Overall sounds like COVID symptoms are fairly mild and CXR did not suggest typical COVID PNA findings. proBNP was 305 which
is moderately elevated for him, his levels have never been greater than 800 likely due to his BMI in the 50s. Patient reports symptomatic proved meant with Bumex 2 mg IV daily since admission. Patient also has known history of paroxysmal A-fib and
appears to be in sinus.
-ECG reviewed by me is SR without acute ST changes
-Patient with evidence of acute HFpEF, his dry weight at last discharge was 348 lbs on 11/14/2024 and is now up to 362 lbs on 03/02/2025.
-Continue Bumex 2 mg IV daily. Patient reports he was compliant with his usual dose of Bumex 1 mg PO daily prior to admission
-No need to repeat echo, EF was 65 to 70% on 10/21/2024
-Patient was previously taking spironolactone 25 mg daily, but it was placed on hold during his last admission 10/2024 due to RANCHO and was not restarted as patient cannot complete outpatient labs reliably.
-Previous dose of candesartan was also stopped due to RANCHO and inability to complete outpatient labs.
-Patient has not been started on SGLT-2 inhibitor due to insurance coverage issues.
-Outpatient dose of Toprol XL 150 mg BID has been continued
-Patient with known h/o pAfib. Patient in SR on admission.
-Outpatient dose of Xarelto 20 mg daily has been continued.
-Toprol-XL as noted above
-Outpatient dose of amlodipine 10 mg daily continued
-Outpatient dose of doxazosin 4 mg daily continued
[2025-03-02 09:41] LABS: Glucose - Point of Care 226 mg/dl (70-99)
[2025-03-02 10:11] LABS: Glycohemoglobin (HgbA1c) 7.9 % (4.0-5.6)
[2025-03-02] MEDS: NOVOLOG FLEXPEN-LOW RESISTANCE 2 UNITS SC ×2 (10:18→16:58)
[2025-03-02 11:41] LABS: Glucose - Point of Care 198 mg/dl (70-99)
[2025-03-02] MEDS: NOVOLOG FLEXPEN-LOW RESISTANCE 1 UNITS SC (12:11)
--- NOTE | 2025-03-02 14:41 | CM ---
Reviewed the chart notes and spoke with the patient at the bedside. The patient currently with no permanent address. Patient was in a recovery house in [place], but was evicted due to drinking. Patient comes in this hospitalization from [facility] where he is in recovery program. Per patient he will return their upon discharge. Per patient they will provide transportation. The patient reports to having a rolling walker and CPAP. Patient reports having had [facility] in past, but
no SNF. Patient confirmed his pharmacy of choice is [facility]. CM continues to be available to patient/family and is monitoring medical plan for needs at discharge.
Plan: Discharge back to [facility] when medically stable.
[2025-03-02 16:57] LABS: Glucose - Point of Care 222 mg/dl (70-99)
[2025-03-02 21:15] LABS: Glucose - Point of Care 256 mg/dl (70-99)
[2025-03-02] MEDS: NEURONTIN 600 MG PO (22:25)
[2025-03-02] MEDS: IMODIUM 2 MG PO (22:25)
[2025-03-03 03:16] VITALS: BP 123/55
[2025-03-03 05:34] VITALS: BMI 52.6
[2025-03-03 07:35] VITALS: BP 114/62
[2025-03-03 07:39] LABS: Hematocrit 36.3 % (39.0-52.0); Hemoglobin 12.3 g/dL (13.0-18.0); Mean Corp Hgb Conc. 33.9 g/dL (33.0-37.0); Mean Corpuscular Volume 90.1 fL (80.0-94.0); Platelet Count 271 10^3/uL (130-400); Red Cell Dist. Width 15.5 % (11.5-14.5)
[2025-03-03 07:59] LABS: Blood Urea Nitrogen 19 mg/dl (9-20); Calcium 8.9 mg/dl (8.4-10.2); Carbon Dioxide 31 mmol/L (22-30); Chloride 98 mmol/L (98-107); Estimated Creatinine Clearance 100 ml/min; Glucose 186 mg/dl (70-99); Magnesium 1.6 mg/dl (1.6-2.3); Potassium 4.6 mmol/L (3.5-5.1); Sodium 134 mmol/L (135-145); eGFR > 60.00
[2025-03-03 08:15] LABS: Glucose - Point of Care 175 mg/dl (70-99)
[2025-03-03] MEDS: NEURONTIN 600 MG PO ×3 (08:17→22:21)
[2025-03-03] MEDS: EFFEXOR XR 375 MG PO (08:17)
[2025-03-03] MEDS: CARDURA 4 MG PO (08:18)
[2025-03-03] MEDS: WELLBUTRIN XL (24 hour extended release) 150 MG PO (08:18)
[2025-03-03] MEDS: XARELTO 20 MG PO (08:18)
[2025-03-03] MEDS: NORVASC 10 MG PO (08:20)
[2025-03-03] MEDS: TOPROL XL 150 MG PO ×2 (08:20→22:21)
[2025-03-03] MEDS: NOVOLOG FLEXPEN-LOW RESISTANCE 1 UNITS SC ×2 (08:24→16:17)
--- NOTE | 2025-03-03 08:32 | W.PN.CARDCBS ---
Today's Communication / Plan
-
Cont IV diuresis
Impression / Plan
-
PCP: Dr. Shelbie Mejia
Card: Previously has seen several cardiologists including:
Dr. Santos, [facility] cardiology
Dr. Souza, but not seeing any longer
First seen here by Dr. Akiko Kapadia
Impression:
Admitted with COVID and acute HF 03/01/2025
Tested positive for COVID at [facility] rehab center on 03/01/2025
Acute on chronic HFpEF
Recent admission for RANCHO 11/11/24 until 11/14/24
Recent admission for acute HF 11/05/24 until 11/09/24
Recent admission polysubstance abuse/withdrawal, acute HF 10/20/24 until 11/01/24
EF 65% without significant valve disease by echo 10/21/24
ETOH use disorder
Entered [facility] EtOH use disorder program 02/19/2025
h/o drug use including smoking crack cocaine
HTN
Paroxysmal A-fib
Chronic Xarelto OAC
Chronic hypercarbic respiratory failure, CARRIE/obesity hypoventilation syndrome
DM2
Obese, BMI 53
Echo 10/21/24: EF 65 to 70%, moderate concentric LVH (1.5 cm), normal RV size and function, no significant valve disease
Plan:
Cont IV diuresis with Bumex.
Wt down 2L, possibly 7 lbs if wt accurate
Admit wt was up over 10 lbs since admit in November 2024.
Cont to monitor daily wts, cr and Is and Os.
No need to repeat echo at this time. Recent echo with preserved EF
Cont Toprol and Xarelto. Remains in sinus
Outpatient dose of amlodipine 10 mg daily continued
Outpatient dose of doxazosin 4 mg daily continued
Discussed with nursing.
HPI: Patient came to the ER yesterday with increased SOB and was admitted with COVID and also acute HF, cardiology is now consulted. Patient had a series of admissions in the spring for polysubstance withdrawal and acute HF. His last admission was
from 11/11/2024 until 11/14/2024. Patient states in that time he was overall doing well, this is evidenced by his successful outpatient visit on 11/20/2024. Then more recently he had increasing EtOH use disorder problems and checked himself into rehab
about 10 days ago. Patient says that he is eating and drinking more now that he is in rehab and taking better care of himself. He also reports increased salt intake due to the food they are serving at rehab. He noticed his weight went up 12
pounds in the 10 days that he has been at rehab and he is also been more SOB. There was also another patient at the clinic who tested positive for COVID and was not quarantined and on the day of admission the patient started with aches and tested
positive at the health clinic. Patient came to the ER with increasing SOB and was admitted with acute HF and also COVID. Overall sounds like COVID symptoms are fairly mild and CXR did not suggest typical COVID PNA findings. proBNP was 305 which
is moderately elevated for him, his levels have never been greater than 800 likely due to his BMI in the 50s. Patient reports symptomatic proved meant with Bumex 2 mg IV daily since admission. Patient also has known history of paroxysmal A-fib and
appears to be in sinus.
-
Progress Note - Knobber
Subjective
Date of Service: March 03, 2025
Pt seen and examined. No complaints. No chest pain or shortness of breath.
Objective
Labs:
03/03/25 06:55
03/03/25 06:55
Labs
Hgb 12.3 g/dL (13.0-18.0) L 03/03/25 06:55
Hct 36.3 % (39.0-52.0) L 03/03/25 06:55
Plt Count 271 10^3/uL (130-400) 03/03/25 06:55
Sodium 134 mmol/L (135-145) L 03/03/25 06:55
Potassium 4.6 mmol/L (3.5-5.1) 03/03/25 06:55
BUN 19 mg/dl (9-20) 03/03/25 06:55
Creatinine 1.2 mg/dL (0.7-1.3) 03/03/25 06:55
Glucose 186 mg/dl (70-99) H 03/03/25 06:55
Troponins
03/01/25
12:53
Troponin I < 0.012
Vital Signs and I&O:
Vital Signs
Temp Pulse Resp BP Pulse Ox
98.8 F 70 18 114/62 98
03/03/25 07:35 03/03/25 07:35 03/03/25 07:35 03/03/25 07:35 03/03/25 07:35
Vital Signs
Temp Pulse Resp BP Pulse Ox
98.8 F 70 18 114/62 98
03/03/25 07:35 03/03/25 07:35 03/03/25 07:35 03/03/25 07:35 03/03/25 07:35
Intake & Output
03/01/25 03/02/25 03/03/25 03/04/25
06:59 06:59 06:59 06:59
Intake Total 240 / 240 1620 / 1620
Output Total 3700 / 3700
Balance 240 / 240 -2080 / -2080
Physical Exam
Physical Exam
General: No acute distress, AAOX3
Neck: Negative JVD
Heart: Regular, Negative S3 positive S1/S2, Negative S4, No murmur
Lungs: CTA b/l, negative wheezes/rales/rhonchi
Abd: Morbid obesity. Positive BS, NT/ND, neg rebound/rigidity/guarding
Ext: Negative cyanosis/clubbing/edema
Neuro: nonfocal
--- NOTE | 2025-03-03 08:57 | W.PN.HOSP.TC ---
Today's Communication/Plan
-
imodium prn
Mg supplementation
diuresis as per Cardio
maintain COVID precautions
Assessment / Plan
Assessment / Plan
Physical Exam
General: No acute distress, appears relatively comfortable at this time Morbidly Obese
HEENT: NormoCephalic, Anicteric, Moist mucous membranes, Atraumatic, [place] Conjunctivae, Nose Appears Normal and Ears Appear Normal
Respiratory: Clear; No Wheezes, Rales or Rhonchi
Cardiac: S1/S2 and Regular Rhythm; No Tachycardia, Murmur or Rub
Breast: N/A
GI: Soft, Non Tender, bowel sounds present
Musculoskeletal: No Clubbing, No Cyanosis, +1 edema b/l LE
Skin: Warm and Dry
Neuro: AOx3 conversant coherent
Psych: Calm
59M morbid obesity hx ETOH use disorder HFpEF pAfib Eliquis HTN DM CARRIE here for Acute on Chronic HFpEF and COVID
Acute viral Covid
POS Covid
NO significant Covid changes in CXR
- supportive care
-monitor respiratory status
-no significant hypoxia noted
Sleep apnea
- cont own CPAP
Volume overload
Chronic HFpEF flare
- EF 65% without significant valve disease by echo 10/21/24
- Prior admission to for acute HF 11/05/24 until 11/09/26
- IV Bumex 2mg daily
- Daily wt and IOs
- Trend Cr
- Cardio consult appreciated
Chronic lymphedema of bilateral lower extremities
- multifactorial due to his chronic venous insufficiency, and new onset acute heart failure
- continue Lasix twice daily
HX Binge ETOH abuse
- has been ETOH rehab at [facility]
Essential hypertension
- Norvasc candesartan continued with hold parameters
Anxiety
- FIELD SALES SPECIALIST Bupropion, Effexor
BPH
- Doxazosin continued
Paroxysmal atrial fibrillation
- in NSR
- FIELD SALES SPECIALIST Xarelto
- FIELD SALES SPECIALIST metoprolol
Neuropathy
HX surgical repair of infected sacral wound resulting in LLE nerve pain -
- FIELD SALES SPECIALIST gabapentin
T2DM
- ISS low
- Hold metformin
Diarrhea possibly 2/2 COVID
-Imodium prn
Low normal Mg likely d/t diarrhea
-repleted
DVT ppx: Xarelto
Code: Full
IP TLM
I spent a total of 40 minutes with the patient or on the floor. More than 50% of this time involved counseling and coordination of care.
Anticipated Discharge: 24 - 48 hours
Subjective/Interval History
-
Date of Service: March 03, 2025
diarrhea improved with imodium.
Objective Data
-
Labs:
Laboratory Results
03/03/25
06:55
WBC 7.8
Hgb 12.3 L
Hct 36.3 L
Plt Count 271
Sodium 134 L
Potassium 4.6
Chloride 98
Carbon Dioxide 31 H
BUN 19
Creatinine 1.2
Glucose 186 H
Calcium 8.9
Vital Signs:
Vital Signs
Temp Pulse Resp BP Pulse Ox
98.8 F 70 18 114/62 98
03/03/25 07:35 03/03/25 08:20 03/03/25 07:35 03/03/25 08:20 03/03/25 08:33
I&O
03/02/25 03/03/25 03/04/25
06:59 06:59 06:59
Intake Total 240 / 240 1620 / 1620
Output Total 3700 / 3700
Balance 240 / 240 -2080 / -2080
[2025-03-03] MEDS: BUMEX 2 MG IV (09:03)
[2025-03-03] MEDS: IMODIUM 2 MG PO (09:15)
[2025-03-03] MEDS: MAGNESIUM SULFATE 50 IV (11:22)
[2025-03-03 11:29] LABS: Glucose - Point of Care 236 mg/dl (70-99)
[2025-03-03] MEDS: NOVOLOG FLEXPEN-LOW RESISTANCE 2 UNITS SC (11:33)
[2025-03-03 11:36] VITALS: BP 133/75
--- NOTE | 2025-03-03 14:42 | CM ---
Addendum entered by Anjelica Wagner RN 03/03/25 15:38:
IMM on chart.
Original Note:
Reviewed the chart notes. Continues on IV Bumex. CM continues to be available to patient/family and is monitoring medical plan for needs at discharge.
Plan: Discharge per patient's plans back to [facility] for continue substance abuse treatment.
[2025-03-03 15:40] VITALS: BP 108/75
[2025-03-03 15:57] LABS: Glucose - Point of Care 196 mg/dl (70-99)
[2025-03-03 19:40] VITALS: BP 100/79
[2025-03-03 21:36] LABS: Glucose - Point of Care 358 mg/dl (70-99)
[2025-03-03] MEDS: NOVOLOG FLEXPEN 5 UNITS SC (22:20)
[2025-03-03 23:30] VITALS: BP 121/69
[2025-03-04] VITALS (7 sets, daily range): BP systolic 119–139; BP diastolic 60–87; PULSE 79; BMI 52.5
--- NOTE | 2025-03-04 02:52 | DOWNTIME ---
There was a [employer] Client Touch Up Edger Downtime on 03/04/2025 from 0100 to 03/04/2025 at 0235. Downtime documentation of patient's care, including medication administrations, has been reconciled in the electronic record per guidelines. Refer to the
patient's paper chart under the miscellaneous tab to see printed paper medication records and downtime forms.
[2025-03-04 07:13] LABS: Hematocrit 39.1 % (39.0-52.0); Hemoglobin 13.2 g/dL (13.0-18.0); Mean Corp Hgb Conc. 33.8 g/dL (33.0-37.0); Mean Corpuscular Volume 89.1 fL (80.0-94.0); Platelet Count 303 10^3/uL (130-400); Red Cell Dist. Width 15.4 % (11.5-14.5)
[2025-03-04 07:50] LABS: Glucose - Point of Care 217 mg/dl (70-99)
[2025-03-04 07:52] LABS: Blood Urea Nitrogen 18 mg/dl (9-20); Calcium 9.1 mg/dl (8.4-10.2); Carbon Dioxide 29 mmol/L (22-30); Chloride 98 mmol/L (98-107); Estimated Creatinine Clearance 109 ml/min; Glucose 180 mg/dl (70-99); Magnesium 1.7 mg/dl (1.6-2.3); Potassium 4.4 mmol/L (3.5-5.1); Sodium 135 mmol/L (135-145); eGFR > 60.00
--- NOTE | 2025-03-04 07:56 | W.PN.HOSP.TC ---
Today's Communication/Plan
-
cont diuresis as per Cardio
Discharge planning
Assessment / Plan
Assessment / Plan
Physical Exam
General: No acute distress, appears relatively comfortable at this time Morbidly Obese
HEENT: NormoCephalic, Anicteric, Moist mucous membranes, Atraumatic, [place] Conjunctivae, Nose Appears Normal and Ears Appear Normal
Respiratory: Clear; No Wheezes, Rales or Rhonchi
Cardiac: S1/S2 and Regular Rhythm; No Tachycardia, Murmur or Rub
Breast: N/A
GI: Soft, Non Tender, bowel sounds present
Musculoskeletal: No Clubbing, No Cyanosis, +1 edema b/l LE
Skin: Warm and Dry
Neuro: AOx3 conversant coherent
Psych: Calm
59M morbid obesity hx ETOH use disorder HFpEF pAfib Eliquis HTN DM CARRIE here for Acute on Chronic HFpEF and COVID
Acute viral Covid
POS Covid
NO significant Covid changes in CXR
- reports onset of symptoms 02/28/25
- supportive care
-monitor respiratory status
-no significant hypoxia noted
Sleep apnea
- cont own CPAP
Volume overload
Chronic HFpEF flare
- EF 65% without significant valve disease by echo 10/21/24
- Prior admission to for acute HF 11/05/24 until 11/09/26
- IV Bumex 2mg daily
- Daily wt and IOs
- Trend Cr
- Cardio consult appreciated
Chronic lymphedema of bilateral lower extremities
- multifactorial due to his chronic venous insufficiency, and new onset acute heart failure
- continue Lasix twice daily
HX Binge ETOH abuse
- has been ETOH rehab at [facility]
Essential hypertension
- Norvasc candesartan continued with hold parameters
Anxiety
- INCOME TAX CONSULTANT Bupropion, Effexor
BPH
- Doxazosin continued
Paroxysmal atrial fibrillation
- in NSR
- INCOME TAX CONSULTANT Xarelto
- INCOME TAX CONSULTANT metoprolol
Neuropathy
HX surgical repair of infected sacral wound resulting in LLE nerve pain -
- INCOME TAX CONSULTANT gabapentin
T2DM
- ISS low
- Hold metformin
Diarrhea possibly 2/2 COVID
-Imodium prn
Low normal Mg likely d/t diarrhea
-repleted
DVT ppx: Xarelto
Code: Full
IP TLM
I spent a total of 40 minutes with the patient or on the floor. More than 50% of this time involved counseling and coordination of care.
Anticipated Discharge: Within 24 hours
Subjective/Interval History
-
Date of Service: March 04, 2025
no acute distress, overall reports feeling well. Diarrhea resolving. Denies new acute issues at this time.
Objective Data
-
Labs:
Laboratory Results
03/04/25
06:54
WBC 8.5
Hgb 13.2
Hct 39.1
Plt Count 303
Sodium 135
Potassium 4.4
Chloride 98
Carbon Dioxide 29
BUN 18
Creatinine 1.1
Glucose 180 H
Calcium 9.1
Vital Signs:
Vital Signs
Temp Pulse Resp BP Pulse Ox
98.8 F 73 18 139/87 97
03/04/25 03:25 03/04/25 03:25 03/04/25 03:25 03/04/25 03:25 03/04/25 03:25
I&O
03/03/25 03/04/25 03/05/25
06:59 06:59 06:59
Intake Total 1620 / 1620 2580 / 2580
Output Total 3700 / 3700 2875 / 2875
Balance -2080 / -2080 -295 / -295
[2025-03-04 08:13] LABS: Glucose - Point of Care 166 mg/dl (70-99)
[2025-03-04] MEDS: NOVOLOG FLEXPEN-LOW RESISTANCE 1 UNITS SC ×2 (09:14→16:21)
[2025-03-04] MEDS: BUMEX 2 MG IV (09:15)
[2025-03-04] MEDS: NORVASC 10 MG PO (09:15)
[2025-03-04] MEDS: EFFEXOR XR 375 MG PO (09:16)
[2025-03-04] MEDS: NEURONTIN 600 MG PO ×3 (09:16→21:48)
[2025-03-04] MEDS: TOPROL XL 150 MG PO ×2 (09:17→21:46)
[2025-03-04] MEDS: CARDURA 4 MG PO (09:17)
[2025-03-04] MEDS: WELLBUTRIN XL (24 hour extended release) 150 MG PO (09:17)
[2025-03-04] MEDS: XARELTO 20 MG PO (09:17)
--- NOTE | 2025-03-04 10:47 | W.PN.CARDCBS ---
Today's Communication / Plan
-
Cont IV diuresis with Bumex. Possible transition to oral diuretic next 24 hrs
Wt down possibly 8 lbs if wt accurate
Admit wt was up over 10 lbs since admit in November 2024.
Cont to monitor daily wts, cr and Is and Os.
No need to repeat echo at this time. Recent echo with preserved EF
Impression / Plan
-
.
PCP: Dr. Shelbie Mejia
Card: Previously has seen several cardiologists including:
Dr. Santos, [facility] cardiology
Dr. Souza, but not seeing any longer
First seen here by Dr. Akiko Kapadia
Impression:
Admitted with COVID and acute HF 03/01/2025
Tested positive for COVID at [facility] rehab center on 03/01/2025
Acute on chronic HFpEF
Recent admission for RANCHO 11/11/24 until 11/14/24
Recent admission for acute HF 11/05/24 until 11/09/24
Recent admission polysubstance abuse/withdrawal, acute HF 10/20/24 until 11/01/24
EF 65% without significant valve disease by echo 10/21/24
ETOH use disorder
Entered [place] EtOH use disorder program 02/19/2025
h/o drug use including smoking crack cocaine
HTN
Paroxysmal A-fib
Chronic Xarelto OAC
Chronic hypercarbic respiratory failure, CARRIE/obesity hypoventilation syndrome
DM2
Obese, BMI 53
Echo 10/21/24: EF 65 to 70%, moderate concentric LVH (1.5 cm), normal RV size and function, no significant valve disease
Plan:
Cont IV diuresis with Bumex. Possible transition to oral diuretic next 24 hrs
Wt down possibly 8 lbs if wt accurate
Admit wt was up over 10 lbs since admit in November 2024.
Cont to monitor daily wts, cr and Is and Os.
No need to repeat echo at this time. Recent echo with preserved EF
Cont Toprol and Xarelto. Remains in sinus
Outpatient dose of amlodipine 10 mg daily continued
Outpatient dose of doxazosin 4 mg daily continued
HPI: Patient came to the ER yesterday with increased SOB and was admitted with COVID and also acute HF, cardiology is now consulted. Patient had a series of admissions in the spring for polysubstance withdrawal and acute HF. His last admission was
from 11/11/2024 until 11/14/2024. Patient states in that time he was overall doing well, this is evidenced by his successful outpatient visit on 11/20/2024. Then more recently he had increasing EtOH use disorder problems and checked himself into rehab
about 10 days ago. Patient says that he is eating and drinking more now that he is in rehab and taking better care of himself. He also reports increased salt intake due to the food they are serving at rehab. He noticed his weight went up 12
pounds in the 10 days that he has been at rehab and he is also been more SOB. There was also another patient at the clinic who tested positive for COVID and was not quarantined and on the day of admission the patient started with aches and tested
positive at the health clinic. Patient came to the ER with increasing SOB and was admitted with acute HF and also COVID. Overall sounds like COVID symptoms are fairly mild and CXR did not suggest typical COVID PNA findings. proBNP was 305 which
is moderately elevated for him, his levels have never been greater than 800 likely due to his BMI in the 50s. Patient reports symptomatic proved meant with Bumex 2 mg IV daily since admission. Patient also has known history of paroxysmal A-fib and
appears to be in sinus.
-
Progress Note - Manager Of Recruiting
Subjective
Date of Service: March 04, 2025
Patient seen and examined. No chest pain or shortness of breath.
Objective
Labs:
03/04/25 06:54
03/04/25 06:54
Labs
Hgb 13.2 g/dL (13.0-18.0) 03/04/25 06:54
Hct 39.1 % (39.0-52.0) 03/04/25 06:54
Plt Count 303 10^3/uL (130-400) 03/04/25 06:54
Sodium 135 mmol/L (135-145) 03/04/25 06:54
Potassium 4.4 mmol/L (3.5-5.1) 03/04/25 06:54
BUN 18 mg/dl (9-20) 03/04/25 06:54
Creatinine 1.1 mg/dL (0.7-1.3) 03/04/25 06:54
Glucose 180 mg/dl (70-99) H 03/04/25 06:54
Troponins
03/01/25
12:53
Troponin I < 0.012
Vital Signs and I&O:
Vital Signs
Temp Pulse Resp BP Pulse Ox
98.5 F 68 18 133/60 98
03/04/25 07:16 03/04/25 09:17 03/04/25 07:16 03/04/25 09:17 03/04/25 10:00
Vital Signs
Temp Pulse Resp BP Pulse Ox
98.5 F 68 18 133/60 98
03/04/25 07:16 03/04/25 09:17 03/04/25 07:16 03/04/25 09:17 03/04/25 10:00
Intake & Output
03/02/25 03/03/25 03/04/25 03/05/25
06:59 06:59 06:59 06:59
Intake Total 240 / 240 1620 / 1620 2580 / 2580
Output Total 3700 / 3700 2875 / 2875
Balance 240 / 240 -2080 / -2080 -295 / -295
Physical Exam
Physical Exam
General: No acute distress, AAOX3
Neck: Negative JVD
Heart: Regular, Negative S3 positive S1/S2, Negative S4, No murmur
Lungs: CTA b/l, negative wheezes/rales/rhonchi
Abd: Morbid obesity positive BS, NT/ND, neg rebound/rigidity/guarding
Ext: Negative cyanosis/clubbing/edema
Neuro: nonfocal
[2025-03-04 12:42] LABS: Glucose - Point of Care 222 mg/dl (70-99)
[2025-03-04] MEDS: NOVOLOG FLEXPEN-LOW RESISTANCE 2 UNITS SC (12:44)
--- NOTE | 2025-03-04 14:27 | PN.CDI ---
CDI
- -
CDI:
Physician Documentation Request
Admit Date: 03/01/25 19:07
Dear Doctor Drew,
Patient admitted with acute viral COVID.
On admission, T max 102.5 and HR> 90.
Please clarify which of the following most accurately describes the status of the patient's infection:
Viral sepsis, POA
Acute viral COVID only
Other
Sepsis
- Systemic manifestations of infection, with 2 or more SIRS criteria which include:
- Fever >100.9 degrees F or hypothermia < 96.8 degrees F
- Leukocytosis - WBC > 12,000 or leukopenia - WBC < 4,000 or > 10% bands
- Tachycardia > 90 beats per minute
- Tachypnea - RR > 20 breaths per minute or PaCO2 , 32mmHg
Source: Merck Manual 2013
- Indicate the known or suspected organism
- Indicate the known or suspected underlying infection, such as viral COVID
Localized Infection Only, Without Systemic Illness
- indicate the site/source, such as viral COVID
Other
Use of terms such as suspected, likely, concern for, or probable (associated with a specific diagnosis that is being evaluated, monitored, or treated as if it exists) are acceptable and can be coded in the inpatient setting, when documented at the
time of discharge.
Thank you,
Shelbie MONTILLA,RN,CCDS
CDI Specialist
Available via [place] text
Please use your independent medical judgment in providing your response.
--- NOTE | 2025-03-04 14:49 | CM ---
Reviewed the chart notes. Continues on IV Bumex. CM continues to be available to patient/family and is monitoring medical plan for needs at discharge.
Plan: Discharge per patient's plans back to [facility] for continue substance abuse treatment.
[2025-03-04 16:13] LABS: Glucose - Point of Care 163 mg/dl (70-99)
[2025-03-04 21:03] LABS: Glucose - Point of Care 391 mg/dl (70-99)
[2025-03-04] MEDS: NOVOLOG FLEXPEN 5 UNITS SC (21:45)
[2025-03-05] VITALS (7 sets, daily range): BP systolic 102–154; BP diastolic 74–91; PULSE 78; BMI 52.5
[2025-03-05 00:26] LABS: Glucose - Point of Care 286 mg/dl (70-99)
[2025-03-05] MEDS: TUMS CHEWABLE TABLET 200 MG PO (01:11)
[2025-03-05 08:13] LABS: Glucose - Point of Care 300 mg/dl (70-99)
[2025-03-05 08:19] LABS: Blood Urea Nitrogen 16 mg/dl (9-20); Calcium 8.2 mg/dl (8.4-10.2); Carbon Dioxide 27 mmol/L (22-30); Chloride 99 mmol/L (98-107); Estimated Creatinine Clearance 109 ml/min; Glucose 319 mg/dl (70-99); Magnesium 1.7 mg/dl (1.6-2.3); Potassium 4.4 mmol/L (3.5-5.1); Sodium 133 mmol/L (135-145); eGFR > 60.00
[2025-03-05] MEDS: NOVOLOG FLEXPEN-LOW RESISTANCE 4 UNITS SC (08:38)
[2025-03-05] MEDS: BUMEX 2 MG IV ×2 (08:38→17:16)
[2025-03-05] MEDS: NEURONTIN 600 MG PO ×3 (08:40→21:28)
[2025-03-05] MEDS: EFFEXOR XR 375 MG PO (08:41)
[2025-03-05] MEDS: TOPROL XL 150 MG PO ×2 (08:42→21:28)
[2025-03-05] MEDS: CARDURA 4 MG PO (08:42)
[2025-03-05] MEDS: XARELTO 20 MG PO (08:43)
[2025-03-05] MEDS: WELLBUTRIN XL (24 hour extended release) 150 MG PO (08:43)
[2025-03-05] MEDS: NORVASC 10 MG PO (08:44)
--- NOTE | 2025-03-05 09:14 | W.PN.HOSP.TC ---
Addendum entered and electronically signed by Mike Russell MD 03/09/25 06:51:
On admission, T max 102.5 and HR> 90, viral sepsis 2/2 COVID POA
Original Note:
Today's Communication/Plan
-
cont diuresis as per cardio
COVID precautions as per Hospital Policy
Assessment / Plan
Assessment / Plan
Physical Exam
General: No acute distress, appears relatively comfortable at this time Morbidly Obese
HEENT: NormoCephalic, Anicteric, Moist mucous membranes, Atraumatic, [place] Conjunctivae, Nose Appears Normal and Ears Appear Normal
Respiratory: Clear; No Wheezes, Rales or Rhonchi
Cardiac: S1/S2 and Regular Rhythm; No Tachycardia, Murmur or Rub
Breast: N/A
GI: Soft, Non Tender, bowel sounds present
Musculoskeletal: No Clubbing, No Cyanosis, +1 edema b/l LE
Skin: Warm and Dry
Neuro: AOx3 conversant coherent
Psych: Calm
59M morbid obesity hx ETOH use disorder HFpEF pAfib Eliquis HTN DM CARRIE here for Acute on Chronic HFpEF and COVID
Acute viral Covid
POS Covid
NO significant Covid changes in CXR
- reports onset of symptoms 02/28/25, by hospital policy patient to remain in quarantine while in hospital 10 days from pos test (outpt test Sun 03/01 thru 03/10)
- supportive care
-monitor respiratory status
-no significant hypoxia noted
-reporting black sputum, denies blood, check sputum cx, quantify hemoptysis (though not clear if hemoptysis), no significant anemia
Sleep apnea
- cont own CPAP
Volume overload
Chronic HFpEF flare
- EF 65% without significant valve disease by echo 10/21/24
- Prior admission to for acute HF 11/05/24 until 11/09/26
- Daily wt and IOs
- Trend Cr
- Cardio consult appreciated diuresis increased to IV Bumex 2mg BID Metolazone 5 mg daily
Chronic lymphedema of bilateral lower extremities
- multifactorial due to his chronic venous insufficiency, and new onset acute heart failure
- continue Lasix twice daily
HX Binge ETOH abuse
- has been ETOH rehab at [place], would like to return on discharge
Essential hypertension
- Norvasc candesartan continued with hold parameters
Anxiety
- COLLABORATIVE PHYSICIAN Bupropion, Effexor
BPH
- Doxazosin continued
Paroxysmal atrial fibrillation
- in NSR
- COLLABORATIVE PHYSICIAN Xarelto
- COLLABORATIVE PHYSICIAN metoprolol
Neuropathy
HX surgical repair of infected sacral wound resulting in LLE nerve pain -
- COLLABORATIVE PHYSICIAN gabapentin
T2DM
- ISS low
- Hold metformin
Diarrhea possibly 2/2 COVID
-Imodium prn
Low normal Mg likely d/t diarrhea
-repleted
DVT ppx: Xarelto
Code: Full
IP TLM
I spent a total of 40 minutes with the patient or on the floor. More than 50% of this time involved counseling and coordination of care.
Anticipated Discharge: 24 - 48 hours
Subjective/Interval History
-
Date of Service: March 05, 2025
No acute distress, resting comfortably in bed. Overall reports feeling well, Diarrhea improved. reporting black sputum.
Objective Data
-
Labs:
Laboratory Results
03/05/25
06:37
Sodium 133 L
Potassium 4.4
Chloride 99
Carbon Dioxide 27
BUN 16
Creatinine 1.1
Glucose 319 H
Calcium 8.2 L
Vital Signs:
Vital Signs
Temp Pulse Resp BP Pulse Ox
98.0 F 66 18 124/77 98
03/05/25 07:40 03/05/25 07:40 03/05/25 07:40 08/21/25 07:40 03/05/25 07:40
I&O
03/04/25 03/05/25 03/06/25
06:59 06:59 06:59
Intake Total 2580 / 2580 1320 / 1320
Output Total 2875 / 2875 2500 / 2500
Balance -295 / -295 -1180 / -1180
--- NOTE | 2025-03-05 11:01 | W.PN.CARDCBS ---
Today's Communication / Plan
-
Remains volume overloaded. Continue Bumex 2 mg IV twice daily. Add Zaroxolyn 5 mg daily to help augment diuresis.
Continue Xarelto. Remains in sinus rhythm. Continue Toprol-XL.
Continue Norvasc and doxazosin.
Rec to avoid alcohol and work on weight loss.
Impression / Plan
-
.
PCP: Dr. Shelbie Mejia
Card: Previously has seen several cardiologists including:
Dr. Santos, [facility] cardiology
Dr. Souza, but not seeing any longer
First seen here by Dr. Akiko Kapadia
Impression:
Admitted with COVID and acute HF 03/01/2025
Tested positive for COVID at Et[facility] rehab center on 03/01/2025
Acute on chronic HFpEF
Recent admission for RANCHO 11/11/24 until 11/14/24
Recent admission for acute HF 11/05/24 until 11/09/24
Recent admission polysubstance abuse/withdrawal, acute HF 10/20/24 until 11/01/24
EF 65% without significant valve disease by echo 10/21/24
ETOH use disorder
Entered [place] EtOH use disorder program 02/19/2025
h/o drug use including smoking crack cocaine
HTN
Paroxysmal A-fib
Chronic Xarelto OAC
Chronic hypercarbic respiratory failure, CARRIE/obesity hypoventilation syndrome
DM2
Obese, BMI 53
Echo 10/21/24: EF 65 to 70%, moderate concentric LVH (1.5 cm), normal RV size and function, no significant valve disease
Plan:
Cont IV diuresis with Bumex. Will give dose of Zaroxolyn today 5 mg to help augment diuresis. Creatinine overall normal.
Exam difficult with elevated BMI.
Cont to monitor daily wts, cr and Is and Os.
No need to repeat echo at this time. Recent echo with preserved EF
Cont Toprol and Xarelto. Remains in sinus
Outpatient dose of amlodipine 10 mg daily continued
Outpatient dose of doxazosin 4 mg daily continued
HPI: Patient came to the ER yesterday with increased SOB and was admitted with COVID and also acute HF, cardiology is now consulted. Patient had a series of admissions in the spring for polysubstance withdrawal and acute HF. His last admission was
from 11/11/2024 until 11/14/2024. Patient states in that time he was overall doing well, this is evidenced by his successful outpatient visit on 11/20/2024. Then more recently he had increasing EtOH use disorder problems and checked himself into rehab
about 10 days ago. Patient says that he is eating and drinking more now that he is in rehab and taking better care of himself. He also reports increased salt intake due to the food they are serving at rehab. He noticed his weight went up 12
pounds in the 10 days that he has been at rehab and he is also been more SOB. There was also another patient at the clinic who tested positive for COVID and was not quarantined and on the day of admission the patient started with aches and tested
positive at the health clinic. Patient came to the ER with increasing SOB and was admitted with acute HF and also COVID. Overall sounds like COVID symptoms are fairly mild and CXR did not suggest typical COVID PNA findings. proBNP was 305 which
is moderately elevated for him, his levels have never been greater than 800 likely due to his BMI in the 50s. Patient reports symptomatic proved meant with Bumex 2 mg IV daily since admission. Patient also has known history of paroxysmal A-fib and
appears to be in sinus.
-
Progress Note - Testing Analyst
Subjective
Date of Service: March 05, 2025
Still with shortness of breath and feels bloated. Weight minimally changed. Denies chest pains.
Objective
Labs:
03/04/25 06:54
03/05/25 06:37
Labs
Hgb 13.2 g/dL (13.0-18.0) 03/04/25 06:54
Hct 39.1 % (39.0-52.0) 03/04/25 06:54
Plt Count 303 10^3/uL (130-400) 03/04/25 06:54
Sodium 133 mmol/L (135-145) L 03/05/25 06:37
Potassium 4.4 mmol/L (3.5-5.1) 03/05/25 06:37
BUN 16 mg/dl (9-20) 03/05/25 06:37
Creatinine 1.1 mg/dL (0.7-1.3) 03/05/25 06:37
Glucose 319 mg/dl (70-99) H 03/05/25 06:37
Vital Signs and I&O:
Vital Signs
Temp Pulse Resp BP Pulse Ox
98.0 F 66 18 124/77 96
03/05/25 07:40 03/05/25 07:40 03/05/25 07:40 03/05/25 07:40 03/05/25 07:41
Vital Signs
Temp Pulse Resp BP Pulse Ox
98.0 F 66 18 124/77 96
03/05/25 07:40 03/05/25 07:40 03/05/25 07:40 03/05/25 07:40 03/05/25 07:41
Intake & Output
03/03/25 03/04/25 03/05/25 03/06/25
06:59 06:59 06:59 06:59
Intake Total 1620 / 1620 2580 / 2580 1320 / 1320
Output Total 3700 / 3700 2875 / 2875 2500 / 2500
Balance -2080 / -2080 -295 / -295 -1180 / -1180
Physical Exam
Physical Exam
GEN: No distress, awake, Ox3
HEENT: supple, anicteric, mmm
LUNGS: bilat rhonchi
CV: Reg, S1/S2, 1/6 syst LSB, no murmur
ABD: soft, BS+, NT/ND
EXT: ++ edema
NEURO: Gross non-focal
SKIN: No rash
[2025-03-05 12:16] LABS: Glucose - Point of Care 222 mg/dl (70-99)
[2025-03-05] MEDS: NOVOLOG FLEXPEN-LOW RESISTANCE 3 UNITS SC ×2 (12:27→17:20)
--- NOTE | 2025-03-05 15:39 | CM ---
CM follwoing re: discharge planning.
Reviewed pt's chart.
Per CM note a plan is for pt to return [place] to [facility] inpatient D&A rehab. CM spoke to [facility] athletics director Liset [phone] and she confirmed that pt will be accepted back when medically stable.
She is aware that pt is COVID positive and per athletics director ppt must be free from COVID symptoms for 2-3 days. Requested pt's clinical faxed to [facility] inpatient D&A rehab at [phone].
Per [facility] inpatient D&A rehab athletics director they will [provide transportation tp bring the [pt to their facility when pt is medically stable.
D/C plan: return back to [facility] inpatient D&A rehab when medically stable.
[2025-03-05 17:15] LABS: Glucose - Point of Care 255 mg/dl (70-99)
[2025-03-05] MEDS: ZAROXOLYN 5 MG PO (17:15)
[2025-03-05] MEDS: LANTUS 0.1 UNITS SC (21:30)
[2025-03-05 21:39] LABS: Glucose - Point of Care 328 mg/dl (70-99)
[2025-03-05] MEDS: NOVOLOG FLEXPEN 5 UNITS SC (22:48)
[2025-03-06 03:33] VITALS: BP 115/72
[2025-03-06 06:00] VITALS: BMI 52.0
[2025-03-06 07:55] VITALS: BP 124/58
[2025-03-06 07:58] LABS: Blood Urea Nitrogen 19 mg/dl (9-20); Calcium 8.4 mg/dl (8.4-10.2); Carbon Dioxide 31 mmol/L (22-30); Chloride 96 mmol/L (98-107); Estimated Creatinine Clearance 100 ml/min; Glucose 183 mg/dl (70-99); Magnesium 1.6 mg/dl (1.6-2.3); Potassium 4.3 mmol/L (3.5-5.1); Sodium 134 mmol/L (135-145); eGFR > 60.00
[2025-03-06 08:00] LABS: Glucose - Point of Care 197 mg/dl (70-99)
[2025-03-06] MEDS: NOVOLOG FLEXPEN-MODERATE RESISTANCE 1 UNITS SC ×2 (08:56→16:36)
[2025-03-06] MEDS: BUMEX 2 MG IV ×2 (08:58→16:37)
[2025-03-06] MEDS: EFFEXOR XR 375 MG PO (08:58)
[2025-03-06] MEDS: WELLBUTRIN XL (24 hour extended release) 150 MG PO (08:59)
[2025-03-06] MEDS: NORVASC 10 MG PO (08:59)
[2025-03-06] MEDS: CARDURA 4 MG PO (08:59)
[2025-03-06] MEDS: ZAROXOLYN 5 MG PO (08:59)
[2025-03-06] MEDS: TOPROL XL 150 MG PO (09:00)
[2025-03-06] MEDS: NEURONTIN 600 MG PO ×2 (09:00→16:37)
[2025-03-06] MEDS: XARELTO 20 MG PO (09:00)
[2025-03-06] MEDS: MAGNESIUM SULFATE 102 GRAMS IV (09:01)
[2025-03-06] MEDS: GLUCOPHAGE XR EXTENDED RELEASE 1000 MG PO ×2 (09:02→16:54)
--- NOTE | 2025-03-06 10:38 | W.PN.CARDCBS ---
Today's Communication / Plan
-
He has diuresed well. Weight is down significantly. Will be stable for discharge from cardiology standpoint. Would use Bumex 2 mg daily with an extra 1 mg as needed for weight gain.
Creatinine stable at 1.2.
Continue Toprol and Xarelto. He remains in sinus rhythm.
Will arrange follow-up
Impression / Plan
-
.
PCP: Dr. Shelbie Mejia
Card: Previously has seen several cardiologists including:
Dr. Santos, [facility] cardiology
Dr. Souza, but not seeing any longer
First seen here by Dr. Akiko Kapadia
Impression:
Admitted with COVID and acute HF 03/01/2025
Tested positive for COVID at EtOH rehab center on 03/01/2025
Acute on chronic HFpEF
Recent admission for RANCHO 11/11/24 until 11/14/24
Recent admission for acute HF 11/05/24 until 11/09/24
Recent admission polysubstance abuse/withdrawal, acute HF 10/20/24 until 11/01/24
EF 65% without significant valve disease by echo 10/21/24
ETOH use disorder
Entered [place] EtOH use disorder program 02/19/2025
h/o drug use including smoking crack cocaine
HTN
Paroxysmal A-fib
Chronic Xarelto OAC
Chronic hypercarbic respiratory failure, CARRIE/obesity hypoventilation syndrome
DM2
Obese, BMI 53
Echo 10/21/24: EF 65 to 70%, moderate concentric LVH (1.5 cm), normal RV size and function, no significant valve disease
Plan:
Weight down another 3 pounds with IV Bumex and Zaroxolyn. From a cardiac standpoint he is stable for discharge. I will discharge him on Bumex 2 mg daily with an extra 1 mg for 2 to 3 pound weight gain. We talked about the importance of fluid
restriction and sodium reduction.
He states he has nowhere to live. If he remains in the hospital I will continue IV diuresis with IV Bumex and Zaroxolyn until he is discharged.
Cont to monitor daily wts, cr and Is and Os.
No need to repeat echo at this time. Recent echo with preserved EF
Cont Toprol and Xarelto. Remains in sinus
Outpatient dose of amlodipine 10 mg daily continued
Outpatient dose of doxazosin 4 mg daily continued
HPI: Patient came to the ER yesterday with increased SOB and was admitted with COVID and also acute HF, cardiology is now consulted. Patient had a series of admissions in the spring for polysubstance withdrawal and acute HF. His last admission was
from 11/11/2024 until 11/14/2024. Patient states in that time he was overall doing well, this is evidenced by his successful outpatient visit on 11/20/2024. Then more recently he had increasing EtOH use disorder problems and checked himself into rehab
about 10 days ago. Patient says that he is eating and drinking more now that he is in rehab and taking better care of himself. He also reports increased salt intake due to the food they are serving at rehab. He noticed his weight went up 12
pounds in the 10 days that he has been at rehab and he is also been more SOB. There was also another patient at the clinic who tested positive for COVID and was not quarantined and on the day of admission the patient started with aches and tested
positive at the health clinic. Patient came to the ER with increasing SOB and was admitted with acute HF and also COVID. Overall sounds like COVID symptoms are fairly mild and CXR did not suggest typical COVID PNA findings. proBNP was 305 which
is moderately elevated for him, his levels have never been greater than 800 likely due to his BMI in the 50s. Patient reports symptomatic proved meant with Bumex 2 mg IV daily since admission. Patient also has known history of paroxysmal A-fib and
appears to be in sinus.
-
Progress Note - Clinic Receptionist
Subjective
Date of Service: March 06, 2025
Breathing is improved and weight is down significantly. Denies chest pains.
Objective
Labs:
03/04/25 06:54
03/06/25 06:46
Labs
Hgb 13.2 g/dL (13.0-18.0) 03/04/25 06:54
Hct 39.1 % (39.0-52.0) 03/04/25 06:54
Plt Count 303 10^3/uL (130-400) 03/04/25 06:54
Sodium 134 mmol/L (135-145) L 03/06/25 06:46
Potassium 4.3 mmol/L (3.5-5.1) 03/06/25 06:46
BUN 19 mg/dl (9-20) 03/06/25 06:46
Creatinine 1.2 mg/dL (0.7-1.3) 03/06/25 06:46
Glucose 183 mg/dl (70-99) H 03/06/25 06:46
Vital Signs and I&O:
Vital Signs
Temp Pulse Resp BP Pulse Ox
98.4 F 66 16 124/58 97
03/06/25 07:55 03/06/25 09:00 03/06/25 07:55 03/06/25 09:00 03/06/25 09:51
Vital Signs
Temp Pulse Resp BP Pulse Ox
98.4 F 66 16 124/58 97
03/06/25 07:55 03/06/25 09:00 03/06/25 07:55 03/06/25 09:00 03/06/25 09:51
Intake & Output
03/04/25 03/05/25 03/06/25 03/07/25
06:59 06:59 06:59 06:59
Intake Total 2580 / 2580 1320 / 1320 1720 / 1720
Output Total 2875 / 2875 2500 / 2500 2625 / 2625
Balance -295 / -295 -1180 / -1180 -905 / -905
Physical Exam
Physical Exam
GEN: No distress, awake, Ox3
HEENT: supple, anicteric, mmm
LUNGS: CTA, no wheezes/rales
CV: Irreg, S1/S2, 1/6 syst LSB, no gallop
ABD: soft, BS+, NT/ND
EXT: +1 edema
NEURO: Gross non-focal
SKIN: No rash
[2025-03-06 11:36] VITALS: BP 96/48
[2025-03-06 11:40] LABS: Glucose - Point of Care 242 mg/dl (70-99)
--- NOTE | 2025-03-06 11:45 | PTCARENOTE ---
pt bp at 96/48, 63. No c/o at this time.Pt AAOx3. Dr Nolasco made aware. no new orders at this time. Plan of care ongoing.
--- NOTE | 2025-03-06 11:48 | CM ---
Addendum entered by Anjelica Wagner RN 03/06/25 16:25:
[facility] has accepted and will provide [facility] p/u around 6pm at [facility]. Patient, RN, and community coordinator informed.
Addendum entered by Anjelica Wagner RN 03/06/25 15:24:
CM called [facility] and spoke with admission discharge rn Heather ([phone]). Per Heather, need clinical information for medical and health services manager to review. Per Heather, never received clinical that was noted to be faxed yesterday. Faxed clinicals
to ([phone]). Per Heather, if accepted they will send an Uber to transport patient to facility.
Addendum entered by Anjelica Wagner RN 03/06/25 13:00:
IMM reviewed.
Original Note:
Reviewed the chart notes and spoke with the patient at the bedside. CM consult for christine check of SGL2 inhibitors. CM spoke with pharmacist at [facility]. Patient's prescription plan termed 01/2025. Patient confirmed this. CM continues to
be available to patient/family and is monitoring medical plan for needs at discharge.
Plan: Discharge to [facility] when medically stable and Covid symptom free.
[2025-03-06] MEDS: NOVOLOG FLEXPEN-MODERATE RESISTANCE 3 UNITS SC (11:55)
--- NOTE | 2025-03-06 13:29 | W.PN.HOSP.TC ---
Addendum entered and electronically signed by Junior Nolasco MD 03/06/25 16:58:
Dictation- [id number]
Original Note:
Today's Communication/Plan
-
OK for discharge to rehab
Assessment / Plan
Assessment / Plan
59-year-old male with heart failure and COVID
Echo 10/21/24: EF 65 to 70%, moderate concentric LVH (1.5 cm), normal RV size and function, no significant valve disease
Awake alert
Cardiovascular system S1-S2 appreciated
Chest clear to auscultation
Mild pedal edema scarring on the left leg
Right leg with chronic edema
# Acute on chronic HFpEF
Prior admission to for acute heart failure 11/05/2024 to 11/09/2024
Daily wt and IOs
Bumex 2mg daily with 1 mg extra as needed for weight gain, continue metolazone 5 mg daily as needed for discharge per discussion with cardiology
Cardiology following
# Covid 19 infection
No hypoxia documented
Symptoms started on 02/28/2025-continue isolation for 10 days through 03/10/2025
Supportive care-monitor for any respiratory compromise
# Paroxysmal atrial fibrillation-in sinus rhythm now. Continue metoprolol and Xarelto
# Diabetes-hemoglobin A1c 7.9
Continue Accu-Cheks and sliding scale coverage.
Restart Metformin, add glimepiride
On Lantus 10 U-stop
SGLT2 inhibitors--no prescription coverage is expensive
# Hypomagnesemia-replace IV and po starting tomorrow.
# Mild hyponatremia-continue diuresis
# Diarrhea-Resolved
# Chronic hypercarbic respiratory failure
# Chronic lymphedema lower extremities-continue Lasix. Discontinue Norvasc. Add Diovan which works for heart failure
# History of binge alcohol use has been at alcohol rehab at [facility] would like to return at discharge ( Entered [facility] use [facility] program 02/19/2025)
# Hypertension-continue , metoprolol , Doxazosin, Diovan as above
# Anxiety- DISHWASH[employer] BUSSER Bupropion, Effexor
# Enlarged prostate-continue doxazosin
# History of DVT
# Neuropathy- HX surgical repair of infected sacral wound resulting in LLE nerve pain - DISHWASH[employer] BUSSER gabapentin
# H/O CVA
# Sleep apnea-continue CPAP
# Obesity with a BMI of 52
# History of drug abuse including cocaine in the past
# DVT prophylaxis-Xarelto
# Full code
Discussed with nursing at bedside
Discussed with case management
Discussed with cardiology
Okay for discharge to [facility]
Part of this note was created using voice recognition system. Occasional wrong word or��sound alike� substitutions may have inadvertently occurred due to the inherent limitations of voice recognition software. If noted kindly bring it to my
attention for correction.
Anticipated Discharge: Today
Subjective/Interval History
-
Date of Service: March 06, 2025
Objective Data
-
Labs:
Laboratory Results
03/06/25
06:46
Sodium 134 L
Potassium 4.3
Chloride 96 L
Carbon Dioxide 31 H
BUN 19
Creatinine 1.2
Glucose 183 H
Calcium 8.4
Vital Signs:
Vital Signs
Temp Pulse Resp BP Pulse Ox
98.5 F 63 18 96/48 95
03/06/25 11:36 03/06/25 11:36 03/06/25 11:36 03/06/25 11:36 03/06/25 11:36
I&O
03/05/25 03/06/25 03/07/25
06:59 06:59 06:59
Intake Total 1320 / 1320 1720 / 1720
Output Total 2500 / 2500 2625 / 2625
Balance -1180 / -1180 -905 / -905
[2025-03-06] MEDS: AMARYL 2 MG PO (15:15)
[2025-03-06 15:16] LABS: Glucose - Point of Care 196 mg/dl (70-99)
[2025-03-06 15:29] VITALS: BP 126/91
--- NOTE | 2025-03-06 16:57 | W.DS.TRANS ---
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
-
Discharge Instructions:
Discharge Diagnosis/Procedures CHF
COVID-19 infection
Sleep apnea
Chronic lymphedema lower extremity
History of alcohol abuse
Hypertension
Anxiety
Enlarged prostate
Atrial fibrillation
Diabetes
Neuropathy
Diet 2 Gram Sodium
Additional Diets 50 ounce fluid restriction
Activity As tolerated
Driving Restrictions As prior to admission
Bathing Restrictions OK to Shower
Blood Work BMP 4-5 days
Specialty Instructions Weigh Daily
Instructions:
Stand-Alone Forms:
Changes to Home Medications: Yes
Discharge Medications:
DC Medications w/original date entered in [facility]
doxazosin 4 mg tablet 4 mg PO DAILY Urinary issue 10/19/11
gabapentin 600 mg tablet (Neurontin) 600 mg PO TID Neurological Condition 05/05/21
rivaroxaban 20 mg tablet (Xarelto) 20 mg PO DAILY Blood clot prevention/tx 05/05/21
metoprolol succinate 100 mg tablet,extended release 24 hr 150 mg PO BID Blood Pressure 11/05/24
venlafaxine 150 mg capsule,extended release 24 hr (Effexor XR) 375 mg PO DAILY Mental Health/Anxiety 11/05/24
bupropion HCl 150 mg 24 hr tablet, extended release 150 mg PO DAILY Mental Health/Anxiety 11/11/24
bumetanide 1 mg tablet 1 mg PO DAILY PRN weight gain #30 tabs 03/06/25
bumetanide 1 mg tablet 2 mg (2 x 1 mg) PO DAILY Heart Failure 30 days #30 tabs 03/06/25
glimepiride 2 mg tablet 2 mg PO DAILY Diabetes #30 tabs 03/06/25
magnesium oxide 400 mg (241.3 mg magnesium) tablet 400 mg PO DAILY Electrolyte Repletion #30 tabs 03/06/25
metformin 500 mg tablet,extended release 24 hr 1,000 mg (2 x 500 mg) PO BID Diabetes 30 days #60 tabs 03/06/25
metolazone 5 mg tablet 5 mg PO DAILY PRN weight gain #30 tabs 03/06/25
valsartan 80 mg tablet 80 mg PO DAILY Heart Failure #30 tabs 03/06/25
Home Medication Changes
new
metolazone 5 mg tablet 5 mg PO DAILY PRN weight gain #30 tabs 03/06/25
valsartan 80 mg tablet 80 mg PO DAILY Heart Failure #30 tabs 03/06/25
glimepiride 2 mg tablet 2 mg PO DAILY Diabetes #30 tabs 03/06/25
magnesium oxide 400 mg (241.3 mg magnesium) tablet 400 mg PO DAILY Electrolyte Repletion #30 tabs 03/06/25
Pending Results: No
== END 2025-03-06 18:12 | DRG 871 ==
LOC: 2 NORTH 19:07
PROVIDERS: Emergency Medicine; Internal Medicine; ADMITTING PHYSICIAN Internal Medicine; ATTENDING PHYSICIAN Hospitalist; EMERGENCY PHYSICIAN Emergency Medicine; FAMILY PHYSICIAN Family Medicine; OTHER PHYSICIAN Nuclear Medicine Nuclear Cardiology
DX: A41.89 Other specified sepsis (principal); I50.33 Acute on chronic diastolic (congestive) heart failure; U07.1 COVID-19; F10.139 Alcohol abuse with withdrawal, unspecified; Z68.43 Body mass index [BMI] 50.0-59.9, adult; E66.2 Morbid (severe) obesity with alveolar hypoventilation; J96.12 Chronic respiratory failure with hypercapnia; E87.1 Hypo-osmolality and hyponatremia; I11.0 Hypertensive heart disease with heart failure; I89.0 Lymphedema, not elsewhere classified; F41.9 Anxiety disorder, unspecified; N40.0 Benign prostatic hyperplasia without lower urinary tract symptoms; E11.40 Type 2 diabetes mellitus with diabetic neuropathy, unspecified; I48.0 Paroxysmal atrial fibrillation; Z79.01 Long term (current) use of anticoagulants; Z88.0 Allergy status to penicillin; Z88.2 Allergy status to sulfonamides; Z79.84 Long term (current) use of oral hypoglycemic drugs; Z79.899 Other long term (current) drug therapy; E78.00 Pure hypercholesterolemia, unspecified; Z86.73 Personal history of transient ischemic attack (TIA), and cerebral infarction without residual deficits; I87.2 Venous insufficiency (chronic) (peripheral); K21.9 Gastro-esophageal reflux disease without esophagitis; K76.0 Fatty (change of) liver, not elsewhere classified; M21.372 Foot drop, left foot; Z59.71 Insufficient health insurance coverage; E83.42 Hypomagnesemia; Z86.718 Personal history of other venous thrombosis and embolism
CPT/HCPCS: 71046; 80048; 80053; 82248; 82962; 83036; 83735; 83880; 84100; 84484; 85025; 85027; 87070; 93005; 94660; 96374; 99285